=== PATIENT | female | born 1945 | race American Indian/Alaskan Native ===

== ENCOUNTER 2016-12-21 08:54 | Day surgery (SDC) | payer MEDICARE, MEDICAID ==
[2016-12-20 15:28] VITALS: BMI 29.8
[2016-12-21 10:02] VITALS: RESP 20; O2SAT 99
[2016-12-21] MEDS ORDERED: Lidocaine 4% (Laryng-O-Jet) Kit MM ONE (11:05)
[2016-12-21] MEDS ORDERED: Propofol 10 mg/ml Inj (20 ML) ONE ×2 (11:53→11:54)
[2016-12-21] MEDS ORDERED: Etomidate 20 mg/10ml Inj IV ONE (12:15)
[2016-12-21 16:44] VITALS: TEMP 97
[2016-12-21 16:45] VITALS: BP 148/87; PULSE 75
--- NOTE | 2016-12-29 22:10 | CARD ---
APPROVED REPORT EXAM: Two-dimensional and M-mode echocardiogram with Doppler and color Doppler. Other Information Quality : GoodRhythm : INDICATION Aortic Valve Disease Surgery/Intervention Status/Post Aortic Valve Replacement: Bioprosthetic Status/Post Mitral Valve Replacement: Bioprosthetic 2D DIMENSIONS LVOT Diameter1.8 (1.8-2.4cm) Aortic Valve AoV Peak Uphrprzf087.9cm/sAoV HQR003.5cmAO Peak GR.73mmHg LVOT Peak Ijtzeyjq872.8cm/sLVOT VTI30.24cmAO Mean GR.35mmHg AURA (VMAX)0.00mz2HLD (VTI)0.71cm2 Mitral Valve MV E Ogirknew211.3cm/sMV E Peak Gr.27mmHgMV E Mean Gr.9mmHg E/A ratio0.0 TDI E/Lateral E'0.0E/Medial E'0.0 Tricuspid Valve TR Peak Dlwhzhed817vr/sTR Peak Gr.90tiTeQBTI22kvCo LEFT VENTRICLE The left ventricle is normal size. There is mild to moderate concentric left ventricular hypertrophy. Left ventricle systolic function is The Ejection Fraction is 60-65%. There is normal LV segmental wall motion. No left ventricle thrombus noted on this study. There is no ventricular septal defect visualized. RIGHT VENTRICLE The right ventricle is normal size. The right ventricular systolic function is normal. Moderate Pulmonary HTN. PASP =50mmHg ATRIA The left atrium is moderately dilated. The right atrium is moderately dilated. The interatrial septum is intact with no evidence for an atrial septal defect. AORTIC VALVE Bioprosthatic No aortic regurgitation is present. There is severe valvular aortic stenosis. Peak gradient 80mmHg, Mean 35mmHg AURA by contninuity equation 0.8sqcm There is no aortic valvular vegetation. MITRAL VALVE Boprosthatic There is moderate mitral valve stenosis. There is no mitral valve regurgitation noted. TRICUSPID VALVE There is mild to moderate tricuspid regurgitation. There is no tricuspid valve stenosis. PULMONIC VALVE The pulmonary valve is normal in structure. GREAT VESSELS The aortic root is normal in size. <Conclusion> Left ventricle systolic function is The Ejection Fraction is 60-65%. The right ventricular systolic function is normal. Moderate Pulmonary HTN. PASP =50mmHg The left atrium is moderately dilated. The right atrium is moderately dilated. Aortic valve is Bioprosthatic There is severe valvular aortic stenosis. Peak gradient 80mmHg, Mean 35mmHg AURA by contninuity equation 0.8sqcm Mitral valve is Boprosthatic There is moderate mitral valve stenosis. The aortic root is normal in size.
--- NOTE | 2016-12-29 22:19 | CARD ---
APPROVED REPORT EXAM: Two-dimensional and M-mode echocardiogram with Doppler and color Doppler. INDICATION BIOPROSTHATIC AVR, MVR AND DYSPNEA Mitral Valve E/A ratio0.0 TDI E/Lateral E'0.0E/Medial E'0.0 Reason For Test : Evaluate Aortic valve disease PROCEDURE After obtaining informed consent, patient underwent transesophageal echo in the [facility] [employer] [facility]. Type of Sedation : Conscious Sedation Sedation was provided by anesthesiologist. Sedation was achieved with intravenously. The OMAIRA was performed complications. Throughout the procedure, the blood pressure, pulse oximetry, cardiac rhythm, and rate were monitored. The patient tolerated the procedure without adverse effects. Recovery from conscious sedation was uneventful and vital signs were stable. LEFT VENTRICLE The left ventricle is normal size. The left ventricular function is normal. The left ventricular ejection fraction is within the normal range. No left ventricle thrombus noted on this study. There is no ventricular septal defect visualized. RIGHT VENTRICLE The right ventricle is normal size. The right ventricular systolic function is normal. ATRIA The left atrium is mildly dilated. The right atrium size is normal. The interatrial septum is intact with no evidence for an atrial septal defect. AORTIC VALVE Aortic valve Bioprosthatic No aortic regurgitation is present. AURA by planmetry 0.7 sqcm There is no aortic valvular vegetation. MITRAL VALVE Mitral valve is Bioprosthatic There is mild mitral valve stenosis. There is mild mitral valve regurgitation noted. TRICUSPID VALVE The tricuspid valve is normal in structure. There is mild tricuspid regurgitation. PULMONIC VALVE The pulmonary valve is normal in structure. GREAT VESSELS The aortic root is normal in size. <Conclusion> The left ventricular function is normal. The left ventricular ejection fraction is within the normal range. Aortic valve Bioprosthatic AURA by planmetry 0.7 sqcm Mitral valve is Bioprosthatic There is mild mitral valve stenosis. There is mild mitral valve regurgitation noted. The aortic root is normal in size.
== END 2016-12-21 16:55 | disposition home or self-care (01) ==
LOC: C.CATHLAB 08:54
PROVIDERS: ATTEND Internal Medicine Cardiovascular Disease
DX: I35.9 Nonrheumatic aortic valve disorder, unspecified (principal)
CPT/HCPCS: 93306; 93312; J2704

== ENCOUNTER 2017-01-04 07:35 | Observation (INO) | payer MEDICARE, MEDICAID ==
[2017-01-03 11:40] VITALS: BMI 29.9
[2017-01-04 09:07] LABS: CALCIUM 9.2 mg/dl (8.6-10.4)
[2017-01-04 09:15] LABS: INR 1.8; PROTHROMBIN TIME 20.3 SECONDS (9.7-12.2)
[2017-01-04] MEDS ORDERED: Potassium Chloride 20 mEq ER Tab PO ONE (09:37)
[2017-01-04] MEDS ORDERED: Potassium Chloride 20 mEq ER Tab PO STA (09:40)
[2017-01-04] MEDS ORDERED: Midazolam 2 MG/2 ML VIAL ONE (11:40)
[2017-01-04] MEDS ORDERED: Iodixanol 320 MG/ML 100 ML BOTTLE IV ONE ×2 (11:41→12:07)
[2017-01-04] MEDS ORDERED: Lidocaine 2% Inj (20ml) ONE (11:51)
--- NOTE | 2017-01-04 12:45 | CP.PCM.CON ---
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 FamHx: Mom: 2 CVA and PA, PAD Sister: secondary to breast cancer at age 59 PMD: new one at [facility] Cardiology/previous PMD: Dr Man Review of Systems - Constitutional Constitutional: absent: Chills, Fever - EENT Eyes: absent: Change in Vision - Cardiovascular Cardiovascular: Dyspnea, Orthopnea, Pedal Edema. absent: Chest Pain, Diaphoresis, Palpitations - Respiratory Respiratory: Dyspnea, Dyspnea on Exertion. absent: Cough - Gastrointestinal Gastrointestinal: absent: Abdominal Pain, Constipation, Diarrhea, Nausea, Vomiting - Genitourinary Genitourinary: absent: Change in Urinary Stream, Difficulty Urinating, Pyuria - Musculoskeletal Musculoskeletal: Numbness. absent: Tingling Additional comments: left foot - Integumentary Integumentary: Swelling - Neurological Neurological: absent: Numbness, Syncope, Weakness - Psychiatric Psychiatric: absent: Change in Appetite - Endocrine Endocrine: Fatigue. absent: Palpitations - Hematologic/Lymphatic Hematologic: absent: Easy Bleeding, Easy Bruising Physical Exam - Constitutional Appears: Well, No Acute Distress - Head Exam Head Exam: ATRAUMATIC, NORMAL INSPECTION, NORMOCEPHALIC - Eye Exam Eye Exam: EOMI, Normal appearance - ENT Exam ENT Exam: Mucous Membranes Moist - Neck Exam Neck exam: Positive for: Normal Inspection - Respiratory Exam Respiratory Exam: NORMAL BREATHING PATTERN. absent: Chest Wall Tenderness, Rhonchi, Wheezes - Cardiovascular Exam Additional comments: systolic murmur 4/6 - GI/Abdominal Exam GI & Abdominal Exam: Normal Bowel Sounds, Soft. absent: Guarding, Rebound, Tenderness - Extremities Exam Extremities exam: Positive for: pedal edema Additional comments: +1 nonpitting edema. - Neurological Exam Neurological exam: Alert, Oriented x3 - Psychiatric Exam Psychiatric exam: Normal Affect, Normal Mood - Skin Skin Exam: Dry, Warm Past Patient History - Past Medical History & Family History Past Medical History?: Yes - Past Social History Smoking Status: Former Smoker - CARDIAC Hx Cardiac Disorders: Yes (A-fib) Hx Congestive Heart Failure: Yes Hx Hypertension: Yes Hx Mitral Valve Prolapse: (Mitral Valve Disorder?) Hx Pacemaker: Yes (Left Upper Anterior Chest) Other/Comment: valve replacement. PVD - PULMONARY Hx Respiratory Disorders: No - NEUROLOGICAL Hx Neurological Disorder: No - HEENT Hx HEENT Problems: No - RENAL Hx Chronic Kidney Disease: No - ENDOCRINE/METABOLIC Hx Endocrine Disorders: No - HEMATOLOGICAL/ONCOLOGICAL Hx Blood Disorders: Yes Hx Cancer: Yes (breast) - INTEGUMENTARY Hx Dermatological Problems: No - MUSCULOSKELETAL/RHEUMATOLOGICAL Hx Musculoskeletal Disorders: No Hx Falls: No Other/Comment: PVD - GASTROINTESTINAL Hx Gastrointestinal Disorders: No - GENITOURINARY/GYNECOLOGICAL Hx Genitourinary Disorders: No - PSYCHIATRIC Hx Psychophysiologic Disorder: No Hx Substance Use: No - SURGICAL HISTORY Hx Surgeries: Yes Hx Mastectomy: Yes (right) Other/Comment: 2 valve replacement. HX: OMAIRA(12/21/16) - ANESTHESIA Hx Anesthesia: Yes Hx Anesthesia Reactions: No Hx Malignant Hyperthermia: No Meds Allergies/Adverse Reactions: Allergies Allergy/AdvReac Type Severity Reaction Status Date / Time blood plasma Allergy URTICARIA Uncoded 12/20/16 15:29 - Medications Medications: Current Medications Sodium Chloride (Sodium Chloride 0.9%) 1,000 mls @ 70 mls/hr IV .[id number] FUAD Stop: 01/05/17 13:30 Results - Labs Result Diagrams: 01/04/17 08:47 Labs: Laboratory Results - last 24 hr 01/04/17 01/04/17 08:47 08:47 PT 20.3 H INR 1.8 APTT 38 H Sodium 141 Potassium 3.2 L Chloride 102 Carbon Dioxide 25 Anion Gap 18 BUN 28 H Creatinine 1.4 H Est GFR ( Amer) 45 Est GFR (Non-Af Amer) 37 Random Glucose 114 H Calcium 9.2 Assessment & Plan - Assessment and Plan (Free Text) Assessment: 1. Severe 2. A Fib 3. Pulmonary HTN 4. CKD 5. PAD Patient s/p cath Admit to Hospitalist service Cardiology Consult: Dr. man Renal consult: Dr. Javier Normal coronaries IV Hydration overnight and follow renal function Renal consult dr. Javier Re start Coumadin tonight TAVR evaluation by Dr. Palafox as out patient
[2017-01-04] MEDS ORDERED: Sodium Chloride 0.9% 1,000 ML IV SCH (13:30)
--- NOTE | 2017-01-04 14:19 | CP.PCM.HP ---
History of Present Illness - History of Present Illness History of Present Illness: CC: s/p cardic cath procedure HPI: Mrs Javier is a 71 yr old mosotho mosotho female status post cardiac cath procedure being admitted to our service for observation prior to her transcatheter aortic valve replacement (TAVR). Patient has a history of aortic and mitral valve replacement (porcine) in 2011 and will now need the aortic valve replaced again. TAVR will be performed at [facility] at a to be determined time. She was seen and examined in the labor relations consultant. She complained of mild pain and swelling at the catheter insertion site. She is otherwise asymptomatic. PMD: New PMD at [facility] Youth Leader: Dr Man PMHx: CHF Aortic Stenosis AFib Breast Cancer HTN HLD PVD PSHx: Pacemaker placement Aortic and mitral valve replacement (porcine valves, 2011) Right breast cancer s/p radical lumpectomy and radiation therapy (2010) Common femoral endarterectomy and stent placement on the right leg (2009) Medications: amlodopine 5mg po daily carvedilol 12.5 mg po bid captopril 25mg po daily famotidine 40mg po daily ferrous sulfate 325mg po daily folic acid 1mg po daily crestor 10mg po hs Allergies: transfusion reaction (itchiness) SocialHx: former smoker 1ppd for 20 years, 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 absent: Chest Pain - Respiratory Respiratory: Dyspnea on Exertion. absent: Wheezing - Genitourinary Genitourinary: absent: Dysuria - Musculoskeletal Musculoskeletal: absent: Back Pain - Neurological Neurological: absent: Behavioral Changes - Psychiatric Psychiatric: absent: Behavioral Changes Past Patient History - Past Medical History & Family History Past Medical History?: Yes - Past Social History Smoking Status: Former Smoker - CARDIAC Hx Cardiac Disorders: Yes (A-fib) Hx Congestive Heart Failure: Yes Hx Hypertension: Yes Hx Mitral Valve Prolapse: (Mitral Valve Disorder?) Hx Pacemaker: Yes (Left Upper Anterior Chest) Other/Comment: valve replacement. PVD - PULMONARY Hx Respiratory Disorders: No - NEUROLOGICAL Hx Neurological Disorder: No - HEENT Hx HEENT Problems: No - RENAL Hx Chronic Kidney Disease: No - ENDOCRINE/METABOLIC Hx Endocrine Disorders: No - HEMATOLOGICAL/ONCOLOGICAL Hx Blood Disorders: Yes Hx Cancer: Yes (breast) - INTEGUMENTARY Hx Dermatological Problems: No - MUSCULOSKELETAL/RHEUMATOLOGICAL Hx Musculoskeletal Disorders: No Hx Falls: No Other/Comment: PVD - GASTROINTESTINAL Hx Gastrointestinal Disorders: No - GENITOURINARY/GYNECOLOGICAL Hx Genitourinary Disorders: No - PSYCHIATRIC Hx Psychophysiologic Disorder: No Hx Substance Use: No - SURGICAL HISTORY Hx Surgeries: Yes Hx Mastectomy: Yes (right) Other/Comment: 2 valve replacement. HX: OMAIRA(12/21/16) - ANESTHESIA Hx Anesthesia: Yes Hx Anesthesia Reactions: No Hx Malignant Hyperthermia: No Meds Allergies/Adverse Reactions: Allergies Allergy/AdvReac Type Severity Reaction Status Date / Time blood plasma Allergy URTICARIA Uncoded 12/20/16 15:29 Physical Exam - Constitutional Appears: Well, No Acute Distress - Head Exam Head Exam: ATRAUMATIC, NORMAL INSPECTION, NORMOCEPHALIC - Eye Exam Eye Exam: EOMI, Normal appearance, PERRL - ENT Exam ENT Exam: Mucous Membranes Moist, Normal Exam Additional comments: dentures in superior oral cavity - Neck Exam Neck exam: Positive for: Normal Inspection - Respiratory Exam Respiratory Exam: Clear to Auscultation Bilateral, NORMAL BREATHING PATTERN - Cardiovascular Exam Cardiovascular Exam: REGULAR RHYTHM, Systolic Murmur Additional comments: systolic murmur heard best in aortic area - GI/Abdominal Exam GI & Abdominal Exam: Hypoactive Bowel Sounds, Soft. absent: Tenderness - Rectal Exam Rectal Exam: Deferred - Extremities Exam Extremities exam: Positive for: pedal edema - Neurological Exam Neurological exam: Alert, Oriented x3 - Psychiatric Exam Psychiatric exam: Normal Affect, Normal Mood - Skin Skin Exam: Dry, Intact, Normal Color, Warm Results - Labs Result Diagrams: 01/04/17 08:47 Labs: Laboratory Results - last 24 hr 01/04/17 01/04/17 08:47 08:47 PT 20.3 H INR 1.8 APTT 38 H Sodium 141 Potassium 3.2 L Chloride 102 Carbon Dioxide 25 Anion Gap 18 BUN 28 H Creatinine 1.4 H Est GFR ( Amer) 45 Est GFR (Non-Af Amer) 37 Random Glucose 114 H Calcium 9.2 Assessment & Plan (1) Status post cardiac catheterization Assessment and Plan: Cardiology consulted, Dr Man Nephrology consulted, Dr Javier Status: Acute (2) Hypertension Assessment and Plan: see CHF medications Status: Acute (3) S/P aortic valve and mitral valve replacement Status: Acute (4) PVD (peripheral vascular disease) Status: Acute (5) Atrial fibrillation Assessment and Plan: coumadin 2mg po daily, follow INR Status: Acute (6) HLD (hyperlipidemia) Assessment and Plan: crestor 10mg po daily Status: Acute (7) GERD (gastroesophageal reflux disease) Assessment and Plan: famotidine 40mg po daily Status: Acute (8) CHF (congestive heart failure) Assessment and Plan: carvedilol 12.5mg po bid amlodipine 5mg po daily vasotech 5mg po daily - patient's home medication captopril was not available per pharmacy, vasotech was recommended as substitute Status: Acute (9) Iron deficiency anemia Assessment and Plan: ferrous sulfate 325mg po daily solic acid 1mg po daily Status: Acute (10) Hypokalemia Assessment and Plan: K+ 3.2 -> kdur 40meq 1 dose Status: Acute (11) Prophylactic measure Assessment and Plan: scd's b/l heparin 5000u sc q8 vitals q4 heart healthy diet Status: Acute
--- NOTE | 2017-01-04 17:10 | CP.PCM.CON ---
<Leah Shah - Last Filed: 01/04/17 19:41> History of Present Illness - History of Present Illness History of Present Illness: Cardiology Consult note for Dr. Man Reason for consult: 71 AA female PMHx CHF, Aortic Stenosis, AFib, Breast Cancer, HTN, HLD, PVD admitted for observation s/p cardiac cath 01/[address] Pennington. Cardiac cath was done as patient is due for TAVR at [facility] in the near future with Dr. Pennington. Patient has a history of porcine aortic and mitral valve replacement in 2011, however patient needs aortic valve replaced. Patient was complaining of shortness of breath when she was lying flat and some mild pain and swelling at the catheter insertion site but was otherwise asymptomatic. 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 absent: Chills, Fever - EENT Eyes: As Per HPI. absent: Blurred Vision Ears: As Per HPI. absent: Dizziness - Cardiovascular Cardiovascular: As Per HPI, Dyspnea on Exertion. absent: Chest Pain - Respiratory Respiratory: As Per HPI, Dyspnea, Dyspnea on Exertion. absent: Cough - Gastrointestinal Gastrointestinal: As Per HPI. absent: Abdominal Pain, Constipation, Diarrhea, Nausea, Vomiting - Genitourinary Genitourinary: As Per HPI. absent: Dysuria - Musculoskeletal Musculoskeletal: As Per HPI. absent: Back Pain - Neurological Neurological: As Per HPI. absent: Dizziness, Headaches - Endocrine Endocrine: As Per HPI. absent: Polydipsia, Polyphagia Past Patient History - Past Medical History & Family History Past Medical History?: Yes - Past Social History Smoking Status: Former Smoker - CARDIAC Hx Cardiac Disorders: Yes (A-fib) Hx Congestive Heart Failure: Yes Hx Hypertension: Yes Hx Mitral Valve Prolapse: (Mitral Valve Disorder?) Hx Pacemaker: Yes (Left Upper Anterior Chest) Other/Comment: valve replacement. PVD - PULMONARY Hx Respiratory Disorders: No - NEUROLOGICAL Hx Neurological Disorder: No - HEENT Hx HEENT Problems: No - RENAL Hx Chronic Kidney Disease: No - ENDOCRINE/METABOLIC Hx Endocrine Disorders: No - HEMATOLOGICAL/ONCOLOGICAL Hx Blood Disorders: Yes Hx Cancer: Yes (breast) - INTEGUMENTARY Hx Dermatological Problems: No - MUSCULOSKELETAL/RHEUMATOLOGICAL Hx Musculoskeletal Disorders: No Hx Falls: No Other/Comment: PVD - GASTROINTESTINAL Hx Gastrointestinal Disorders: No - GENITOURINARY/GYNECOLOGICAL Hx Genitourinary Disorders: No - PSYCHIATRIC Hx Psychophysiologic Disorder: No Hx Substance Use: No - SURGICAL HISTORY Hx Surgeries: Yes Hx Mastectomy: Yes (right) Other/Comment: 2 valve replacement. HX: OMAIRA(12/21/16) - ANESTHESIA Hx Anesthesia: Yes Hx Anesthesia Reactions: No Hx Malignant Hyperthermia: No Meds Allergies/Adverse Reactions: Allergies Allergy/AdvReac Type Severity Reaction Status Date / Time blood plasma Allergy URTICARIA Uncoded 12/20/16 15:29 - Medications Medications: Current Medications Amlodipine Besylate (Norvasc) 5 mg PO DAILY [facility] Carvedilol (Coreg) 12.5 mg PO BID [facility] Enalapril Maleate (Vasotec) 5 mg PO DAILY [facility] Famotidine (Pepcid) 40 mg PO DAILY [facility] Ferrous Sulfate (Feosol) 325 mg PO DAILY [facility] Folic Acid (Folic Acid) 1 mg PO DAILY [facility] Heparin Sodium (Porcine) (Heparin) 5,000 units SC Q8 [facility] Sodium Chloride (Sodium Chloride 0.9%) 1,000 mls @ 70 mls/hr IV .[id number] [facility] Stop: 01/05/17 13:30 Rosuvastatin Calcium (Crestor) 10 mg PO HS [facility] Warfarin Sodium (Coumadin) 2 mg PO 1800 [facility] Stop: 01/04/17 18:01 Physical Exam - Constitutional Appears: Well, No Acute Distress - Head Exam Head Exam: NORMAL INSPECTION, NORMOCEPHALIC - Eye Exam Eye Exam: EOMI, Normal appearance. absent: Conjunctival injection, Scleral icterus Pupil Exam: PERRL - ENT Exam ENT Exam: Mucous Membranes Moist - Respiratory Exam Respiratory Exam: Clear to Auscultation Bilateral, NORMAL BREATHING PATTERN. absent: Accessory Muscle Use, Rales, Rhonchi, Wheezes, Respiratory Distress - Cardiovascular Exam Cardiovascular Exam: REGULAR RHYTHM, +S1, +S2, Systolic Murmur (4/6 radiating to carotids) - GI/Abdominal Exam GI & Abdominal Exam: Normal Bowel Sounds, Soft. absent: Tenderness - Extremities Exam Extremities exam: Positive for: pedal edema (+1 nonpitting). Negative for: tenderness - Neurological Exam Neurological exam: Alert, Oriented x3 - Psychiatric Exam Psychiatric exam: Normal Affect, Normal Mood - Skin Skin Exam: Dry, Intact, Normal Color, Warm Results - Vital Signs Recent Vital Signs: Last Vital Signs Temp 97.2 F L 01/04/17 15:55 Pulse 61 01/04/17 15:55 Resp 20 01/04/17 15:55 BP 145/81 01/04/17 15:55 Pulse Ox 96 01/04/17 15:55 - Labs Result Diagrams: 01/04/17 08:47 Labs: Laboratory Results - last 24 hr 01/04/17 01/04/17 08:47 08:47 PT 20.3 H INR 1.8 APTT 38 H Sodium 141 Potassium 3.2 L Chloride 102 Carbon Dioxide 25 Anion Gap 18 BUN 28 H Creatinine 1.4 H Est GFR ( Amer) 45 Est GFR (Non-Af Amer) 37 Random Glucose 114 H Calcium 9.2 Assessment & Plan - Assessment and Plan (Free Text) Assessment: 71 AA female PMHx CHF, Aortic Stenosis, AFib, Breast Cancer, HTN, HLD, PVD admitted for observation s/p cardiac cath 01/[address] Pennington Plan: -s/p cardiac cath that showed normal coronaries IV hydration at 70cc/hr s/p cath as patient has hx of renal disease -Continue current medical management Norvasc 5mg po daily Coreg 12.5mg po bid Enalapril 5mg po daily Crestor 10mg po hs Warfarin 2mg po daily -TAVR at [facility] in the near future with Dr. Pennington Cardiology will follow Case discussed with Dr. Donovan Shah PGY2 <Clare Man - Last Filed: 01/09/17 10:54> Results - Vital Signs Recent Vital Signs: Last Vital Signs Temp 98.9 F 01/05/17 15:00 Pulse 85 01/05/17 15:45 Resp 20 01/05/17 15:00 BP 150/73 01/05/17 17:27 Pulse Ox 94 L 01/05/17 15:00 - Labs Result Diagrams: 01/05/17 06:36 01/05/17 06:36 Attending/Attestation - Attestation I have personally seen and examined this patient.: Yes I have fully participated in the care of the patient.: Yes I have reviewed all pertinent clinical information: Yes Notes (Text): 01/09/17 10:54 Pt workup for TAVR severe pt stable
--- NOTE | 2017-01-05 06:31 | CP.PCM.PN ---
Subjective - Date & Time of Evaluation Date of Evaluation: 01/05/17 Time of Evaluation: 06:31 - Subjective Subjective: Tolerating PO no CP no sob Objective - Vital Signs/Intake and Output Vital Signs (last 24 hours): Temp Pulse Resp BP Pulse Ox 98.9 F 70 20 144/79 96 01/05/17 04:00 01/05/17 04:00 01/05/17 04:00 01/05/17 04:00 01/04/17 23:05 Intake and Output: 01/04/17 01/05/17 18:59 06:59 Intake Total 900 Balance 900 - Medications Medications: Current Medications Amlodipine Besylate (Norvasc) 5 mg PO DAILY [facility] Carvedilol (Coreg) 12.5 mg PO BID [facility] Last Admin: 01/04/17 17:49 Dose: 12.5 mg Enalapril Maleate (Vasotec) 5 mg PO DAILY [facility] Famotidine (Pepcid) 40 mg PO DAILY [facility] Ferrous Sulfate (Feosol) 325 mg PO DAILY [facility] Folic Acid (Folic Acid) 1 mg PO DAILY [facility] Heparin Sodium (Porcine) (Heparin) 5,000 units SC Q8 [facility] Last Admin: 01/05/17 05:59 Dose: 5,000 units Sodium Chloride (Sodium Chloride 0.9%) 1,000 mls @ 70 mls/hr IV .[id number] [facility] Stop: 01/05/17 13:30 Last Admin: 01/04/17 16:00 Dose: 70 mls/hr Rosuvastatin Calcium (Crestor) 10 mg PO HS [facility] Last Admin: 01/04/17 21:53 Dose: 10 mg - Labs Labs: 01/04/17 08:47 PT 20.3 SECONDS (9.7-12.2) H 01/04/17 08:47 INR 1.8 01/04/17 08:47 APTT 38 SECONDS (21-34) H 01/04/17 08:47 - Constitutional Appears: Well - Head Exam Head Exam: ATRAUMATIC, NORMOCEPHALIC - Eye Exam Eye Exam: Normal appearance - ENT Exam ENT Exam: Mucous Membranes Moist - Respiratory Exam Respiratory Exam: Clear to Ausculation Bilateral - Cardiovascular Exam Cardiovascular Exam: Irregular Rhythm, +S1, +S2, Murmur - GI/Abdominal Exam GI & Abdominal Exam: Normal Bowel Sounds - Extremities Exam Extremities Exam: Normal Inspection - Neurological Exam Neurological Exam: Alert, Awake - Psychiatric Exam Psychiatric exam: Normal Affect - Skin Skin Exam: Dry Assessment and Plan (1) Atrial fibrillation Assessment & Plan: s/p MVR s/p ppm appr function severe for TAVR f/u in office and NBI for TAVR Status: Acute (2) Status post cardiac catheterization Status: Acute
[2017-01-05 06:53] LABS: BASO % 0.6 % (0.0-2.0); EOS # 0.2 K/uL (0.0-0.7); EOS % 2.1 % (0.0-4.0); HEMOGLOBIN 9.5 g/dL (11.0-16.0); LYMPH # 1.1 K/uL (1.0-4.3); MEAN CELL VOLUME 74.2 fL (81.0-99.0); MEAN CORPUSCULAR HEMOGLOBIN 24.3 pg (27.0-31.0); MEAN CORPUSCULAR HGB CONC 32.7 g/dL (33.0-37.0); MEAN PLATELET VOLUME 8.7 fL (7.2-11.7); MONO # 0.4 K/uL (0.0-0.8); MONO % 4.7 % (0.0-10.0); NEUT # 6.5 K/uL (1.8-7.0); NEUT % 79.6 % (50.0-75.0); NRBC % 0.1 % (0.0-2.0); RBC 3.93 Mil/uL (3.80-5.20); RED CELL DISTRIBUTION WIDTH 18.9 % (11.5-14.5); WHITE BLOOD COUNT 8.2 K/uL (4.8-10.8)
[2017-01-05 07:10] LABS: ALBUMIN 3.1 g/dL (3.5-5.0)
[2017-01-05 07:11] LABS: INR 1.6; PROTHROMBIN TIME 18.7 SECONDS (9.7-12.2)
[2017-01-05 07:13] LABS: ALB/GLOB RATIO 0.9 (1.0-2.1)
[2017-01-05 07:14] LABS: MAGNESIUM 1.8 mg/dL (1.6-2.3)
[2017-01-05] MEDS ORDERED: Potassium Chloride 20 mEq ER Tab PO ONE ×2 (10:00→17:30)
[2017-01-05 11:51] VITALS: RESP 20
[2017-01-05 16:17] VITALS: PULSE 85
[2017-01-05 17:29] VITALS: BP 150/73
[2017-01-05 17:34] VITALS: TEMP 98.9; O2SAT 94
--- NOTE | 2017-01-05 17:55 | CP.PCM.PN ---
Subjective - Date & Time of Evaluation Date of Evaluation: 01/05/17 Time of Evaluation: 17:30 - Subjective Subjective: Hospitalist Progress Note (Patient was seen and examined at 5:30 PM 01/05/17) 71 year old female who was admitted for observation S/P Cardiac Catheterization on 01/04/17 for clearance for Trans Catheter Aortic Valve Replacement at [facility] (Former[facility]). She had Renal Insufficiency after the Cardiac Catheterization, she was gently hydrated, her diuretic was held, and her Renal Function improved. Currently upon FULL ROS there is NO chest pain, NO palpitations, NO SOB (bill will feel like she has to catch her breath more and more with less and less of activity), NO cough/wheezing, NO abdominal pain, NO n/v/d/c, NO dysphagia/ odynophagia, NO burning/pain with urination, NO lightheadedness/dizziness, NO paresthesias, NO headache, NO new changes in vision, NO new changes in hearing. Physical Exam - Constitutional Appears: Well, No Acute Distress - Head Exam Head Exam: ATRAUMATIC, NORMAL INSPECTION, NORMOCEPHALIC - Eye Exam Eye Exam: EOMI, Normal appearance, PERRL - ENT Exam ENT Exam: Mucous Membranes Moist, Normal Exam Additional comments: dentures in superior oral cavity - Neck Exam Neck exam: Positive for: Normal Inspection - Respiratory Exam Respiratory Exam: Clear to Auscultation Bilateral, NORMAL BREATHING PATTERN - Cardiovascular Exam Cardiovascular Exam: REGULAR RHYTHM, HOLOSYSTOLIC MURMUR IN ALL AUSCULTATORY RIVERA, S1 AND S2 ARE NOT DESCERNABLE. Additional comments: - GI/Abdominal Exam GI & Abdominal Exam: Hypoactive Bowel Sounds, Soft. absent: Tenderness - Rectal Exam Rectal Exam: Deferred - Extremities Exam Extremities exam: Positive for: pedal edema. NO bleeding from Right Groin Catheterization entry site - Neurological Exam Neurological exam: Alert, Oriented x3 - Psychiatric Exam Psychiatric exam: Normal Affect, Normal Mood - Skin Skin Exam: Dry, Intact, Normal Color, Warm The patient is stable for discharge from medical and cardiology (Dr. Man who recommended Clonidine 0.1 mg PO 2x/day for the elevated blood pressure) standpoint. The following instructions should be provided to patient upon discharge: 1). Schedule follow up with Dr. Man by calling his office on Saturday morning for an appointment to take place this coming week. 2). Schedule follow up with Dr. Pennington by calling his office on Saturday01/07/17 morning to see when he would like to see you and schedule you for your Aortic Valve Replacement. 3). Please continue the following home medications which I went over with your and saw that you had enough of: Warfarin 3 mg, 1 tablet by mouth at bedtime Pantoprazole 40 mg, 1 tablet by mouth 1x/day Ferrous Sulfate 324 mg 1 tablet by mouth 1x/day Amlodipine 5 mg, 1 tablet by mouth 1x/day Allopurinol 300 mg, 1 tablet by mouth 1x/day Crestor 10 mg, 1 tablet by mouth 1x/day Carvedilol 25 mg, 1 tablet by mouth 1x/day 4). Please do not take Lasix until further directed by Dr. Man. This medication was held during your hospital admission because of declining kidney function. 5). The following prescription was provided to you and is a new medication: Clonidine 0.1 mg, 1 tablet by mouth 2x/day (breakfast and dinner). 6). Please take care. Terrell Naranjo D.O. Objective - Vital Signs/Intake and Output Vital Signs (last 24 hours): Temp Pulse Resp BP Pulse Ox 98.9 F 85 20 150/73 94 L 01/05/17 15:00 01/05/17 15:45 01/05/17 15:00 01/05/17 17:27 01/05/17 15:00 Intake and Output: 01/05/17 01/05/17 06:59 18:59 Intake Total 900 Balance 900 - Medications Medications: Current Medications Amlodipine Besylate (Norvasc) 5 mg PO DAILY [facility] Last Admin: 01/05/17 09:39 Dose: 5 mg Carvedilol (Coreg) 12.5 mg PO BID [facility] Last Admin: 01/05/17 17:27 Dose: 12.5 mg Enalapril Maleate (Vasotec) 5 mg PO DAILY [facility] Last Admin: 01/05/17 09:39 Dose: 5 mg Famotidine (Pepcid) 40 mg PO DAILY [facility] Last Admin: 01/05/17 09:39 Dose: 40 mg Ferrous Sulfate (Feosol) 325 mg PO DAILY [facility] Last Admin: 01/05/17 09:39 Dose: 325 mg Folic Acid (Folic Acid) 1 mg PO DAILY [facility] Last Admin: 01/05/17 09:38 Dose: 1 mg Heparin Sodium (Porcine) (Heparin) 5,000 units SC Q8 [facility] Last Admin: 01/05/17 13:13 Dose: 5,000 units Rosuvastatin Calcium (Crestor) 10 mg PO HS [facility] Last Admin: 01/04/17 21:53 Dose: 10 mg - Labs Labs: 01/05/17 06:36 01/05/17 06:36 PT 18.7 SECONDS (9.7-12.2) H 01/05/17 06:36 INR 1.6 01/05/17 06:36 APTT 34 SECONDS (21-34) 01/05/17 06:36
--- NOTE | 2017-01-05 18:24 | CP.PCM.DIS ---
<Naveed Maria - Last Filed: 01/05/17 18:18> Provider - Provider Date of Admission: 01/04/17 13:50 Attending physician: Terrell Naranjo MD Primary care physician: PMD: new PMD at [facility] Consults: Cardiology - Dr Man Nephrology - Dr Javier Time Spent in preparation of Discharge (in minutes): 45 Diagnosis - Discharge Diagnosis (1) Status post cardiac catheterization Status: Acute (2) Hypertension Status: Acute (3) S/P aortic valve and mitral valve replacement Status: Acute (4) PVD (peripheral vascular disease) Status: Acute (5) Atrial fibrillation Status: Acute (6) HLD (hyperlipidemia) Status: Acute (7) GERD (gastroesophageal reflux disease) Status: Acute (8) CHF (congestive heart failure) Status: Acute (9) Iron deficiency anemia Status: Acute (10) Hypokalemia Status: Acute (11) Prophylactic measure Status: Acute Hospital Course - Lab Results Lab Results: Most Recent Lab Values WBC 8.2 K/uL (4.8-10.8) D 01/05/17 06:36 RBC 3.93 Mil/uL (3.80-5.20) 01/05/17 06:36 Hgb 9.5 g/dL (11.0-16.0) L 01/05/17 06:36 Hct 29.2 % (34.0-47.0) L 01/05/17 06:36 MCV 74.2 fL (81.0-99.0) L D 01/05/17 06:36 MCH 24.3 pg (27.0-31.0) L 01/05/17 06:36 MCHC 32.7 g/dL (33.0-37.0) L 01/05/17 06:36 RDW 18.9 % (11.5-14.5) H 01/05/17 06:36 Plt Count 160 K/uL (130-400) 01/05/17 06:36 MPV 8.7 fL (7.2-11.7) 01/05/17 06:36 Neut % (Auto) 79.6 % (50.0-75.0) H 01/05/17 06:36 Lymph % (Auto) 13.0 % (20.0-40.0) L 01/05/17 06:36 [place] % (Auto) 4.7 % (0.0-10.0) 01/05/17 06:36 Eos % (Auto) 2.1 % (0.0-4.0) 01/05/17 06:36 Baso % (Auto) 0.6 % (0.0-2.0) 01/05/17 06:36 Neut # 6.5 K/uL (1.8-7.0) 01/05/17 06:36 Lymph # 1.1 K/uL (1.0-4.3) 01/05/17 06:36 [place] # 0.4 K/uL (0.0-0.8) 01/05/17 06:36 Eos # 0.2 K/uL (0.0-0.7) 01/05/17 06:36 Baso # 0.0 K/uL (0.0-0.2) 01/05/17 06:36 PT 18.7 SECONDS (9.7-12.2) H 01/05/17 06:36 INR 1.6 01/05/17 06:36 APTT 34 SECONDS (21-34) 01/05/17 06:36 Sodium 141 mmol/L (132-148) 01/05/17 06:36 Potassium 3.4 mmol/L (3.6-5.2) L 01/05/17 06:36 Chloride 105 mmol/L (98-107) 01/05/17 06:36 Carbon Dioxide 22 mmol/L (22-30) 01/05/17 06:36 Anion Gap 17 (10-20) 01/05/17 06:36 BUN 23 mg/dL (7-17) H 01/05/17 06:36 Creatinine 1.3 MG/DL (0.7-1.2) H 01/05/17 06:36 Est GFR ( Amer) 49 01/05/17 06:36 Est GFR (Non-Af Amer) 41 01/05/17 06:36 Random Glucose 93 mg/dL (65-105) 01/05/17 06:36 Calcium 9.0 mg/dl (8.6-10.4) 01/05/17 06:36 Phosphorus 3.0 mg/dL (2.5-4.5) 01/05/17 06:36 Magnesium 1.8 mg/dL (1.6-2.3) 01/05/17 06:36 Total Bilirubin 1.1 mg/dL (0.2-1.3) 01/05/17 06:36 AST 16 U/L (14-36) 01/05/17 06:36 ALT 24 U/L (9-52) 01/05/17 06:36 Alkaline Phosphatase 88 U/L (38-126) 01/05/17 06:36 Total Protein 6.7 g/dL (6.3-8.3) 01/05/17 06:36 Albumin 3.1 g/dL (3.5-5.0) L 01/05/17 06:36 Globulin 3.6 gm/dL (2.2-3.9) 01/05/17 06:36 Albumin/Globulin Ratio 0.9 (1.0-2.1) L 01/05/17 06:36 - Hospital Course Hospital Course: CC: s/p [facility] cath procedure HPI: Mrs Javier is a 71 yr old ugandan ugandan female status post cardiac cath procedure being admitted to our service for observation prior to her transcatheter aortic valve replacement (TAVR). Patient has a history of aortic and mitral valve replacement (porcine) in 2011 and will now need the aortic valve replaced again. TAVR will be performed at [facility] at a to be determined time. She was seen and examined in the chemical laboratory technician. She complained of mild pain and swelling at the catheter insertion site. She is otherwise asymptomatic. PMD: New PMD at [facility] Supervisor [employer]: Dr Man PMHx: CHF Aortic Stenosis AFib Breast Cancer HTN HLD PVD PSHx: Pacemaker placement Aortic and mitral valve replacement (porcine valves, 2011) Right breast cancer s/p radical lumpectomy and radiation therapy (2010) Common femoral endarterectomy and stent placement on the right leg (2009) Medications: amlodopine 5mg po daily carvedilol 12.5 mg po bid captopril 25mg po daily famotidine 40mg po daily ferrous sulfate 325mg po daily folic acid 1mg po daily crestor 10mg po hs Allergies: transfusion reaction (itchiness) SocialHx: former smoker 1ppd for 20 years, 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 She had Renal Insufficiency after the Cardiac Catheterization, she was gently hydrated, her diuretic was held, and her Renal Function improved. Her potassium was low which was repleted with Kdur 40meq po. Cardiology and Nephrology were both consulted and both disciplines have cleared the patient per Dr Naranjo's conversation with the specialists. Discharge Exam - Head Exam Head Exam: ATRAUMATIC, NORMAL INSPECTION, NORMOCEPHALIC - Eye Exam Eye Exam: EOMI, Normal appearance, PERRL - ENT Exam ENT Exam: Mucous Membranes Moist - Neck Exam Neck exam: Normal Inspection - Respiratory Exam Respiratory Exam: NORMAL BREATHING PATTERN. absent: Rales, Rhonchi, Wheezes - Cardiovascular Exam Cardiovascular Exam: REGULAR RHYTHM, RRR, +S1, +S2 - GI/Abdominal Exam GI & Abdominal Exam: Normal Bowel Sounds, Soft. absent: Tenderness - Rectal Exam Rectal Exam: Deferred - Neurological Exam Neurological exam: Alert, Oriented x3 - Psychiatric Exam Psychiatric exam: Normal Affect, Normal Mood - Skin Skin Exam: Dry, Intact, Normal Color, Warm Discharge Plan - Discharge Medications Prescriptions: cloNIDine [Catapres] 0.1 mg PO BID #60 tab - Follow Up Plan Condition: GOOD Disposition: HOME/ ROUTINE Instructions: Heart Healthy Diet (DC), Hypokalemia (DC), Iron Deficiency Anemia (DC) Additional Instructions: The patient is stable for discharge from medical and cardiology (Dr. Man who recommended Clonidine 0.1 mg PO 2x/day for the elevated blood pressure) standpoint. The following instructions should be provided to patient upon discharge: 1). Schedule follow up with Dr. Man by calling his office on Saturday morning for an appointment to take place this coming week. 2). Schedule follow up with Dr. Pennington by calling his office on Saturday01/07/17 morning to see when he would like to see you and schedule you for your Aortic Valve Replacement. 3). Please continue the following home medications which I went over with your and saw that you had enough of: Warfarin 3 mg, 1 tablet by mouth at bedtime Pantoprazole 40 mg, 1 tablet by mouth 1x/day Ferrous Sulfate 324 mg 1 tablet by mouth 1x/day Amlodipine 5 mg, 1 tablet by mouth 1x/day Allopurinol 300 mg, 1 tablet by mouth 1x/day Crestor 10 mg, 1 tablet by mouth 1x/day Carvedilol 25 mg, 1 tablet by mouth 1x/day 4). Please do not take Lasix until further directed by Dr. Man. This medication was held during your hospital admission because of declining kidney function. 5). The following prescription was provided to you and is a new medication: Clonidine 0.1 mg, 1 tablet by mouth 2x/day (breakfast and dinner). 6). Please take care. Terrell Naranjo D.O. Referrals: Clare Man MD [Family Provider] - Mohan Pennington MD [Staff Provider] - Jose Enrique Javier MD [Staff Provider] - <Terrell Naranjo - Last Filed: 01/05/17 20:45> Provider - Provider Date of Admission: 01/04/17 13:50 Attending physician: Terrell Naranjo MD Hospital Course - Lab Results Lab Results: Most Recent Lab Values WBC 8.2 K/uL (4.8-10.8) D 01/05/17 06:36 RBC 3.93 Mil/uL (3.80-5.20) 01/05/17 06:36 Hgb 9.5 g/dL (11.0-16.0) L 01/05/17 06:36 Hct 29.2 % (34.0-47.0) L 01/05/17 06:36 MCV 74.2 fL (81.0-99.0) L D 01/05/17 06:36 MCH 24.3 pg (27.0-31.0) L 01/05/17 06:36 MCHC 32.7 g/dL (33.0-37.0) L 01/05/17 06:36 RDW 18.9 % (11.5-14.5) H 01/05/17 06:36 Plt Count 160 K/uL (130-400) 01/05/17 06:36 MPV 8.7 fL (7.2-11.7) 01/05/17 06:36 Neut % (Auto) 79.6 % (50.0-75.0) H 01/05/17 06:36 Lymph % (Auto) 13.0 % (20.0-40.0) L 01/05/17 06:36 [place] % (Auto) 4.7 % (0.0-10.0) 01/05/17 06:36 Eos % (Auto) 2.1 % (0.0-4.0) 01/05/17 06:36 Baso % (Auto) 0.6 % (0.0-2.0) 01/05/17 06:36 Neut # 6.5 K/uL (1.8-7.0) 01/05/17 06:36 Lymph # 1.1 K/uL (1.0-4.3) 01/05/17 06:36 [place] # 0.4 K/uL (0.0-0.8) 01/05/17 06:36 Eos # 0.2 K/uL (0.0-0.7) 01/05/17 06:36 Baso # 0.0 K/uL (0.0-0.2) 01/05/17 06:36 PT 18.7 SECONDS (9.7-12.2) H 01/05/17 06:36 INR 1.6 01/05/17 06:36 APTT 34 SECONDS (21-34) 01/05/17 06:36 Sodium 141 mmol/L (132-148) 01/05/17 06:36 Potassium 3.4 mmol/L (3.6-5.2) L 01/05/17 06:36 Chloride 105 mmol/L (98-107) 01/05/17 06:36 Carbon Dioxide 22 mmol/L (22-30) 01/05/17 06:36 Anion Gap 17 (10-20) 01/05/17 06:36 BUN 23 mg/dL (7-17) H 01/05/17 06:36 Creatinine 1.3 MG/DL (0.7-1.2) H 01/05/17 06:36 Est GFR ( Amer) 49 01/05/17 06:36 Est GFR (Non-Af Amer) 41 01/05/17 06:36 Random Glucose 93 mg/dL (65-105) 01/05/17 06:36 Calcium 9.0 mg/dl (8.6-10.4) 01/05/17 06:36 Phosphorus 3.0 mg/dL (2.5-4.5) 01/05/17 06:36 Magnesium 1.8 mg/dL (1.6-2.3) 01/05/17 06:36 Total Bilirubin 1.1 mg/dL (0.2-1.3) 01/05/17 06:36 AST 16 U/L (14-36) 01/05/17 06:36 ALT 24 U/L (9-52) 01/05/17 06:36 Alkaline Phosphatase 88 U/L (38-126) 01/05/17 06:36 Total Protein 6.7 g/dL (6.3-8.3) 01/05/17 06:36 Albumin 3.1 g/dL (3.5-5.0) L 01/05/17 06:36 Globulin 3.6 gm/dL (2.2-3.9) 01/05/17 06:36 Albumin/Globulin Ratio 0.9 (1.0-2.1) L 01/05/17 06:36 Attending/Attestation - Attestation I have personally seen and examined this patient.: Yes I have fully participated in the care of the patient.: Yes I have reviewed all pertinent clinical information, including history, physical exam and plan: Yes Notes (Text): 01/05/17 20:40 Please see my progress note as well. Terrell Naranjo D.O.
--- NOTE | 2017-01-05 23:01 | CP.PCM.PN ---
Subjective - Date & Time of Evaluation Date of Evaluation: 01/05/17 Time of Evaluation: 08:05 - Subjective Subjective: History of Present Illness - History of Present Illness History of Present Illness: cc: Exertional dyspnea 71F for TAVR evaluation for severe s/p cath PMH: Right breast cancer s/p radical lumpectomy and radiation therapy (2010) Atrial fibrillation on anticoagulation therapy (2006) Bilateral PAD with stent placement on the right leg (2009) h/o Aortic and mitral valve replacement (bovine valves, 2011) PSH: Pacemaker placement, valve replacement, angiogram and stent, radical lumpectomy SS: former smoker 1ppd for 20 years, 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 FamHx: Mom: 2 CVA and [place], PAD Sister: secondary to breast cancer at age 59 PMD: new one at [facility] Cardiology/previous PMD: Dr Man Review of Systems - Constitutional Constitutional: absent: Chills, Fever - EENT Eyes: absent: Change in Vision - Cardiovascular Cardiovascular: Dyspnea, Orthopnea, Pedal Edema. absent: Chest Pain, Diaphoresis, Palpitations - Respiratory Respiratory: Dyspnea, Dyspnea on Exertion. absent: Cough - Gastrointestinal Gastrointestinal: absent: Abdominal Pain, Constipation, Diarrhea, Nausea, Vomiting - Genitourinary Genitourinary: absent: Change in Urinary Stream, Difficulty Urinating, Pyuria - Musculoskeletal Musculoskeletal: Numbness. absent: Tingling Additional comments: left foot - Integumentary Integumentary: Swelling - Neurological Neurological: absent: Numbness, Syncope, Weakness - Psychiatric Psychiatric: absent: Change in Appetite - Endocrine Endocrine: Fatigue. absent: Palpitations - Hematologic/Lymphatic Hematologic: absent: Easy Bleeding, Easy Bruising Physical Exam - Constitutional Appears: Well, No Acute Distress - Head Exam Head Exam: ATRAUMATIC, NORMAL INSPECTION, NORMOCEPHALIC - Eye Exam Eye Exam: EOMI, Normal appearance - ENT Exam ENT Exam: Mucous Membranes Moist - Neck Exam Neck exam: Positive for: Normal Inspection - Respiratory Exam Respiratory Exam: NORMAL BREATHING PATTERN. absent: Chest Wall Tenderness, Rhonchi, Wheezes - Cardiovascular Exam Additional comments: systolic murmur 4/6 - GI/Abdominal Exam GI & Abdominal Exam: Normal Bowel Sounds, Soft. absent: Guarding, Rebound, Tenderness - Extremities Exam Extremities exam: Positive for: pedal edema Additional comments: +1 nonpitting edema. - Neurological Exam Neurological exam: Alert, Oriented x3 - Psychiatric Exam Psychiatric exam: Normal Affect, Normal Mood - Skin Skin Exam: Dry, Warm Objective - Vital Signs/Intake and Output Vital Signs (last 24 hours): Temp Pulse Resp BP Pulse Ox 98.9 F 85 20 150/73 94 L 01/05/17 15:00 01/05/17 15:45 01/05/17 15:00 01/05/17 17:27 01/05/17 15:00 - Labs Labs: 01/05/17 06:36 01/05/17 06:36 PT 18.7 SECONDS (9.7-12.2) H 01/05/17 06:36 INR 1.6 01/05/17 06:36 APTT 34 SECONDS (21-34) 01/05/17 06:36 Assessment and Plan - Assessment and Plan (Free Text) Assessment: Assessment & Plan - Assessment and Plan (Free Text) Assessment: 71 AA female PMHx CHF, Aortic Stenosis, AFib, Breast Cancer, HTN, HLD, PVD admitted for observation s/p cardiac cath 01/04 w Plan: -s/p cardiac cath that showed normal coronaries -Continue current medical management Norvasc 5mg po daily Coreg 12.5mg po bid Enalapril 5mg po daily Crestor 10mg po hs Warfarin 2mg po daily -TAVR at [facility] in the near future
--- NOTE | 2017-01-07 03:16 | CARDCATH ---
PROCEDURE DATE: 01/04/2017 PROCEDURES: 1. Coronary angiogram. 2. Abdominal aortogram and bilateral lower extremity arterial angiogram. REFERRING PHYSICIAN: . PERFORMING PHYSICIAN: Dr. Mohan Pennington. CLINICAL INDICATIONS: 1. Dyspnea. 2. Angina. 3. Hypertension. 4. Aortic stenosis. 5. History of mitral and aortic valve replacement with bioprosthetic valves. 6. History of bilateral common femoral artery endarterectomy. DESCRIPTION OF PROCEDURE: After informed consent, patient was prepped and draped in the usual sterile fashion. A 2% lidocaine was given in the right groin for local anesthesia. Using micropuncture technique, 6-Sinhala sheath was introduced into the right common femoral artery. Using the usual diagnostic catheters, coronary angiogram, abdominal aortogram and bilateral lower extremity angiogram was performed. The patient tolerated the procedure well. FINDINGS OF THE CORONARY ANGIOGRAM: 1. Left main coronary artery is patent. 2. LAD and diagonal branches are patent. 3. Left circumflex and obtuse marginal branches are patent. 4. Right coronary artery is dominant and patent. FINDINGS OF THE ABDOMINAL AORTOGRAM AND LOWER EXTREMITY ARTERIAL ANGIOGRAM: 1. Abdominal aortogram is free of disease. 2. Bilateral common iliac, external iliac arteries are patent. Bilateral common femoral artery has mild disease with history of common femoral artery endarterectomy. 3. Bilateral superficial femoral arteries, popliteal arteries are patent. IMPRESSION: 1. Normal coronaries. 2. History of bioprosthetic aortic, mitral valve replacement. 3. Severe aortic stenosis by echo. 4. History of bilateral common femoral artery endarterectomy. Mohan Pennington MD
== END 2017-01-05 18:50 | disposition home or self-care (01) ==
LOC: C.CATHLAB 07:35 → C.9S 13:50 → C.6T 16:05
PROVIDERS: ADMIT Family Medicine; ATTEND Family Medicine
DX: Z04.8 Encounter for examination and observation for other specified reasons (principal); Z98.890 Other specified postprocedural states; I35.0 Nonrheumatic aortic (valve) stenosis; I13.0 Hypertensive heart and chronic kidney disease with heart failure and stage 1 through stage 4 chronic kidney disease, or unspecified chronic kidney disease; I50.9 Heart failure, unspecified; N18.9 Chronic kidney disease, unspecified; I48.91 Unspecified atrial fibrillation; Z85.3 Personal history of malignant neoplasm of breast; Z95.3 Presence of xenogenic heart valve; Z92.3 Personal history of irradiation; Z87.891 Personal history of nicotine dependence; I73.9 Peripheral vascular disease, unspecified; E78.5 Hyperlipidemia, unspecified; K21.9 Gastro-esophageal reflux disease without esophagitis; D50.9 Iron deficiency anemia, unspecified; E87.6 Hypokalemia; Z95.0 Presence of cardiac pacemaker
CPT/HCPCS: 36200; 36415; 75625; 75716; 80048; 80053; 83735; 84100; 85025; 85610; 85730; 93458; 94770; 96372; C1769; C1887; G0378; J0360; J1644; J2250; J3010; J7040; Q9967

== ENCOUNTER 2018-02-04 16:08 | Inpatient (IN) | payer MEDICARE, MEDICAID ==
[2018-02-04 16:09] VITALS: BMI 29.9
--- NOTE | 2018-02-04 17:06 | C.PDOC ---
History Of Present Illness 72 year old female with PMHx of CHF, Aortic stenosis, Afib, Breast cancer, HTN, HLD, and PVD presents to the ED complaining of worsening B/L leg swelling for 2 weeks. Associated symptoms include worsening dyspnea on exertion. Denies chest pain. Patient is currently asymptomatic in the ED. Patient reports compliance with Diuretic medication. PSHx includes Pacemaker placement, Aortic and mitral valve replacement (porcine valves, 2011), TAVR 2017, Right breast cancer s/p radical lumpectomy and radiation therapy (2010), and Common femoral endarterectomy and stent placement on the right leg (2009). WORSENING B/L LEG SWELLING X 2 WEEKS. 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 CURRENTLY ASYMPT. 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 PMHx: CHF Aortic Stenosis AFib Breast Cancer HTN HLD PVD PSHx: Pacemaker placement Aortic and mitral valve replacement (porcine valves, 2011) TAVR 2017 Right breast cancer s/p radical lumpectomy and radiation therapy (2010) Common femoral endarterectomy and stent placement on the right leg (2009) Time Seen by Provider: 02/04/18 16:45 Chief Complaint (Nursing): Shortness Of Breath History Per: Patient History/Exam Limitations: no limitations Onset/Duration Of Symptoms: Days Current Symptoms Are (Timing): Gone Current Respiratory Medications: Diuretic Associated Symptoms: denies: Chest Pain Past Medical History Reviewed: Historical Data, Nursing Documentation, Vital Signs Vital Signs: Last Vital Signs Temp 97.7 F 02/04/18 16:12 Pulse 87 02/04/18 18:51 Resp 17 02/04/18 18:51 BP 97/42 L 02/04/18 18:51 Pulse Ox 100 02/04/18 18:51 - Medical History PMH: Atrial Fibrillation, CHF, HTN, Hyperlipidemia Denies: Chronic Kidney Disease Comment Only: Mitral Valve Prolapse (Mitral Valve Disorder?) Other PMH: Aortic Stenosis, Breast cancer, HLD, PVD, Afib Surgical History: Endoscopy, Pacemaker (Left Upper Anterior Chest) Other Surgeries: Aortic and mitral valve replacement (porcine valves, 2011). TAVR 2016. Right breast cancer s/p radical lumpectomy and radiation therapy ( 2011). Common femoral endarterectomy and stent placement on the right leg (2009 Family History: States: No Known Family Hx - Social History Hx Tobacco Use: Yes (former smoker) Hx Alcohol Use: No Hx Substance Use: No - Immunization History Hx Tetanus Toxoid Vaccination: No Hx Influenza Vaccination: No Hx Pneumococcal Vaccination: No Review Of Systems Except As Marked, All Systems Reviewed And Found Negative. Cardiovascular: Positive for: Edema (B/L leg swelling ). Negative for: Chest Pain Respiratory: Positive for: SOB with Excertion Physical Exam - Physical Exam Appears: Non-toxic, Other (NARD) Skin: Warm, Dry Head: Normacephalic Eye(s): bilateral: Normal Inspection Nose: Normal Oral Mucosa: Moist Neck: Supple Chest: Symmetrical Cardiovascular: Rhythm Regular Respiratory: No Rales, No Rhonchi, No Wheezing, Other (CTA B/L, Tachypnea ) Extremity: Pedal Edema (B/L 3+PITTING EDEMA) Neurological/Psych: Oriented x3, Normal Speech ED Course And Treatment - Laboratory Results Result Diagrams: 02/04/18 18:31 ECG: Interpreted By Nm ECG Rhythm: AV Paced Rate From EC O2 Sat by Pulse Oximetry: 100 (RA) Pulse Ox Interpretation: Normal - Radiology CXR: Interpreted by Nm CXR Interpretation: Yes: Other (CHF; R PLEURAL EFFUSION) Progress - Re-Evaluation Re-evaluation Note: 02/04/18 17:44 D/W DR SINGH WILL ADMIT 02/04/18 18:56 PS HO PRIOR BLOOD TRANSFUSION, REQUIRING BENADRYL - Data Reviewed Data Reviewed: Lab, Diagnostic imaging, EKG, Old records Disposition Counseled Patient/Family Regarding: Studies Performed, Diagnosis - Disposition Disposition: HOSPITALIZED Disposition Time: 18:50 Condition: STABLE Forms: [facility] (Greenlandic) - POA Present On Arrival: None - Clinical Impression Clinical Impression: CHF (congestive heart failure), Pleural effusion, Symptomatic anemia - Scribe Statement The provider has reviewed the documentation as recorded by the Scribami Baumann All medical record entries made by the Scribe were at my direction and personally dictated by me. I have reviewed the chart and agree that the record accurately reflects my personal performance of the history, physical exam, medical decision making, and the department course for this patient. I have also personally directed, reviewed, and agree with the discharge instructions and disposition. Decision To Admit - Pt Status Changed To: Hospital Disposition Of: Inpatient - Admit Certification Admit to Inpatient:: After my assessment, the patient will require hospitalization for at least two midnights. This is because of the severity of symptoms shown, intensity of services needed, and/or the medical risk in this patient being treated as an outpatient. - InPatient: Physician Admission Certification: I certify that this patient requires 2 or more midnights of care for the following reason:: SEE NOTE - . Bed Request Type: Telemetry Admitting Physician: Michelle Singh Patient Diagnosis: CHF (congestive heart failure), Pleural effusion
--- NOTE | 2018-02-04 17:36 | RAD ---
Date of service: 02/04/2018 PROCEDURE: CHEST RADIOGRAPH, 1 VIEW HISTORY: SOB COMPARISON: Comparison is made with 07/15/2016 FINDINGS: LUNGS: Right lower lung opacity may represent a pneumonia atelectasis or neoplasm. PLEURA: Right pleural effusion is noted. CARDIOVASCULAR: Left-sided pacemaker is again seen in place. Status post sternotomy. OSSEOUS STRUCTURES: No significant abnormalities. VISUALIZED UPPER ABDOMEN: Normal. OTHER FINDINGS: None. IMPRESSION: Right lower lung opacity associated with right pleural effusion. The differential consideration includes pneumonia or neoplasm.
[2018-02-04 18:42] LABS: BASO # 0.1 K/uL (0.0-0.2); BASO % 1.9 % (0.0-2.0); EOS # 0.1 K/uL (0.0-0.7); EOS % 1.4 % (0.0-4.0); LYMPH # 0.3 K/uL (1.0-4.3); LYMPH % 5.3 % (20.0-40.0); MEAN CELL VOLUME 76.7 fL (81.0-99.0); MEAN CORPUSCULAR HEMOGLOBIN 25.3 pg (27.0-31.0); MEAN PLATELET VOLUME 9.3 fL (7.2-11.7); MONO # 0.5 K/uL (0.0-0.8); MONO % 8.5 % (0.0-10.0); NEUT # 5.2 K/uL (1.8-7.0); NEUT % 82.9 % (50.0-75.0); NRBC % 0.7 % (0.0-2.0); PLATELET COUNT 161 K/uL (130-400); RBC 2.51 Mil/uL (3.80-5.20); RED CELL DISTRIBUTION WIDTH 21.3 % (11.5-14.5); WHITE BLOOD COUNT 6.3 K/uL (4.8-10.8)
[2018-02-04 18:50] LABS: HEMOGLOBIN 6.3 g/dL (11.0-16.0)
[2018-02-04] MEDS ORDERED: DiphenhydrAMINE 50 mg/ml Inj IVP STA (18:56)
[2018-02-04 19:01] LABS: TROPONIN I 0.068 ng/mL (0.00-0.120)
[2018-02-04 19:03] LABS: INR 7.6
[2018-02-04 19:18] LABS: PROTHROMBIN TIME 83.5 SECONDS (9.7-12.2)
[2018-02-04 19:25] LABS: ALBUMIN 3.5 g/dL (3.5-5.0); CALCIUM 9.3 mg/dl (8.6-10.4)
[2018-02-04] MEDS ORDERED: Phytonadione 10 mg/ml Inj (Adult) SC STA (19:33)
[2018-02-04] MEDS ORDERED: Phytonadione 2.5 MG/0.5 TAB TAB PO ONE (19:47)
[2018-02-04 19:48] LABS: ANISOCYTOSIS SLIGHT; HYPOCHROMIC SLIGHT; LYMPHOCYTE 6 % (20-40); MICROCYTOSIS SLIGHT; MONOCYTE 6 % (0-10); NEUTROPHIL 88 % (50-75); PLATELET ESTIMATE NORMAL (NORMAL); POIKILOCYTOSIS SLIGHT; SCHISTOCYTES SLIGHT; TARGET CELLS SLIGHT; TOTAL CELLS COUNTED 100
[2018-02-04 19:49] LABS: TEARDROP CELLS SLIGHT
[2018-02-04] MEDS ORDERED: DiphenhydrAMINE 50 mg/ml Inj ONE (19:53)
[2018-02-04] MEDS ORDERED: Phytonadione 10 mg/ml Inj (Adult) ONE (19:54)
[2018-02-04 21:29] LABS: IRON 39 ug/dL (37-170)
--- NOTE | 2018-02-04 21:30 | CP.PCM.HP ---
History of Present Illness - History of Present Illness History of Present Illness: Chief complaint: Increasing weakness, lethargic. HPI: 72-year-old female with a history of congestive heart failure, atrial fibrillation, hypertension, hyperlipidemia, peripheral vascular disease, history of breast cancer, status post a pacemaker, mitral, aortic valve replacement in 2011, status post a right radical lumpectomy, radiation treatment , carotid, femoral artery endarterectomy, stent placement. Patient had transaortic valve replacement 2 recently. Patient had a multiple hospitalization at the [facility] because of the worsening heart failure status. The patient is currently on anticoagulation Coumadin for atrial fibrillation with valve replacement. Patient came to the office today with increasing weakness, tiredness. She was sitting in the office with increasing week unable to stand up, feeling dizzy. Also tightness in the chest, shortness of breath, and worsening leg swelling. In spite of the Lasix, she is not feeling well. [facility], one week ago patient went to the emergency room but the patient was sent home. Past medical history: Breast cancer diagnosed in 2010, hypertension, hypercholesterolemia, congestive heart failure, atrial fibrillation, hyperlipidemia, PVD, status post a pacemaker , mitral and aortic valve replacement Surgical history: Pacemaker placement. I aortic, mitral valve replacement. Right breast cancer, status post radical lumpectomy, radiation treatment in 2010 Common femoral endarterectomy, stent placement on the right leg in 2009 Family history: Father history unknown. Mother had a history of CAD, CVA. One brother had a history of a kidney transplant. One sister had a history of breast cancer. Patient has 4 kids. She has 4 kids the 2 boys and 2 girls. Social history: Nonsmoker. Nonalcoholic now. Patient used to smoke in the past, quit in 2006, for almost one pack per day for 20 years. Denies any substance abuse. Currently living by herself. Home medications: Coumadin 3 mg daily Lasix 40 mg twice a day Coreg 25 mg twice daily Colchicine 0.6 mg daily Potassium 20 mg daily. Aspirin 81 daily. Hydralazine 100 mg 3 times daily Crestor 10 mg Iron supplementation. Review of system: Weakness noted. Patient is also complaining of episodic dark stools for a few days. Dizziness present. Bilateral leg swelling. Poor appetite, tiredness, fatigability easily present. On examination: Patient is somewhat weak. Fatigability present. Pale mucous membrane. Dryness noted Chest bilateral good air entry. Regular heart sound, systolic murmur noted Abdomen soft. Nontender. Bilateral pedal edema noted up to the mid thigh Patient's labs reviewed BUN 84, creatinine 3.2 AST 117, ALT 92, alkaline phosphatase 115 ProBNP 17,500 WBC 6.3 Hemoglobin 6.3 Platelet is 161 INR is 7.6 stool guaiac is positive Chest x-ray showing evidence of congestive heart failure, right pleural effusion. CAT scan of the chest abdomen and pelvis showing evidence of right pleural effusion. Fibrotic changes in the right lung, possibly secondary to radiation changes noted. CAT scan of the abdomen results pending. Assessment and recommendation: 72-year-old female with a history of atrial fibrillation, CAD, aortic, mitral valve disease, status post transaortic valve replacement 2, mitral valve replacement, permanent pacemaker, hypertension, pulmonary hypertension, hyperlipidemia, peripheral vascular disease, status post right common femoral endarterectomy, stent placement in 2009, chronic renal insufficiency, anemia, breast cancer, status post a right radical lumpectomy with radiation in 2010, pulmonary embolism in 2017. Now admitted to the hospital with the coagulopathy, Coumadin toxicity, acute anemia, likely secondary to GI loss. Patient also has a pleural effusion on the right side. Congestive heart failure. Will admit to ICU, transfusion slowly, vitamin K, coagulation monitoring. Renal evaluation Cardiology evaluation We will monitor the blood pressure. Will hold of the antihypertensives. Lasix as needed. We will follow the patient Present on Admission - Present on Admission Any Indicators Present on Admission: No History of DVT/PE: No History of Uncontrolled Diabetes: No Urinary Catheter: No Decubitus Ulcer Present: No Past Patient History - Past Medical History & Family History Past Medical History?: Yes - Past Social History Smoking Status: Former Smoker - CARDIAC Hx Atrial Fibrillation: Yes Hx Congestive Heart Failure: Yes Hx Hypertension: Yes Hx Mitral Valve Prolapse: (Mitral Valve Disorder?) Hx Pacemaker: Yes (Left Upper Anterior Chest) - PULMONARY Hx Respiratory Disorders: No - NEUROLOGICAL Hx Neurological Disorder: No - HEENT Hx HEENT Problems: No - RENAL Hx Chronic Kidney Disease: No - ENDOCRINE/METABOLIC Hx Endocrine Disorders: No - HEMATOLOGICAL/ONCOLOGICAL Hx Blood Disorders: Yes Hx Cancer: Yes (breast) - INTEGUMENTARY Hx Dermatological Problems: No - MUSCULOSKELETAL/RHEUMATOLOGICAL Hx Musculoskeletal Disorders: No Hx Falls: No Other/Comment: PVD - GASTROINTESTINAL Hx Gastrointestinal Disorders: No - GENITOURINARY/GYNECOLOGICAL Hx Genitourinary Disorders: No - PSYCHIATRIC Hx Substance Use: No - SURGICAL HISTORY Hx Surgeries: Yes Hx Mastectomy: Yes (right) Other/Comment: 2 valve replacement. HX: OMAIRA(12/21/16) - ANESTHESIA Hx Anesthesia: Yes Hx Anesthesia Reactions: No Hx Malignant Hyperthermia: No Meds Allergies/Adverse Reactions: Allergies Allergy/AdvReac Type Severity Reaction Status Date / Time blood plasma Allergy URTICARIA Uncoded 02/04/18 16:13 Results - Vital Signs Recent Vital Signs: Last Vital Signs Temp 98.0 F 02/04/18 21:15 Pulse 67 02/04/18 21:15 Resp 22 02/04/18 21:15 BP 110/50 L 02/04/18 21:15 Pulse Ox 100 02/04/18 21:15 - Labs Result Diagrams: 02/04/18 18:31 02/04/18 18:31 Labs: Laboratory Results - last 24 hr 02/04/18 02/04/18 02/04/18 18:31 18:31 18:31 WBC 6.3 RBC 2.51 L Hgb 6.3 L* D Hct 19.2 L MCV 76.7 L D MCH 25.3 L MCHC 33.0 RDW 21.3 H Plt Count 161 MPV 9.3 Neut % (Auto) 82.9 H Lymph % (Auto) 5.3 L Sumner % (Auto) 8.5 Eos % (Auto) 1.4 Baso % (Auto) 1.9 Neut # (Auto) 5.2 Lymph # (Auto) 0.3 L Sumner # (Auto) 0.5 Eos # (Auto) 0.1 Baso # (Auto) 0.1 Neutrophils % (Manual) 88 H Lymphocytes % (Manual) 6 L Monocytes % (Manual) 6 Platelet Estimate Normal Hypochromasia (manual) Slight Poikilocytosis (manual Slight Anisocytosis (manual) Slight Microcytosis (manual) Slight Macrocytosis (manual) Slight Target Cells Slight Tear Drop Cells Slight Schistocytes Slight PT 83.5 H* INR 7.6 APTT 57 H Sodium 141 Potassium 3.4 L Chloride 105 Carbon Dioxide 21 L Anion Gap 19 BUN 84 H Creatinine 3.2 H Est GFR ( Amer) 17 Est GFR (Non-Af Amer) 14 Random Glucose 93 Calcium 9.3 Total Bilirubin 1.0 AST 117 H ALT 92 H D Alkaline Phosphatase 185 H Troponin I 0.0680 NT-Pro-B Natriuret Pep 55759 H Total Protein 7.0 Albumin 3.5 Globulin 3.5 Albumin/Globulin Ratio 1.0 Stool Occult Blood Blood Type Antibody Screen 02/04/18 02/04/18 19:05 21:05 WBC RBC Hgb Hct MCV MCH MCHC RDW Plt Count MPV Neut % (Auto) Lymph % (Auto) Sumner % (Auto) Eos % (Auto) Baso % (Auto) Neut # (Auto) Lymph # (Auto) Sumner # (Auto) Eos # (Auto) Baso # (Auto) Neutrophils % (Manual) Lymphocytes % (Manual) Monocytes % (Manual) Platelet Estimate Hypochromasia (manual) Poikilocytosis (manual Anisocytosis (manual) Microcytosis (manual) Macrocytosis (manual) Target Cells Tear Drop Cells Schistocytes PT INR APTT Sodium Potassium Chloride Carbon Dioxide Anion Gap BUN Creatinine Est GFR ( Amer) Est GFR (Non-Af Amer) Random Glucose Calcium Total Bilirubin AST ALT Alkaline Phosphatase Troponin I NT-Pro-B Natriuret Pep Total Protein Albumin Globulin Albumin/Globulin Ratio Stool Occult Blood Positive H Blood Type O POSITIVE Antibody Screen Negative
--- NOTE | 2018-02-04 22:07 | CP.PCM.CON ---
History of Present Illness - History of Present Illness History of Present Illness: HPI: 72-year-old female with a history of congestive heart failure, atrial fibrillation, hypertension, hyperlipidemia, peripheral vascular disease, history of breast cancer(had right radical lumpectomy and RT), status post a pacemaker, mitral, aortic valve replacement in 2012, carotid, femoral artery endarterectomy, stent placement , transaortic valve replacement 2 recently presented to PMD office with c/o increasing weakness ,dizziness,fatigue, worsening leg edema,difficulty breathing and chest pain.patienty states that she not urinating much with lasix also c/o watery stools for thae past week which improved 2 days ago.Some days she noted black/dark stools Patient had a multiple hospitalization at the [facility] because of the worsening heart failure .The patient is currently on anticoagulation Coumadin for atrial fibrillation with valve replacement. Review of Systems - Constitutional Constitutional: Fatigue, Lethargy, Malaise, Weakness - EENT Eyes: absent: Blurred Vision, Pain Ears: Dizziness. absent: Ear Pain Nose/Mouth/Throat: absent: Nasal Congestion, Hoarsness - Breasts Breasts: absent: Skin Changes, Swelling - Cardiovascular Cardiovascular: Chest Pain with Activity, Dyspnea on Exertion, Leg Edema. absent: Rapid Heart Rate - Respiratory Respiratory: Dyspnea on Exertion. absent: Cough, Chest Congestion - Gastrointestinal Gastrointestinal: Diarrhea. absent: Abdominal Pain, Coffee Ground Emesis, Melena - Genitourinary Genitourinary: absent: Dysuria - Musculoskeletal Musculoskeletal: absent: Stiffness - Integumentary Integumentary: absent: Bleeding Lesions, Rash - Neurological Neurological: Dizziness - Endocrine Endocrine: absent: Polyuria - Hematologic/Lymphatic Hematologic: absent: Easy Bleeding Past Patient History - Past Medical History & Family History Past Medical History?: Yes - Past Social History Smoking Status: Former Smoker - CARDIAC Hx Atrial Fibrillation: Yes Hx Congestive Heart Failure: Yes Hx Hypertension: Yes Hx Mitral Valve Prolapse: (Mitral Valve Disorder?) Hx Pacemaker: Yes (Left Upper Anterior Chest) - PULMONARY Hx Respiratory Disorders: No - NEUROLOGICAL Hx Neurological Disorder: No - HEENT Hx HEENT Problems: No - RENAL Hx Chronic Kidney Disease: No - ENDOCRINE/METABOLIC Hx Endocrine Disorders: No - HEMATOLOGICAL/ONCOLOGICAL Hx Blood Disorders: Yes Hx Cancer: Yes (breast) - INTEGUMENTARY Hx Dermatological Problems: No - MUSCULOSKELETAL/RHEUMATOLOGICAL Hx Musculoskeletal Disorders: No Hx Falls: No Other/Comment: PVD - GASTROINTESTINAL Hx Gastrointestinal Disorders: No - GENITOURINARY/GYNECOLOGICAL Hx Genitourinary Disorders: No - PSYCHIATRIC Hx Substance Use: No - SURGICAL HISTORY Hx Surgeries: Yes Hx Mastectomy: Yes (right) Other/Comment: 2 valve replacement. HX: OMAIRA(12/21/16) - ANESTHESIA Hx Anesthesia: Yes Hx Anesthesia Reactions: No Hx Malignant Hyperthermia: No Meds Allergies/Adverse Reactions: Allergies Allergy/AdvReac Type Severity Reaction Status Date / Time blood plasma Allergy URTICARIA Uncoded 02/04/18 16:13 - Medications Medications: Current Medications Pantoprazole Sodium (Protonix Inj) 40 mg IVP Q12H FUAD Last Admin: 02/04/18 20:01 Dose: 40 mg Physical Exam - Constitutional Appears: No Acute Distress - Head Exam Head Exam: ATRAUMATIC, NORMAL INSPECTION, NORMOCEPHALIC - Eye Exam Eye Exam: EOMI, PERRL Pupil Exam: NORMAL ACCOMODATION Additional comments: conjunctival pallor + - ENT Exam ENT Exam: Mucous Membranes Moist - Neck Exam Neck exam: Positive for: Normal Inspection - Respiratory Exam Respiratory Exam: Decreased Breath Sounds, NORMAL BREATHING PATTERN - Cardiovascular Exam Cardiovascular Exam: Irregular Rhythm, Systolic Murmur. absent: JVD - GI/Abdominal Exam GI & Abdominal Exam: Normal Bowel Sounds, Soft. absent: Tenderness - Rectal Exam Rectal Exam: Black Stool - Extremities Exam Extremities exam: Positive for: pedal edema. Negative for: tenderness - Back Exam Back exam: NORMAL INSPECTION - Neurological Exam Neurological exam: Alert, Oriented x3 - Skin Skin Exam: Pallor Results - Vital Signs Recent Vital Signs: Last Vital Signs Temp 98.0 F 02/04/18 21:15 Pulse 67 02/04/18 21:15 Resp 22 02/04/18 21:15 BP 110/50 L 02/04/18 21:15 Pulse Ox 100 02/04/18 21:15 - Labs Result Diagrams: 02/04/18 18:31 02/04/18 18:31 Labs: Laboratory Results - last 24 hr 02/04/18 02/04/18 02/04/18 18:31 18:31 18:31 WBC 6.3 RBC 2.51 L Hgb 6.3 L* D Hct 19.2 L MCV 76.7 L D MCH 25.3 L MCHC 33.0 RDW 21.3 H Plt Count 161 MPV 9.3 Neut % (Auto) 82.9 H Lymph % (Auto) 5.3 L Hitchcock % (Auto) 8.5 Eos % (Auto) 1.4 Baso % (Auto) 1.9 Neut # (Auto) 5.2 Lymph # (Auto) 0.3 L Hitchcock # (Auto) 0.5 Eos # (Auto) 0.1 Baso # (Auto) 0.1 Neutrophils % (Manual) 88 H Lymphocytes % (Manual) 6 L Monocytes % (Manual) 6 Platelet Estimate Normal Hypochromasia (manual) Slight Poikilocytosis (manual Slight Anisocytosis (manual) Slight Microcytosis (manual) Slight Macrocytosis (manual) Slight Target Cells Slight Tear Drop Cells Slight Schistocytes Slight PT 83.5 H* INR 7.6 APTT 57 H Sodium 141 Potassium 3.4 L Chloride 105 Carbon Dioxide 21 L Anion Gap 19 BUN 84 H Creatinine 3.2 H Est GFR ( Amer) 17 Est GFR (Non-Af Amer) 14 Random Glucose 93 Calcium 9.3 Iron Ferritin Total Bilirubin 1.0 AST 117 H ALT 92 H D Alkaline Phosphatase 185 H Troponin I 0.0680 NT-Pro-B Natriuret Pep 12314 H Total Protein 7.0 Albumin 3.5 Globulin 3.5 Albumin/Globulin Ratio 1.0 Stool Occult Blood Blood Type Antibody Screen 02/04/18 02/04/18 02/04/18 19:05 21:05 21:05 WBC RBC Hgb Hct MCV MCH MCHC RDW Plt Count MPV Neut % (Auto) Lymph % (Auto) Hitchcock % (Auto) Eos % (Auto) Baso % (Auto) Neut # (Auto) Lymph # (Auto) Hitchcock # (Auto) Eos # (Auto) Baso # (Auto) Neutrophils % (Manual) Lymphocytes % (Manual) Monocytes % (Manual) Platelet Estimate Hypochromasia (manual) Poikilocytosis (manual Anisocytosis (manual) Microcytosis (manual) Macrocytosis (manual) Target Cells Tear Drop Cells Schistocytes PT INR APTT Sodium Potassium Chloride Carbon Dioxide Anion Gap BUN Creatinine Est GFR ( Amer) Est GFR (Non-Af Amer) Random Glucose Calcium Iron 39 Ferritin Total Bilirubin AST ALT Alkaline Phosphatase Troponin I NT-Pro-B Natriuret Pep Total Protein Albumin Globulin Albumin/Globulin Ratio Stool Occult Blood Positive H Blood Type O POSITIVE Antibody Screen Negative 02/04/18 21:08 WBC RBC Hgb Hct MCV MCH MCHC RDW Plt Count MPV Neut % (Auto) Lymph % (Auto) Hitchcock % (Auto) Eos % (Auto) Baso % (Auto) Neut # (Auto) Lymph # (Auto) Hitchcock # (Auto) Eos # (Auto) Baso # (Auto) Neutrophils % (Manual) Lymphocytes % (Manual) Monocytes % (Manual) Platelet Estimate Hypochromasia (manual) Poikilocytosis (manual Anisocytosis (manual) Microcytosis (manual) Macrocytosis (manual) Target Cells Tear Drop Cells Schistocytes PT INR APTT Sodium Potassium Chloride Carbon Dioxide Anion Gap BUN Creatinine Est GFR ( Amer) Est GFR (Non-Af Amer) Random Glucose Calcium Iron Ferritin 89.7 Total Bilirubin AST ALT Alkaline Phosphatase Troponin I NT-Pro-B Natriuret Pep Total Protein Albumin Globulin Albumin/Globulin Ratio Stool Occult Blood Blood Type Antibody Screen - Imaging and Cardiology CT scan - abdomen Status: Image reviewed by me Assessment & Plan - Assessment and Plan (Free Text) Assessment: 1.Anemia/GI Bleed/ coagulopathy transfuse and monitor H/H GI evaluation Hold coumadin 2. history of atrial fibrillation, CAD,CHF, aortic, mitral valve disease, status post transaortic valve replacement 2, mitral valve replacement, permanent pacemaker, hypertension, pulmonary hypertension, hyperlipidemia f/u BP and start meds in am 3.peripheral vascular disease, status post right common femoral endarterectomy, stent placement in 2009 4.chronic renal insufficiency 5.Breast cancer, status post a right radical lumpectomy with radiation in 2010, pulmonary embolism in 2017. 6.Right pleural effusion Congestive heart failure. 7.Hypokalemia monitor potassium
[2018-02-04 22:14] LABS: % IRON SATURATION 15 (20-55); TOTAL IRON BINDING CAPACITY 260 ug/dL (250-450)
[2018-02-05 06:28] LABS: BASO # 0.1 K/uL (0.0-0.2); BASO % 0.9 % (0.0-2.0); EOS % 0.6 % (0.0-4.0); HEMOGLOBIN 7.3 g/dL (11.0-16.0); LYMPH # 0.4 K/uL (1.0-4.3); LYMPH % 7.1 % (20.0-40.0); MEAN CELL VOLUME 78.1 fL (81.0-99.0); MEAN CORPUSCULAR HEMOGLOBIN 26.2 pg (27.0-31.0); MEAN CORPUSCULAR HGB CONC 33.6 g/dL (33.0-37.0); MEAN PLATELET VOLUME 10.4 fL (7.2-11.7); MONO # 0.6 K/uL (0.0-0.8); MONO % 9.7 % (0.0-10.0); NEUT # 5.2 K/uL (1.8-7.0); NEUT % 81.7 % (50.0-75.0); NRBC % 0.5 % (0.0-2.0); PLATELET COUNT 140 K/uL (130-400); RBC 2.77 Mil/uL (3.80-5.20); RED CELL DISTRIBUTION WIDTH 19.6 % (11.5-14.5); WHITE BLOOD COUNT 6.3 K/uL (4.8-10.8)
[2018-02-05 06:39] LABS: INR 5.6
[2018-02-05 06:51] LABS: ALB/GLOB RATIO 0.9 (1.0-2.1)
[2018-02-05 08:36] LABS: ANISOCYTOSIS SLIGHT; LYMPHOCYTE 6 % (20-40); MONOCYTE 8 % (0-10); NEUTROPHIL 86 % (50-75); NUCLEATED RED BLOOD CELL 2 % (0-0); PLATELET ESTIMATE NORMAL (NORMAL); POIKILOCYTOSIS SLIGHT; TOTAL CELLS COUNTED 100
[2018-02-05 08:37] LABS: BURR CELLS SLIGHT; GIANT PLATELETS PRESENT; HYPOCHROMIC MODERATE; LARGE PLATELETS PRESENT; MICROCYTOSIS SLIGHT; OVALOCYTES SLIGHT; TARGET CELLS SLIGHT; TEARDROP CELLS SLIGHT
[2018-02-05] MEDS: Magnesium Sulfate 1 gm in D5W 1 GM/100 ML BAG IVPB SCH ×2 (09:20→09:40)
--- NOTE | 2018-02-05 09:39 | CP.PCM.CON ---
<Ann Ching - Last Filed: 02/05/18 17:42> History of Present Illness - History of Present Illness History of Present Illness: Cardiology Consult Note - Dr Pennington Patient is a 72 year old female with past medical history of atrial fibrillation on coumadin, pacemaker, CHF, Right breast cancer, status post radical lumpectomy, radiation treatment in 2010, valvular disease s/p TAVR who was sent to the hospital by PMD for weakness and fatigue x 1 week. Patient states that she has been experiencing shortness of breath at rest and on exertion since TAVR surgery in September. She also noticed bilateral lower extremity swelling, worse on the right leg. She states that she normally takes Lasix PO twice a day however since was running out of medication, she has only been taking Lasix once a day. She denies any recent increase in water or salt intake. Patient reports having "a funny feeling" in her chest intermittently for the past two weeks. She also reports having liquid stools for the past 2-3 weeks that have been intermittently dark in color. Last colonoscopy was 5 years ago, which showed polyps that she believes were benign. Patient states that she had approximately lost 30lbs between September 2017 and now. She admits to decreased appetite. At this time she denies dizziness, headache, visual changes , chest pain, palpitations, sob, abdominal pain, urinary symptoms, vaginal bleeding. PMD: Dr Singh Allergies: NKDA Medical History: Atrial fibrillation, CHF, HTN, PVD, Breast cancer Surgical History: TAVR 09/2017, Pacemaker placement, aortic, mitral valve replacement, radical lumpectomy, Common femoral endarterectomy, stent placement on the right leg in 2009 Social History: Former smoker, quit in 2006, smoked 1ppd for 20 years, Denies alcohol, illicit drug use, lives alone Family History: Mother had a history of CAD, CVA, One brother had a history of a kidney transplant, One sister had a history of breast cancer. Patient has 4 kids. Past Patient History - Past Medical History & Family History Past Medical History?: Yes - Past Social History Smoking Status: Former Smoker - CARDIAC Hx Atrial Fibrillation: Yes Hx Congestive Heart Failure: Yes Hx Hypertension: Yes Hx Mitral Valve Prolapse: (Mitral Valve Disorder?) Hx Pacemaker: Yes (Left Upper Anterior Chest) - PULMONARY Hx Respiratory Disorders: No - NEUROLOGICAL Hx Neurological Disorder: No - HEENT Hx HEENT Problems: No - RENAL Hx Chronic Kidney Disease: No - ENDOCRINE/METABOLIC Hx Endocrine Disorders: No - HEMATOLOGICAL/ONCOLOGICAL Hx Blood Disorders: Yes Hx Cancer: Yes (breast) - INTEGUMENTARY Hx Dermatological Problems: No - MUSCULOSKELETAL/RHEUMATOLOGICAL Hx Musculoskeletal Disorders: No Hx Falls: No Other/Comment: PVD - GASTROINTESTINAL Hx Gastrointestinal Disorders: No - GENITOURINARY/GYNECOLOGICAL Hx Genitourinary Disorders: No - PSYCHIATRIC Hx Substance Use: No - SURGICAL HISTORY Hx Surgeries: Yes Hx Mastectomy: Yes (right) Other/Comment: 2 valve replacement. HX: OMAIRA(12/21/16) - ANESTHESIA Hx Anesthesia: Yes Hx Anesthesia Reactions: No Hx Malignant Hyperthermia: No Meds Allergies/Adverse Reactions: Allergies Allergy/AdvReac Type Severity Reaction Status Date / Time blood plasma Allergy URTICARIA Uncoded 02/04/18 16:13 - Medications Medications: Current Medications Magnesium Sulfate/Dextrose (Magnesium Sulfate 1 Gm/100 Ml D5w) 1 gm in 100 mls @ 300 mls/hr IVPB Q30M FUAD Stop: 02/05/18 10:19 Pantoprazole Sodium (Protonix Inj) 40 mg IVP Q12H FUAD Last Admin: 02/05/18 06:52 Dose: 40 mg Phytonadione (Vitamin K Tab) 10 mg PO DAILY FUAD Potassium Chloride (Potassium Chloride Oral Soln) 40 meq PO Q4 FUAD Stop: 02/05/18 16:01 Physical Exam - Constitutional Appears: Well, No Acute Distress, Chronically Ill - Head Exam Head Exam: ATRAUMATIC, NORMAL INSPECTION - Eye Exam Eye Exam: EOMI, Normal appearance - ENT Exam ENT Exam: Mucous Membranes Moist - Neck Exam Neck exam: Positive for: Full Rom - Respiratory Exam Respiratory Exam: Decreased Breath Sounds (Decreased breath sounds on the right lower lobe), NORMAL BREATHING PATTERN. absent: Rhonchi, Wheezes, Respiratory Distress - Cardiovascular Exam Cardiovascular Exam: Irregular Rhythm, JVD, Systolic Murmur - GI/Abdominal Exam GI & Abdominal Exam: Soft. absent: Rebound, Rigid, Tenderness - Rectal Exam Rectal Exam: Deferred - Extremities Exam Extremities exam: Positive for: normal capillary refill, pedal pulses present Additional comments: +1 pitting edema bilaterally - Neurological Exam Neurological exam: Alert, Oriented x3 - Psychiatric Exam Psychiatric exam: Normal Affect, Normal Mood - Skin Skin Exam: Dry, Normal Color, Warm Results - Vital Signs Recent Vital Signs: Last Vital Signs Temp 98 F 02/05/18 04:00 Pulse 81 02/05/18 07:00 Resp 21 02/05/18 07:00 BP 103/60 02/05/18 06:46 Pulse Ox 100 02/05/18 07:00 - Labs Result Diagrams: 02/05/18 06:16 02/05/18 06:16 Labs: Laboratory Results - last 24 hr 02/04/18 02/04/18 02/04/18 18:31 18:31 18:31 WBC 6.3 RBC 2.51 L Hgb 6.3 L* D Hct 19.2 L MCV 76.7 L D MCH 25.3 L MCHC 33.0 RDW 21.3 H Plt Count 161 MPV 9.3 Neut % (Auto) 82.9 H Lymph % (Auto) 5.3 L [place] % (Auto) 8.5 Eos % (Auto) 1.4 Baso % (Auto) 1.9 Neut # (Auto) 5.2 Lymph # (Auto) 0.3 L [place] # (Auto) 0.5 Eos # (Auto) 0.1 Baso # (Auto) 0.1 Neutrophils % (Manual) 88 H Lymphocytes % (Manual) 6 L Monocytes % (Manual) 6 Nucleated RBC % Platelet Estimate Normal Large Platelets Giant Platelets Hypochromasia (manual) Slight Poikilocytosis (manual Slight Anisocytosis (manual) Slight Microcytosis (manual) Slight Macrocytosis (manual) Slight Target Cells Slight Tear Drop Cells Slight Ovalocytes Alleene Cells Schistocytes Slight PT 83.5 H* INR 7.6 APTT 57 H Sodium 141 Potassium 3.4 L Chloride 105 Carbon Dioxide 21 L Anion Gap 19 BUN 84 H Creatinine 3.2 H Est GFR ( Amer) 17 Est GFR (Non-Af Amer) 14 Random Glucose 93 Calcium 9.3 Phosphorus Magnesium Iron TIBC % Saturation Ferritin Total Bilirubin 1.0 AST 117 H ALT 92 H D Alkaline Phosphatase 185 H Troponin I 0.0680 NT-Pro-B Natriuret Pep 49511 H Total Protein 7.0 Albumin 3.5 Globulin 3.5 Albumin/Globulin Ratio 1.0 Stool Occult Blood Blood Type Antibody Screen 02/04/18 02/04/18 02/04/18 19:05 21:05 21:05 WBC RBC Hgb Hct MCV MCH MCHC RDW Plt Count MPV Neut % (Auto) Lymph % (Auto) [place] % (Auto) Eos % (Auto) Baso % (Auto) Neut # (Auto) Lymph # (Auto) [place] # (Auto) Eos # (Auto) Baso # (Auto) Neutrophils % (Manual) Lymphocytes % (Manual) Monocytes % (Manual) Nucleated RBC % Platelet Estimate Large Platelets Giant Platelets Hypochromasia (manual) Poikilocytosis (manual Anisocytosis (manual) Microcytosis (manual) Macrocytosis (manual) Target Cells Tear Drop Cells Ovalocytes Alleene Cells Schistocytes PT INR APTT Sodium Potassium Chloride Carbon Dioxide Anion Gap BUN Creatinine Est GFR ( Amer) Est GFR (Non-Af Amer) Random Glucose Calcium Phosphorus Magnesium Iron 39 TIBC 260 % Saturation 15 L Ferritin Total Bilirubin AST ALT Alkaline Phosphatase Troponin I NT-Pro-B Natriuret Pep Total Protein Albumin Globulin Albumin/Globulin Ratio Stool Occult Blood Positive H Blood Type O POSITIVE Antibody Screen Negative 02/04/18 02/05/18 02/05/18 21:08 06:16 06:16 WBC 6.3 RBC 2.77 L Hgb 7.3 L Hct 21.7 L MCV 78.1 L MCH 26.2 L MCHC 33.6 RDW 19.6 H Plt Count 140 MPV 10.4 Neut % (Auto) 81.7 H Lymph % (Auto) 7.1 L [place] % (Auto) 9.7 Eos % (Auto) 0.6 Baso % (Auto) 0.9 Neut # (Auto) 5.2 Lymph # (Auto) 0.4 L [place] # (Auto) 0.6 Eos # (Auto) 0.0 Baso # (Auto) 0.1 Neutrophils % (Manual) 86 H Lymphocytes % (Manual) 6 L Monocytes % (Manual) 8 Nucleated RBC % 2 H Platelet Estimate Normal Large Platelets Present Giant Platelets Present Hypochromasia (manual) Moderate Poikilocytosis (manual Slight Anisocytosis (manual) Slight Microcytosis (manual) Slight Macrocytosis (manual) Slight Target Cells Slight Tear Drop Cells Slight Ovalocytes Slight Miguel Cells Slight Schistocytes PT 61.0 H* D INR 5.6 D APTT 49 H D Sodium Potassium Chloride Carbon Dioxide Anion Gap BUN Creatinine Est GFR ( Amer) Est GFR (Non-Af Amer) Random Glucose Calcium Phosphorus Magnesium Iron TIBC % Saturation Ferritin 89.7 Total Bilirubin AST ALT Alkaline Phosphatase Troponin I NT-Pro-B Natriuret Pep Total Protein Albumin Globulin Albumin/Globulin Ratio Stool Occult Blood Blood Type Antibody Screen 02/05/18 06:16 WBC RBC Hgb Hct MCV MCH MCHC RDW Plt Count MPV Neut % (Auto) Lymph % (Auto) [place] % (Auto) Eos % (Auto) Baso % (Auto) Neut # (Auto) Lymph # (Auto) [place] # (Auto) Eos # (Auto) Baso # (Auto) Neutrophils % (Manual) Lymphocytes % (Manual) Monocytes % (Manual) Nucleated RBC % Platelet Estimate Large Platelets Giant Platelets Hypochromasia (manual) Poikilocytosis (manual Anisocytosis (manual) Microcytosis (manual) Macrocytosis (manual) Target Cells Tear Drop Cells Ovalocytes Miguel Cells Schistocytes PT INR APTT Sodium 141 Potassium 3.2 L Chloride 108 H Carbon Dioxide 21 L Anion Gap 16 BUN 86 H Creatinine 2.9 H Est GFR ( Amer) 19 Est GFR (Non-Af Amer) 16 Random Glucose 84 Calcium 9.0 Phosphorus 4.0 Magnesium 1.4 L Iron TIBC % Saturation Ferritin Total Bilirubin 1.5 H AST 92 H D ALT 83 H Alkaline Phosphatase 164 H Troponin I NT-Pro-B Natriuret Pep Total Protein 6.1 L Albumin 3.0 L Globulin 3.1 Albumin/Globulin Ratio 0.9 L Stool Occult Blood Blood Type Antibody Screen Assessment & Plan - Assessment and Plan (Free Text) Assessment: A/P: Patient is a 72 year old female with past medical history of Valvular disease s/p TAVR 09/2017, atrial fibrillation, CHF, HTN, Breast cancer s/p lumpectomy and radiation therapy who presented with worsening bilateral lower extremity swelling, weakness and dyspnea on exertion. Acute Symptomatic Anemia -Hgb on admission 6.3, baseline hgb 10.0, Stool occult is positive -S/P 2 units PRBCs -Likely secondary to GI bleed -CT abd/pelvis showed cholelithiasis -Monitor serial H/H -Patient is moderate risk for cardiac events for EGD under conscious sedation -GI on consult, help appreciated Diastolic Congestive Heart Failure -BNP on admission [address], Troponin negative x 1 -Last echo 11/2016 showed EF 60-65%, mild to moderate concentric LVH, Moderate pulmonary HTN, Bioprostetic AV with severe valvular , Left atrium/Right atrium moderately dilated. Mitral valve bioprostetic, moderate Mitral valve stenosis -F/U repeat Echocardiogram -Last Cardiac Catheterization 12/2016 showed normal coronaries -CXR on admission showed right pleural effusion -CT chest showed moderate right pleural effusion with adjacent atelectasis, cardiomegaly -Continue cardiac medications -Daily weights, strict I/Os History of atrial fibrillation/Supratherapeutic INR -Hold Coumadin and ASA at this time -S/P Vitamin K -Monitor serial INR Acute on Chronic Kidney Disease -BUN/Cr 86/2.9, baseline Cr 1.5 -F/U renal US -Nephro on consult, help appreciated Plan to be discussed with Dr Gorge Ching DO PGY-2 <Mohan Pennington - Last Filed: 02/06/18 22:27> Meds - Medications Medications: Current Medications Furosemide (Lasix) 20 mg IVP Q12 FUAD Last Admin: 02/06/18 21:50 Dose: 20 mg Ferric Sodium Gluconate Complex 125 mg/ Sodium Chloride 110 mls @ 60 mls/hr IVPB DAILY FUAD Stop: 02/14/18 10:01 Last Admin: 02/06/18 10:22 Dose: 60 mls/hr Pantoprazole Sodium (Protonix Inj) 40 mg IVP Q12H FUAD Last Admin: 02/06/18 19:49 Dose: 40 mg Rosuvastatin Calcium (Crestor) 10 mg PO HS FUAD Last Admin: 02/06/18 21:50 Dose: 10 mg Results - Vital Signs Recent Vital Signs: Last Vital Signs Temp 97.3 F L 02/06/18 16:34 Pulse 76 02/06/18 21:54 Resp 18 02/06/18 16:34 BP 125/76 02/06/18 21:54 Pulse Ox 95 02/06/18 16:34 - Labs Result Diagrams: 02/06/18 07:38 02/06/18 07:38 Labs: Laboratory Results - last 24 hr 02/06/18 02/06/18 02/06/18 02:03 02:03 02:03 WBC 7.1 RBC 3.50 L Hgb 9.5 L D Hct 28.2 L MCV 80.8 L D MCH 27.3 MCHC 33.7 RDW 21.1 H Plt Count 167 MPV 9.9 Neut % (Auto) Lymph % (Auto) [place] % (Auto) Eos % (Auto) Baso % (Auto) Neut # (Auto) Lymph # (Auto) [place] # (Auto) Eos # (Auto) Baso # (Auto) Neutrophils % (Manual) Lymphocytes % (Manual) Monocytes % (Manual) Eosinophils % (Manual) Platelet Estimate Hypochromasia (manual) Poikilocytosis (manual Anisocytosis (manual) Microcytosis (manual) Macrocytosis (manual) Target Cells Alleene Cells PT 21.3 H D INR 1.9 D APTT Sodium 143 Potassium 4.7 Chloride 110 H Carbon Dioxide 18 L Anion Gap 21 H BUN 81 H Creatinine 2.4 H Est GFR ( Amer) 24 Est GFR (Non-Af Amer) 20 Random Glucose 119 H Calcium 9.6 Phosphorus Magnesium Total Bilirubin AST ALT Alkaline Phosphatase Total Protein Albumin Globulin Albumin/Globulin Ratio 02/06/18 02/06/18 02/06/18 07:38 07:38 07:38 WBC 6.4 RBC 3.31 L Hgb 9.1 L Hct 26.7 L MCV 80.5 L MCH 27.6 MCHC 34.3 RDW 21.2 H Plt Count 159 MPV 9.8 Neut % (Auto) 80.5 H Lymph % (Auto) 8.2 L [place] % (Auto) 9.9 Eos % (Auto) 0.8 Baso % (Auto) 0.6 Neut # (Auto) 5.1 Lymph # (Auto) 0.5 L [place] # (Auto) 0.6 Eos # (Auto) 0.1 Baso # (Auto) 0.0 Neutrophils % (Manual) 83 H Lymphocytes % (Manual) 5 L Monocytes % (Manual) 9 Eosinophils % (Manual) 3 Platelet Estimate Normal Hypochromasia (manual) Slight Poikilocytosis (manual Slight Anisocytosis (manual) Slight Microcytosis (manual) Slight Macrocytosis (manual) Slight Target Cells Slight Miguel Cells Slight PT INR APTT 37 H D Sodium 141 Potassium 4.3 Chloride 109 H Carbon Dioxide 21 L Anion Gap 15 BUN 77 H Creatinine 2.5 H Est GFR ( Amer) 23 Est GFR (Non-Af Amer) 19 Random Glucose 109 H Calcium 9.7 Phosphorus 3.6 Magnesium 1.8 Total Bilirubin 1.8 H AST 74 H ALT 75 H Alkaline Phosphatase 186 H Total Protein 6.7 Albumin 3.4 L Globulin 3.3 Albumin/Globulin Ratio 1.1 Assessment & Plan - Assessment and Plan (Free Text) Assessment: Patient seen and evaluated personally by me Plan of care d/w the resident and as documented
--- NOTE | 2018-02-05 11:32 | CT ---
Date of service: 02/04/2018 PROCEDURE: CT Chest, Abdomen and Pelvis without intravenous contrast HISTORY: Bleeding COMPARISON: Comparison made with CT scan chest dated 07/16/2016 TECHNIQUE: Contiguous helical/transaxial sections of the chest abdomen pelvis of performed without oral or intravenous contrast material. Additional 2D sagittal and coronal reformats generated. Radiation dose: Total exam DLP = 639.77 mGy-cm. This CT exam was performed using one or more of the following dose reduction techniques: Automated exposure control, adjustment of the mA and/or kV according to patient size, and/or use of iterative reconstruction technique. . FINDINGS: CT CHEST WITHOUT CONTRAST: LUNGS: There is a rounded area of consolidation right lung base; possibly representing round atelectasis or pneumonia. Clinical correlation recommended. . Followup the CT scan following treatment to assess resolution and exclude underlying mass. Lymph There is a moderate - large size right-sided effusion as well. . Small amount of fluid tracks along the minor fissure is well. There is small area of localized pleural thickening and adjacent scarring/fibrosis with the stellate appearance along its superior border. Right lung apex/anterior chest wall with adjacent stellate area of scarring infiltration.. Re- demonstrated is another wide-based area of pleural thickening and/or scarring seen in the right mid to lower lung zone extending along middle lobe region as well with a localized a more lobular component along its inferior border of the latter of which has increased in size from prior exam. No obvious cortical destructive changes along the adjacent ribs. Findings could be postinflammatory however the possibility of a pleural-based malignant lesion not excluded. Clinical correlation recommended. Trace left-sided effusion and minimal left basilar atelectasis MEDIASTINUM: Heart is enlarged. Apparent aortic valve with questionable endovascular stent graft coronary artery calcifications are present. No significant pericardial effusion. Central airways are midline and patent. No large central endoluminal lesions are identified. LYMPH NODES: Multiple small -medium-sized nonspecific mediastinal lymph nodes are present. Evaluation for hilar adenopathy is limited due to the lack of circulating intravenous contrast material. PLEURA: As above. No pneumothorax. BONES: Mild multilevel degenerative spondylosis of the thoracic spine. There are no acute compression fractures nor retropulsed fragments. Vertebral bodies exhibit relatively normal stature aside from minor multilevel fish-mouth endplate deformities. There is a tiny sclerotic density within the right-sided posterior inferior aspect of the T4 segment which could represent bone island or osteoma. Correlation with history recommended to exclude the possibility of a primary malignancy with sclerotic metastasis. Clinical correlation recommended. . Bone scan followup may be prudent if there is a history of primary malignancy OTHER FINDINGS: None. CT ABDOMEN AND PELVIS: LIVER: The unenhanced liver exhibits normal attenuation pattern without masses collections or calcifications so far as can be seen on this limited noncontrast study. . There is small amount of abdominal and pelvic ascites with abdominal ascites partially surrounding the liver. GALLBLADDER AND BILE DUCTS: Cholelithiasis PANCREAS: The pancreas is atrophic and fatty replaced. No obvious pancreatic masses or collections. SPLEEN: Spleen exhibits normal size and attenuation pattern. Small amount of ascites incompletely surrounds the spleen. ADRENALS: There are no adrenal lesions seen. KIDNEYS AND URETERS: Right kidney atrophic likely secondary to chronic renal artery stenosis with significant calcified atherosclerotic plaque at the origin of the right renal artery. Small amount of calcified plaque seen at the origin/ proximal left suspect right renal artery. Followup CTA of the abdomen may be prudent for further evaluation of the left renal artery. . The left kidney exhibits lobular contour. Few punctate nonobstructing calcifications seen upper pole left kidney. VASCULATURE: No evidence of abdominal aortic or iliac artery aneurysms. Calcified atherosclerotic plaque seen along the abdominal aorta and iliac arteries. BOWEL: Evaluation of the bowel is somewhat limited due to the lack of oral contrast material. Stomach is incompletely distended which accounts for thick-walled appearance. . Visualized loops of small bowel exhibit normal contour and caliber. No evidence of acute mechanical small bowel obstruction. Moderate amount of stool seen in the cecum and ascending colon. APPENDIX: Normal-appearing appendix of best seen on coronal sequence image number [id number] PERITONEUM: No free intraperitoneal air. LYMPH NODES: Unremarkable. No enlarged lymph nodes. BLADDER: The bladder is incompletely distended which presumably in part accounts for thick-walled appearance more of. Rule out cystitis with urinalysis. No evidence of intraluminal urinary bladder calculi. REPRODUCTIVE: Uterus is slightly lobulated with what could represent either an exophytic fibroid arising from the left frontal region versus left adnexa which are surrounded by pelvic ascites. BONES: No acute compression fractures no retropulsed fragments. . Minor multilevel fish-mouth endplate deformities Minor multilevel degenerative spondylosis of the thoracic spine OTHER FINDINGS: None. IMPRESSION: Rounded area of consolidation right lung base; possibly representing round atelectasis or pneumonia. Clinical correlation recommended. . Followup the CT scan following treatment to assess resolution and exclude underlying mass. Lymph There is a moderate - large size right-sided effusion as well. There is small area of localized pleural thickening and adjacent scarring/fibrosis with the stellate appearance along its superior border. Right lung apex/anterior chest wall with adjacent stellate area of scarring infiltration.. Re- demonstrated is another wide-based area of pleural thickening and/or scarring seen in the right mid to lower lung zone extending along middle lobe region as well with a localized a more lobular component along its inferior border of the latter of which has increased in size from prior exam. No obvious cortical destructive changes along the adjacent ribs. Findings could be postinflammatory however the possibility of a pleural-based malignant lesion not excluded. Clinical correlation recommended. Trace left-sided effusion and minimal left basilar atelectasis There is a small (approximately 13.6 x 7.1 mm) elliptical shaped nodule right breast which is located adjacent medial and just anterior to a apparent biopsy marker. Clinic correlation recommended. Consider followup mammography if not recently performed. Small amount of abdominal and pelvic ascites. Atrophic right kidney felt to be secondary to chronic longstanding renal artery stenosis. CTA of the abdomen may be prudent further evaluation of the left renal artery. Questionable exophytic uterine fibroid versus left adnexa. Nonemergent pelvic ultrasound could be performed for further evaluation and confirmation. . There is a tiny sclerotic density within the T4 segment likely representing small bone island or osteoma. If there is a history of primary malignancy, consider follow-up bone scan to assess for metastatic disease. Small (approximately 13.6 x 7.1 mm) elliptical shaped nodule right breast which is located adjacent medial and just anterior to a apparent biopsy marker. Clinic correlation recommended. Consider followup mammography if not recently performed. Small amount of abdominal and pelvic ascites. See above discussion for additional details and findings.
[2018-02-05] MEDS: Potassium Chloride 20 mEq/15 ml LIQ UD PO SCH ×2 (12:00→19:46)
--- NOTE | 2018-02-05 12:23 | RAD ---
Date of service: 02/05/2018 HISTORY: chf COMPARISON: 02/04/2018 FINDINGS: LUNGS: Persistent opacity at right base. Likely at least part due to atelectasis as well as possible pneumonia. No new opacity elsewhere. PLEURA: Small to moderate right pleural effusion remains unchanged. No evidence of left pleural effusion. No pneumothorax. CARDIOVASCULAR: Sternotomy wires. Ascending thoracic aortic stent. AICD. Normal heart size. There is congestive change noted, increased from prior chest radiograph of 02/04/2018. OSSEOUS STRUCTURES: No significant abnormalities. VISUALIZED UPPER ABDOMEN: Normal. OTHER FINDINGS: None. IMPRESSION: Persistent right pleural effusion and right basilar opacity. Increasing congestive change.
--- NOTE | 2018-02-05 12:33 | CP.PCM.CON ---
History of Present Illness - History of Present Illness History of Present Illness: CC: anemia HPI: 72 year old woman admitted with symptomatic CHF and severe anemia. Received PRBC transfusionlast night with rise in Hgb from 6 to 7, and currently receiving 1 unit PRBCs. INR was 7, on Counadin for AFib. Colonoscopy 5 years ago at [facility]. EGD in September at [facility] she had heart valve surgery. Sees melenic BMs periodically and frequent diarrhea. Review of Systems - Constitutional Constitutional: Fatigue, Malaise, Weight Loss, Weakness. absent: Fever - EENT Eyes: absent: Change in Vision Nose/Mouth/Throat: absent: Nasal Congestion - Cardiovascular Cardiovascular: Chest Pain, Dyspnea, Irregular Heart Rhythm, Leg Edema - Respiratory Respiratory: Dyspnea - Gastrointestinal Gastrointestinal: Change in Stool Character, Diarrhea, Loose Stools, Melena. absent: Abdominal Pain, Hematochezia - Genitourinary Genitourinary: absent: Difficulty Urinating - Musculoskeletal Musculoskeletal: absent: Back Pain - Integumentary Integumentary: absent: Jaundice - Neurological Neurological: absent: Abnormal Speech, Convulsions - Psychiatric Psychiatric: absent: Depression - Endocrine Endocrine: absent: Polydipsia - Hematologic/Lymphatic Hematologic: Easy Bleeding Past Patient History - Past Medical History & Family History Past Medical History?: Yes - Past Social History Smoking Status: Former Smoker - CARDIAC Hx Atrial Fibrillation: Yes Hx Congestive Heart Failure: Yes Hx Hypertension: Yes Hx Mitral Valve Prolapse: (Mitral Valve Disorder?) Hx Pacemaker: Yes (Left Upper Anterior Chest) - PULMONARY Hx Respiratory Disorders: No - NEUROLOGICAL Hx Neurological Disorder: No - HEENT Hx HEENT Problems: No - RENAL Hx Chronic Kidney Disease: No - ENDOCRINE/METABOLIC Hx Endocrine Disorders: No - HEMATOLOGICAL/ONCOLOGICAL Hx Blood Disorders: Yes Hx Cancer: Yes (breast) - INTEGUMENTARY Hx Dermatological Problems: No - MUSCULOSKELETAL/RHEUMATOLOGICAL Hx Musculoskeletal Disorders: No Hx Falls: No Other/Comment: PVD - GASTROINTESTINAL Hx Gastrointestinal Disorders: No - GENITOURINARY/GYNECOLOGICAL Hx Genitourinary Disorders: No - PSYCHIATRIC Hx Substance Use: No - SURGICAL HISTORY Hx Surgeries: Yes Hx Mastectomy: Yes (right) Other/Comment: 2 valve replacement. HX: OMAIRA(12/21/16) - ANESTHESIA Hx Anesthesia: Yes Hx Anesthesia Reactions: No Hx Malignant Hyperthermia: No Meds Allergies/Adverse Reactions: Allergies Allergy/AdvReac Type Severity Reaction Status Date / Time blood plasma Allergy URTICARIA Uncoded 02/04/18 16:13 - Medications Medications: Current Medications Pantoprazole Sodium (Protonix Inj) 40 mg IVP Q12H [facility] Last Admin: 02/05/18 06:52 Dose: 40 mg Phytonadione (Vitamin K Tab) 10 mg PO DAILY [facility] Last Admin: 02/05/18 09:58 Dose: 10 mg Potassium Chloride (Potassium Chloride Oral Soln) 40 meq PO Q4 FUAD Stop: 02/05/18 16:01 Last Admin: 02/05/18 12:00 Dose: 40 meq Physical Exam - Constitutional Appears: Well, No Acute Distress, Chronically Ill - Head Exam Head Exam: NORMOCEPHALIC - Eye Exam Eye Exam: absent: Scleral icterus - ENT Exam ENT Exam: Normal Exam - Neck Exam Neck exam: Positive for: Normal Inspection - Respiratory Exam Respiratory Exam: Decreased Breath Sounds - Cardiovascular Exam Cardiovascular Exam: Irregular Rhythm - GI/Abdominal Exam GI & Abdominal Exam: Soft. absent: Distended, Organomegaly, Tenderness - Rectal Exam Rectal Exam: Deferred - Extremities Exam Extremities exam: Positive for: normal inspection - Back Exam Back exam: NORMAL INSPECTION - Neurological Exam Neurological exam: Alert, Oriented x3 - Psychiatric Exam Psychiatric exam: Normal Affect, Normal Mood - Skin Skin Exam: Normal Color Results - Vital Signs Recent Vital Signs: Last Vital Signs Temp 97.7 F 02/05/18 12:20 Pulse 58 L 02/05/18 12:20 Resp 20 02/05/18 12:20 BP 116/67 02/05/18 12:20 Pulse Ox 97 02/05/18 12:12 - Labs Result Diagrams: 02/05/18 06:16 02/05/18 06:16 Labs: Laboratory Results - last 24 hr 02/04/18 02/04/18 02/04/18 18:31 18:31 18:31 WBC 6.3 RBC 2.51 L Hgb 6.3 L* D Hct 19.2 L MCV 76.7 L D MCH 25.3 L MCHC 33.0 RDW 21.3 H Plt Count 161 MPV 9.3 Neut % (Auto) 82.9 H Lymph % (Auto) 5.3 L Spencer % (Auto) 8.5 Eos % (Auto) 1.4 Baso % (Auto) 1.9 Neut # (Auto) 5.2 Lymph # (Auto) 0.3 L Spencer # (Auto) 0.5 Eos # (Auto) 0.1 Baso # (Auto) 0.1 Neutrophils % (Manual) 88 H Lymphocytes % (Manual) 6 L Monocytes % (Manual) 6 Nucleated RBC % Platelet Estimate Normal Large Platelets Giant Platelets Hypochromasia (manual) Slight Poikilocytosis (manual Slight Anisocytosis (manual) Slight Microcytosis (manual) Slight Macrocytosis (manual) Slight Target Cells Slight Tear Drop Cells Slight Ovalocytes Miguel Cells Schistocytes Slight PT 83.5 H* INR 7.6 APTT 57 H Sodium 141 Potassium 3.4 L Chloride 105 Carbon Dioxide 21 L Anion Gap 19 BUN 84 H Creatinine 3.2 H Est GFR ( Amer) 17 Est GFR (Non-Af Amer) 14 Random Glucose 93 Calcium 9.3 Phosphorus Magnesium Iron TIBC % Saturation Ferritin Total Bilirubin 1.0 AST 117 H ALT 92 H D Alkaline Phosphatase 185 H Troponin I 0.0680 NT-Pro-B Natriuret Pep 04358 H Total Protein 7.0 Albumin 3.5 Globulin 3.5 Albumin/Globulin Ratio 1.0 Stool Occult Blood Blood Type Antibody Screen 02/04/18 02/04/18 02/04/18 19:05 21:05 21:05 WBC RBC Hgb Hct MCV MCH MCHC RDW Plt Count MPV Neut % (Auto) Lymph % (Auto) Spencer % (Auto) Eos % (Auto) Baso % (Auto) Neut # (Auto) Lymph # (Auto) Spencer # (Auto) Eos # (Auto) Baso # (Auto) Neutrophils % (Manual) Lymphocytes % (Manual) Monocytes % (Manual) Nucleated RBC % Platelet Estimate Large Platelets Giant Platelets Hypochromasia (manual) Poikilocytosis (manual Anisocytosis (manual) Microcytosis (manual) Macrocytosis (manual) Target Cells Tear Drop Cells Ovalocytes Miguel Cells Schistocytes PT INR APTT Sodium Potassium Chloride Carbon Dioxide Anion Gap BUN Creatinine Est GFR ( Amer) Est GFR (Non-Af Amer) Random Glucose Calcium Phosphorus Magnesium Iron 39 TIBC 260 % Saturation 15 L Ferritin Total Bilirubin AST ALT Alkaline Phosphatase Troponin I NT-Pro-B Natriuret Pep Total Protein Albumin Globulin Albumin/Globulin Ratio Stool Occult Blood Positive H Blood Type O POSITIVE Antibody Screen Negative 02/04/18 02/05/18 02/05/18 21:08 06:16 06:16 WBC 6.3 RBC 2.77 L Hgb 7.3 L Hct 21.7 L MCV 78.1 L MCH 26.2 L MCHC 33.6 RDW 19.6 H Plt Count 140 MPV 10.4 Neut % (Auto) 81.7 H Lymph % (Auto) 7.1 L Spencer % (Auto) 9.7 Eos % (Auto) 0.6 Baso % (Auto) 0.9 Neut # (Auto) 5.2 Lymph # (Auto) 0.4 L Spencer # (Auto) 0.6 Eos # (Auto) 0.0 Baso # (Auto) 0.1 Neutrophils % (Manual) 86 H Lymphocytes % (Manual) 6 L Monocytes % (Manual) 8 Nucleated RBC % 2 H Platelet Estimate Normal Large Platelets Present Giant Platelets Present Hypochromasia (manual) Moderate Poikilocytosis (manual Slight Anisocytosis (manual) Slight Microcytosis (manual) Slight Macrocytosis (manual) Slight Target Cells Slight Tear Drop Cells Slight Ovalocytes Slight Morrison Cells Slight Schistocytes PT 61.0 H* D INR 5.6 D APTT 49 H D Sodium Potassium Chloride Carbon Dioxide Anion Gap BUN Creatinine Est GFR ( Amer) Est GFR (Non-Af Amer) Random Glucose Calcium Phosphorus Magnesium Iron TIBC % Saturation Ferritin 89.7 Total Bilirubin AST ALT Alkaline Phosphatase Troponin I NT-Pro-B Natriuret Pep Total Protein Albumin Globulin Albumin/Globulin Ratio Stool Occult Blood Blood Type Antibody Screen 02/05/18 06:16 WBC RBC Hgb Hct MCV MCH MCHC RDW Plt Count MPV Neut % (Auto) Lymph % (Auto) Spencer % (Auto) Eos % (Auto) Baso % (Auto) Neut # (Auto) Lymph # (Auto) Spencer # (Auto) Eos # (Auto) Baso # (Auto) Neutrophils % (Manual) Lymphocytes % (Manual) Monocytes % (Manual) Nucleated RBC % Platelet Estimate Large Platelets Giant Platelets Hypochromasia (manual) Poikilocytosis (manual Anisocytosis (manual) Microcytosis (manual) Macrocytosis (manual) Target Cells Tear Drop Cells Ovalocytes Morrison Cells Schistocytes PT INR APTT Sodium 141 Potassium 3.2 L Chloride 108 H Carbon Dioxide 21 L Anion Gap 16 BUN 86 H Creatinine 2.9 H Est GFR ( Amer) 19 Est GFR (Non-Af Amer) 16 Random Glucose 84 Calcium 9.0 Phosphorus 4.0 Magnesium 1.4 L Iron TIBC % Saturation Ferritin Total Bilirubin 1.5 H AST 92 H D ALT 83 H Alkaline Phosphatase 164 H Troponin I NT-Pro-B Natriuret Pep Total Protein 6.1 L Albumin 3.0 L Globulin 3.1 Albumin/Globulin Ratio 0.9 L Stool Occult Blood Blood Type Antibody Screen Assessment & Plan (1) CHF (congestive heart failure) Assessment and Plan: managed by Cardiology Status: Acute (2) Symptomatic anemia Assessment and Plan: Overanticoagulated. Melena intermittently. Transfuse PRBCs, monitor Hgb, Protonix. Will need EGD ? tomorrow- if stable cardiac-acosta Status: Acute (3) Atrial fibrillation Status: Acute (4) PVD (peripheral vascular disease) Status: Acute (5) S/P aortic valve and mitral valve replacement Status: Acute - Date & Time Date: 02/05/18 Time: 12:36
--- NOTE | 2018-02-05 12:36 | CARD ---
APPROVED REPORT Date of service: 02/04/2018 EKG Measurement Heart [id number] ME 230P [id number] <Conclusion> Atrial-paced rhythm with prolonged AV conduction Left axis deviation. Abnormal ECG
--- NOTE | 2018-02-05 13:15 | CP.PCM.CON ---
History of Present Illness - History of Present Illness History of Present Illness: Renal consult for azotemia 72 yo AA female with history of CHF, afib, TAVR, PPM, recurrent admits to other hospitals for CHF exacerbation over the last few months. Now presents with weakness and found to have elevated INR, low hemoglobin. Pt with elevated BUN/creatinine upon admit. Pt describes dark stools since last week. Also, has history of polyp No known history of renal disease. Denies change in urine output. No NSAIDS. S/ p 2 u PRBC since admit. CXRAY with right pleural effusion. Review of Systems - Constitutional Constitutional: Fatigue - EENT Eyes: absent: Blurred Vision - Cardiovascular Cardiovascular: Dyspnea, Palpitations. absent: Chest Pain, Pedal Edema - Respiratory Respiratory: absent: Cough, Hemoptysis - Gastrointestinal Gastrointestinal: Melena. absent: Abdominal Pain - Genitourinary Genitourinary: absent: Change in Urinary Stream, Difficulty Urinating Past Patient History - Past Medical History & Family History Past Medical History?: Yes - Past Social History Smoking Status: Former Smoker - CARDIAC Hx Atrial Fibrillation: Yes Hx Congestive Heart Failure: Yes Hx Hypertension: Yes Hx Mitral Valve Prolapse: (Mitral Valve Disorder?) Hx Pacemaker: Yes (Left Upper Anterior Chest) - PULMONARY Hx Respiratory Disorders: No - NEUROLOGICAL Hx Neurological Disorder: No - HEENT Hx HEENT Problems: No - RENAL Hx Chronic Kidney Disease: No - ENDOCRINE/METABOLIC Hx Endocrine Disorders: No - HEMATOLOGICAL/ONCOLOGICAL Hx Blood Disorders: Yes Hx Cancer: Yes (breast) - INTEGUMENTARY Hx Dermatological Problems: No - MUSCULOSKELETAL/RHEUMATOLOGICAL Hx Musculoskeletal Disorders: No Hx Falls: No Other/Comment: PVD - GASTROINTESTINAL Hx Gastrointestinal Disorders: No - GENITOURINARY/GYNECOLOGICAL Hx Genitourinary Disorders: No - PSYCHIATRIC Hx Substance Use: No - SURGICAL HISTORY Hx Surgeries: Yes Hx Mastectomy: Yes (right) Other/Comment: 2 valve replacement. HX: OMAIRA(12/21/16) - ANESTHESIA Hx Anesthesia: Yes Hx Anesthesia Reactions: No Hx Malignant Hyperthermia: No Meds Allergies/Adverse Reactions: Allergies Allergy/AdvReac Type Severity Reaction Status Date / Time blood plasma Allergy URTICARIA Uncoded 02/04/18 16:13 - Medications Medications: Current Medications Pantoprazole Sodium (Protonix Inj) 40 mg IVP Q12H [facility] Last Admin: 02/05/18 06:52 Dose: 40 mg Phytonadione (Vitamin K Tab) 10 mg PO DAILY [facility] Last Admin: 02/05/18 09:58 Dose: 10 mg Potassium Chloride (Potassium Chloride Oral Soln) 40 meq PO Q4 [facility] Stop: 02/05/18 16:01 Last Admin: 02/05/18 12:00 Dose: 40 meq Physical Exam - Constitutional Appears: No Acute Distress, Chronically Ill - Head Exam Head Exam: ATRAUMATIC, NORMAL INSPECTION - Eye Exam Eye Exam: EOMI, Normal appearance - ENT Exam ENT Exam: Mucous Membranes Moist - Neck Exam Neck exam: Positive for: Full Rom. Negative for: Lymphadenopathy - Respiratory Exam Respiratory Exam: Decreased Breath Sounds. absent: Accessory Muscle Use - Cardiovascular Exam Cardiovascular Exam: Irregular Rhythm. absent: +S4 - GI/Abdominal Exam GI & Abdominal Exam: Distended. absent: Guarding, Rebound - Extremities Exam Extremities exam: Negative for: pedal edema Results - Vital Signs Recent Vital Signs: Last Vital Signs Temp 98.6 F 02/05/18 12:50 Pulse 61 02/05/18 12:50 Resp 20 02/05/18 12:50 BP 105/62 02/05/18 12:50 Pulse Ox 97 02/05/18 12:12 - Labs Result Diagrams: 02/05/18 06:16 02/05/18 06:16 Labs: Laboratory Results - last 24 hr 02/04/18 02/04/18 02/04/18 18:31 18:31 18:31 WBC 6.3 RBC 2.51 L Hgb 6.3 L* D Hct 19.2 L MCV 76.7 L D MCH 25.3 L MCHC 33.0 RDW 21.3 H Plt Count 161 MPV 9.3 Neut % (Auto) 82.9 H Lymph % (Auto) 5.3 L [place] % (Auto) 8.5 Eos % (Auto) 1.4 Baso % (Auto) 1.9 Neut # (Auto) 5.2 Lymph # (Auto) 0.3 L [place] # (Auto) 0.5 Eos # (Auto) 0.1 Baso # (Auto) 0.1 Neutrophils % (Manual) 88 H Lymphocytes % (Manual) 6 L Monocytes % (Manual) 6 Nucleated RBC % Platelet Estimate Normal Large Platelets Giant Platelets Hypochromasia (manual) Slight Poikilocytosis (manual Slight Anisocytosis (manual) Slight Microcytosis (manual) Slight Macrocytosis (manual) Slight Target Cells Slight Tear Drop Cells Slight Ovalocytes [place] Cells Schistocytes Slight PT 83.5 H* INR 7.6 APTT 57 H Sodium 141 Potassium 3.4 L Chloride 105 Carbon Dioxide 21 L Anion Gap 19 BUN 84 H Creatinine 3.2 H Est GFR ( Amer) 17 Est GFR (Non-Af Amer) 14 Random Glucose 93 Calcium 9.3 Phosphorus Magnesium Iron TIBC % Saturation Ferritin Total Bilirubin 1.0 AST 117 H ALT 92 H D Alkaline Phosphatase 185 H Troponin I 0.0680 NT-Pro-B Natriuret Pep 16089 H Total Protein 7.0 Albumin 3.5 Globulin 3.5 Albumin/Globulin Ratio 1.0 Stool Occult Blood Blood Type Antibody Screen 02/04/18 02/04/18 02/04/18 19:05 21:05 21:05 WBC RBC Hgb Hct MCV MCH MCHC RDW Plt Count MPV Neut % (Auto) Lymph % (Auto) [place] % (Auto) Eos % (Auto) Baso % (Auto) Neut # (Auto) Lymph # (Auto) [place] # (Auto) Eos # (Auto) Baso # (Auto) Neutrophils % (Manual) Lymphocytes % (Manual) Monocytes % (Manual) Nucleated RBC % Platelet Estimate Large Platelets Giant Platelets Hypochromasia (manual) Poikilocytosis (manual Anisocytosis (manual) Microcytosis (manual) Macrocytosis (manual) Target Cells Tear Drop Cells Ovalocytes Miguel Cells Schistocytes PT INR APTT Sodium Potassium Chloride Carbon Dioxide Anion Gap BUN Creatinine Est GFR ( Amer) Est GFR (Non-Af Amer) Random Glucose Calcium Phosphorus Magnesium Iron 39 TIBC 260 % Saturation 15 L Ferritin Total Bilirubin AST ALT Alkaline Phosphatase Troponin I NT-Pro-B Natriuret Pep Total Protein Albumin Globulin Albumin/Globulin Ratio Stool Occult Blood Positive H Blood Type O POSITIVE Antibody Screen Negative 02/04/18 02/05/18 02/05/18 21:08 06:16 06:16 WBC 6.3 RBC 2.77 L Hgb 7.3 L Hct 21.7 L MCV 78.1 L MCH 26.2 L MCHC 33.6 RDW 19.6 H Plt Count 140 MPV 10.4 Neut % (Auto) 81.7 H Lymph % (Auto) 7.1 L [place] % (Auto) 9.7 Eos % (Auto) 0.6 Baso % (Auto) 0.9 Neut # (Auto) 5.2 Lymph # (Auto) 0.4 L [place] # (Auto) 0.6 Eos # (Auto) 0.0 Baso # (Auto) 0.1 Neutrophils % (Manual) 86 H Lymphocytes % (Manual) 6 L Monocytes % (Manual) 8 Nucleated RBC % 2 H Platelet Estimate Normal Large Platelets Present Giant Platelets Present Hypochromasia (manual) Moderate Poikilocytosis (manual Slight Anisocytosis (manual) Slight Microcytosis (manual) Slight Macrocytosis (manual) Slight Target Cells Slight Tear Drop Cells Slight Ovalocytes Slight Miguel Cells Slight Schistocytes PT 61.0 H* D INR 5.6 D APTT 49 H D Sodium Potassium Chloride Carbon Dioxide Anion Gap BUN Creatinine Est GFR ( Amer) Est GFR (Non-Af Amer) Random Glucose Calcium Phosphorus Magnesium Iron TIBC % Saturation Ferritin 89.7 Total Bilirubin AST ALT Alkaline Phosphatase Troponin I NT-Pro-B Natriuret Pep Total Protein Albumin Globulin Albumin/Globulin Ratio Stool Occult Blood Blood Type Antibody Screen 02/05/18 06:16 WBC RBC Hgb Hct MCV MCH MCHC RDW Plt Count MPV Neut % (Auto) Lymph % (Auto) [place] % (Auto) Eos % (Auto) Baso % (Auto) Neut # (Auto) Lymph # (Auto) [place] # (Auto) Eos # (Auto) Baso # (Auto) Neutrophils % (Manual) Lymphocytes % (Manual) Monocytes % (Manual) Nucleated RBC % Platelet Estimate Large Platelets Giant Platelets Hypochromasia (manual) Poikilocytosis (manual Anisocytosis (manual) Microcytosis (manual) Macrocytosis (manual) Target Cells Tear Drop Cells Ovalocytes Miguel Cells Schistocytes PT INR APTT Sodium 141 Potassium 3.2 L Chloride 108 H Carbon Dioxide 21 L Anion Gap 16 BUN 86 H Creatinine 2.9 H Est GFR ( Amer) 19 Est GFR (Non-Af Amer) 16 Random Glucose 84 Calcium 9.0 Phosphorus 4.0 Magnesium 1.4 L Iron TIBC % Saturation Ferritin Total Bilirubin 1.5 H AST 92 H D ALT 83 H Alkaline Phosphatase 164 H Troponin I NT-Pro-B Natriuret Pep Total Protein 6.1 L Albumin 3.0 L Globulin 3.1 Albumin/Globulin Ratio 0.9 L Stool Occult Blood Blood Type Antibody Screen Assessment & Plan - Assessment and Plan (Free Text) Plan: FELIPE likely related to severe anemia, may have cardiorenal exacerbation GI to see for GI bleed Cardiology f/u for chronic CHF avoid MASON/ARB at present check urine Na check urine analysis check renal sonogram trend labs support hemoglobin with PRBC
--- NOTE | 2018-02-05 17:38 | US ---
Date of service: 02/05/2018 PROCEDURE: Ultrasound of the Kidneys HISTORY: FELIPE COMPARISON: Comparison is made to the previous CT dated 02/04/2018 8. TECHNIQUE: Sonogram of the kidneys. FINDINGS: RIGHT KIDNEY: Measures: 5.3 x 1.5 x 2.5 cm. Normal in size, contour and echogenicity. No stone, solid mass lesion or hydronephrosis visualized. LEFT KIDNEY: Measures: 10.9 x 5.2 x 4.7 cm. Normal in size, contour and echogenicity. There is punctate 0.2 centimeter nonobstructing renal calculi at the mid to upper pole of the left kidney. There is echogenic focus in the cortex of the left kidney at the upper pole measures 0.5 x 0.4 x 0.5 centimeter may represent fat containing lesion such as angiomyolipoma. There is a cyst at the midpole measures 0.6 centimeter. Dense of left hydronephrosis. OTHER FINDINGS: None. IMPRESSION: No evidence of hydronephrosis. Small right kidney. Echogenic focus in the left kidney cortex at the upper pole may represent fat containing lesion such as angio Fabio lipoma. 2 millimeter nonobstructing calculus at the mid to upper pole of the left kidney.
[2018-02-05] MEDS ORDERED: Phytonadione 2.5 MG/0.5 TAB TAB PO ONE (19:47)
[2018-02-05] MEDS ORDERED: Potassium Chloride 20 mEq/15 ml LIQ UD PO SCH (20:00)
[2018-02-05 20:33] LABS: SQUAMOUS EPITHIAL 4 /hpf (0-5); URINE BACTERIA FEW (<OCC); URINE BILIRUBIN NEGATIVE (NEGATIVE); URINE BLOOD NEGATIVE (NEGATIVE); URINE CLARITY Hazy (Clear); URINE COLOR Yellow (YELLOW); URINE GLUCOSE (UA) NORMAL (Normal); URINE LEUKOCYTE ESTERASE 3+ Leu/uL (Negative); URINE PROTEIN NEGATIVE (NEGATIVE); URINE UROBILINOGEN NORMAL mg/dL (0.2-1.0)
[2018-02-06 02:07] LABS: HEMOGLOBIN 9.5 g/dL (11.0-16.0); MEAN CELL VOLUME 80.8 fL (81.0-99.0); MEAN CORPUSCULAR HEMOGLOBIN 27.3 pg (27.0-31.0); MEAN CORPUSCULAR HGB CONC 33.7 g/dL (33.0-37.0); MEAN PLATELET VOLUME 9.9 fL (7.2-11.7); RBC 3.5 Mil/uL (3.80-5.20); RED CELL DISTRIBUTION WIDTH 21.1 % (11.5-14.5); WHITE BLOOD COUNT 7.1 K/uL (4.8-10.8)
[2018-02-06 02:17] LABS: INR 1.9; PROTHROMBIN TIME 21.3 SECONDS (9.7-12.2)
[2018-02-06 02:24] LABS: CALCIUM 9.6 mg/dl (8.6-10.4)
[2018-02-06 07:57] LABS: BASO % 0.6 % (0.0-2.0); EOS # 0.1 K/uL (0.0-0.7); EOS % 0.8 % (0.0-4.0); HEMOGLOBIN 9.1 g/dL (11.0-16.0); LYMPH # 0.5 K/uL (1.0-4.3); LYMPH % 8.2 % (20.0-40.0); MEAN CELL VOLUME 80.5 fL (81.0-99.0); MEAN CORPUSCULAR HEMOGLOBIN 27.6 pg (27.0-31.0); MEAN CORPUSCULAR HGB CONC 34.3 g/dL (33.0-37.0); MEAN PLATELET VOLUME 9.8 fL (7.2-11.7); MONO # 0.6 K/uL (0.0-0.8); MONO % 9.9 % (0.0-10.0); NEUT # 5.1 K/uL (1.8-7.0); NEUT % 80.5 % (50.0-75.0); NRBC % 0.6 % (0.0-2.0); PLATELET COUNT 159 K/uL (130-400); RBC 3.31 Mil/uL (3.80-5.20); RED CELL DISTRIBUTION WIDTH 21.2 % (11.5-14.5); WHITE BLOOD COUNT 6.4 K/uL (4.8-10.8)
[2018-02-06 08:15] LABS: ALB/GLOB RATIO 1.1 (1.0-2.1); ALBUMIN 3.4 g/dL (3.5-5.0); CALCIUM 9.7 mg/dl (8.6-10.4)
--- NOTE | 2018-02-06 08:43 | CP.PCM.PN ---
Subjective - Date & Time of Evaluation Date of Evaluation: 02/06/18 Time of Evaluation: 08:40 - Subjective Subjective: events noted s/p GI bleed induced from anticoagulation, s/p blood transfusions 2 units Has h/o CHF, s/p MVR in remote past and recent TAVR Likely with CKD 4, atrophic right kidney from RAMONA Presents with FELIPE, then CHF from fluids for EGD now Feels weak, moderate CAMPBELL no dysuria Objective - Vital Signs/Intake and Output Vital Signs (last 24 hours): Temp Pulse Resp BP Pulse Ox 97.8 F 78 18 134/72 97 02/06/18 07:15 02/06/18 07:30 02/06/18 07:15 02/06/18 07:15 02/06/18 07:15 - Medications Medications: Current Medications Furosemide (Lasix) 20 mg IVP Q12 [facility] Last Admin: 02/05/18 21:53 Dose: 20 mg Pantoprazole Sodium (Protonix Inj) 40 mg IVP Q12H [facility] Last Admin: 02/05/18 19:45 Dose: 40 mg Rosuvastatin Calcium (Crestor) 10 mg PO HS [facility] - Labs Labs: 02/06/18 07:38 02/06/18 07:38 PT 21.3 SECONDS (9.7-12.2) H D 02/06/18 02:03 INR 1.9 D 02/06/18 02:03 APTT 37 SECONDS (21-34) H D 02/06/18 07:38 - Constitutional Appears: No Acute Distress, Chronically Ill - Head Exam Head Exam: ATRAUMATIC, NORMAL INSPECTION - Eye Exam Eye Exam: EOMI, Normal appearance - Neck Exam Neck Exam: Normal Inspection. absent: Tenderness - Respiratory Exam Respiratory Exam: Rhonchi, NORMAL BREATHING PATTERN - Cardiovascular Exam Cardiovascular Exam: REGULAR RHYTHM, +S1 - GI/Abdominal Exam GI & Abdominal Exam: Distended, Soft - Extremities Exam Extremities Exam: Pedal Edema. absent: Tenderness - Neurological Exam Neurological Exam: Awake, CN II-XII Intact - Skin Skin Exam: Dry, Warm Assessment and Plan (1) FELIPE (acute kidney injury) Status: Acute (2) CKD (chronic kidney disease) stage 4, GFR 15-29 ml/min Status: Acute (3) RAMONA (renal artery stenosis) Status: Acute (4) S/P TAVR (transcatheter aortic valve replacement) Status: Acute (5) CHF (congestive heart failure) Status: Acute (6) Atrial fibrillation Status: Acute - Assessment and Plan (Free Text) Plan: Avoid MASON I, ARBs, NSAIDs Serial chemistries IV Fe EGD now Hold IV fluids due to CHF
--- NOTE | 2018-02-06 09:13 | RAD ---
Date of service: 02/06/2018 HISTORY: chf COMPARISON: 02/05/2018 at 1207 hours FINDINGS: LUNGS: The right basal consolidation -similar. Compressive atelectasis of with an associated right pleural effusion is inferred. PLEURA: Right pleural effusion similar in appearance. There is a border seen along the lateral right jonathan thorax simulating a pleural reflection of the pneumothorax. At times skin falls can simulate this appearance -no history is available to me 2 assess why the patient may air may not have such a pneumothorax. A small left pleural effusion is present as before. CARDIOVASCULAR: Cardiomegaly-similar. Mild pulmonary venous congestion similar. A pacemaker device is in place. Midline sternotomy wires are noted. There is also apparent central vascular stenting material present as before. OSSEOUS STRUCTURES: No significant abnormalities. VISUALIZED UPPER ABDOMEN: Normal. OTHER FINDINGS: None. IMPRESSION: The possibility of a right pneumothorax is raised on this exam. Raymond prominent skin fold can sometimes simulate this appearance. This concern was called up to 5 sac and directly given to the nurse taking care the patient Ngozi at 9:04 a.m. prior to this dictation being completed. A PA upright view in expiration to clarify this consideration was recommended. Right basal opacity compatible with compressive atelectasis and right pleural effusion. Concomitant underlying infiltrate here also compatible with this. The prior patchy opacity infiltrate a in the mid right lung zone is also accentuated appearance
[2018-02-06 09:16] LABS: ANISOCYTOSIS SLIGHT; EOSINOPHIL 3 % (0-4); HYPOCHROMIC SLIGHT; LYMPHOCYTE 5 % (20-40); MONOCYTE 9 % (0-10); NEUTROPHIL 83 % (50-75); PLATELET ESTIMATE NORMAL (NORMAL); POIKILOCYTOSIS SLIGHT; TOTAL CELLS COUNTED 100
[2018-02-06 09:17] LABS: BURR CELLS SLIGHT; MICROCYTOSIS SLIGHT; TARGET CELLS SLIGHT
[2018-02-06] MEDS ORDERED: Ferric Sodium Gluconat Complex 62.5 mg/5 ml Vial IVPB SCH (10:00)
[2018-02-06] MEDS: Ferric Sodium Gluconat Complex 125 MG in Sodium Chloride 0.9% 100 ML IVPB SCH (10:22)
--- NOTE | 2018-02-06 10:23 | RAD ---
Date of service: 02/06/2018 PROCEDURE: CHEST RADIOGRAPH, 1 VIEW HISTORY: chronic pleural effusion COMPARISON: 02/06/2018 at 0730 hours FINDINGS: LUNGS: Right basal consolidations similar -compressive atelectasis with an associated right pleural effusion is inferred as before. PLEURA: There right inferolateral pleural base opacity pad oval with chronic pleural effusion with or without similar chronic loculation is renoted. The prior indeterminate appearance regarding a potential pleural surface of a equivocal pneumothorax produced on this exam. A skin fold is therefore inferred. Minimal left pleural effusion - under chronic pleural thickening blunting of costophrenic angle- similar CARDIOVASCULAR: Mild cardiomegaly midline sternotomy, vascular stenting midline thorax and duallead pacemaker appearance-all similar. OSSEOUS STRUCTURES: No significant abnormalities. VISUALIZED UPPER ABDOMEN: Normal. OTHER FINDINGS: None. IMPRESSION: Current images do not suggest the presence of the right pneumothorax. The prior appearance is inferred as a skin fold. Other chronic pleural parenchymal process ease right inferolateral hemithorax are otherwise similar detailed above. Chronic changes at the left lung base trace-also similar
[2018-02-06] MEDS ORDERED: Midazolam 2 MG/2 ML VIAL ONE (11:22)
--- NOTE | 2018-02-06 20:49 | CP.PCM.PN ---
Subjective - Date & Time of Evaluation Date of Evaluation: 02/06/18 Time of Evaluation: 11:50 - Subjective Subjective: Patient being transferred to regular medical floor. Patient is still feeling weakness, tiredness, fatigability. Hematocrit is improving. Patient is to do 2 units of blood Endoscopy done, showing evidence of nonbleeding gastric ulcers. Still having edema in the legs. Labs reviewed Spoke to the chair lift operator. Follow-up echocardiogram Cardiology follow-up. Echocardiogram pending Assessment and recommendation: 72-year-old female with multiple medical problems, congestive heart failure, pulmonary hypertension, atrial fibrillation, multiple valvular replacement. Generalized pedal edema Cardiology evaluation for possible inotropic. We will follow-up the patient Objective - Vital Signs/Intake and Output Vital Signs (last 24 hours): Temp Pulse Resp BP Pulse Ox 97.3 F L 71 18 120/74 95 02/06/18 16:34 02/06/18 20:27 02/06/18 16:34 02/06/18 20:27 02/06/18 16:34 Intake and Output: 02/06/18 02/07/18 18:59 06:59 Intake Total 150 400 Balance 150 400 - Medications Medications: Current Medications Furosemide (Lasix) 20 mg IVP Q12 FUAD Last Admin: 02/06/18 10:22 Dose: 20 mg Ferric Sodium Gluconate Complex 125 mg/ Sodium Chloride 110 mls @ 60 mls/hr IVPB DAILY [facility]UAD Stop: 02/14/18 10:01 Last Admin: 02/06/18 10:22 Dose: 60 mls/hr Pantoprazole Sodium (Protonix Inj) 40 mg IVP Q12H [facility]UAD Last Admin: 02/06/18 19:49 Dose: 40 mg Rosuvastatin Calcium (Crestor) 10 mg PO HS FUAD - Labs Labs: 02/06/18 07:38 02/06/18 07:38 PT 21.3 SECONDS (9.7-12.2) H D 02/06/18 02:03 INR 1.9 D 02/06/18 02:03 APTT 37 SECONDS (21-34) H D 02/06/18 07:38
--- NOTE | 2018-02-06 20:49 | CP.PCM.PN ---
Subjective - Date & Time of Evaluation Date of Evaluation: 02/05/18 Time of Evaluation: 20:49 - Subjective Subjective: Patient being transferred to regular medical floor. Patient is still feeling weakness, tiredness, fatigability. Hematocrit is improving. Patient is to do 2 units of blood Seen by mobile designer. Possible endoscopy tomorrow Still having edema in the legs. Labs reviewed INR elevated We will continue to hold Coumadin Cardiology follow-up. Echocardiogram pending Assessment and recommendation: 72-year-old female with multiple medical problems, congestive heart failure, pulmonary hypertension, atrial fibrillation, multiple valvular replacement. Generalized pedal edema Possible endoscopy tomorrow. Cardiology evaluation for possible inotropic. We will follow-up the patient Objective - Vital Signs/Intake and Output Vital Signs (last 24 hours): Temp Pulse Resp BP Pulse Ox 97.3 F L 71 18 120/74 95 02/06/18 16:34 02/06/18 20:27 02/06/18 16:34 02/06/18 20:27 02/06/18 16:34 Intake and Output: 02/06/18 02/07/18 18:59 06:59 Intake Total 150 400 Balance 150 400 - Medications Medications: Current Medications Furosemide (Lasix) 20 mg IVP Q12 FUAD Last Admin: 02/06/18 10:22 Dose: 20 mg Ferric Sodium Gluconate Complex 125 mg/ Sodium Chloride 110 mls @ 60 mls/hr IVPB DAILY [facility]UAD Stop: 02/14/18 10:01 Last Admin: 02/06/18 10:22 Dose: 60 mls/hr Pantoprazole Sodium (Protonix Inj) 40 mg IVP Q12H [facility] Last Admin: 02/06/18 19:49 Dose: 40 mg Rosuvastatin Calcium (Crestor) 10 mg PO HS FUAD - Labs Labs: 02/06/18 07:38 02/06/18 07:38 PT 21.3 SECONDS (9.7-12.2) H D 02/06/18 02:03 INR 1.9 D 02/06/18 02:03 APTT 37 SECONDS (21-34) H D 02/06/18 07:38
--- NOTE | 2018-02-06 22:31 | CP.PCM.PN ---
Subjective - Date & Time of Evaluation Date of Evaluation: 02/06/18 Time of Evaluation: 08:20 - Subjective Subjective: Patient seen and evaluated denies chest pain and dyspnea Objective - Vital Signs/Intake and Output Vital Signs (last 24 hours): Temp Pulse Resp BP Pulse Ox 97.3 F L 76 18 125/76 95 02/06/18 16:34 02/06/18 21:54 02/06/18 16:34 02/06/18 21:54 02/06/18 16:34 Intake and Output: 02/06/18 02/07/18 18:59 06:59 Intake Total 150 400 Balance 150 400 - Medications Medications: Current Medications Furosemide (Lasix) 20 mg IVP Q12 [facility]UAD Last Admin: 02/06/18 21:50 Dose: 20 mg Ferric Sodium Gluconate Complex 125 mg/ Sodium Chloride 110 mls @ 60 mls/hr IVPB DAILY FUAD Stop: 02/14/18 10:01 Last Admin: 02/06/18 10:22 Dose: 60 mls/hr Pantoprazole Sodium (Protonix Inj) 40 mg IVP Q12H [facility] Last Admin: 02/06/18 19:49 Dose: 40 mg Rosuvastatin Calcium (Crestor) 10 mg PO HS FUAD Last Admin: 02/06/18 21:50 Dose: 10 mg - Labs Labs: 02/06/18 07:38 02/06/18 07:38 PT 21.3 SECONDS (9.7-12.2) H D 02/06/18 02:03 INR 1.9 D 02/06/18 02:03 APTT 37 SECONDS (21-34) H D 02/06/18 07:38 Assessment and Plan - Assessment and Plan (Free Text) Assessment: A/P: Patient is a 72 year old female with past medical history of Valvular disease s/p TAVR 09/2017, atrial fibrillation, CHF, HTN, Breast cancer s/p lumpectomy and radiation therapy who presented with worsening bilateral lower extremity swelling, weakness and dyspnea on exertion. Acute Symptomatic Anemia -Hgb on admission 6.3, baseline hgb 10.0, Stool occult is positive -S/P 2 units PRBCs -Likely secondary to GI bleed -CT abd/pelvis showed cholelithiasis -Monitor serial H/H -Patient is moderate risk for cardiac events for EGD under conscious sedation -GI on consult, help appreciated Diastolic Congestive Heart Failure -BNP [place] admission 28158, Troponin negative x 1 -Last echo 11/2016 showed EF 60-65%, mild to moderate concentric LVH, Moderate pulmonary HTN, Bioprostetic AV with severe valvular , Left atrium/Right atrium moderately dilated. Mitral valve bioprostetic, moderate Mitral valve stenosis -F/U repeat Echocardiogram -Last Cardiac Catheterization 12/2016 showed normal coronaries -CXR on admission showed right pleural effusion -CT chest showed moderate right pleural effusion with adjacent atelectasis, cardiomegaly -Continue cardiac medications -Daily weights, strict I/Os History of atrial fibrillation/Supratherapeutic INR -Hold Coumadin and ASA at this time -S/P Vitamin K -Monitor serial INR Acute on Chronic Kidney Disease -BUN/Cr 86/2.9, baseline Cr 1.5 -F/U renal US -Nephro on consult, help appreciated
[2018-02-07 07:42] LABS: INR 1.5; PROTHROMBIN TIME 16.2 SECONDS (9.7-12.2)
[2018-02-07 07:43] LABS: BASO % 0.6 % (0.0-2.0); EOS # 0.1 K/uL (0.0-0.7); EOS % 1.2 % (0.0-4.0); HEMOGLOBIN 8.5 g/dL (11.0-16.0); LYMPH # 0.4 K/uL (1.0-4.3); LYMPH % 6.5 % (20.0-40.0); MEAN CELL VOLUME 81.2 fL (81.0-99.0); MEAN CORPUSCULAR HEMOGLOBIN 27.9 pg (27.0-31.0); MEAN CORPUSCULAR HGB CONC 34.3 g/dL (33.0-37.0); MEAN PLATELET VOLUME 9.6 fL (7.2-11.7); MONO # 0.6 K/uL (0.0-0.8); MONO % 9.7 % (0.0-10.0); NEUT # 4.8 K/uL (1.8-7.0); NRBC % 0.2 % (0.0-2.0); PLATELET COUNT 143 K/uL (130-400); RBC 3.07 Mil/uL (3.80-5.20); WHITE BLOOD COUNT 5.9 K/uL (4.8-10.8)
--- NOTE | 2018-02-07 08:05 | CP.PCM.PN ---
Subjective - Date & Time of Evaluation Date of Evaluation: 02/07/18 Time of Evaluation: 08:02 - Subjective Subjective: f/u GI bleed Feels weak Denies abdom pain, fever, chills, SZ, LOC, TIWARI, cough, hematuria, hemoptysis Objective - Vital Signs/Intake and Output Vital Signs (last 24 hours): Temp Pulse Resp BP Pulse Ox 97.9 F 68 20 116/65 96 02/07/18 00:00 02/07/18 00:00 02/07/18 00:00 02/07/18 00:00 02/07/18 00:00 Intake and Output: 02/07/18 02/07/18 06:59 18:59 Intake Total 400 Balance 400 - Medications Medications: Current Medications Furosemide (Lasix) 20 mg IVP Q12 [facility] Last Admin: 02/06/18 21:50 Dose: 20 mg Ferric Sodium Gluconate Complex 125 mg/ Sodium Chloride 110 mls @ 60 mls/hr IVPB DAILY FUAD Stop: 02/14/18 10:01 Last Admin: 02/06/18 10:22 Dose: 60 mls/hr Pantoprazole Sodium (Protonix Inj) 40 mg IVP Q12H [facility]UAD Last Admin: 02/06/18 19:49 Dose: 40 mg Rosuvastatin Calcium (Crestor) 10 mg PO HS FUAD Last Admin: 02/06/18 21:50 Dose: 10 mg - Labs Labs: 02/07/18 07:27 02/06/18 07:38 PT 16.2 SECONDS (9.7-12.2) H D 02/07/18 07:27 INR 1.5 02/07/18 07:27 APTT 33 SECONDS (21-34) 02/07/18 07:27 - Constitutional Appears: Chronically Ill - Respiratory Exam Respiratory Exam: Clear to Ausculation Bilateral - Cardiovascular Exam Cardiovascular Exam: Irregular Rhythm - GI/Abdominal Exam GI & Abdominal Exam: Soft, Normal Bowel Sounds. absent: Guarding, Tenderness, Mass, Rebound - Neurological Exam Neurological Exam: Alert, Awake, Oriented x3 Assessment and Plan (1) CHF (congestive heart failure) Status: Acute (2) CKD (chronic kidney disease) stage 4, GFR 15-29 ml/min Status: Acute (3) S/P TAVR (transcatheter aortic valve replacement) Status: Acute (4) Symptomatic anemia Assessment & Plan: Elev INR and ulcer. No active bleeding at EGD. REc- PPI, check Hb, anticoag is ok- but needs close monitoring to avoid too much anticoag. Status: Acute (5) Atrial fibrillation Status: Acute
[2018-02-07 08:06] LABS: ALB/GLOB RATIO 0.9 (1.0-2.1); ALBUMIN 3.1 g/dL (3.5-5.0); CALCIUM 9.5 mg/dl (8.6-10.4)
[2018-02-07 09:27] LABS: EOSINOPHIL 1 % (0-4); LYMPHOCYTE 6 % (20-40); NUCLEATED RED BLOOD CELL 1 % (0-0); TOTAL CELLS COUNTED 100
[2018-02-07 09:28] LABS: ANISOCYTOSIS SLIGHT; HYPOCHROMIC MODERATE; MICROCYTOSIS SLIGHT; MONOCYTE 11 % (0-10); NEUTROPHIL 82 % (50-75); PLATELET ESTIMATE NORMAL (NORMAL); POIKILOCYTOSIS SLIGHT; TARGET CELLS SLIGHT
[2018-02-07 09:29] LABS: OVALOCYTES SLIGHT; TEARDROP CELLS SLIGHT
[2018-02-07] MEDS: Ferric Sodium Gluconat Complex 125 MG in Sodium Chloride 0.9% 100 ML IVPB SCH (09:36)
--- NOTE | 2018-02-07 11:39 | CARD ---
APPROVED REPORT Date of service: 02/06/2018 EXAM: Two-dimensional and M-mode echocardiogram with Doppler and color Doppler. Other Information Quality : GoodRhythm : INDICATION Pleural Effusion Congestive Heart Failure Paradoxical Septal Motion Surgery/Intervention Status/Post Aortic Valve Replacement: Status/Post Mitral Valve Replacement: RISK FACTORS Hypertension Hyperlipidemia 2D DIMENSIONS IVSd1.0 (0.7-1.1cm)LVDd5.0 (3.9-5.9cm) LVOT Diameter1.8 (1.8-2.4cm)PWd1.0 (0.7-1.1cm) LVDs4.0 (2.5-4.0cm)FS (%) 20.1 % LVEF (%)35.0 (>50%) M-Mode DIMENSIONS RVDd2.05 (2.1-3.2cm)IVSd0.97 (0.7-1.1cm) LVDd5.38 (4.0-5.6cm)PWd0.87 (0.7-1.1cm) FS (%) 8 %LVDs4.93 (2.0-3.8cm) TAPSE1.6 cmLVEF (%)35 (>50%) Aortic Valve AoV Peak Mkfipeus489.0cm/sAoV VTI65.0cmAO Peak GR.35mmHg LVOT Peak Kraefvqk80.9cm/sLVOT VTI16.68cmAO Mean GR.17mmHg AURA (VMAX)0.34bq4RYI (VTI)0.65cm2 Mitral Valve MV E Bssnlogf071.3cm/sMV E Peak Gr.21mmHgMV E Mean Gr.7mmHg MV JJD242mnA/A ratio0.0MVA (PHT)1.82cm2 TDI E/Lateral E'0.0E/Medial E'0.0 Tricuspid Valve TR Peak Kbdswwrf366bh/sTR Peak Gr.04yxOsNGGD84wiYk LEFT VENTRICLE The left ventricle is normal size. There is normal left ventricular wall thickness. The Ejection Fraction is 30-35%. Apical motion consistent with pacemaker activation. moderately increased la stroke volume index of 56 mm/sqm. RIGHT VENTRICLE The right ventricle is mildly dilated. rv Systolic function is moderately reduced. ATRIA The left atrium is moderately dilated. The right atrium is mildly dilated. The interatrial septum is intact with no evidence for an atrial septal defect. AORTIC VALVE There is mild aortic regurgitation. There is a bioprosthetic aortic valve prosthesis.peak/mean avg of 37/18 mm of hg. MITRAL VALVE Mitral regurgitation is mild. There is a bioprosthetic mitral valve.peak/mean mvg of 20/7 mm of hg.mva of 2.0 cmsq. TRICUSPID VALVE The tricuspid valve is normal in structure. There is severe tricuspid regurgitation. Right ventricular systolic pressure is estimated at 60 mmHg. There is moderate-severe pulmonary hypertension. PULMONIC VALVE The pulmonary valve is normal in structure. There is mild pulmonic valvular regurgitation. GREAT VESSELS The aortic root is normal size. The aortic root displays moderate sclerocalcific changes of the aortic root. ivc is normal size & collapses less than 50% during inspirarion suggestive of high ra pressures. PERICARDIAL EFFUSION There is no pericardial effusion. <Conclusion> The right ventricle is mildly dilated. rv Systolic function is moderately reduced. The left atrium is moderately dilated. The right atrium is mildly dilated. pacemaker artifact seen in ra. There is mild aortic regurgitation. There is a bioprosthetic aortic valve prosthesis.peak/mean avg of 37/18 mm of hg. moderately increased la stroke volume index of 56 mm/sqm. There is a bioprosthetic mitral valve.peak/mean mvg of 20/7 mm of hg.mva of 2.0 cmsq. Mitral regurgitation is mild. There is severe tricuspid regurgitation. Right ventricular systolic pressure is estimated at 60 mmHg. There is moderate-severe pulmonary hypertension. ivc is normal size & collapses less than 50% during inspirarion suggestive of high ra pressures. The aortic root is normal size. The aortic root displays moderate sclerocalcific changes of the aortic root.
--- NOTE | 2018-02-07 11:53 | CP.PCM.PN ---
Subjective - Date & Time of Evaluation Date of Evaluation: 02/07/18 Time of Evaluation: 11:52 - Subjective Subjective: Patient is currently feeling well. Comfortable. She is feeling some exertional dyspnea. Currently receiving intravenous iron injection. Vital signs stable. Mildly low blood pressure noted. Chest bilateral good air entry. Chest x-ray showing right pleural effusion I spoke to the cyber systems operations specialist. After checking the echocardiogram we will decide about the intravenous inotropic 's to improve the cardiac function, and renal function. Will follow the patient Objective - Vital Signs/Intake and Output Vital Signs (last 24 hours): Temp Pulse Resp BP Pulse Ox 98.1 F 65 18 118/70 98 02/07/18 08:06 02/07/18 09:13 02/07/18 08:06 02/07/18 09:38 02/07/18 08:06 Intake and Output: 02/07/18 02/07/18 06:59 18:59 Intake Total 400 Balance 400 - Medications Medications: Current Medications Furosemide (Lasix) 20 mg IVP Q12 [facility] Last Admin: 02/07/18 09:38 Dose: 20 mg Ferric Sodium Gluconate Complex 125 mg/ Sodium Chloride 110 mls @ 60 mls/hr IVPB DAILY FUAD Stop: 02/14/18 10:01 Last Admin: 02/07/18 09:36 Dose: 60 mls/hr Pantoprazole Sodium (Protonix Inj) 40 mg IVP Q12H FUAD Last Admin: 02/07/18 08:45 Dose: 40 mg Rosuvastatin Calcium (Crestor) 10 mg PO HS [facility] Last Admin: 02/06/18 21:50 Dose: 10 mg - Labs Labs: 02/07/18 07:27 02/07/18 07:27 PT 16.2 SECONDS (9.7-12.2) H D 02/07/18 07:27 INR 1.5 02/07/18 07:27 APTT 33 SECONDS (21-34) 02/07/18 07:27
--- NOTE | 2018-02-07 12:52 | CP.PCM.PN ---
Subjective - Date & Time of Evaluation Date of Evaluation: 02/07/18 Time of Evaluation: 12:48 - Subjective Subjective: s/p EGD? creat improved to 2.3 still very weak, maybe better on IV Fe inotropes being considered Objective - Vital Signs/Intake and Output Vital Signs (last 24 hours): Temp Pulse Resp BP Pulse Ox 98.1 F 65 18 118/70 98 02/07/18 08:06 02/07/18 09:13 02/07/18 08:06 02/07/18 09:38 02/07/18 08:06 Intake and Output: 02/07/18 02/07/18 06:59 18:59 Intake Total 400 Balance 400 - Medications Medications: Current Medications Aspirin (Ecotrin) 81 mg PO DAILY [facility] Carvedilol (Coreg) 3.125 mg PO BID FUAD Furosemide (Lasix) 20 mg IVP DAILY [facility] Ferric Sodium Gluconate Complex 125 mg/ Sodium Chloride 110 mls @ 60 mls/hr IVPB DAILY FUAD Stop: 02/14/18 10:01 Last Admin: 02/07/18 09:36 Dose: 60 mls/hr Pantoprazole Sodium (Protonix Inj) 40 mg IVP Q12H [facility]UAD Last Admin: 02/07/18 08:45 Dose: 40 mg Rosuvastatin Calcium (Crestor) 10 mg PO HS FUAD Last Admin: 02/06/18 21:50 Dose: 10 mg - Labs Labs: 02/07/18 07:27 02/07/18 07:27 PT 16.2 SECONDS (9.7-12.2) H D 02/07/18 07:27 INR 1.5 02/07/18 07:27 APTT 33 SECONDS (21-34) 02/07/18 07:27 - Constitutional Appears: No Acute Distress, Chronically Ill - Head Exam Head Exam: ATRAUMATIC, NORMAL INSPECTION - Eye Exam Eye Exam: EOMI, Normal appearance - Neck Exam Neck Exam: Normal Inspection. absent: Tenderness - Respiratory Exam Respiratory Exam: Clear to Ausculation Bilateral, NORMAL BREATHING PATTERN - Cardiovascular Exam Cardiovascular Exam: Irregular Rhythm, +S1, Murmur - GI/Abdominal Exam GI & Abdominal Exam: Soft. absent: Tenderness - Extremities Exam Extremities Exam: Normal Inspection. absent: Tenderness - Neurological Exam Neurological Exam: Awake, CN II-XII Intact - Skin Skin Exam: Dry, Warm Assessment and Plan (1) FELIPE (acute kidney injury) Status: Acute (2) CKD (chronic kidney disease) stage 4, GFR 15-29 ml/min Status: Acute (3) RAMONA (renal artery stenosis) Status: Acute (4) S/P TAVR (transcatheter aortic valve replacement) Status: Acute (5) CHF (congestive heart failure) Status: Acute (6) Atrial fibrillation Status: Acute - Assessment and Plan (Free Text) Plan: Repeat chemistries- FELIPE might improve more off [place] I continue IV Fe Can add ESAs possible inotrope rx being considered
--- NOTE | 2018-02-07 12:58 | CP.PCM.PN ---
<Ann Ching - Last Filed: 02/07/18 17:03> Subjective - Date & Time of Evaluation Date of Evaluation: 02/07/18 Time of Evaluation: 12:57 - Subjective Subjective: Cardiology Progress Note - Dr Pennington Patient seen and examined at bedside. Per nursing no acute events overnight. Patient is out of bed to chair. States that she is having some back discomfort. Denies any chest pain or dyspnea. Not much of an appetite. Objective - Vital Signs/Intake and Output Vital Signs (last 24 hours): Temp Pulse Resp BP Pulse Ox 98.1 F 65 18 118/70 98 02/07/18 08:06 02/07/18 09:13 02/07/18 08:06 02/07/18 09:38 02/07/18 08:06 Intake and Output: 02/07/18 02/07/18 06:59 18:59 Intake Total 400 Balance 400 - Medications Medications: Current Medications Aspirin (Ecotrin) 81 mg PO DAILY [facility] Last Admin: 02/07/18 12:51 Dose: 81 mg Carvedilol (Coreg) 3.125 mg PO BID FUAD Epoetin Chacho (Procrit) 10,000 unit SC MWF [facility] Furosemide (Lasix) 20 mg IVP DAILY [facility] Ferric Sodium Gluconate Complex 125 mg/ Sodium Chloride 110 mls @ 60 mls/hr IVPB DAILY [facility] Stop: 02/14/18 10:01 Last Admin: 02/07/18 09:36 Dose: 60 mls/hr Pantoprazole Sodium (Protonix Inj) 40 mg IVP Q12H [facility] Last Admin: 02/07/18 08:45 Dose: 40 mg Rosuvastatin Calcium (Crestor) 10 mg PO HS [facility] Last Admin: 02/06/18 21:50 Dose: 10 mg - Labs Labs: 02/07/18 07:27 02/07/18 07:27 PT 16.2 SECONDS (9.7-12.2) H D 02/07/18 07:27 INR 1.5 02/07/18 07:27 APTT 33 SECONDS (21-34) 02/07/18 07:27 - Constitutional Appears: Well, No Acute Distress - Head Exam Head Exam: ATRAUMATIC, NORMAL INSPECTION - Eye Exam Eye Exam: EOMI, Normal appearance - ENT Exam ENT Exam: Mucous Membranes Moist - Neck Exam Neck Exam: Full ROM - Respiratory Exam Respiratory Exam: Decreased Breath Sounds, NORMAL BREATHING PATTERN - Cardiovascular Exam Cardiovascular Exam: Irregular Rhythm, +S1, +S2 - GI/Abdominal Exam GI & Abdominal Exam: Soft. absent: Tenderness - Extremities Exam Extremities Exam: absent: Calf Tenderness - Neurological Exam Neurological Exam: Alert, Awake, Oriented x3 - Psychiatric Exam Psychiatric exam: Normal Affect, Normal Mood - Skin Skin Exam: Normal Color, Warm Assessment and Plan - Assessment and Plan (Free Text) Assessment: A/P: Patient is a 72 year old female with past medical history of Valvular disease s/p TAVR 09/2017, atrial fibrillation, CHF, HTN, Breast cancer s/p lumpectomy and radiation therapy who presented with worsening bilateral lower extremity swelling, weakness and dyspnea on exertion. Acute Symptomatic Anemia -Hgb on admission 6.3, baseline hgb 10.0, Stool occult is positive -S/P PRBCs -Likely secondary to GI bleed -CT abd/pelvis showed cholelithiasis -EGD showed non-bleeding gastric ulcers -Monitor serial H/H -GI on consult, help appreciated Acute Systolic Congestive Heart Failure -[place] admission [address], Troponin negative x 1 -Last echo 11/2016 showed EF 60-65%, mild to moderate concentric LVH, Moderate pulmonary HTN, Bioprostetic AV with severe valvular , Left atrium/Right atrium moderately dilated. Mitral valve bioprostetic, moderate Mitral valve stenosis -Repeat Echocardiogram right ventricle mildly dilated, systolic function moderately reduced, left atrium mildly dilated, severe TR, moderate to sever pulm HTN -Last Cardiac Catheterization 12/2016 showed normal coronaries -CXR on admission showed right pleural effusion -CT chest showed moderate right pleural effusion with adjacent atelectasis, cardiomegaly -Continue aggressive medical management with diuretics, HR control -Daily weights, strict I/Os History of atrial fibrillation/Supratherapeutic INR -Hold Coumadin and ASA at this time -S/P Vitamin K -Monitor serial INR -Will need to f/u GI on when to restart anticoagulation Acute on Chronic Kidney Disease -Nephro on consult, help appreciated Plan to be discussed with Dr Gorge Ching DO PGY-2 <Mohan Pennington - Last Filed: 02/07/18 22:21> Objective - Vital Signs/Intake and Output Vital Signs (last 24 hours): Temp Pulse Resp BP Pulse Ox 98.5 F 80 20 99/62 L 97 02/07/18 19:28 02/07/18 20:05 02/07/18 15:15 02/07/18 19:28 02/07/18 15:15 Intake and Output: 02/07/18 02/08/18 18:59 06:59 Intake Total 400 Balance 400 - Medications Medications: Current Medications Aspirin (Ecotrin) 81 mg PO DAILY [facility] Last Admin: 02/07/18 12:51 Dose: 81 mg Carvedilol (Coreg) 3.125 mg PO BID [facility] Last Admin: 02/07/18 17:51 Dose: 3.125 mg Epoetin Chacho (Procrit) 10,000 unit SC MWF [facility] Furosemide (Lasix) 20 mg IVP DAILY [facility] Ferric Sodium Gluconate Complex 125 mg/ Sodium Chloride 110 mls @ 60 mls/hr IVPB DAILY [facility] Stop: 02/14/18 10:01 Last Admin: 02/07/18 09:36 Dose: 60 mls/hr Pantoprazole Sodium (Protonix Inj) 40 mg IVP Q12H [facility] Last Admin: 02/07/18 19:45 Dose: 40 mg Rosuvastatin Calcium (Crestor) 10 mg PO HS [facility] Last Admin: 02/07/18 21:55 Dose: 10 mg - Labs Labs: 02/07/18 07:27 02/07/18 07:27 PT 16.2 SECONDS (9.7-12.2) H D 02/07/18 07:27 INR 1.5 02/07/18 07:27 APTT 33 SECONDS (21-34) 02/07/18 07:27 Assessment and Plan - Assessment and Plan (Free Text) Assessment: Patient seen and evaluated personally by me Acute systolic CHF. Severe Pulmonary HTN Will consider Mirlinone therapy
[2018-02-08 07:11] LABS: BASO % 0.6 % (0.0-2.0); EOS # 0.1 K/uL (0.0-0.7); EOS % 1.3 % (0.0-4.0); HEMOGLOBIN 8.3 g/dL (11.0-16.0); LYMPH # 0.4 K/uL (1.0-4.3); LYMPH % 7.2 % (20.0-40.0); MEAN CELL VOLUME 81.1 fL (81.0-99.0); MEAN CORPUSCULAR HEMOGLOBIN 27.3 pg (27.0-31.0); MEAN CORPUSCULAR HGB CONC 33.6 g/dL (33.0-37.0); MEAN PLATELET VOLUME 9.6 fL (7.2-11.7); MONO # 0.6 K/uL (0.0-0.8); MONO % 10.1 % (0.0-10.0); NEUT # 4.8 K/uL (1.8-7.0); NEUT % 80.8 % (50.0-75.0); NRBC % 0.3 % (0.0-2.0); RBC 3.04 Mil/uL (3.80-5.20); RED CELL DISTRIBUTION WIDTH 22.8 % (11.5-14.5); WHITE BLOOD COUNT 5.9 K/uL (4.8-10.8)
[2018-02-08 07:22] LABS: PLATELET COUNT 131 K/uL (130-400)
[2018-02-08 07:43] LABS: CALCIUM 9.3 mg/dl (8.6-10.4)
--- NOTE | 2018-02-08 08:33 | CP.PCM.PN ---
Subjective - Date & Time of Evaluation Date of Evaluation: 02/08/18 Time of Evaluation: 08:31 - Subjective Subjective: no urinary complaints feels better no chest pain chronic sob no abdominal pain no nausea no rash no headache no fever Objective - Vital Signs/Intake and Output Vital Signs (last 24 hours): Temp Pulse Resp BP Pulse Ox 98.1 F 72 20 117/64 97 02/08/18 07:00 02/08/18 07:00 02/08/18 07:00 02/08/18 07:00 02/08/18 07:00 Intake and Output: 02/08/18 02/08/18 06:59 18:59 Intake Total 400 Balance 400 - Medications Medications: Current Medications Aspirin (Ecotrin) 81 mg PO DAILY [facility] Last Admin: 02/07/18 12:51 Dose: 81 mg Carvedilol (Coreg) 3.125 mg PO BID [facility] Last Admin: 02/07/18 17:51 Dose: 3.125 mg Epoetin Chacho (Procrit) 10,000 unit SC MWF [facility] Furosemide (Lasix) 20 mg IVP DAILY [facility] Ferric Sodium Gluconate Complex 125 mg/ Sodium Chloride 110 mls @ 60 mls/hr IVPB DAILY [facility] Stop: 02/14/18 10:01 Last Admin: 02/07/18 09:36 Dose: 60 mls/hr Pantoprazole Sodium (Protonix Inj) 40 mg IVP Q12H [facility] Last Admin: 02/08/18 07:48 Dose: 40 mg Rosuvastatin Calcium (Crestor) 10 mg PO HS [facility] Last Admin: 02/07/18 21:55 Dose: 10 mg - Labs Labs: 02/08/18 07:01 02/08/18 07:01 PT 16.2 SECONDS (9.7-12.2) H D 02/07/18 07:27 INR 1.5 02/07/18 07:27 APTT 34 SECONDS (21-34) 02/08/18 07:01 - Constitutional Appears: No Acute Distress, Chronically Ill - Head Exam Head Exam: ATRAUMATIC - Eye Exam Eye Exam: EOMI - ENT Exam ENT Exam: Mucous Membranes Moist - Neck Exam Neck Exam: Full ROM. absent: Lymphadenopathy - Respiratory Exam Respiratory Exam: Decreased Breath Sounds Additional comments: right lung with rub - Cardiovascular Exam Cardiovascular Exam: Murmur. absent: Rubs - GI/Abdominal Exam GI & Abdominal Exam: Soft. absent: Tenderness - Extremities Exam Extremities Exam: absent: Pedal Edema - Neurological Exam Neurological Exam: Alert, Awake Assessment and Plan - Assessment and Plan (Free Text) Assessment: rosa maria on ckd due to bleed and cardiorenal factors consider thoracentesis on right trial of primacor being discussed
--- NOTE | 2018-02-08 09:34 | CP.PCM.PN ---
Subjective - Date & Time of Evaluation Date of Evaluation: 02/08/18 Time of Evaluation: 09:20 - Subjective Subjective: F/u GI bleed, anemia Reports constipation. Feeling better. Denies RB, melena, Cp, SZ, LOC , TIWARI cough, hematuria, hemoptysis, TIWARI Objective - Vital Signs/Intake and Output Vital Signs (last 24 hours): Temp Pulse Resp BP Pulse Ox 98.1 F 72 20 117/64 97 02/08/18 07:00 02/08/18 07:00 02/08/18 07:00 02/08/18 07:00 02/08/18 07:00 Intake and Output: 02/08/18 02/08/18 06:59 18:59 Intake Total 400 Balance 400 - Medications Medications: Current Medications Aspirin (Ecotrin) 81 mg PO DAILY [facility] Last Admin: 02/07/18 12:51 Dose: 81 mg Carvedilol (Coreg) 3.125 mg PO BID [facility] Last Admin: 02/07/18 17:51 Dose: 3.125 mg Epoetin Chacho (Procrit) 10,000 unit SC MWF [facility] Furosemide (Lasix) 20 mg IVP DAILY [facility] Ferric Sodium Gluconate Complex 125 mg/ Sodium Chloride 110 mls @ 60 mls/hr IVPB DAILY [facility] Stop: 02/14/18 10:01 Last Admin: 02/07/18 09:36 Dose: 60 mls/hr Pantoprazole Sodium (Protonix Inj) 40 mg IVP Q12H [facility] Last Admin: 02/08/18 07:48 Dose: 40 mg Rosuvastatin Calcium (Crestor) 10 mg PO HS [facility] Last Admin: 02/07/18 21:55 Dose: 10 mg - Labs Labs: 02/08/18 07:01 02/08/18 07:01 PT 16.2 SECONDS (9.7-12.2) H D 02/07/18 07:27 INR 1.5 02/07/18 07:27 APTT 34 SECONDS (21-34) 02/08/18 07:01 - Constitutional Appears: Non-toxic - Respiratory Exam Respiratory Exam: Clear to Ausculation Bilateral - Cardiovascular Exam Cardiovascular Exam: Irregular Rhythm - GI/Abdominal Exam GI & Abdominal Exam: Soft, Normal Bowel Sounds. absent: Tenderness, Mass, Rebound - Extremities Exam Extremities Exam: absent: Calf Tenderness - Neurological Exam Neurological Exam: Alert, Oriented x3 Assessment and Plan (1) CHF (congestive heart failure) Status: Acute (2) CKD (chronic kidney disease) stage 4, GFR 15-29 ml/min Status: Acute (3) S/P TAVR (transcatheter aortic valve replacement) Status: Acute (4) Symptomatic anemia Assessment & Plan: gastric ulcer. Sl drop Hb. Rec- PPI, follow Hb Status: Acute (5) Atrial fibrillation Status: Acute
[2018-02-08] MEDS: Ferric Sodium Gluconat Complex 125 MG in Sodium Chloride 0.9% 100 ML IVPB SCH (10:43)
[2018-02-08 11:22] LABS: LYMPHOCYTE 5 % (20-40); MONOCYTE 9 % (0-10); NEUTROPHIL 86 % (50-75); NUCLEATED RED BLOOD CELL 1 % (0-0); PLATELET ESTIMATE NORMAL (NORMAL); TOTAL CELLS COUNTED 100
[2018-02-08 11:23] LABS: HYPOCHROMIC SLIGHT; POIKILOCYTOSIS SLIGHT; POLYCHROMIC SLIGHT
[2018-02-08 11:24] LABS: ANISOCYTOSIS MARKED; SCHISTOCYTES SLIGHT; TOXIC GRANULATION PRESENT
[2018-02-08 11:25] LABS: BURR CELLS SLIGHT; LARGE PLATELETS PRESENT
[2018-02-08 11:26] LABS: GIANT PLATELETS PRESENT
--- NOTE | 2018-02-08 14:16 | CP.PCM.PN ---
Subjective - Date & Time of Evaluation Date of Evaluation: 02/08/18 Time of Evaluation: 14:16 - Subjective Subjective: I spoke to the clother in yesterday. Patient had a midline done. She is clinically stable. Having minimal leg swelling. No chest pain or shortness of breath. Vital signs are stable otherwise. I spoke to the patient in detail about the treatment. We will start the patient had a milrinone trial. But hemoglobin is slightly on the low side, will monitor. Currently off anticoagulations, will hold off anticoagulation because of the low hemoglobin again. Will follow the patient Objective - Vital Signs/Intake and Output Vital Signs (last 24 hours): Temp Pulse Resp BP Pulse Ox 98.1 F 72 20 117/70 97 02/08/18 07:00 02/08/18 07:00 02/08/18 07:00 02/08/18 10:17 02/08/18 07:00 Intake and Output: 02/08/18 02/08/18 06:59 18:59 Intake Total 400 Balance 400 - Medications Medications: Current Medications Aspirin (Ecotrin) 81 mg PO DAILY [facility] Last Admin: 02/08/18 10:17 Dose: 81 mg Carvedilol (Coreg) 3.125 mg PO BID [facility] Last Admin: 02/08/18 10:17 Dose: 3.125 mg Epoetin Chacho (Procrit) 10,000 unit SC F [facility] Furosemide (Lasix) 20 mg IVP DAILY [facility] Last Admin: 02/08/18 10:17 Dose: 20 mg Ferric Sodium Gluconate Complex 125 mg/ Sodium Chloride 110 mls @ 60 mls/hr IVPB DAILY [facility] Stop: 02/14/18 10:01 Last Admin: 02/08/18 10:43 Dose: 60 mls/hr Milrinone Lactate/Dextrose 20 (mg/ Dextrose) 100 mls @ 4.28 mls/hr IV .[id number] [facility] PRN Reason: 0.2 MCG/KG/MIN Pantoprazole Sodium (Protonix Inj) 40 mg IVP Q12H [facility] Last Admin: 02/08/18 07:48 Dose: 40 mg Rosuvastatin Calcium (Crestor) 10 mg PO HS [facility] Last Admin: 02/07/18 21:55 Dose: 10 mg - Labs Labs: 02/08/18 07:01 02/08/18 07:01 PT 16.2 SECONDS (9.7-12.2) H D 02/07/18 07:27 INR 1.5 02/07/18 07:27 APTT 34 SECONDS (21-34) 02/08/18 07:01
[2018-02-08] MEDS: Milrinone 20 MG in Dextrose 5% In Water 80 ML IV SCH (15:14)
[2018-02-08] MEDS: Enoxaparin 30 mg Syringe SC SCH (15:15)
--- NOTE | 2018-02-08 17:50 | CP.CCUPN ---
CCU Subjective - Physician Review Events Since Last Encounter (Free Text): 02/08/18 17:49 72-year-old female with a history of congestive heart failure, atrial fibrillation, hypertension, hyperlipidemia, peripheral vascular disease, history of breast cancer, status post a pacemaker, mitral, aortic valve replacement in 2011, status post a right radical lumpectomy, radiation treatment , carotid, femoral artery endarterectomy, stent placement. Patient had transaortic valve replacement 2 recently. Patient had a multiple hospitalization at the [facility] because of the worsening heart failure status. The patient is currently on anticoagulation Coumadin for atrial fibrillation with valve replacement. Admitted to ICU for diuresis with milrinone drip. Clinically stable, with no complaints. CCU Objective - Vital Signs / Intake & Output Vital Signs (Last 4 hours): Vital Signs Temp Pulse Resp BP Pulse Ox 02/08/18 16:00 97.1 F L 85 23 97 02/08/18 15:47 71 25 H 140/69 98 02/08/18 15:14 81 22 107/48 L 99 02/08/18 15:00 76 22 98 02/08/18 14:49 81 20 107/48 L 98 02/08/18 14:26 75 16 Intake and Output (Last 8hrs): Intake & Output 02/08/18 02/08/18 02/08/18 06:59 14:59 22:59 Intake Total 4.3 Balance 4.3 Intake: Intake, IV Amount 4.3 Left Forearm 4.3 Oral 0 - Physical Exam Head: Positive for: Atraumatic, Normocephalic Pupils: Positive for: PERRL Extroacular Muscles: Positive for: EOMI Conjunctiva: Positive for: Normal Mouth: Positive for: Moist Mucous Membranes Respiratory/Chest: Positive for: Clear to Auscultation, Good Air Exchange, Decreased Breath Sounds (at bases) Cardiovascular: Positive for: Regular Rate and Rhythm, Normal S1, S2 Abdomen: Positive for: Normal Bowel Sounds. Negative for: Tenderness, Distention Upper Extremity: Positive for: Normal Inspection Lower Extremity: Positive for: Normal Inspection Neurological: Positive for: GCS=15 Skin: Positive for: Warm, Dry, Normal Color. Negative for: Rashes Psychiatric: Positive for: Alert, Oriented x 3 - Medications Active Medications: Active Medications Generic Name Dose Route Start Last Admin Trade Name Freq PRN Reason Stop Dose Admin Aspirin 81 mg 08/17/18 12:00 02/08/18 10:17 Ecotrin PO 81 mg DAILY [facility] Administration Carvedilol 3.125 mg 02/07/18 18:00 02/08/18 10:17 Coreg PO 3.125 mg BID [facility] Administration Enoxaparin Sodium 30 mg 02/08/18 14:30 02/08/18 15:15 Lovenox SC 30 mg DAILY [facility] Administration Epoetin Chacho 10,000 unit 02/10/18 09:00 Procrit SC MWF [facility] Furosemide 20 mg 02/08/18 10:00 02/08/18 10:17 Lasix IVP 20 mg DAILY [facility] Administration Ferric Sodium Gluconate 110 mls @ 60 mls/hr 02/06/18 10:00 02/08/18 10:43 Complex 125 mg/ Sodium IVPB 02/14/18 10:01 60 mls/hr Chloride DAILY [facility] Administration Milrinone Lactate/Dextrose 20 100 mls @ 4.28 mls/hr 02/08/18 10:45 02/08/18 15:14 mg/ Dextrose IV 4.28 mls/hr .[id number] [facility] Administration 0.2 MCG/KG/MIN Pantoprazole Sodium 40 mg 02/04/18 19:45 02/08/18 07:48 Protonix Inj IVP 40 mg Q12H [facility] Administration Rosuvastatin Calcium 10 mg 02/06/18 22:00 02/07/18 21:55 Crestor PO 10 mg HS [facility] Administration - Patient Studies Lab Studies: Lab Studies 02/08/18 02/08/18 02/08/18 Range/Units 07:01 07:01 07:01 WBC 5.9 (4.8-10.8) K/uL RBC 3.04 L (3.80-5.20) Mil/uL Hgb 8.3 L (11.0-16.0) g/dL Hct 24.6 L (34.0-47.0) % MCV 81.1 (81.0-99.0) fL MCH 27.3 (27.0-31.0) pg MCHC 33.6 (33.0-37.0) g/dL RDW 22.8 H (11.5-14.5) % Plt Count 131 (130-400) K/uL MPV 9.6 (7.2-11.7) fL Neut % (Auto) 80.8 H (50.0-75.0) % Lymph % (Auto) 7.2 L (20.0-40.0) % Moca % (Auto) 10.1 H (0.0-10.0) % Eos % (Auto) 1.3 (0.0-4.0) % Baso % (Auto) 0.6 (0.0-2.0) % Neut # (Auto) 4.8 (1.8-7.0) K/uL Lymph # (Auto) 0.4 L (1.0-4.3) K/uL Moca # (Auto) 0.6 (0.0-0.8) K/uL Eos # (Auto) 0.1 (0.0-0.7) K/uL Baso # (Auto) 0.0 (0.0-0.2) K/uL Neutrophils % (Manual) 86 H (50-75) % Lymphocytes % (Manual) 5 L (20-40) % Monocytes % (Manual) 9 (0-10) % Nucleated RBC % 1 H (0-0) % Toxic Granulation Present Platelet Estimate Normal (NORMAL) Large Platelets Present Giant Platelets Present Polychromasia Slight Hypochromasia (manual) Slight Poikilocytosis (manual Slight Anisocytosis (manual) Marked [place] Cells Slight Schistocytes Slight APTT 34 (21-34) SECONDS Sodium 143 (132-148) mmol/L Potassium 3.9 (3.6-5.2) mmol/L Chloride 107 (98-107) mmol/L Carbon Dioxide 22 (22-30) mmol/L Anion Gap 17 (10-20) BUN 67 H (7-17) mg/dL Creatinine 2.0 H (0.7-1.2) mg/dL Est GFR ( Amer) 30 Est GFR (Non-Af Amer) 25 Random Glucose 98 (65-105) mg/dL Calcium 9.3 (8.6-10.4) mg/dl Phosphorus 4.4 (2.5-4.5) mg/dL Magnesium 1.7 (1.6-2.3) mg/dL Total Bilirubin 1.5 H (0.2-1.3) mg/dL AST 40 H D (14-36) U/L ALT 61 H (9-52) U/L Alkaline Phosphatase 168 H (38-126) U/L Total Protein 6.2 L (6.3-8.3) g/dL Albumin 3.0 L (3.5-5.0) g/dL Globulin 3.2 (2.2-3.9) gm/dL Albumin/Globulin Ratio 1.0 (1.0-2.1) Laboratory Results - last 24 hr 02/08/18 02/08/18 02/08/18 07:01 07:01 07:01 WBC 5.9 RBC 3.04 L Hgb 8.3 L Hct 24.6 L MCV 81.1 MCH 27.3 MCHC 33.6 RDW 22.8 H Plt Count 131 MPV 9.6 Neut % (Auto) 80.8 H Lymph % (Auto) 7.2 L Moca % (Auto) 10.1 H Eos % (Auto) 1.3 Baso % (Auto) 0.6 Neut # (Auto) 4.8 Lymph # (Auto) 0.4 L Moca # (Auto) 0.6 Eos # (Auto) 0.1 Baso # (Auto) 0.0 Neutrophils % (Manual) 86 H Lymphocytes % (Manual) 5 L Monocytes % (Manual) 9 Nucleated RBC % 1 H Toxic Granulation Present Platelet Estimate Normal Large Platelets Present Giant Platelets Present Polychromasia Slight Hypochromasia (manual) Slight Poikilocytosis (manual Slight Anisocytosis (manual) Marked [place] Cells Slight Schistocytes Slight APTT 34 Sodium 143 Potassium 3.9 Chloride 107 Carbon Dioxide 22 Anion Gap 17 BUN 67 H Creatinine 2.0 H Est GFR ( Amer) 30 Est GFR (Non-Af Amer) 25 Random Glucose 98 Calcium 9.3 Phosphorus 4.4 Magnesium 1.7 Total Bilirubin 1.5 H AST 40 H D ALT 61 H Alkaline Phosphatase 168 H Total Protein 6.2 L Albumin 3.0 L Globulin 3.2 Albumin/Globulin Ratio 1.0 Review of Systems - Review of Systems All systems: reviewed and no additional remarkable complaints except (no complaints) Critical Care Progress Note - Nutrition Nutrition: Nutrition Category Date Time Status Heart Healthy Diet [DIET] Diets 02/07/18 Breakfast Active Assessment/Plan (1) CHF (congestive heart failure) Assessment and plan: 72-year-old female with a history of congestive heart failure, atrial fibrillation, hypertension, hyperlipidemia, peripheral vascular disease, history of breast cancer, status post a pacemaker, mitral, aortic valve replacement in 2012, status post a right radical lumpectomy, radiation treatment , carotid, femoral artery endarterectomy, stent placement. Patient had transaortic valve replacement 2 recently. Patient had a multiple hospitalization at the [facility] because of the worsening heart failure status. The patient is currently on anticoagulation Coumadin for atrial fibrillation with valve replacement. Admitted to ICU for diuresis with milrinone drip. Neuro: alert and oriented x 3 Pulm: pleural effusion from CHF. CV: on milrinone drip to improve cardiac output with hopeful secondary effect of diuresis. Hem: anemia of chronic disease, continue ASA Renal: will monitor urine output Endo: no acute issues GI: heart healthy diet, low sodium ID: no acute issues DVT proph - lovenox GI proph - protonix louis for strict I/O's during acute illness Code status - full code Critical Care Time spent 35 minutes Multi-disciplinary rounds were performed with house staff, nursing, speech therapy, respiratory therapy, pharmacy and nutrition with integrated input from the primary team/attending and other consulting services. The documented time is cumulative and includes review of patient data/exams/labs/chart review and examination of the patient on rounds and throughout the day; time is exclusive of any procedures or teaching time. Current Visit: Yes Status: Acute
--- NOTE | 2018-02-08 22:16 | CP.PCM.PN ---
Subjective - Date & Time of Evaluation Date of Evaluation: 02/08/18 Time of Evaluation: 14:40 Objective - Vital Signs/Intake and Output Vital Signs (last 24 hours): Temp Pulse Resp BP Pulse Ox 97.1 F L 70 21 123/57 L 100 02/08/18 16:00 02/08/18 18:00 02/08/18 18:00 02/08/18 17:47 02/08/18 18:00 Intake and Output: 02/08/18 02/09/18 18:59 06:59 Intake Total 252.9 Balance 252.9 - Medications Medications: Current Medications Aspirin (Ecotrin) 81 mg PO DAILY [facility] Last Admin: 02/08/18 10:17 Dose: 81 mg Carvedilol (Coreg) 3.125 mg PO BID [facility] Last Admin: 02/08/18 17:56 Dose: 3.125 mg Enoxaparin Sodium (Lovenox) 30 mg SC DAILY [facility] Last Admin: 02/08/18 15:15 Dose: 30 mg Epoetin Chacho (Procrit) 10,000 unit SC F [facility] Furosemide (Lasix) 20 mg IVP DAILY [facility] Last Admin: 02/08/18 10:17 Dose: 20 mg Ferric Sodium Gluconate Complex 125 mg/ Sodium Chloride 110 mls @ 60 mls/hr IVPB DAILY [facility] Stop: 02/14/18 10:01 Last Admin: 02/08/18 10:43 Dose: 60 mls/hr Milrinone Lactate/Dextrose 20 (mg/ Dextrose) 100 mls @ 4.28 mls/hr IV .[id number] [facility] PRN Reason: 0.2 MCG/KG/MIN Last Admin: 02/08/18 15:14 Dose: 4.28 mls/hr Pantoprazole Sodium (Protonix Inj) 40 mg IVP Q12H [facility] Last Admin: 02/08/18 18:54 Dose: 40 mg Rosuvastatin Calcium (Crestor) 10 mg PO HS [facility] Last Admin: 02/08/18 21:28 Dose: 10 mg - Labs Labs: 02/08/18 07:01 02/08/18 07:01 PT 16.2 SECONDS (9.7-12.2) H D 02/07/18 07:27 INR 1.5 02/07/18 07:27 APTT 34 SECONDS (21-34) 02/08/18 07:01
[2018-02-09 06:31] LABS: BASO % 0.7 % (0.0-2.0); EOS # 0.1 K/uL (0.0-0.7); EOS % 1.3 % (0.0-4.0); HEMOGLOBIN 7.8 g/dL (11.0-16.0); LYMPH # 0.4 K/uL (1.0-4.3); LYMPH % 7.3 % (20.0-40.0); MEAN CELL VOLUME 81.7 fL (81.0-99.0); MEAN CORPUSCULAR HEMOGLOBIN 27.6 pg (27.0-31.0); MEAN CORPUSCULAR HGB CONC 33.8 g/dL (33.0-37.0); MEAN PLATELET VOLUME 10.1 fL (7.2-11.7); MONO # 0.6 K/uL (0.0-0.8); MONO % 10.5 % (0.0-10.0); NEUT # 4.8 K/uL (1.8-7.0); NEUT % 80.2 % (50.0-75.0); NRBC % 0.2 % (0.0-2.0); PLATELET COUNT 109 K/uL (130-400); RBC 2.82 Mil/uL (3.80-5.20); RED CELL DISTRIBUTION WIDTH 22.6 % (11.5-14.5)
[2018-02-09 07:02] LABS: ALB/GLOB RATIO 0.9 (1.0-2.1); ALBUMIN 2.9 g/dL (3.5-5.0)
--- NOTE | 2018-02-09 08:50 | CP.PCM.PN ---
Subjective - Date & Time of Evaluation Date of Evaluation: 02/09/18 Time of Evaluation: 08:46 - Subjective Subjective: F/u anemia. Pt transferred to ICU- for arrythmia, PPm, and IV amiodorone. Reports CP. Denies SOB, TIWARI, abdom pain, melena, RB, fever, SZ, cough, hematuria, dysuria, myalgia, rash, dysphagia Objective - Vital Signs/Intake and Output Vital Signs (last 24 hours): Temp Pulse Resp BP Pulse Ox 98.3 F 75 19 103/47 L 95 02/09/18 08:00 02/09/18 08:00 02/09/18 08:00 02/09/18 07:47 02/09/18 08:00 Intake and Output: 02/09/18 02/09/18 06:59 18:59 Intake Total 150.4 8.4 Output Total 200 Balance -49.6 8.4 - Medications Medications: Current Medications Aspirin (Ecotrin) 81 mg PO DAILY [facility] Last Admin: 02/08/18 10:17 Dose: 81 mg Carvedilol (Coreg) 3.125 mg PO BID [facility] Last Admin: 02/08/18 17:56 Dose: 3.125 mg Enoxaparin Sodium (Lovenox) 30 mg SC DAILY [facility] Last Admin: 02/08/18 15:15 Dose: 30 mg Epoetin Chacho (Procrit) 10,000 unit SC [facility] Furosemide (Lasix) 20 mg IVP DAILY [facility] Last Admin: 02/08/18 10:17 Dose: 20 mg Ferric Sodium Gluconate Complex 125 mg/ Sodium Chloride 110 mls @ 60 mls/hr IVPB DAILY [facility] Stop: 02/14/18 10:01 Last Admin: 02/08/18 10:43 Dose: 60 mls/hr Milrinone Lactate/Dextrose 20 (mg/ Dextrose) 100 mls @ 4.28 mls/hr IV .[id number] [facility] PRN Reason: 0.2 MCG/KG/MIN Last Admin: 02/08/18 15:14 Dose: 4.28 mls/hr Pantoprazole Sodium (Protonix Inj) 40 mg IVP Q12H [facility] Last Admin: 02/08/18 18:54 Dose: 40 mg Rosuvastatin Calcium (Crestor) 10 mg PO HS [facility] Last Admin: 08/18/18 21:28 Dose: 10 mg - Labs Labs: 02/09/18 06:22 02/09/18 06:22 PT 16.2 SECONDS (9.7-12.2) H D 02/07/18 07:27 INR 1.5 02/07/18 07:27 APTT 34 SECONDS (21-34) 02/08/18 07:01 - Constitutional Appears: Non-toxic - Respiratory Exam Respiratory Exam: Clear to Ausculation Bilateral - Cardiovascular Exam Cardiovascular Exam: Irregular Rhythm - GI/Abdominal Exam GI & Abdominal Exam: Soft, Normal Bowel Sounds. absent: Guarding, Tenderness, Mass, Rebound - Extremities Exam Extremities Exam: absent: Calf Tenderness - Neurological Exam Neurological Exam: Alert, Awake, Oriented x3 - Psychiatric Exam Psychiatric exam: Normal Affect, Normal Mood - Skin Skin Exam: Intact Assessment and Plan (1) CHF (congestive heart failure) Status: Acute (2) CKD (chronic kidney disease) stage 4, GFR 15-29 ml/min Status: Acute (3) S/P TAVR (transcatheter aortic valve replacement) Status: Acute (4) Symptomatic anemia Assessment & Plan: Consider from carlos eduardo ulcr and high INR. Hb is dropping. PLTs are lower. Consider colonsocopy when stable. Transfuse. PPI,. Check Hb Status: Acute (5) Atrial fibrillation Status: Acute (6) Gastric ulcer Assessment & Plan: no visible vessel. No blood in stomach. Check Hb. Consider colonsoocpy if stable. Status: Acute
[2018-02-09 09:11] LABS: LYMPHOCYTE 12 % (20-40); MONOCYTE 11 % (0-10); NEUTROPHIL 77 % (50-75); PLATELET ESTIMATE SLIGHTLY DECREASED (NORMAL); TOTAL CELLS COUNTED 100
[2018-02-09 09:12] LABS: ANISOCYTOSIS MODERATE; HYPOCHROMIC SLIGHT; POIKILOCYTOSIS SLIGHT; POLYCHROMIC SLIGHT; SCHISTOCYTES SLIGHT; TARGET CELLS SLIGHT
[2018-02-09 09:13] LABS: BURR CELLS SLIGHT; OVALOCYTES SLIGHT; TOXIC GRANULATION PRESENT
[2018-02-09 09:14] LABS: LARGE PLATELETS PRESENT
[2018-02-09] MEDS: Milrinone 20 MG in Dextrose 5% In Water 80 ML IV SCH ×2 (10:43→11:41)
[2018-02-09] MEDS ORDERED: Ferric Sodium Gluconat Complex 62.5 mg/5 ml Vial ONE (10:46)
[2018-02-09] MEDS: Enoxaparin 30 mg Syringe SC SCH (11:06)
[2018-02-09] MEDS: Ferric Sodium Gluconat Complex 125 MG in Sodium Chloride 0.9% 100 ML IVPB SCH (11:07)
--- NOTE | 2018-02-09 15:29 | CP.CCUPN ---
CCU Subjective - Physician Review Events Since Last Encounter (Free Text): 02/09/18 15:27 no complaints. CCU Objective - Vital Signs / Intake & Output Vital Signs (Last 4 hours): Vital Signs Temp Pulse Resp BP Pulse Ox 02/09/18 14:00 71 21 100 02/09/18 13:47 72 14 98/40 L 100 02/09/18 13:00 79 14 100 02/09/18 12:47 74 22 110/46 L 100 02/09/18 12:00 98.1 F 79 13 98 02/09/18 11:47 75 22 110/42 L 97 02/09/18 11:41 84 23 103/39 L 100 Intake and Output (Last 8hrs): Intake & Output 02/09/18 02/09/18 02/09/18 06:59 14:59 22:59 Intake Total 33.6 273.6 Output Total 200 Balance 33.6 73.6 Weight 149 lb 7.574 oz Intake: Intake, IV Amount 33.6 33.6 Left Forearm 33.6 33.6 Oral 240 Output: Urine 200 Urine, Voided 200 - Physical Exam Head: Positive for: Atraumatic, Normocephalic Pupils: Positive for: PERRL Extroacular Muscles: Positive for: EOMI Conjunctiva: Positive for: Normal Mouth: Positive for: Moist Mucous Membranes Respiratory/Chest: Positive for: Clear to Auscultation, Good Air Exchange, Decreased Breath Sounds (at bases) Cardiovascular: Positive for: Regular Rate and Rhythm, Normal S1, S2 Abdomen: Positive for: Normal Bowel Sounds. Negative for: Tenderness, Distention Upper Extremity: Positive for: Normal Inspection Lower Extremity: Positive for: Normal Inspection Neurological: Positive for: GCS=15 Skin: Positive for: Warm, Dry, Normal Color. Negative for: Rashes Psychiatric: Positive for: Alert, Oriented x 3 - Medications Active Medications: Active Medications Generic Name Dose Route Start Last Admin Trade Name Freq PRN Reason Stop Dose Admin Acetaminophen 650 mg 02/09/18 13:51 02/09/18 14:02 Tylenol 325mg Tab PO 650 mg Q6 PRN Administration Headache Aspirin 81 mg 02/07/18 12:00 02/09/18 11:06 Ecotrin PO 81 mg DAILY [facility] Administration Carvedilol 3.125 mg 02/07/18 18:00 02/09/18 11:06 Coreg PO 3.125 mg BID [facility] Administration Enoxaparin Sodium 30 mg 02/08/18 14:30 02/09/18 11:06 Lovenox SC 30 mg DAILY [facility] Administration Epoetin Chacho 10,000 unit 02/10/18 09:00 Procrit SC MWF [facility] Furosemide 20 mg 02/08/18 10:00 02/09/18 11:07 Lasix IVP 20 mg DAILY [facility] Administration Ferric Sodium Gluconate 110 mls @ 60 mls/hr 02/06/18 10:00 02/09/18 11:07 Complex 125 mg/ Sodium IVPB 02/14/18 10:01 60 mls/hr Chloride DAILY [facility] Administration Milrinone Lactate/Dextrose 20 100 mls @ 4.28 mls/hr 02/08/18 10:45 02/09/18 11:41 mg/ Dextrose IV 4.28 mls/hr .[id number] [facility] Administration 0.2 MCG/KG/MIN Pantoprazole Sodium 40 mg 02/04/18 19:45 02/09/18 11:07 Protonix Inj IVP 40 mg Q12H [facility] Administration Rosuvastatin Calcium 10 mg 02/06/18 22:00 02/08/18 21:28 Crestor PO 10 mg HS [facility] Administration - Patient Studies Lab Studies: Lab Studies 02/09/18 02/09/18 02/09/18 Range/Units 06:22 06:22 06:22 WBC 6.0 (4.8-10.8) K/uL RBC 2.82 L (3.80-5.20) Mil/uL Hgb 7.8 L (11.0-16.0) g/dL Hct 23.1 L (34.0-47.0) % MCV 81.7 (81.0-99.0) fL MCH 27.6 (27.0-31.0) pg MCHC 33.8 (33.0-37.0) g/dL RDW 22.6 H (11.5-14.5) % Plt Count 109 L D (130-400) K/uL MPV 10.1 (7.2-11.7) fL Neut % (Auto) 80.2 H (50.0-75.0) % Lymph % (Auto) 7.3 L (20.0-40.0) % Gove % (Auto) 10.5 H (0.0-10.0) % Eos % (Auto) 1.3 (0.0-4.0) % Baso % (Auto) 0.7 (0.0-2.0) % Neut # (Auto) 4.8 (1.8-7.0) K/uL Lymph # (Auto) 0.4 L (1.0-4.3) K/uL Gove # (Auto) 0.6 (0.0-0.8) K/uL Eos # (Auto) 0.1 (0.0-0.7) K/uL Baso # (Auto) 0.0 (0.0-0.2) K/uL Neutrophils % (Manual) 77 H (50-75) % Lymphocytes % (Manual) 12 L (20-40) % Monocytes % (Manual) 11 H (0-10) % Toxic Granulation Present Platelet Estimate Slightly decreased L (NORMAL) Large Platelets Present Polychromasia Slight Hypochromasia (manual) Slight Poikilocytosis (manual Slight Anisocytosis (manual) Moderate Target Cells Slight Ovalocytes Slight Sunbright Cells Slight Schistocytes Slight Sodium 143 (132-148) mmol/L Potassium 4.0 (3.6-5.2) mmol/L Chloride 106 (98-107) mmol/L Carbon Dioxide 24 (22-30) mmol/L Anion Gap 16 (10-20) BUN 68 H (7-17) mg/dL Creatinine 2.2 H (0.7-1.2) mg/dL Est GFR ( Amer) 27 Est GFR (Non-Af Amer) 22 Random Glucose 99 (65-105) mg/dL Calcium 9.0 (8.6-10.4) mg/dl Phosphorus 4.2 (2.5-4.5) mg/dL Magnesium 1.6 (1.6-2.3) mg/dL Total Bilirubin 1.3 (0.2-1.3) mg/dL AST 31 (14-36) U/L ALT 56 H (9-52) U/L Alkaline Phosphatase 153 H (38-126) U/L Total Protein 6.0 L (6.3-8.3) g/dL Albumin 2.9 L (3.5-5.0) g/dL Globulin 3.1 (2.2-3.9) gm/dL Albumin/Globulin Ratio 0.9 L (1.0-2.1) Laboratory Results - last 24 hr 02/09/18 02/09/18 02/09/18 06:22 06:22 06:22 WBC 6.0 RBC 2.82 L Hgb 7.8 L Hct 23.1 L MCV 81.7 MCH 27.6 MCHC 33.8 RDW 22.6 H Plt Count 109 L D MPV 10.1 Neut % (Auto) 80.2 H Lymph % (Auto) 7.3 L Gove % (Auto) 10.5 H Eos % (Auto) 1.3 Baso % (Auto) 0.7 Neut # (Auto) 4.8 Lymph # (Auto) 0.4 L Gove # (Auto) 0.6 Eos # (Auto) 0.1 Baso # (Auto) 0.0 Neutrophils % (Manual) 77 H Lymphocytes % (Manual) 12 L Monocytes % (Manual) 11 H Toxic Granulation Present Platelet Estimate Slightly decreased L Large Platelets Present Polychromasia Slight Hypochromasia (manual) Slight Poikilocytosis (manual Slight Anisocytosis (manual) Moderate Target Cells Slight Ovalocytes Slight Sunbright Cells Slight Schistocytes Slight Sodium 143 Potassium 4.0 Chloride 106 Carbon Dioxide 24 Anion Gap 16 BUN 68 H Creatinine 2.2 H Est GFR ( Amer) 27 Est GFR (Non-Af Amer) 22 Random Glucose 99 Calcium 9.0 Phosphorus 4.2 Magnesium 1.6 Total Bilirubin 1.3 AST 31 ALT 56 H Alkaline Phosphatase 153 H Total Protein 6.0 L Albumin 2.9 L Globulin 3.1 Albumin/Globulin Ratio 0.9 L Review of Systems - Review of Systems All systems: reviewed and no additional remarkable complaints except (no complaints) Critical Care Progress Note - Nutrition Nutrition: Nutrition Category Date Time Status Heart Healthy Diet [DIET] Diets 02/07/18 Breakfast Active Assessment/Plan (1) CHF (congestive heart failure) Assessment and plan: 72-year-old female with a history of congestive heart failure, atrial fibrillation, hypertension, hyperlipidemia, peripheral vascular disease, history of breast cancer, status post a pacemaker, mitral, aortic valve replacement in 2011, status post a right radical lumpectomy, radiation treatment , carotid, femoral artery endarterectomy, stent placement. Patient had transaortic valve replacement 2 recently. Patient had a multiple hospitalization at the [facility] because of the worsening heart failure status. The patient is currently on anticoagulation Coumadin for atrial fibrillation with valve replacement. Admitted to ICU for diuresis with milrinone drip. Neuro: alert and oriented x 3 Pulm: pleural effusion from CHF. CV: on milrinone drip to improve cardiac output with hopeful secondary effect of diuresis and improved renal function, so far not effective, will continue for one more day. Hem: anemia of chronic disease, continue ASA Renal: will monitor urine output, no improvement in BUN/Cr. Endo: no acute issues GI: heart healthy diet, low sodium ID: no acute issues DVT proph - lovenox GI proph - protonix louis for strict I/O's during acute illness Code status - full code Critical Care Time spent 35 minutes Multi-disciplinary rounds were performed with house staff, nursing, speech therapy, respiratory therapy, pharmacy and nutrition with integrated input from the primary team/attending and other consulting services. The documented time is cumulative and includes review of patient data/exams/labs/chart review and examination of the patient on rounds and throughout the day; time is exclusive of any procedures or teaching time. Current Visit: Yes Status: Acute
--- NOTE | 2018-02-09 23:11 | CP.PCM.PN ---
Subjective - Date & Time of Evaluation Date of Evaluation: 02/09/18 Time of Evaluation: 18:20 - Subjective Subjective: Patient seen and examined at bedside. Denies chest pain and dyspnea Physical examination - Constitutional Appears: Well, No Acute Distress - Head Exam Head Exam: ATRAUMATIC, NORMAL INSPECTION - Eye Exam Eye Exam: EOMI, Normal appearance - ENT Exam ENT Exam: Mucous Membranes Moist - Neck Exam Neck Exam: Full ROM - Respiratory Exam Respiratory Exam: Decreased Breath Sounds, NORMAL BREATHING PATTERN - Cardiovascular Exam Cardiovascular Exam: Irregular Rhythm, +S1, +S2 - GI/Abdominal Exam GI & Abdominal Exam: Soft. absent: Tenderness - Extremities Exam Extremities Exam: absent: Calf Tenderness - Neurological Exam Neurological Exam: Alert, Awake, Oriented x3 - Psychiatric Exam Psychiatric exam: Normal Affect, Normal Mood - Skin Skin Exam: Normal Color, Warm Objective - Vital Signs/Intake and Output Vital Signs (last 24 hours): Temp Pulse Resp BP Pulse Ox 98.4 F 79 13 102/43 L 97 02/09/18 16:00 02/09/18 22:00 02/09/18 22:00 02/09/18 21:31 02/09/18 22:00 Intake and Output: 02/09/18 02/10/18 18:59 06:59 Intake Total 530.4 216.8 Output Total 200 Balance 330.4 216.8 - Medications Medications: Current Medications Acetaminophen (Tylenol 325mg Tab) 650 mg PO Q6 PRN PRN Reason: Headache Last Admin: 02/09/18 14:02 Dose: 650 mg Aspirin (Ecotrin) 81 mg PO DAILY [facility] Last Admin: 02/09/18 11:06 Dose: 81 mg Carvedilol (Coreg) 3.125 mg PO BID [facility] Last Admin: 02/09/18 17:29 Dose: Not Given Enoxaparin Sodium (Lovenox) 30 mg SC DAILY [facility] Last Admin: 02/09/18 11:06 Dose: 30 mg Epoetin Chacho (Procrit) 10,000 unit SC [facility] Furosemide (Lasix) 20 mg IVP DAILY [facility] Last Admin: 02/09/18 11:07 Dose: 20 mg Ferric Sodium Gluconate Complex 125 mg/ Sodium Chloride 110 mls @ 60 mls/hr IVPB DAILY [facility] Stop: 02/14/18 10:01 Last Admin: 02/09/18 11:07 Dose: 60 mls/hr Milrinone Lactate/Dextrose 20 (mg/ Dextrose) 100 mls @ 4.28 mls/hr IV .[id number] [facility] PRN Reason: 0.2 MCG/KG/MIN Last Admin: 02/09/18 11:41 Dose: 4.28 mls/hr Pantoprazole Sodium (Protonix Inj) 40 mg IVP Q12H [facility] Last Admin: 02/09/18 21:12 Dose: 40 mg Rosuvastatin Calcium (Crestor) 10 mg PO HS [facility] Last Admin: 02/09/18 21:12 Dose: 10 mg Sennosides (Senokot Tab) 8.6 mg PO TID [facility] Last Admin: 02/09/18 17:27 Dose: 8.6 mg - Labs Labs: 02/09/18 06:22 02/09/18 06:22 PT 16.2 SECONDS (9.7-12.2) H D 02/07/18 07:27 INR 1.5 02/07/18 07:27 APTT 34 SECONDS (21-34) 02/08/18 07:01 Assessment and Plan - Assessment and Plan (Free Text) Assessment: A/P: Patient is a 72 year old female with past medical history of Valvular disease s/p TAVR 09/2017, atrial fibrillation, CHF, HTN, Breast cancer s/p lumpectomy and radiation therapy who presented with worsening bilateral lower extremity swelling, weakness and dyspnea on exertion. Acute Symptomatic Anemia -Hgb on admission 6.3, baseline hgb 10.0, Stool occult is positive -S/P PRBCs -Likely secondary to GI bleed -CT abd/pelvis showed cholelithiasis -EGD showed non-bleeding gastric ulcers -Monitor serial H/H -GI on consult, help appreciated Acute Systolic Congestive Heart Failure -BNP on admission 16[address], Troponin negative x 1 -Last echo 11/2016 showed EF 60-65%, mild to moderate concentric LVH, Moderate pulmonary HTN, Bioprostetic AV with severe valvular , Left atrium/Right atrium moderately dilated. Mitral valve bioprostetic, moderate Mitral valve stenosis -Repeat Echocardiogram right ventricle mildly dilated, systolic function moderately reduced, left atrium mildly dilated, severe TR, moderate to sever pulm HTN -Last Cardiac Catheterization 12/2016 showed normal coronaries -CXR on admission showed right pleural effusion -CT chest showed moderate right pleural effusion with adjacent atelectasis, cardiomegaly -Continue aggressive medical management with diuretics, HR control -Daily weights, strict I/Os History of atrial fibrillation/Supratherapeutic INR -Hold Coumadin and ASA at this time -S/P Vitamin K -Monitor serial INR -Will need to f/u GI on when to restart anticoagulation Acute on Chronic Kidney Disease -Nephro on consult, help appreciated
[2018-02-10 06:36] LABS: INR 1.5; PROTHROMBIN TIME 16.8 SECONDS (9.7-12.2)
[2018-02-10 06:37] LABS: BASO % 0.5 % (0.0-2.0); EOS # 0.1 K/uL (0.0-0.7); EOS % 1.3 % (0.0-4.0); HEMOGLOBIN 7.5 g/dL (11.0-16.0); LYMPH # 0.4 K/uL (1.0-4.3); LYMPH % 5.9 % (20.0-40.0); MEAN CELL VOLUME 81.4 fL (81.0-99.0); MEAN CORPUSCULAR HGB CONC 33.1 g/dL (33.0-37.0); MEAN PLATELET VOLUME 9.9 fL (7.2-11.7); MONO # 0.6 K/uL (0.0-0.8); MONO % 9.1 % (0.0-10.0); NEUT # 5.8 K/uL (1.8-7.0); NEUT % 83.2 % (50.0-75.0); NRBC % 0.1 % (0.0-2.0); PLATELET COUNT 121 K/uL (130-400)
[2018-02-10 06:39] LABS: ALB/GLOB RATIO 0.9 (1.0-2.1); ALBUMIN 2.8 g/dL (3.5-5.0); CALCIUM 8.9 mg/dl (8.6-10.4)
[2018-02-10 08:17] LABS: ANISOCYTOSIS SLIGHT; BANDS 1 % (0-2); EOSINOPHIL 2 % (0-4); HYPOCHROMIC SLIGHT; LYMPHOCYTE 5 % (20-40); MONOCYTE 7 % (0-10); NEUTROPHIL 85 % (50-75); NUCLEATED RED BLOOD CELL 1 % (0-0); PLATELET ESTIMATE SLIGHTLY DECREASED (NORMAL); POIKILOCYTOSIS SLIGHT; TARGET CELLS SLIGHT; TOTAL CELLS COUNTED 100
[2018-02-10 08:18] LABS: BURR CELLS SLIGHT; MICROCYTOSIS SLIGHT
[2018-02-10] MEDS ORDERED: Ferric Sodium Gluconat Complex 62.5 mg/5 ml Vial ONE (09:10)
--- NOTE | 2018-02-10 09:21 | CP.PCM.PN ---
<Ann Ching - Last Filed: 02/10/18 18:11> Subjective - Date & Time of Evaluation Date of Evaluation: 02/10/18 Time of Evaluation: 09:20 - Subjective Subjective: Cardiology Progress Note - Dr Pennington Patient seen and examined at bedside. Per nursing no acute events overnight. Patient was transferred to ICU over the weekend. Now on dobutamine drip. She denies any chest pain or dyspnea. States that she had one small bowel movement yesterday that was dark in color. Offers no other complaints at this time. Objective - Vital Signs/Intake and Output Vital Signs (last 24 hours): Temp Pulse Resp BP Pulse Ox 98.4 F 76 19 124/49 L 95 02/10/18 08:00 02/10/18 09:00 02/10/18 09:00 02/10/18 07:39 02/10/18 09:00 Intake and Output: 02/10/18 02/10/18 06:59 18:59 Intake Total 250.4 128.8 Output Total 200 Balance 50.4 128.8 - Medications Medications: Current Medications Acetaminophen (Tylenol 325mg Tab) 650 mg PO Q6 PRN PRN Reason: Headache Last Admin: 02/09/18 14:02 Dose: 650 mg Aspirin (Ecotrin) 81 mg PO DAILY [facility] Last Admin: 02/09/18 11:06 Dose: 81 mg Carvedilol (Coreg) 3.125 mg PO BID [facility] Last Admin: 02/09/18 17:29 Dose: Not Given Enoxaparin Sodium (Lovenox) 30 mg SC DAILY [facility] Last Admin: 02/09/18 11:06 Dose: 30 mg Epoetin Chacho (Procrit) 10,000 unit SC [facility] Furosemide (Lasix) 20 mg IVP DAILY [facility] Last Admin: 02/09/18 11:07 Dose: 20 mg Ferric Sodium Gluconate Complex 125 mg/ Sodium Chloride 110 mls @ 60 mls/hr IVPB DAILY [facility] Stop: 02/14/18 10:01 Last Admin: 02/09/18 11:07 Dose: 60 mls/hr Dobutamine HCl/Dextrose (Dobutamine/Dextrose 5% 500mg/250ml) 500 mg in 250 mls @ 5.108 mls/hr IV .Q24H [facility] PRN Reason: 2.5 MCG/KG/MIN Pantoprazole Sodium (Protonix Inj) 40 mg IVP Q12H [facility] Last Admin: 02/09/18 21:12 Dose: 40 mg Rosuvastatin Calcium (Crestor) 10 mg PO HS [facility] Last Admin: 02/09/18 21:12 Dose: 10 mg Sennosides (Senokot Tab) 8.6 mg PO TID [facility] Last Admin: 02/09/18 17:27 Dose: 8.6 mg - Labs Labs: 02/10/18 06:20 02/10/18 06:20 PT 16.8 SECONDS (9.7-12.2) H 02/10/18 06:20 INR 1.5 02/10/18 06:20 APTT 35 SECONDS (21-34) H 02/10/18 06:20 - Additional Findings Additional findings: - Constitutional Appears: Well, No Acute Distress - Head Exam Head Exam: ATRAUMATIC, NORMAL INSPECTION - Eye Exam Eye Exam: EOMI, Normal appearance - ENT Exam ENT Exam: Mucous Membranes Moist - Neck Exam Neck Exam: Full ROM - Respiratory Exam Respiratory Exam: Decreased Breath Sounds, NORMAL BREATHING PATTERN - Cardiovascular Exam Cardiovascular Exam: Irregular Rhythm, +S1, +S2 - GI/Abdominal Exam GI & Abdominal Exam: Soft. absent: Tenderness - Extremities Exam Extremities Exam: absent: Calf Tenderness - Neurological Exam Neurological Exam: Alert, Awake, Oriented x3 - Psychiatric Exam Psychiatric exam: Normal Affect, Normal Mood - Skin Skin Exam: Normal Color, Warm Assessment and Plan - Assessment and Plan (Free Text) Assessment: A/P: Patient is a 72 year old female with past medical history of Valvular disease s/p TAVR 09/2017, atrial fibrillation, CHF, HTN, Breast cancer s/p lumpectomy and radiation therapy who presented with worsening bilateral lower extremity swelling, weakness and dyspnea on exertion. Acute Symptomatic Anemia -Hgb on admission 6.3, baseline hgb 10.0, Stool occult is positive -Post transfusion CBC was 9.5, Hgb today 7.5, patient to be transfused 1 unit PRBCs today -CT abd/pelvis showed cholelithiasis -EGD showed non-bleeding gastric ulcers -Monitor serial H/H -GI on consult, help appreciated Acute Systolic Congestive Heart Failure -BNP on admission 92423, Troponin negative x 1 -Last echo 11/2016 showed EF 60-65%, mild to moderate concentric LVH, Moderate pulmonary HTN, Bioprostetic AV with severe valvular , Left atrium/Right atrium moderately dilated. Mitral valve bioprostetic, moderate Mitral valve stenosis -Repeat Echocardiogram EF 35% right ventricle mildly dilated, systolic function moderately reduced, left atrium mildly dilated, severe TR, mod to sever pulm HTN -Last Cardiac Catheterization 12/2016 showed normal coronaries -Patient is currently on dobutamine drip -CXR on admission showed right pleural effusion -CT chest showed moderate right pleural effusion with adjacent atelectasis, cardiomegaly -Continue aggressive medical management with diuretics, HR control -Daily weights, strict I/Os History of atrial fibrillation/Supratherapeutic INR -Hold Coumadin and ASA at this time -S/P Vitamin K -Monitor serial INR -Will need to f/u GI on when to restart anticoagulation Acute on Chronic Kidney Disease -Nephro on consult, help appreciated Plan to be discussed with Dr Gorge Ching DO PGY-2 <Mohan Pennington - Last Filed: 02/10/18 20:26> Objective - Vital Signs/Intake and Output Vital Signs (last 24 hours): Temp Pulse Resp BP Pulse Ox 98.0 F 72 17 81/51 L 100 02/10/18 16:00 02/10/18 19:00 02/10/18 19:00 02/10/18 18:04 02/10/18 19:00 Intake and Output: 02/10/18 02/11/18 18:59 06:59 Intake Total 1451.6 65 Output Total 300 Balance 1151.6 65 - Medications Medications: Current Medications Acetaminophen (Tylenol 325mg Tab) 650 mg PO Q6 PRN PRN Reason: Headache Last Admin: 02/10/18 13:20 Dose: 650 mg Aspirin (Ecotrin) 81 mg PO DAILY [facility] Last Admin: 02/10/18 09:47 Dose: 81 mg Carvedilol (Coreg) 3.125 mg PO BID [facility] Last Admin: 02/10/18 17:21 Dose: Not Given Epoetin Chacho (Procrit) 10,000 unit SC MWF [facility] Last Admin: 02/10/18 09:48 Dose: 10,000 unit Ferric Sodium Gluconate Complex 125 mg/ Sodium Chloride 110 mls @ 60 mls/hr IVPB DAILY [facility] Stop: 02/14/18 10:01 Last Admin: 02/10/18 10:16 Dose: 60 mls/hr Dobutamine HCl/Dextrose (Dobutamine/Dextrose 5% 500mg/250ml) 500 mg in 250 mls @ 5.108 mls/hr IV .Q24H [facility] PRN Reason: 2.5 MCG/KG/MIN Last Admin: 02/10/18 10:17 Dose: 5.108 mls/hr Pantoprazole Sodium (Protonix Inj) 40 mg IVP Q12H [facility] Last Admin: 02/10/18 09:48 Dose: 40 mg Rosuvastatin Calcium (Crestor) 10 mg PO HS [facility] Last Admin: 02/09/18 21:12 Dose: 10 mg Sennosides (Senokot Tab) 8.6 mg PO TID [facility] Last Admin: 02/10/18 17:21 Dose: 8.6 mg - Labs Labs: 02/10/18 06:20 02/10/18 06:20 PT 16.8 SECONDS (9.7-12.2) H 02/10/18 06:20 INR 1.5 02/10/18 06:20 APTT 35 SECONDS (21-34) H 02/10/18 06:20 Assessment and Plan - Assessment and Plan (Free Text) Assessment: Patient seen and evaluated oersonally by al Plan of care d/w the medical case manager and as documented
[2018-02-10] MEDS: Epoetin Alfa 10,000 unit/ml Dialysis SC SCH (09:48)
[2018-02-10] MEDS: Enoxaparin 30 mg Syringe SC SCH (09:48)
[2018-02-10] MEDS: Ferric Sodium Gluconat Complex 125 MG in Sodium Chloride 0.9% 100 ML IVPB SCH (10:16)
[2018-02-10] MEDS: DOBUTamine 500mg/250ml D5W 500 MG/250 ML BAG IV SCH (10:17)
--- NOTE | 2018-02-10 11:08 | CP.PCM.PN ---
Subjective - Date & Time of Evaluation Date of Evaluation: 02/10/18 Time of Evaluation: 11:05 - Subjective Subjective: transferred to ICU with low Hg To receive 1 unit prbcs Creat increased to 2.8 has been on lovenox no pains or dyspnea Objective - Vital Signs/Intake and Output Vital Signs (last 24 hours): Temp Pulse Resp BP Pulse Ox 98.4 F 76 24 101/43 L 96 02/10/18 08:00 02/10/18 10:00 02/10/18 10:00 02/10/18 10:17 02/10/18 09:18 Intake and Output: 02/10/18 02/10/18 06:59 18:59 Intake Total 250.4 304.6 Output Total 200 Balance 50.4 304.6 - Medications Medications: Current Medications Acetaminophen (Tylenol 325mg Tab) 650 mg PO Q6 PRN PRN Reason: Headache Last Admin: 02/09/18 14:02 Dose: 650 mg Aspirin (Ecotrin) 81 mg PO DAILY [facility] Last Admin: 02/10/18 09:47 Dose: 81 mg Carvedilol (Coreg) 3.125 mg PO BID [facility] Last Admin: 02/10/18 09:47 Dose: 3.125 mg Enoxaparin Sodium (Lovenox) 30 mg SC DAILY [facility] Last Admin: 02/10/18 09:48 Dose: 30 mg Epoetin Chacho (Procrit) 10,000 unit SC MWF [facility] Last Admin: 02/10/18 09:48 Dose: 10,000 unit Furosemide (Lasix) 20 mg IVP DAILY [facility] Last Admin: 02/10/18 09:47 Dose: 20 mg Ferric Sodium Gluconate Complex 125 mg/ Sodium Chloride 110 mls @ 60 mls/hr IVPB DAILY [facility] Stop: 02/14/18 10:01 Last Admin: 02/10/18 10:16 Dose: 60 mls/hr Dobutamine HCl/Dextrose (Dobutamine/Dextrose 5% 500mg/250ml) 500 mg in 250 mls @ 5.108 mls/hr IV .Q24H [facility] PRN Reason: 2.5 MCG/KG/MIN Last Admin: 02/10/18 10:17 Dose: 5.108 mls/hr Pantoprazole Sodium (Protonix Inj) 40 mg IVP Q12H [facility] Last Admin: 02/10/18 09:48 Dose: 40 mg Rosuvastatin Calcium (Crestor) 10 mg PO HS [facility] Last Admin: 02/09/18 21:12 Dose: 10 mg Sennosides (Senokot Tab) 8.6 mg PO TID [facility] Last Admin: 02/10/18 09:47 Dose: 8.6 mg - Labs Labs: 02/10/18 06:20 02/10/18 06:20 PT 16.8 SECONDS (9.7-12.2) H 02/10/18 06:20 INR 1.5 02/10/18 06:20 APTT 35 SECONDS (21-34) H 02/10/18 06:20 - Constitutional Appears: No Acute Distress, Chronically Ill - Head Exam Head Exam: ATRAUMATIC, NORMAL INSPECTION - Eye Exam Eye Exam: EOMI, Normal appearance - Neck Exam Neck Exam: Normal Inspection. absent: Tenderness - Respiratory Exam Respiratory Exam: Clear to Ausculation Bilateral, NORMAL BREATHING PATTERN - Cardiovascular Exam Cardiovascular Exam: Irregular Rhythm, +S1 - GI/Abdominal Exam GI & Abdominal Exam: Soft. absent: Tenderness - Extremities Exam Extremities Exam: Pedal Edema. absent: Tenderness - Neurological Exam Neurological Exam: Awake, CN II-XII Intact - Skin Skin Exam: Dry, Warm Assessment and Plan (1) FELIPE (acute kidney injury) Status: Acute (2) CKD (chronic kidney disease) stage 4, GFR 15-29 ml/min Status: Acute (3) RAMONA (renal artery stenosis) Status: Acute (4) S/P TAVR (transcatheter aortic valve replacement) Status: Acute (5) CHF (congestive heart failure) Status: Acute (6) Atrial fibrillation Status: Acute - Assessment and Plan (Free Text) Plan: stop lovenox blood transfusion if creatinine does not decrease can add IV fluids- will hold for now as pt to get blood transfusion
--- NOTE | 2018-02-10 14:39 | CP.PCM.PN ---
Subjective - Date & Time of Evaluation Date of Evaluation: 02/10/18 Time of Evaluation: 14:37 - Subjective Subjective: F/U GI bleed In ICU- Hgb gradually dwindling down, now receiving transfusion Pt notes small black BM this AM On Dobutamine drip Objective - Vital Signs/Intake and Output Vital Signs (last 24 hours): Temp Pulse Resp BP Pulse Ox 98.3 F 81 11 L 75/50 L 98 02/10/18 12:44 02/10/18 14:01 02/10/18 14:01 02/10/18 14:01 02/10/18 14:01 Intake and Output: 02/10/18 02/10/18 06:59 18:59 Intake Total 250.4 436.6 Output Total 200 Balance 50.4 436.6 - Medications Medications: Current Medications Acetaminophen (Tylenol 325mg Tab) 650 mg PO Q6 PRN PRN Reason: Headache Last Admin: 02/10/18 13:20 Dose: 650 mg Aspirin (Ecotrin) 81 mg PO DAILY [facility] Last Admin: 02/10/18 09:47 Dose: 81 mg Carvedilol (Coreg) 3.125 mg PO BID [facility] Last Admin: 02/10/18 09:47 Dose: 3.125 mg Epoetin Chacho (Procrit) 10,000 unit SC MWF [facility] Last Admin: 02/10/18 09:48 Dose: 10,000 unit Ferric Sodium Gluconate Complex 125 mg/ Sodium Chloride 110 mls @ 60 mls/hr IVPB DAILY [facility] Stop: 02/14/18 10:01 Last Admin: 02/10/18 10:16 Dose: 60 mls/hr Dobutamine HCl/Dextrose (Dobutamine/Dextrose 5% 500mg/250ml) 500 mg in 250 mls @ 5.108 mls/hr IV .Q24H [facility] PRN Reason: 2.5 MCG/KG/MIN Last Admin: 02/10/18 10:17 Dose: 5.108 mls/hr Pantoprazole Sodium (Protonix Inj) 40 mg IVP Q12H [facility] Last Admin: 02/10/18 09:48 Dose: 40 mg Rosuvastatin Calcium (Crestor) 10 mg PO HS [facility] Last Admin: 02/09/18 21:12 Dose: 10 mg Sennosides (Senokot Tab) 8.6 mg PO TID [facility] Last Admin: 02/10/18 13:30 Dose: 8.6 mg - Labs Labs: 02/10/18 06:20 02/10/18 06:20 PT 16.8 SECONDS (9.7-12.2) H 02/10/18 06:20 INR 1.5 02/10/18 06:20 APTT 35 SECONDS (21-34) H 02/10/18 06:20 - Constitutional Appears: No Acute Distress, Chronically Ill - Head Exam Head Exam: NORMOCEPHALIC - Respiratory Exam Respiratory Exam: NORMAL BREATHING PATTERN - Cardiovascular Exam Cardiovascular Exam: REGULAR RHYTHM - GI/Abdominal Exam GI & Abdominal Exam: Soft. absent: Tenderness Assessment and Plan (1) CHF (congestive heart failure) Status: Acute (2) Symptomatic anemia Assessment & Plan: Recent EGD-gastric ulcers Continue PPI Monitor Too ill for colonoscopy Status: Acute (3) Atrial fibrillation Status: Acute (4) PVD (peripheral vascular disease) Status: Acute (5) S/P aortic valve and mitral valve replacement Status: Acute
--- NOTE | 2018-02-10 17:11 | CP.CCUPN ---
CCU Subjective - Physician Review Events Since Last Encounter (Free Text): 02/10/18 17:11 The patient today feeling better. But weakness noted. Patient today the blood hemoglobin level is on the low side. Decided to give 1 unit of transfusion today. She underwent upper endoscopy. Gastritis noted. Unable to start the anticoagulation because of the bleeding and hemoglobin low Will discontinue milrinone drip. We'll start the patient on Dobutrex. We'll monitor the renal function. Continue to monitor. Patient can be transferred to telemetry with the nontypeable Dobutrex. We will monitor H&H. CCU Objective - Vital Signs / Intake & Output Vital Signs (Last 4 hours): Vital Signs Temp Pulse Resp BP Pulse Ox 02/10/18 17:00 82 17 100 02/10/18 16:03 76 22 102/44 L 96 02/10/18 16:00 98.0 F 72 22 102/44 L 97 02/10/18 15:31 73 21 126/55 L 98 02/10/18 15:16 80 22 112/57 L 97 02/10/18 15:00 81 22 114/57 L 99 02/10/18 14:46 80 17 108/49 L 99 02/10/18 14:34 76 21 102/60 02/10/18 14:17 81 20 112/49 L 99 02/10/18 14:07 83 25 H 99/56 L 98 02/10/18 14:01 81 11 L 75/50 L 98 02/10/18 14:00 70 15 99 02/10/18 13:45 76 18 80/44 L 98 02/10/18 13:44 80 19 80/44 L 02/10/18 13:30 81 20 87/46 L 99 02/10/18 13:15 83 16 92/50 L 99 02/10/18 13:14 84 18 92/50 L Intake and Output (Last 8hrs): Intake & Output 02/10/18 02/10/18 02/10/18 06:59 14:59 22:59 Intake Total 33.6 436.6 1010 Output Total 200 Balance -166.4 436.6 1010 Weight 150 lb 2.157 oz Intake: Intake, IV Amount 33.6 137.6 20 Left Forearm 33.6 133.4 15 Left Upper arm 4.2 5 Oral 299 290 Blood Product 0 650 Red Blood Cells Cpd As1 0 325 Lr Unit [id number] Other 50 Red Blood Cells Cpd As1 50 Lr Unit [id number] Output: Urine 200 Urine, Voided 200 Other: # Bowel Movements 1 - Physical Exam Head: Positive for: Atraumatic, Normocephalic Pupils: Positive for: PERRL Extroacular Muscles: Positive for: EOMI Conjunctiva: Positive for: Normal Mouth: Positive for: Moist Mucous Membranes Respiratory/Chest: Positive for: Clear to Auscultation, Good Air Exchange, Decreased Breath Sounds (at bases) Cardiovascular: Positive for: Regular Rate and Rhythm, Normal S1, S2 Abdomen: Positive for: Normal Bowel Sounds. Negative for: Tenderness, Distention Upper Extremity: Positive for: Normal Inspection Lower Extremity: Positive for: Normal Inspection Neurological: Positive for: GCS=15 Skin: Positive for: Warm, Dry, Normal Color. Negative for: Rashes Psychiatric: Positive for: Alert, Oriented x 3 - Medications Active Medications: Active Medications Generic Name Dose Route Start Last Admin Trade Name Freq PRN Reason Stop Dose Admin Acetaminophen 650 mg 02/09/18 13:51 02/10/18 13:20 Tylenol 325mg Tab PO 650 mg Q6 PRN Administration Headache Aspirin 81 mg 02/07/18 12:00 02/10/18 09:47 Ecotrin PO 81 mg DAILY [facility] Administration Carvedilol 3.125 mg 02/07/18 18:00 02/10/18 09:47 Coreg PO 3.125 mg BID [facility] Administration Epoetin Chacho 10,000 unit 02/10/18 09:00 02/10/18 09:48 Procrit SC 10,000 unit [facility] Administration Ferric Sodium Gluconate 110 mls @ 60 mls/hr 02/06/18 10:00 02/10/18 10:16 Complex 125 mg/ Sodium IVPB 02/14/18 10:01 60 mls/hr Chloride DAILY [facility] Administration Dobutamine HCl/Dextrose 500 mg in 250 mls @ 5.108 mls/hr 02/10/18 09:30 02/10 10:17 Dobutamine/Dextrose 5% 500mg/250ml IV 5.108 mls/hr .Q24H [facility] Administration 2.5 MCG/KG/MIN Pantoprazole Sodium 40 mg 02/09/18 22:00 02/10/18 09:48 Protonix Inj IVP 40 mg Q12H [facility] Administration Rosuvastatin Calcium 10 mg 02/06/18 22:00 02/09/18 21:12 Crestor PO 10 mg HS [facility] Administration Sennosides 8.6 mg 02/09/18 18:00 02/10/18 13:30 Senokot Tab PO 8.6 mg TID [facility] Administration - Patient Studies Lab Studies: Lab Studies 02/10/18 02/10/18 02/10/18 Range/Units 10:52 06:20 06:20 WBC 7.0 (4.8-10.8) K/uL RBC 2.80 L (3.80-5.20) Mil/uL Hgb 7.5 L (11.0-16.0) g/dL Hct 22.8 L (34.0-47.0) % MCV 81.4 (81.0-99.0) fL MCH 27.0 (27.0-31.0) pg MCHC 33.1 (33.0-37.0) g/dL RDW 22.0 H (11.5-14.5) % Plt Count 121 L (130-400) K/uL MPV 9.9 (7.2-11.7) fL Neut % (Auto) 83.2 H (50.0-75.0) % Lymph % (Auto) 5.9 L (20.0-40.0) % Wolfe % (Auto) 9.1 (0.0-10.0) % Eos % (Auto) 1.3 (0.0-4.0) % Baso % (Auto) 0.5 (0.0-2.0) % Neut # (Auto) 5.8 (1.8-7.0) K/uL Lymph # (Auto) 0.4 L (1.0-4.3) K/uL Wolfe # (Auto) 0.6 (0.0-0.8) K/uL Eos # (Auto) 0.1 (0.0-0.7) K/uL Baso # (Auto) 0.0 (0.0-0.2) K/uL Neutrophils % (Manual) 85 H (50-75) % Band Neutrophils % 1 (0-2) % Lymphocytes % (Manual) 5 L (20-40) % Monocytes % (Manual) 7 (0-10) % Eosinophils % (Manual) 2 (0-4) % Nucleated RBC % 1 H (0-0) % Platelet Estimate Slightly decreased L (NORMAL) Hypochromasia (manual) Slight Poikilocytosis (manual Slight Anisocytosis (manual) Slight Microcytosis (manual) Slight Target Cells Slight [place] Cells Slight PT 16.8 H (9.7-12.2) SECONDS INR 1.5 APTT 35 H (21-34) SECONDS Sodium (132-148) mmol/L Potassium (3.6-5.2) mmol/L Chloride (98-107) mmol/L Carbon Dioxide (22-30) mmol/L Anion Gap (10-20) BUN (7-17) mg/dL Creatinine (0.7-1.2) mg/dL Est GFR ( Amer) Est GFR (Non-Af Amer) Random Glucose (65-105) mg/dL Calcium (8.6-10.4) mg/dl Phosphorus (2.5-4.5) mg/dL Magnesium (1.6-2.3) mg/dL Total Bilirubin (0.2-1.3) mg/dL AST (14-36) U/L ALT (9-52) U/L Alkaline Phosphatase (38-126) U/L Total Protein (6.3-8.3) g/dL Albumin (3.5-5.0) g/dL Globulin (2.2-3.9) gm/dL Albumin/Globulin Ratio (1.0-2.1) Blood Type O POSITIVE Antibody Screen Negative 02/10/18 Range/Units 06:20 WBC (4.8-10.8) K/uL RBC (3.80-5.20) Mil/uL Hgb (11.0-16.0) g/dL Hct (34.0-47.0) % MCV (81.0-99.0) fL MCH (27.0-31.0) pg MCHC (33.0-37.0) g/dL RDW (11.5-14.5) % Plt Count (130-400) K/uL MPV (7.2-11.7) fL Neut % (Auto) (50.0-75.0) % Lymph % (Auto) (20.0-40.0) % Wolfe % (Auto) (0.0-10.0) % Eos % (Auto) (0.0-4.0) % Baso % (Auto) (0.0-2.0) % Neut # (Auto) (1.8-7.0) K/uL Lymph # (Auto) (1.0-4.3) K/uL Wolfe # (Auto) (0.0-0.8) K/uL Eos # (Auto) (0.0-0.7) K/uL Baso # (Auto) (0.0-0.2) K/uL Neutrophils % (Manual) (50-75) % Band Neutrophils % (0-2) % Lymphocytes % (Manual) (20-40) % Monocytes % (Manual) (0-10) % Eosinophils % (Manual) (0-4) % Nucleated RBC % (0-0) % Platelet Estimate (NORMAL) Hypochromasia (manual) Poikilocytosis (manual Anisocytosis (manual) Microcytosis (manual) Target Cells [place] Cells PT (9.7-12.2) SECONDS INR APTT (21-34) SECONDS Sodium 139 (132-148) mmol/L Potassium 4.4 (3.6-5.2) mmol/L Chloride 105 (98-107) mmol/L Carbon Dioxide 21 L (22-30) mmol/L Anion Gap 18 (10-20) BUN 72 H (7-17) mg/dL Creatinine 2.8 H (0.7-1.2) mg/dL Est GFR ( Amer) 20 Est GFR (Non-Af Amer) 17 Random Glucose 93 (65-105) mg/dL Calcium 8.9 (8.6-10.4) mg/dl Phosphorus 4.1 (2.5-4.5) mg/dL Magnesium 1.6 (1.6-2.3) mg/dL Total Bilirubin 1.2 (0.2-1.3) mg/dL AST 27 (14-36) U/L ALT 49 (9-52) U/L Alkaline Phosphatase 157 H (38-126) U/L Total Protein 6.0 L (6.3-8.3) g/dL Albumin 2.8 L (3.5-5.0) g/dL Globulin 3.2 (2.2-3.9) gm/dL Albumin/Globulin Ratio 0.9 L (1.0-2.1) Blood Type Antibody Screen Laboratory Results - last 24 hr 02/10/18 02/10/18 02/10/18 06:20 06:20 06:20 WBC 7.0 RBC 2.80 L Hgb 7.5 L Hct 22.8 L MCV 81.4 MCH 27.0 MCHC 33.1 RDW 22.0 H Plt Count 121 L MPV 9.9 Neut % (Auto) 83.2 H Lymph % (Auto) 5.9 L Wolfe % (Auto) 9.1 Eos % (Auto) 1.3 Baso % (Auto) 0.5 Neut # (Auto) 5.8 Lymph # (Auto) 0.4 L Wolfe # (Auto) 0.6 Eos # (Auto) 0.1 Baso # (Auto) 0.0 Neutrophils % (Manual) 85 H Band Neutrophils % 1 Lymphocytes % (Manual) 5 L Monocytes % (Manual) 7 Eosinophils % (Manual) 2 Nucleated RBC % 1 H Platelet Estimate Slightly decreased L Hypochromasia (manual) Slight Poikilocytosis (manual Slight Anisocytosis (manual) Slight Microcytosis (manual) Slight Target Cells Slight [place] Cells Slight PT 16.8 H INR 1.5 APTT 35 H Sodium 139 Potassium 4.4 Chloride 105 Carbon Dioxide 21 L Anion Gap 18 BUN 72 H Creatinine 2.8 H Est GFR ( Amer) 20 Est GFR (Non-Af Amer) 17 Random Glucose 93 Calcium 8.9 Phosphorus 4.1 Magnesium 1.6 Total Bilirubin 1.2 AST 27 ALT 49 Alkaline Phosphatase 157 H Total Protein 6.0 L Albumin 2.8 L Globulin 3.2 Albumin/Globulin Ratio 0.9 L Blood Type Antibody Screen 02/10/18 10:52 WBC RBC Hgb Hct MCV MCH MCHC RDW Plt Count MPV Neut % (Auto) Lymph % (Auto) Wol[place] % (Auto) Eos % (Auto) Baso % (Auto) Neut # (Auto) Lymph # (Auto) Wolfe # (Auto) Eos # (Auto) Baso # (Auto) Neutrophils % (Manual) Band Neutrophils % Lymphocytes % (Manual) Monocytes % (Manual) Eosinophils % (Manual) Nucleated RBC % Platelet Estimate Hypochromasia (manual) Poikilocytosis (manual Anisocytosis (manual) Microcytosis (manual) Target Cells [place] Cells PT INR APTT Sodium Potassium Chloride Carbon Dioxide Anion Gap BUN Creatinine Est GFR ( Amer) Est GFR (Non-Af Amer) Random Glucose Calcium Phosphorus Magnesium Total Bilirubin AST ALT Alkaline Phosphatase Total Protein Albumin Globulin Albumin/Globulin Ratio Blood Type O POSITIVE Antibody Screen Negative Critical Care Progress Note - Nutrition Nutrition: Nutrition Category Date Time Status Heart Healthy Diet [DIET] Diets 02/07/18 Breakfast Active
--- NOTE | 2018-02-10 21:16 | CP.PCM.CON ---
History of Present Illness - History of Present Illness History of Present Illness: 72 year old female with a hx of CHF s/p pacemaker, afib on coumadin, right breast cancer dx 2011 s/p lumpectomy and adjuvant chemotherapy at [facility], valvular heart disease s/p TAVR, presenting for fatigue and weakness, found to be anemic and cougulopathic. She reports to progressive diarrhea for about 2 weeks time which became more dark colored. Since then she has had progressive fatigue and palpitations. She also notes to dyspnea of exertion. She was seen by her PMD who advised her to come to the hospital. In the ER she was found to have a hgb of 6.3 and INR of 7.6. She is s/p PRBC transfusion and coumadin reversal. EGD revealed gastritis, non bleeding gastric ulcer and duodenitis. Past medical history: CHF s/p pacemaker, afib on coumadin, right breast cancer dx 2011 s/p lumpectomy and adjuvant chemotherapy at [facility], valvular heart disease s/p TAVR Past surgical history: TAVR, lumpectomy, aortic/mitral valve replacement Family history: Sister had breast cancer Social history: Former tobacco abuse, denies alcohol, and illicit drug use Allergies: Blood plasma Review of systems: All remaining review of systems including HEENT, cardiovascular, respiratory, gastrointestinal, genitourinary, musculoskeletal, dermatologic, neurologic, and psychiatric are negative unless mentioned in the HPI. Past Patient History - Past Medical History & Family History Past Medical History?: Yes - Past Social History Smoking Status: Former Smoker - CARDIAC Hx Congestive Heart Failure: Yes Hx Hypertension: Yes - PULMONARY Hx Respiratory Disorders: No - NEUROLOGICAL Hx Neurological Disorder: No - HEENT Hx HEENT Problems: No - RENAL Hx Chronic Kidney Disease: No - ENDOCRINE/METABOLIC Hx Endocrine Disorders: No - HEMATOLOGICAL/ONCOLOGICAL Hx Blood Disorders: Yes Hx Cancer: Yes (breast) - INTEGUMENTARY Hx Dermatological Problems: No - MUSCULOSKELETAL/RHEUMATOLOGICAL Hx Musculoskeletal Disorders: No Hx Falls: No Other/Comment: PVD - GASTROINTESTINAL Hx Gastrointestinal Disorders: No - GENITOURINARY/GYNECOLOGICAL Hx Genitourinary Disorders: No - PSYCHIATRIC Hx Substance Use: No - SURGICAL HISTORY Hx Surgeries: Yes Hx Mastectomy: Yes (right) Other/Comment: 2 valve replacement. HX: OMAIRA(12/21/16) - ANESTHESIA Hx Anesthesia: Yes Hx Anesthesia Reactions: No Hx Malignant Hyperthermia: No Meds Allergies/Adverse Reactions: Allergies Allergy/AdvReac Type Severity Reaction Status Date / Time blood plasma Allergy URTICARIA Uncoded 02/04/18 16:13 - Medications Medications: Current Medications Acetaminophen (Tylenol 325mg Tab) 650 mg PO Q6 PRN PRN Reason: Headache Last Admin: 02/10/18 21:01 Dose: 650 mg Aspirin (Ecotrin) 81 mg PO DAILY [facility] Last Admin: 02/10/18 09:47 Dose: 81 mg Carvedilol (Coreg) 3.125 mg PO BID [facility] Last Admin: 02/10/18 17:21 Dose: Not Given Epoetin Chacho (Procrit) 10,000 unit SC MWF [facility] Last Admin: 02/10/18 09:48 Dose: 10,000 unit Ferric Sodium Gluconate Complex 125 mg/ Sodium Chloride 110 mls @ 60 mls/hr IVPB DAILY [facility] Stop: 02/14/18 10:01 Last Admin: 02/10/18 10:16 Dose: 60 mls/hr Dobutamine HCl/Dextrose (Dobutamine/Dextrose 5% 500mg/250ml) 500 mg in 250 mls @ 5.108 mls/hr IV .Q24H [facility] PRN Reason: 2.5 MCG/KG/MIN Last Admin: 02/10/18 10:17 Dose: 5.108 mls/hr Pantoprazole Sodium (Protonix Inj) 40 mg IVP Q12H [facility] Last Admin: 02/10/18 21:01 Dose: 40 mg Rosuvastatin Calcium (Crestor) 10 mg PO HS [facility] Last Admin: 02/10/18 21:01 Dose: 10 mg Sennosides (Senokot Tab) 8.6 mg PO TID [facility] Last Admin: 02/10/18 17:21 Dose: 8.6 mg Physical Exam - Head Exam Head Exam: ATRAUMATIC - Eye Exam Eye Exam: Normal appearance - ENT Exam ENT Exam: Mucous Membranes Dry - Respiratory Exam Respiratory Exam: NORMAL BREATHING PATTERN - Cardiovascular Exam Cardiovascular Exam: +S1, +S2 - GI/Abdominal Exam GI & Abdominal Exam: Normal Bowel Sounds - Extremities Exam Extremities exam: Positive for: pedal edema - Neurological Exam Neurological exam: Oriented x3 - Psychiatric Exam Psychiatric exam: Normal Affect, Normal Mood - Skin Skin Exam: Warm Results - Vital Signs Recent Vital Signs: Last Vital Signs Temp 98.0 F 02/10/18 16:00 Pulse 71 02/10/18 21:04 Resp 22 02/10/18 21:04 BP 103/48 L 02/10/18 21:04 Pulse Ox 100 02/10/18 21:04 - Labs Result Diagrams: 02/10/18 06:20 02/10/18 06:20 Labs: Laboratory Results - last 24 hr 02/10/18 02/10/18 02/10/18 06:20 06:20 06:20 WBC 7.0 RBC 2.80 L Hgb 7.5 L Hct 22.8 L MCV 81.4 MCH 27.0 MCHC 33.1 RDW 22.0 H Plt Count 121 L MPV 9.9 Neut % (Auto) 83.2 H Lymph % (Auto) 5.9 L [place] % (Auto) 9.1 Eos % (Auto) 1.3 Baso % (Auto) 0.5 Neut # (Auto) 5.8 Lymph # (Auto) 0.4 L [place] # (Auto) 0.6 Eos # (Auto) 0.1 Baso # (Auto) 0.0 Neutrophils % (Manual) 85 H Band Neutrophils % 1 Lymphocytes % (Manual) 5 L Monocytes % (Manual) 7 Eosinophils % (Manual) 2 Nucleated RBC % 1 H Platelet Estimate Slightly decreased L Hypochromasia (manual) Slight Poikilocytosis (manual Slight Anisocytosis (manual) Slight Microcytosis (manual) Slight Target Cells Slight [place] Cells Slight PT 16.8 H INR 1.5 APTT 35 H Sodium 139 Potassium 4.4 Chloride 105 Carbon Dioxide 21 L Anion Gap 18 BUN 72 H Creatinine 2.8 H Est GFR ( Amer) 20 Est GFR (Non-Af Amer) 17 Random Glucose 93 Calcium 8.9 Phosphorus 4.1 Magnesium 1.6 Total Bilirubin 1.2 AST 27 ALT 49 Alkaline Phosphatase 157 H Total Protein 6.0 L Albumin 2.8 L Globulin 3.2 Albumin/Globulin Ratio 0.9 L Blood Type Antibody Screen 02/10/18 10:52 WBC RBC Hgb Hct MCV MCH MCHC RDW Plt Count MPV Neut % (Auto) Lymph % (Auto) [place] % (Auto) Eos % (Auto) Baso % (Auto) Neut # (Auto) Lymph # (Auto) [place] # (Auto) Eos # (Auto) Baso # (Auto) Neutrophils % (Manual) Band Neutrophils % Lymphocytes % (Manual) Monocytes % (Manual) Eosinophils % (Manual) Nucleated RBC % Platelet Estimate Hypochromasia (manual) Poikilocytosis (manual Anisocytosis (manual) Microcytosis (manual) Target Cells [place] Cells PT INR APTT Sodium Potassium Chloride Carbon Dioxide Anion Gap BUN Creatinine Est GFR ( Amer) Est GFR (Non-Af Amer) Random Glucose Calcium Phosphorus Magnesium Total Bilirubin AST ALT Alkaline Phosphatase Total Protein Albumin Globulin Albumin/Globulin Ratio Blood Type O POSITIVE Antibody Screen Negative Assessment & Plan (1) Anemia Assessment and Plan: likely acute GI blood loss; anticoagulation on hold will check retic count, b12, folate, ferritin to further characterize transfusion support PRN antico Status: Acute (2) Thrombocytopenia Assessment and Plan: mild likely consumptive from bleeding Status: Acute (3) Coagulopathy Assessment and Plan: secondary to anticoagulation; coumadin on hold s/p reversal Thank you for this interesting consult. Status: Acute
[2018-02-11 06:29] LABS: BASO % 0.4 % (0.0-2.0); EOS # 0.1 K/uL (0.0-0.7); EOS % 1.3 % (0.0-4.0); HEMOGLOBIN 9.6 g/dL (11.0-16.0); LYMPH # 0.5 K/uL (1.0-4.3); MEAN CELL VOLUME 81.3 fL (81.0-99.0); MEAN CORPUSCULAR HGB CONC 34.5 g/dL (33.0-37.0); MONO # 0.7 K/uL (0.0-0.8); MONO % 9.3 % (0.0-10.0); NEUT # 6.5 K/uL (1.8-7.0); PLATELET COUNT 117 K/uL (130-400); RBC 3.41 Mil/uL (3.80-5.20); WHITE BLOOD COUNT 7.8 K/uL (4.8-10.8)
[2018-02-11 06:38] LABS: ALBUMIN 3.4 g/dL (3.5-5.0); CALCIUM 9.4 mg/dl (8.6-10.4)
--- NOTE | 2018-02-11 07:28 | CP.PCM.PN ---
Subjective - Date & Time of Evaluation Date of Evaluation: 02/11/18 Time of Evaluation: 07:26 - Subjective Subjective: s/p blood transfusion bp improved on dobutrex gtt EGD - gastritis. anticoagulation on hold pt up in chair. good uop. swelling improved. denies any nausea vomiting diarrhea dizziness chest pain Objective - Vital Signs/Intake and Output Vital Signs (last 24 hours): Temp Pulse Resp BP Pulse Ox 98.1 F 71 23 134/70 94 L 02/11/18 04:00 02/11/18 07:00 02/11/18 07:00 02/11/18 04:05 02/11/18 04:05 Intake and Output: 02/11/18 02/11/18 06:59 18:59 Intake Total 120 5 Output Total 500 Balance -380 5 - Medications Medications: Current Medications Acetaminophen (Tylenol 325mg Tab) 650 mg PO Q6 PRN PRN Reason: Headache Last Admin: 02/11/18 05:50 Dose: 650 mg Aspirin (Ecotrin) 81 mg PO DAILY [facility] Last Admin: 02/10/18 09:47 Dose: 81 mg Carvedilol (Coreg) 3.125 mg PO BID [facility] Last Admin: 02/10/18 17:21 Dose: Not Given Epoetin Chacho (Procrit) 10,000 unit SC MWF [facility] Last Admin: 02/10/18 09:48 Dose: 10,000 unit Ferric Sodium Gluconate Complex 125 mg/ Sodium Chloride 110 mls @ 60 mls/hr IVPB DAILY [facility] Stop: 02/14/18 10:01 Last Admin: 02/10/18 10:16 Dose: 60 mls/hr Dobutamine HCl/Dextrose (Dobutamine/Dextrose 5% 500mg/250ml) 500 mg in 250 mls @ 5.108 mls/hr IV .Q24H [facility] PRN Reason: 2.5 MCG/KG/MIN Last Admin: 02/10/18 10:17 Dose: 5.108 mls/hr Pantoprazole Sodium (Protonix Inj) 40 mg IVP Q12H [facility] Last Admin: 02/10/18 21:01 Dose: 40 mg Rosuvastatin Calcium (Crestor) 10 mg PO HS [facility] Last Admin: 02/10/18 21:01 Dose: 10 mg Sennosides (Senokot Tab) 8.6 mg PO TID [facility] Last Admin: 02/10/18 17:21 Dose: 8.6 mg - Labs Labs: 02/11/18 06:16 02/11/18 06:15 PT 16.8 SECONDS (9.7-12.2) H 02/10/18 06:20 INR 1.5 02/10/18 06:20 APTT 35 SECONDS (21-34) H 02/10/18 06:20 - Constitutional Appears: No Acute Distress, Chronically Ill - Head Exam Head Exam: NORMAL INSPECTION, NORMOCEPHALIC - Eye Exam Eye Exam: Normal appearance Pupil Exam: PERRL - ENT Exam ENT Exam: Mucous Membranes Moist, Normal Exam - Neck Exam Neck Exam: Normal Inspection - Respiratory Exam Respiratory Exam: Decreased Breath Sounds, NORMAL BREATHING PATTERN - Cardiovascular Exam Cardiovascular Exam: REGULAR RHYTHM, Murmur (systolic) - GI/Abdominal Exam GI & Abdominal Exam: Distended, Soft - Extremities Exam Extremities Exam: Normal Inspection, Pedal Edema - Neurological Exam Neurological Exam: Alert, Awake, Oriented x3 - Psychiatric Exam Psychiatric exam: Normal Affect, Normal Mood - Skin Skin Exam: Dry, Intact Assessment and Plan (1) FELIPE (acute kidney injury) Status: Acute (2) Anemia Status: Acute (3) CHF (congestive heart failure) Status: Acute (4) CKD (chronic kidney disease) stage 4, GFR 15-29 ml/min Status: Acute (5) Coagulopathy Status: Acute (6) Gastric ulcer Status: Acute - Assessment and Plan (Free Text) Assessment: renal function stabilized post transfusion maintain maps > 65 meds reviewed on itzel. monitor hgb
[2018-02-11 07:39] LABS: FOLATE 7.2 ng/mL
[2018-02-11 08:18] LABS: LYMPHOCYTE 6 % (20-40); MONOCYTE 13 % (0-10); NEUTROPHIL 81 % (50-75); NUCLEATED RED BLOOD CELL 1 % (0-0); PLATELET ESTIMATE SLIGHTLY DECREASED (NORMAL); TOTAL CELLS COUNTED 100
[2018-02-11 08:19] LABS: ANISOCYTOSIS SLIGHT; BURR CELLS SLIGHT; HYPOCHROMIC SLIGHT; MICROCYTOSIS SLIGHT; POIKILOCYTOSIS SLIGHT; TARGET CELLS SLIGHT; TEARDROP CELLS SLIGHT
[2018-02-11 08:20] LABS: LARGE PLATELETS PRESENT
--- NOTE | 2018-02-11 09:35 | RAD ---
Date of service: 02/11/2018 HISTORY: f/u COMPARISON: 02/06/2018 FINDINGS: LUNGS: The right inferolateral pleural parenchymal blending airspace opacity shows some areas of minimal increased aeration yet persistent areas of moderate dense parenchymal opacification. As before the right inferolateral pleural effusion with possible loculation and probable mild right basilar inferred compressive atelectasis (with or without infiltrate) is compatible with the current appearance as well No interval left lung pathology noted. The prior left lung base li near minimal opacity has cleared. PLEURA: The right inferolateral pleural based pathology effusion status is as above,. No interval pneumothorax apparent. CARDIOVASCULAR: Mild cardiomegaly, midline sternotomy, midline vascular stenting -thoracic level in duallead pacemaker appearance positioning similar. OSSEOUS STRUCTURES: No significant abnormalities. VISUALIZED UPPER ABDOMEN: Normal. OTHER FINDINGS: None. IMPRESSION: Minimal areas of improved aeration -right lateral mid lung zone (combined right pleural parenchymal pathology -as referenced above) and left costophrenic angle. Other findings as above.
--- NOTE | 2018-02-11 10:39 | CP.PCM.PN ---
<Desi Cornelius - Last Filed: 02/11/18 16:32> Subjective - Date & Time of Evaluation Date of Evaluation: 02/11/18 Time of Evaluation: 08:00 - Subjective Subjective: Hem/Onc Consult Note: Dr. Rocha's Service Patient was seen and examined at bedside in the AM. Patient states she is feeling much better compared to when she was first admitted to the hospital. Patient states she has been eating well. She states she had 2 bowel movements today and they were brown in color. She denies chest pain, shortness of breath , nausea, vomiting, light headedness, dizziness, blood in her stool or blood in her urine. Objective - Vital Signs/Intake and Output Vital Signs (last 24 hours): Temp Pulse Resp BP Pulse Ox 98.6 F 77 15 136/53 L 92 L 02/11/18 08:00 02/11/18 09:00 02/11/18 09:00 02/11/18 08:18 02/11/18 08:18 Intake and Output: 02/11/18 02/11/18 06:59 18:59 Intake Total 120 10 Output Total 500 Balance -380 10 - Medications Medications: Current Medications Acetaminophen (Tylenol 325mg Tab) 650 mg PO Q6 PRN PRN Reason: Headache Last Admin: 02/11/18 05:50 Dose: 650 mg Aspirin (Ecotrin) 81 mg PO DAILY [facility] Last Admin: 02/11/18 09:53 Dose: 81 mg Carvedilol (Coreg) 3.125 mg PO BID [facility] Last Admin: 02/11/18 09:53 Dose: 3.125 mg Epoetin Chacho (Procrit) 10,000 unit SC MWF [facility] Last Admin: 02/10/18 09:48 Dose: 10,000 unit Ferric Sodium Gluconate Complex 125 mg/ Sodium Chloride 110 mls @ 60 mls/hr IVPB DAILY [facility] Stop: 02/14/18 10:01 Last Admin: 02/10/18 10:16 Dose: 60 mls/hr Dobutamine HCl/Dextrose (Dobutamine/Dextrose 5% 500mg/250ml) 500 mg in 250 mls @ 5.108 mls/hr IV .Q24H [facility] PRN Reason: 2.5 MCG/KG/MIN Last Admin: 02/10/18 10:17 Dose: 5.108 mls/hr Pantoprazole Sodium (Protonix Inj) 40 mg IVP Q12H [facility] Last Admin: 02/11/18 09:53 Dose: 40 mg Rosuvastatin Calcium (Crestor) 10 mg PO HS [facility] Last Admin: 02/10/18 21:01 Dose: 10 mg Sennosides (Senokot Tab) 8.6 mg PO TID [facility] Last Admin: 02/11/18 09:54 Dose: Not Given - Labs Labs: 02/11/18 06:16 02/11/18 06:15 PT 16.8 SECONDS (9.7-12.2) H 02/10/18 06:20 INR 1.5 02/10/18 06:20 APTT 35 SECONDS (21-34) H 02/10/18 06:20 - Constitutional Appears: No Acute Distress - Head Exam Head Exam: ATRAUMATIC, NORMAL INSPECTION - Eye Exam Eye Exam: EOMI, Normal appearance, PERRL Pupil Exam: NORMAL ACCOMODATION - ENT Exam ENT Exam: Mucous Membranes Moist - Respiratory Exam Respiratory Exam: Clear to Ausculation Bilateral, NORMAL BREATHING PATTERN - Cardiovascular Exam Cardiovascular Exam: REGULAR RHYTHM, +S1, +S2 - GI/Abdominal Exam GI & Abdominal Exam: Soft, Normal Bowel Sounds. absent: Tenderness - Extremities Exam Extremities Exam: Normal Inspection - Neurological Exam Neurological Exam: Alert, Awake, Oriented x3 - Psychiatric Exam Psychiatric exam: Normal Affect, Normal Mood - Skin Skin Exam: Normal Color Assessment and Plan - Assessment and Plan (Free Text) Assessment: Anemia - possibly secondary to acute GI bleed - Anticoagulation on hold - Retic Count 2.2 - Reticulocyte Index: 1.5 - f/u b12, folate and ferritin Thrombocytopenia - Platelets: 117 - continue to monitor Coagulopathy - Patient was previously on Coumadin - Patient was administered Vitamin K - Coumadin was placed on hold - PT/INR: 16.8/1.[address] Josefina Cornelius PGY-2 <Chepe Rocha - Last Filed: 02/11/18 17:53> Objective - Vital Signs/Intake and Output Vital Signs (last 24 hours): Temp Pulse Resp BP Pulse Ox 98.1 F 78 20 127/83 98 02/11/18 17:10 02/11/18 17:10 02/11/18 17:10 02/11/18 17:10 02/11/18 17:10 Intake and Output: 02/11/18 02/11/18 06:59 18:59 Intake Total 120 750 Output Total 500 275 Balance -380 475 - Medications Medications: Current Medications Acetaminophen (Tylenol 325mg Tab) 650 mg PO Q6 PRN PRN Reason: Headache Last Admin: 02/11/18 05:50 Dose: 650 mg Aspirin (Ecotrin) 81 mg PO DAILY [facility] Last Admin: 02/11/18 09:53 Dose: 81 mg Carvedilol (Coreg) 3.125 mg PO BID [facility] Last Admin: 02/11/18 09:53 Dose: 3.125 mg Epoetin Chacho (Procrit) 10,000 unit SC MWF [facility] Last Admin: 02/10/18 09:48 Dose: 10,000 unit Ferric Sodium Gluconate Complex 125 mg/ Sodium Chloride 110 mls @ 60 mls/hr IVPB DAILY [facility] Stop: 02/14/18 10:01 Last Admin: 02/11/18 11:05 Dose: 60 mls/hr Dobutamine HCl/Dextrose (Dobutamine/Dextrose 5% 500mg/250ml) 500 mg in 250 mls @ 5.108 mls/hr IV .Q24H [facility] PRN Reason: 2.5 MCG/KG/MIN Last Admin: 02/11/18 11:06 Dose: 5.108 mls/hr Pantoprazole Sodium (Protonix Inj) 40 mg IVP Q12H [facility] Last Admin: 02/11/18 09:53 Dose: 40 mg Rosuvastatin Calcium (Crestor) 10 mg PO HS [facility] Last Admin: 02/10/18 21:01 Dose: 10 mg Sennosides (Senokot Tab) 8.6 mg PO TID [facility] Last Admin: 02/11/18 17:49 Dose: Not Given - Labs Labs: 02/11/18 06:16 02/11/18 06:15 PT 16.8 SECONDS (9.7-12.2) H 02/10/18 06:20 INR 1.5 02/10/18 06:20 APTT 35 SECONDS (21-34) H 02/10/18 06:20 Assessment and Plan (1) Anemia Status: Acute (2) Thrombocytopenia Status: Acute (3) Coagulopathy Status: Acute - Assessment and Plan (Free Text) Assessment: Pt seen and examined, agree with residents note. No evidence of iron/b12/ folate deficiency. Anemia of GI blood loss. Anticoagulation on hold.
[2018-02-11] MEDS: Ferric Sodium Gluconat Complex 125 MG in Sodium Chloride 0.9% 100 ML IVPB SCH (11:05)
[2018-02-11] MEDS: DOBUTamine 500mg/250ml D5W 500 MG/250 ML BAG IV SCH (11:06)
--- NOTE | 2018-02-11 14:08 | CP.PCM.PN ---
Subjective - Date & Time of Evaluation Date of Evaluation: 02/11/18 Time of Evaluation: 14:00 - Subjective Subjective: f/u anemia, GI bleed/ No melena, RB, SZ, fever, hematuria, hemoptysis Objective - Vital Signs/Intake and Output Vital Signs (last 24 hours): Temp Pulse Resp BP Pulse Ox 97.4 F L 65 20 102/45 L 95 02/11/18 12:00 02/11/18 13:06 02/11/18 13:06 02/11/18 13:06 02/11/18 13:06 Intake and Output: 02/11/18 02/11/18 06:59 18:59 Intake Total 120 610 Output Total 500 Balance -380 610 - Medications Medications: Current Medications Acetaminophen (Tylenol 325mg Tab) 650 mg PO Q6 PRN PRN Reason: Headache Last Admin: 02/11/18 05:50 Dose: 650 mg Aspirin (Ecotrin) 81 mg PO DAILY [facility] Last Admin: 02/11/18 09:53 Dose: 81 mg Carvedilol (Coreg) 3.125 mg PO BID [facility] Last Admin: 02/11/18 09:53 Dose: 3.125 mg Epoetin Chacho (Procrit) 10,000 unit SC MWF [facility] Last Admin: 02/10/18 09:48 Dose: 10,000 unit Ferric Sodium Gluconate Complex 125 mg/ Sodium Chloride 110 mls @ 60 mls/hr IVPB DAILY [facility] Stop: 02/14/18 10:01 Last Admin: 02/11/18 11:05 Dose: 60 mls/hr Dobutamine HCl/Dextrose (Dobutamine/Dextrose 5% 500mg/250ml) 500 mg in 250 mls @ 5.108 mls/hr IV .Q24H [facility] PRN Reason: 2.5 MCG/KG/MIN Last Admin: 02/11/18 11:06 Dose: 5.108 mls/hr Pantoprazole Sodium (Protonix Inj) 40 mg IVP Q12H [facility] Last Admin: 02/11/18 09:53 Dose: 40 mg Rosuvastatin Calcium (Crestor) 10 mg PO HS [facility] Last Admin: 02/10/18 21:01 Dose: 10 mg Sennosides (Senokot Tab) 8.6 mg PO TID [facility] Last Admin: 02/11/18 09:54 Dose: Not Given - Labs Labs: 02/11/18 06:16 02/11/18 06:15 PT 16.8 SECONDS (9.7-12.2) H 02/10/18 06:20 INR 1.5 02/10/18 06:20 APTT 35 SECONDS (21-34) H 02/10/18 06:20 - Constitutional Appears: Non-toxic - Respiratory Exam Respiratory Exam: Rhonchi - Cardiovascular Exam Cardiovascular Exam: Irregular Rhythm - GI/Abdominal Exam GI & Abdominal Exam: Soft, Normal Bowel Sounds. absent: Tenderness - Neurological Exam Neurological Exam: Oriented x3 Assessment and Plan (1) CHF (congestive heart failure) Status: Acute (2) CKD (chronic kidney disease) stage 4, GFR 15-29 ml/min Status: Acute (3) S/P TAVR (transcatheter aortic valve replacement) Status: Acute (4) Symptomatic anemia Assessment & Plan: Hb better after traansfusion. P- PPI, check Hb. Consider colonsocopy when medically better. Status: Acute (5) Atrial fibrillation Status: Acute (6) Gastric ulcer Status: Acute
--- NOTE | 2018-02-11 20:41 | CP.PCM.PN ---
Subjective - Date & Time of Evaluation Date of Evaluation: 02/09/18 Time of Evaluation: 20:40 - Subjective Subjective: Patient is still receiving the intravenous milrinone drip. Slight improvement noted. Leg swelling is better. Sitting up in the chair Vital signs stable. Mild hypotension present Pedal edema also noted. In my opinion patient is showing no improvement in spite of the inotropic's. Will continue the current treatment. Will discuss with the patient regarding the plan for discharge tomorrow Objective - Vital Signs/Intake and Output Vital Signs (last 24 hours): Temp Pulse Resp BP Pulse Ox 98.1 F 78 20 127/83 98 02/11/18 17:10 02/11/18 17:10 02/11/18 17:10 02/11/18 17:10 02/11/18 17:10 Intake and Output: 02/11/18 02/12/18 18:59 06:59 Intake Total 750 Output Total 275 Balance 475 - Medications Medications: Current Medications Acetaminophen (Tylenol 325mg Tab) 650 mg PO Q6 PRN PRN Reason: Headache Last Admin: 02/11/18 19:28 Dose: 650 mg Aspirin (Ecotrin) 81 mg PO DAILY [facility] Last Admin: 02/11/18 09:53 Dose: 81 mg Carvedilol (Coreg) 3.125 mg PO BID [facility] Last Admin: 02/11/18 19:28 Dose: 3.125 mg Epoetin Chacho (Procrit) 10,000 unit SC MWF [facility] Last Admin: 02/10/18 09:48 Dose: 10,000 unit Ferric Sodium Gluconate Complex 125 mg/ Sodium Chloride 110 mls @ 60 mls/hr IVPB DAILY [facility] Stop: 02/14/18 10:01 Last Admin: 02/11/18 11:05 Dose: 60 mls/hr Dobutamine HCl/Dextrose (Dobutamine/Dextrose 5% 500mg/250ml) 500 mg in 250 mls @ 5.108 mls/hr IV .Q24H [facility] PRN Reason: 2.5 MCG/KG/MIN Last Admin: 02/11/18 11:06 Dose: 5.108 mls/hr Pantoprazole Sodium (Protonix Inj) 40 mg IVP Q12H [facility] Last Admin: 02/11/18 09:53 Dose: 40 mg Rosuvastatin Calcium (Crestor) 10 mg PO HS [facility] Last Admin: 02/10/18 21:01 Dose: 10 mg Sennosides (Senokot Tab) 8.6 mg PO TID [facility] Last Admin: 02/11/18 17:49 Dose: Not Given - Labs Labs: 02/11/18 06:16 02/11/18 06:15 PT 16.8 SECONDS (9.7-12.2) H 02/10/18 06:20 INR 1.5 02/10/18 06:20 APTT 35 SECONDS (21-34) H 02/10/18 06:20
--- NOTE | 2018-02-11 20:42 | CP.PCM.PN ---
Subjective - Date & Time of Evaluation Date of Evaluation: 02/11/18 Time of Evaluation: 20:41 - Subjective Subjective: Discussion is currently in the floor. Patient is receiving Dobutrex. Still patient is feeling increasingly cold feeling. No chest pain noted. Shortness of breath less than before. Under today's chest x-ray showing right lower lung infiltrative changes and possible effusion. Unchanged to prior x-ray Physical therapy to be continued. We'll repeat the blood test tomorrow. Discharge plan tomorrow depending upon the labs. He may need to resume the Coumadin after checking the INR tomorrow. But the patient received a blood transfusion yesterday. Objective - Vital Signs/Intake and Output Vital Signs (last 24 hours): Temp Pulse Resp BP Pulse Ox 98.1 F 78 20 127/83 98 02/11/18 17:10 02/11/18 17:10 02/11/18 17:10 02/11/18 17:10 02/11/18 17:10 Intake and Output: 02/11/18 02/12/18 18:59 06:59 Intake Total 750 Output Total 275 Balance 475 - Medications Medications: Current Medications Acetaminophen (Tylenol 325mg Tab) 650 mg PO Q6 PRN PRN Reason: Headache Last Admin: 02/11/18 19:28 Dose: 650 mg Aspirin (Ecotrin) 81 mg PO DAILY [facility] Last Admin: 02/11/18 09:53 Dose: 81 mg Carvedilol (Coreg) 3.125 mg PO BID [facility] Last Admin: 02/11/18 19:28 Dose: 3.125 mg Epoetin Chacho (Procrit) 10,000 unit SC MWF [facility] Last Admin: 02/10/18 09:48 Dose: 10,000 unit Ferric Sodium Gluconate Complex 125 mg/ Sodium Chloride 110 mls @ 60 mls/hr IVPB DAILY [facility] Stop: 02/14/18 10:01 Last Admin: 02/11/18 11:05 Dose: 60 mls/hr Dobutamine HCl/Dextrose (Dobutamine/Dextrose 5% 500mg/250ml) 500 mg in 250 mls @ 5.108 mls/hr IV .Q24H [facility] PRN Reason: 2.5 MCG/KG/MIN Last Admin: 02/11/18 11:06 Dose: 5.108 mls/hr Pantoprazole Sodium (Protonix Inj) 40 mg IVP Q12H [facility] Last Admin: 02/11/18 09:53 Dose: 40 mg Rosuvastatin Calcium (Crestor) 10 mg PO HS [facility] Last Admin: 02/10/18 21:01 Dose: 10 mg Sennosides (Senokot Tab) 8.6 mg PO TID [facility] Last Admin: 02/11/18 17:49 Dose: Not Given - Labs Labs: 02/11/18 06:16 02/11/18 06:15 PT 16.8 SECONDS (9.7-12.2) H 02/10/18 06:20 INR 1.5 02/10/18 06:20 APTT 35 SECONDS (21-34) H 02/10/18 06:20
[2018-02-12] MEDS: Epoetin Alfa 10,000 unit/ml Dialysis SC SCH
--- NOTE | 2018-02-12 06:43 | CP.PCM.PN ---
Subjective - Date & Time of Evaluation Date of Evaluation: 02/11/18 Time of Evaluation: 09:50 - Subjective Subjective: Patient seen and evaluated S/P Milrinone therapy Breathing better No chest pain Objective - Vital Signs/Intake and Output Vital Signs (last 24 hours): Temp Pulse Resp BP Pulse Ox 98.1 F 72 20 138/77 97 02/12/18 00:00 02/12/18 01:00 02/12/18 00:00 02/12/18 00:00 02/12/18 00:00 Intake and Output: 02/11/18 02/12/18 18:59 06:59 Intake Total 750 Output Total 275 Balance 475 - Medications Medications: Current Medications Acetaminophen (Tylenol 325mg Tab) 650 mg PO Q6 PRN PRN Reason: Headache Last Admin: 02/12/18 06:03 Dose: 650 mg Aspirin (Ecotrin) 81 mg PO DAILY [facility] Last Admin: 02/11/18 09:53 Dose: 81 mg Carvedilol (Coreg) 3.125 mg PO BID [facility] Last Admin: 02/11/18 19:28 Dose: 3.125 mg Epoetin Chacho (Procrit) 10,000 unit SC MWF [facility] Last Admin: 02/10/18 09:48 Dose: 10,000 unit Ferric Sodium Gluconate Complex 125 mg/ Sodium Chloride 110 mls @ 60 mls/hr IVPB DAILY [facility] Stop: 02/14/18 10:01 Last Admin: 02/11/18 11:05 Dose: 60 mls/hr Dobutamine HCl/Dextrose (Dobutamine/Dextrose 5% 500mg/250ml) 500 mg in 250 mls @ 5.108 mls/hr IV .Q24H [facility] PRN Reason: 2.5 MCG/KG/MIN Last Admin: 02/11/18 11:06 Dose: 5.108 mls/hr Pantoprazole Sodium (Protonix Inj) 40 mg IVP Q12H [facility] Last Admin: 02/11/18 09:53 Dose: 40 mg Rosuvastatin Calcium (Crestor) 10 mg PO HS [facility] Last Admin: 02/11/18 21:26 Dose: 10 mg Sennosides (Senokot Tab) 8.6 mg PO TID [facility] Last Admin: 02/11/18 17:49 Dose: Not Given - Labs Labs: 02/11/18 06:16 02/11/18 06:15 PT 16.8 SECONDS (9.7-12.2) H 02/10/18 06:20 INR 1.5 02/10/18 06:20 APTT 35 SECONDS (21-34) H 02/10/18 06:20 Assessment and Plan - Assessment and Plan (Free Text) Assessment: Systolic CHF s/p TAVR x 2 A Fib Anemia Anticoagulation? Rehab placement
[2018-02-12 08:42] LABS: INR 1.5; PROTHROMBIN TIME 16.2 SECONDS (9.7-12.2)
[2018-02-12 08:44] LABS: BASO % 0.4 % (0.0-2.0); EOS # 0.1 K/uL (0.0-0.7); EOS % 1.3 % (0.0-4.0); HEMOGLOBIN 9.5 g/dL (11.0-16.0); LYMPH # 0.4 K/uL (1.0-4.3); LYMPH % 5.2 % (20.0-40.0); MEAN CELL VOLUME 82.6 fL (81.0-99.0); MEAN CORPUSCULAR HEMOGLOBIN 27.6 pg (27.0-31.0); MEAN CORPUSCULAR HGB CONC 33.4 g/dL (33.0-37.0); MEAN PLATELET VOLUME 10.7 fL (7.2-11.7); MONO # 0.5 K/uL (0.0-0.8); MONO % 6.6 % (0.0-10.0); NEUT # 6.8 K/uL (1.8-7.0); NEUT % 86.5 % (50.0-75.0); NRBC % 0.1 % (0.0-2.0); PLATELET COUNT 101 K/uL (130-400); RBC 3.45 Mil/uL (3.80-5.20); RED CELL DISTRIBUTION WIDTH 20.3 % (11.5-14.5); WHITE BLOOD COUNT 7.8 K/uL (4.8-10.8)
[2018-02-12 08:54] LABS: ALB/GLOB RATIO 0.9 (1.0-2.1); ALBUMIN 3.1 g/dL (3.5-5.0); CALCIUM 9.4 mg/dl (8.6-10.4)
[2018-02-12 09:14] LABS: LYMPHOCYTE 4 % (20-40); MONOCYTE 8 % (0-10); NEUTROPHIL 88 % (50-75); TOTAL CELLS COUNTED 100
[2018-02-12 09:15] LABS: ANISOCYTOSIS SLIGHT; BURR CELLS SLIGHT; HYPOCHROMIC SLIGHT; PLATELET ESTIMATE SLIGHTLY DECREASED (NORMAL); POIKILOCYTOSIS SLIGHT; TARGET CELLS SLIGHT
[2018-02-12 09:16] LABS: MICROCYTOSIS SLIGHT
[2018-02-12] MEDS: Ferric Sodium Gluconat Complex 125 MG in Sodium Chloride 0.9% 100 ML IVPB SCH ×2 (10:11→11:07)
--- NOTE | 2018-02-12 11:10 | CP.PCM.PN ---
<Ann Ching - Last Filed: 02/12/18 12:55> Subjective - Date & Time of Evaluation Date of Evaluation: 02/12/18 Time of Evaluation: 11:09 - Subjective Subjective: Cardiology Progress Note - Dr Pennington Patient seen and examined at bedside. Per nursing no acute events overnight. Patient complaining of left leg pain. She is requesting a cream. Denies any chest pain or shortness of breath. Dobutamine drip infusing. Objective - Vital Signs/Intake and Output Vital Signs (last 24 hours): Temp Pulse Resp BP Pulse Ox 98.5 F 78 20 134/61 97 02/12/18 08:00 02/12/18 09:34 02/12/18 08:00 02/12/18 09:34 02/12/18 08:00 - Medications Medications: Current Medications Acetaminophen (Tylenol 325mg Tab) 650 mg PO Q6 PRN PRN Reason: Headache Last Admin: 02/12/18 06:03 Dose: 650 mg Aspirin (Ecotrin) 81 mg PO DAILY [facility] Last Admin: 02/12/18 10:03 Dose: 81 mg Carvedilol (Coreg) 3.125 mg PO BID [facility] Last Admin: 02/12/18 10:03 Dose: 3.125 mg Epoetin Chacho (Procrit) 10,000 unit SC MWF [facility] Last Admin: 02/12/18 00:00 Dose: 10,000 unit Ferric Sodium Gluconate Complex 125 mg/ Sodium Chloride 110 mls @ 60 mls/hr IVPB DAILY [facility] Stop: 02/14/18 10:01 Last Admin: 02/12/18 11:07 Dose: 60 mls/hr Dobutamine HCl/Dextrose (Dobutamine/Dextrose 5% 500mg/250ml) 500 mg in 250 mls @ 5.108 mls/hr IV .Q24H [facility] PRN Reason: 2.5 MCG/KG/MIN Last Admin: 02/11/18 11:06 Dose: 5.108 mls/hr Pantoprazole Sodium (Protonix Inj) 40 mg IVP Q12H [facility] Last Admin: 02/12/18 10:04 Dose: Not Given Rosuvastatin Calcium (Crestor) 10 mg PO HS [facility] Last Admin: 02/11/18 21:26 Dose: 10 mg Sennosides (Senokot Tab) 8.6 mg PO TID [facility] Last Admin: 02/12/18 10:08 Dose: 8.6 mg - Labs Labs: 02/12/18 08:22 18 08:22 PT 16.2 SECONDS (9.7-12.2) H 02/12/18 08:22 INR 1.5 02/12/18 08:22 APTT 37 SECONDS (21-34) H 02/12/18 08:22 - Additional Findings Additional findings: - Constitutional Appears: Well, No Acute Distress - Head Exam Head Exam: ATRAUMATIC, NORMAL INSPECTION - Eye Exam Eye Exam: EOMI, Normal appearance - ENT Exam ENT Exam: Mucous Membranes Moist - Neck Exam Neck Exam: Full ROM - Respiratory Exam Respiratory Exam: Decreased Breath Sounds, NORMAL BREATHING PATTERN - Cardiovascular Exam Cardiovascular Exam: Irregular Rhythm, +S1, +S2 - GI/Abdominal Exam GI & Abdominal Exam: Soft. absent: Tenderness - Extremities Exam Extremities Exam: absent: Calf Tenderness - Neurological Exam Neurological Exam: Alert, Awake, Oriented x3 - Psychiatric Exam Psychiatric exam: Normal Affect, Normal Mood - Skin Skin Exam: Normal Color, Warm Assessment and Plan - Assessment and Plan (Free Text) Assessment: A/P: Patient is a 72 year old female with past medical history of Valvular disease s/p TAVR 09/2017, atrial fibrillation, CHF, HTN, Breast cancer s/p lumpectomy and radiation therapy who presented with worsening bilateral lower extremity swelling, weakness and dyspnea on exertion. Acute Symptomatic Anemia -Hgb on admission 6.3, baseline hgb 10.0, Stool occult is positive -S/P PRBCs, hgb 9.5 today -CT abd/pelvis showed cholelithiasis -EGD showed non-bleeding gastric ulcers, gastritis -Monitor serial H/H -Continue Protonix 40mg Q12H -For colonscopy on Saturday: patient is low risk for cardiac events for colonoscopy -GI on consult, help appreciated Acute Systolic Congestive Heart Failure/Non-ischemic cardiomyopathy -BNP on admission 27621, Troponin negative x 1 -Last echo 11/2016 showed EF 60-65%, mild to moderate concentric LVH, Moderate pulmonary HTN, Bioprostetic AV with severe valvular , Left atrium/Right atrium moderately dilated. Mitral valve bioprostetic, moderate Mitral valve stenosis -Repeat Echocardiogram EF 35% right ventricle mildly dilated, systolic function moderately reduced, left atrium mildly dilated, severe TR, mod to sever pulm HTN -Last Cardiac Catheterization 12/2016 showed normal coronaries -Patient is on dobutamine drip -CXR on admission showed right pleural effusion -CT chest showed moderate right pleural effusion with adjacent atelectasis, cardiomegaly -Continue aggressive medical management with diuretics, HR control -Daily weights, strict I/Os History of atrial fibrillation/Supratherapeutic INR -Hold Coumadin at this time -S/P Vitamin K -Monitor serial INR -Patient will need to be on anticoagulation, for colonoscopy on Saturday Acute on Chronic Kidney Disease -Renal function improving -Nephro on consult, help appreciated Left leg pain -Aspercreme as needed Plan to be discussed with Dr Gorge Ching DO PGY-2 <Mohan Pennington - Last Filed: 02/12/18 23:17> Objective - Vital Signs/Intake and Output Vital Signs (last 24 hours): Temp Pulse Resp BP Pulse Ox 98.7 F 76 20 120/58 L 97 02/12/18 15:00 02/12/18 16:16 02/12/18 15:00 02/12/18 15:00 02/12/18 15:00 - Medications Medications: Current Medications Acetaminophen (Tylenol 325mg Tab) 650 mg PO Q6 PRN PRN Reason: Headache Last Admin: 02/12/18 19:35 Dose: 650 mg Aspirin (Ecotrin) 81 mg PO DAILY [facility] Last Admin: 02/12/18 10:03 Dose: 81 mg Carvedilol (Coreg) 3.125 mg PO BID [facility] Last Admin: 02/12/18 17:07 Dose: 3.125 mg Epoetin Chacho (Procrit) 10,000 unit SC MWF [facility] Last Admin: 02/12/18 00:00 Dose: 10,000 unit Ferric Sodium Gluconate Complex 125 mg/ Sodium Chloride 110 mls @ 60 mls/hr IVPB DAILY [facility] Stop: 02/14/18 10:01 Last Admin: 02/12/18 11:07 Dose: 60 mls/hr Dobutamine HCl/Dextrose (Dobutamine/Dextrose 5% 500mg/250ml) 500 mg in 250 mls @ 5.108 mls/hr IV .Q24H [facility] PRN Reason: 2.5 MCG/KG/MIN Last Admin: 02/12/18 12:00 Dose: 5.108 mls/hr Pantoprazole Sodium (Protonix Ec Tab) 40 mg PO Q12H [facility] Last Admin: 02/12/18 21:54 Dose: 40 mg Rosuvastatin Calcium (Crestor) 10 mg PO HS [facility] Last Admin: 02/12/18 21:54 Dose: 10 mg Sennosides (Senokot Tab) 8.6 mg PO TID [facility] Last Admin: 02/12/18 17:09 Dose: Not Given Trolamine Salicylate (Aspercreme) 1 gm TOP Q6H PRN PRN Reason: Pain, Mild (1-3) - Labs Labs: 02/12/18 08:22 02/12/18 08:22 PT 16.2 SECONDS (9.7-12.2) H 02/12/18 08:22 INR 1.5 02/12/18 08:22 APTT 37 SECONDS (21-34) H 02/12/18 08:22 Assessment and Plan - Assessment and Plan (Free Text) Assessment: Patient seen and evaluated personally by me Plan of care d/w the resident and as documented
--- NOTE | 2018-02-12 11:59 | CP.PCM.PN ---
Subjective - Date & Time of Evaluation Date of Evaluation: 02/12/18 Time of Evaluation: 11:56 - Subjective Subjective: F/U GI bleed Hgb stable No reported GI bleeding Objective - Vital Signs/Intake and Output Vital Signs (last 24 hours): Temp Pulse Resp BP Pulse Ox 98.5 F 78 20 134/61 97 02/12/18 08:00 02/12/18 09:34 02/12/18 08:00 02/12/18 09:34 02/12/18 08:00 - Medications Medications: Current Medications Acetaminophen (Tylenol 325mg Tab) 650 mg PO Q6 PRN PRN Reason: Headache Last Admin: 02/12/18 06:03 Dose: 650 mg Aspirin (Ecotrin) 81 mg PO DAILY [facility]S [facility] 234 BEDS AT [facility] Last Admin: 02/12/18 10:03 Dose: 81 mg Carvedilol (Coreg) 3.125 mg PO BID [facility]S [facility]CLUDE 234 BEDS AT THE [facility] Last Admin: 02/12/18 10:03 Dose: 3.125 mg Epoetin Chacho (Procrit) 10,000 unit SC MWF [facility]S [facility]CLUDE 234 BEDS AT THE [facility] Last Admin: 02/12/18 00:00 Dose: 10,000 unit Ferric Sodium Gluconate Complex 125 mg/ Sodium Chloride 110 mls @ 60 mls/hr IVPB DAILY COUNTS INCLUDE 234 BEDS AT THE [facility] Stop: 02/14/18 10:01 Last Admin: 02/12/18 11:07 Dose: 60 mls/hr Dobutamine HCl/Dextrose (Dobutamine/Dextrose 5% 500mg/250ml) 500 mg in 250 mls @ 5.108 mls/hr IV .Q24H [facility]S [facility]CLUDE 234 BEDS AT THE [facility] PRN Reason: 2.5 MCG/KG/MIN Last Admin: 02/11/18 11:06 Dose: 5.108 mls/hr Pantoprazole Sodium (Protonix Inj) 40 mg IVP Q12H [facility]S [facility]CLUDE 234 BEDS AT THE [facility] Last Admin: 02/12/18 10:04 Dose: Not Given Rosuvastatin Calcium (Crestor) 10 mg PO HS COUNTS INCLUDE 234 BEDS AT [facility] Last Admin: 02/11/18 21:26 Dose: 10 mg Sennosides (Senokot Tab) 8.6 mg PO TID [facility]S [facility]CLUDE 234 BEDS AT THE [facility] Last Admin: 02/12/18 10:08 Dose: 8.6 mg Trolamine Salicylate (Aspercreme) 1 gm TOP Q6H PRN PRN Reason: Pain, Mild (1-3) - Labs Labs: 02/12/18 08:22 02/12/18 08:22 PT 16.2 SECONDS (9.7-12.2) H 02/12/18 08:22 INR 1.5 02/12/18 08:22 APTT 37 SECONDS (21-34) H 02/12/18 08:22 - Constitutional Appears: Chronically Ill - Head Exam Head Exam: NORMOCEPHALIC - Cardiovascular Exam Cardiovascular Exam: Irregular Rhythm, Murmur - GI/Abdominal Exam GI & Abdominal Exam: Soft. absent: Tenderness Assessment and Plan (1) CHF (congestive heart failure) Assessment & Plan: Managed by Cardiology On Dobutamine Status: Acute (2) Symptomatic anemia Assessment & Plan: D/W Dr Pennington- carito for colonoscopy, will stop Dobutamine. Necessary to do colonoscopy prior to restarting anticoagulation Plan: colonoscopy Saturday. Status: Acute (3) Atrial fibrillation Status: Acute (4) PVD (peripheral vascular disease) Status: Acute (5) S/P aortic valve and mitral valve replacement Status: Acute
[2018-02-12] MEDS: DOBUTamine 500mg/250ml D5W 500 MG/250 ML BAG IV SCH (12:00)
[2018-02-12] MEDS ORDERED: Trolamine Salicylate 10% Cream (85 gm) TOP PRN (12:00)
--- NOTE | 2018-02-12 12:46 | CP.PCM.PN ---
Subjective - Date & Time of Evaluation Date of Evaluation: 02/12/18 Time of Evaluation: 12:44 - Subjective Subjective: alert, feels weak but no new complaint s/p blood transfusion creat decreased to 1.8 - FELIPE improved, possibly due to improved cardiorenal syndrome await colonoscopy Objective - Vital Signs/Intake and Output Vital Signs (last 24 hours): Temp Pulse Resp BP Pulse Ox 98.5 F 78 20 134/61 97 02/12/18 08:00 02/12/18 09:34 02/12/18 08:00 02/12/18 09:34 02/12/18 08:00 - Medications Medications: Current Medications Acetaminophen (Tylenol 325mg Tab) 650 mg PO Q6 PRN PRN Reason: Headache Last Admin: 02/12/18 06:03 Dose: 650 mg Aspirin (Ecotrin) 81 mg PO DAILY [facility] Last Admin: 02/12/18 10:03 Dose: 81 mg Carvedilol (Coreg) 3.125 mg PO BID [facility] Last Admin: 02/12/18 10:03 Dose: 3.125 mg Epoetin Chacho (Procrit) 10,000 unit SC MWF [facility] Last Admin: 02/12/18 00:00 Dose: 10,000 unit Ferric Sodium Gluconate Complex 125 mg/ Sodium Chloride 110 mls @ 60 mls/hr IVPB DAILY [facility] Stop: 02/14/18 10:01 Last Admin: 02/12/18 11:07 Dose: 60 mls/hr Dobutamine HCl/Dextrose (Dobutamine/Dextrose 5% 500mg/250ml) 500 mg in 250 mls @ 5.108 mls/hr IV .Q24H [facility] PRN Reason: 2.5 MCG/KG/MIN Last Admin: 02/11/18 11:06 Dose: 5.108 mls/hr Pantoprazole Sodium (Protonix Inj) 40 mg IVP Q12H [facility] Last Admin: 02/12/18 10:04 Dose: Not Given Rosuvastatin Calcium (Crestor) 10 mg PO HS [facility] Last Admin: 02/11/18 21:26 Dose: 10 mg Sennosides (Senokot Tab) 8.6 mg PO TID [facility] Last Admin: 02/12/18 10:08 Dose: 8.6 mg Trolamine Salicylate (Aspercreme) 1 gm TOP Q6H PRN PRN Reason: Pain, Mild (1-3) - Labs Labs: 02/12/18 08:22 18 08:22 PT 16.2 SECONDS (9.7-12.2) H 02/12/18 08:22 INR 1.5 02/12/18 08:22 APTT 37 SECONDS (21-34) H 02/12/18 08:22 - Constitutional Appears: No Acute Distress, Chronically Ill - Head Exam Head Exam: ATRAUMATIC, NORMAL INSPECTION - Eye Exam Eye Exam: EOMI, Normal appearance - Neck Exam Neck Exam: Normal Inspection. absent: Tenderness - Respiratory Exam Respiratory Exam: Clear to Ausculation Bilateral, NORMAL BREATHING PATTERN - Cardiovascular Exam Cardiovascular Exam: REGULAR RHYTHM, +S1 - GI/Abdominal Exam GI & Abdominal Exam: Soft. absent: Tenderness - Extremities Exam Extremities Exam: Normal Inspection. absent: Tenderness - Neurological Exam Neurological Exam: Alert, CN II-XII Intact - Skin Skin Exam: Dry, Warm Assessment and Plan (1) FELIPE (acute kidney injury) Status: Acute (2) CKD (chronic kidney disease) stage 4, GFR 15-29 ml/min Status: Acute (3) RAMONA (renal artery stenosis) Status: Acute (4) S/P TAVR (transcatheter aortic valve replacement) Status: Acute (5) CHF (congestive heart failure) Status: Acute (6) Atrial fibrillation Status: Acute - Assessment and Plan (Free Text) Plan: Monitor lytes, renal function Await colonoscopy
[2018-02-12] MEDS: Pantoprazole 40 mg EC Tab PO SCH (21:54)
[2018-02-13 07:17] LABS: BASO # 0.1 K/uL (0.0-0.2); BASO % 0.7 % (0.0-2.0); EOS # 0.1 K/uL (0.0-0.7); EOS % 1.1 % (0.0-4.0); HEMOGLOBIN 9.8 g/dL (11.0-16.0); LYMPH # 0.4 K/uL (1.0-4.3); LYMPH % 4.4 % (20.0-40.0); MEAN CELL VOLUME 82.1 fL (81.0-99.0); MEAN CORPUSCULAR HEMOGLOBIN 27.2 pg (27.0-31.0); MEAN CORPUSCULAR HGB CONC 33.2 g/dL (33.0-37.0); MEAN PLATELET VOLUME 9.4 fL (7.2-11.7); MONO # 0.6 K/uL (0.0-0.8); MONO % 7.2 % (0.0-10.0); NEUT # 7.5 K/uL (1.8-7.0); NEUT % 86.6 % (50.0-75.0); RBC 3.59 Mil/uL (3.80-5.20); RED CELL DISTRIBUTION WIDTH 20.6 % (11.5-14.5); WHITE BLOOD COUNT 8.6 K/uL (4.8-10.8)
[2018-02-13 07:22] LABS: PLATELET COUNT 125 K/uL (130-400)
[2018-02-13 07:32] LABS: ALBUMIN 3.2 g/dL (3.5-5.0); CALCIUM 9.7 mg/dl (8.6-10.4)
[2018-02-13] MEDS: Pantoprazole 40 mg EC Tab PO SCH ×2 (08:12→21:17)
--- NOTE | 2018-02-13 08:22 | CP.PCM.PN ---
Subjective - Date & Time of Evaluation Date of Evaluation: 02/13/18 Time of Evaluation: 08:00 - Subjective Subjective: f/u anemia, GI bleed. Feeling better. Denies abdom pain, constip, RB, melena, hematemesis, fever, chills, SZ, LOC, TIWARI Objective - Vital Signs/Intake and Output Vital Signs (last 24 hours): Temp Pulse Resp BP Pulse Ox 98.5 F 78 18 134/73 100 02/13/18 07:00 02/13/18 07:00 02/13/18 07:00 02/13/18 07:00 02/13/18 07:00 - Medications Medications: Current Medications Acetaminophen (Tylenol 325mg Tab) 650 mg PO Q6 PRN PRN Reason: Headache Last Admin: 02/13/18 04:56 Dose: 650 mg Aspirin (Ecotrin) 81 mg PO DAILY [facility] Last Admin: 02/12/18 10:03 Dose: 81 mg Carvedilol (Coreg) 3.125 mg PO BID [facility] Last Admin: 02/12/18 17:07 Dose: 3.125 mg Epoetin Chacho (Procrit) 10,000 unit SC MWF [facility] Last Admin: 02/12/18 00:00 Dose: 10,000 unit Ferric Sodium Gluconate Complex 125 mg/ Sodium Chloride 110 mls @ 60 mls/hr IVPB DAILY [facility] Stop: 02/14/18 10:01 Last Admin: 02/12/18 11:07 Dose: 60 mls/hr Dobutamine HCl/Dextrose (Dobutamine/Dextrose 5% 500mg/250ml) 500 mg in 250 mls @ 5.108 mls/hr IV .Q24H [facility] PRN Reason: 2.5 MCG/KG/MIN Last Admin: 02/12/18 12:00 Dose: 5.108 mls/hr Pantoprazole Sodium (Protonix Ec Tab) 40 mg PO Q12H [facility] Last Admin: 02/13/18 08:12 Dose: 40 mg Rosuvastatin Calcium (Crestor) 10 mg PO HS [facility] Last Admin: 02/12/18 21:54 Dose: 10 mg Sennosides (Senokot Tab) 8.6 mg PO TID [facility] Last Admin: 02/12/18 17:09 Dose: Not Given Trolamine Salicylate (Aspercreme) 1 gm TOP Q6H PRN PRN Reason: Pain, Mild (1-3) Last Admin: 02/13/18 05:01 Dose: 1 gm - Labs Labs: 02/13/18 07:01 02/13/18 07:01 PT 16.2 SECONDS (9.7-12.2) H 02/12/18 08:22 INR 1.5 02/12/18 08:22 APTT 37 SECONDS (21-34) H 02/12/18 08:22 - Constitutional Appears: Non-toxic - Respiratory Exam Respiratory Exam: Clear to Ausculation Bilateral - Cardiovascular Exam Cardiovascular Exam: Irregular Rhythm - GI/Abdominal Exam GI & Abdominal Exam: Soft, Normal Bowel Sounds. absent: Tenderness - Neurological Exam Neurological Exam: Alert, Awake, Oriented x3 Assessment and Plan (1) CHF (congestive heart failure) Assessment & Plan: stable Status: Acute (2) CKD (chronic kidney disease) stage 4, GFR 15-29 ml/min Assessment & Plan: Followed by nephrol Status: Acute (3) S/P TAVR (transcatheter aortic valve replacement) Status: Acute (4) Symptomatic anemia Assessment & Plan: COnsider GI bleed. Hb had dropped-. Stable today. Check colon for bleed source. Colonsocopy saturday Status: Acute (5) Atrial fibrillation Status: Acute (6) Gastric ulcer Status: Acute
--- NOTE | 2018-02-13 08:54 | CP.PCM.PN ---
Subjective - Date & Time of Evaluation Date of Evaluation: 02/13/18 Time of Evaluation: 08:52 - Subjective Subjective: alert, feels better Hg slowly improviung Renal function stable now- does have CKD though HTN controlled Objective - Vital Signs/Intake and Output Vital Signs (last 24 hours): Temp Pulse Resp BP Pulse Ox 98.5 F 78 18 134/73 100 02/13/18 07:00 02/13/18 07:00 02/13/18 07:00 02/13/18 07:00 02/13/18 07:00 - Medications Medications: Current Medications Acetaminophen (Tylenol 325mg Tab) 650 mg PO Q6 PRN PRN Reason: Headache Last Admin: 02/13/18 04:56 Dose: 650 mg Aspirin (Ecotrin) 81 mg PO DAILY [facility] Last Admin: 02/12/18 10:03 Dose: 81 mg Carvedilol (Coreg) 3.125 mg PO BID [facility] Last Admin: 02/12/18 17:07 Dose: 3.125 mg Epoetin Chacho (Procrit) 10,000 unit SC MWF [facility] Last Admin: 02/12/18 00:00 Dose: 10,000 unit Ferric Sodium Gluconate Complex 125 mg/ Sodium Chloride 110 mls @ 60 mls/hr IVPB DAILY [facility] Stop: 02/14/18 10:01 Last Admin: 02/12/18 11:07 Dose: 60 mls/hr Dobutamine HCl/Dextrose (Dobutamine/Dextrose 5% 500mg/250ml) 500 mg in 250 mls @ 5.108 mls/hr IV .Q24H [facility] PRN Reason: 2.5 MCG/KG/MIN Last Admin: 02/12/18 12:00 Dose: 5.108 mls/hr Pantoprazole Sodium (Protonix Ec Tab) 40 mg PO Q12H [facility] Last Admin: 02/13/18 08:12 Dose: 40 mg Polyethylene Glycol/Electrolytes (Golytely) 4,000 ml PO ONCE ONE Stop: 02/13/18 17:01 Rosuvastatin Calcium (Crestor) 10 mg PO HS [facility] Last Admin: 02/12/18 21:54 Dose: 10 mg Sennosides (Senokot Tab) 8.6 mg PO TID [facility] Last Admin: 02/12/18 17:09 Dose: Not Given Trolamine Salicylate (Aspercreme) 1 gm TOP Q6H PRN PRN Reason: Pain, Mild (1-3) Last Admin: 02/13/18 05:01 Dose: 1 gm - Labs Labs: 02/13/18 07:01 02/13/18 07:01 PT 16.2 SECONDS (9.7-12.2) H 02/12/18 08:22 INR 1.5 02/12/18 08:22 APTT 37 SECONDS (21-34) H 02/12/18 08:22 - Constitutional Appears: No Acute Distress, Chronically Ill - Head Exam Head Exam: ATRAUMATIC, NORMAL INSPECTION - Eye Exam Eye Exam: EOMI, Normal appearance - Neck Exam Neck Exam: Normal Inspection. absent: Tenderness - Respiratory Exam Respiratory Exam: Clear to Ausculation Bilateral, NORMAL BREATHING PATTERN - Cardiovascular Exam Cardiovascular Exam: REGULAR RHYTHM, +S1 - GI/Abdominal Exam GI & Abdominal Exam: Soft. absent: Tenderness - Extremities Exam Extremities Exam: Normal Inspection. absent: Tenderness - Neurological Exam Neurological Exam: Alert, CN II-XII Intact - Skin Skin Exam: Dry, Warm Assessment and Plan (1) FELIPE (acute kidney injury) Status: Resolved (2) CKD (chronic kidney disease) stage 4, GFR 15-29 ml/min Status: Acute (3) RAMONA (renal artery stenosis) Status: Acute (4) S/P TAVR (transcatheter aortic valve replacement) Status: Acute (5) CHF (congestive heart failure) Status: Acute (6) Atrial fibrillation Status: Acute - Assessment and Plan (Free Text) Plan: doing better; continue present regimen monitor for further bleeding
[2018-02-13 09:09] LABS: ANISOCYTOSIS SLIGHT; EOSINOPHIL 1 % (0-4); LYMPHOCYTE 4 % (20-40); MONOCYTE 7 % (0-10); NEUTROPHIL 88 % (50-75); PLATELET ESTIMATE SLIGHTLY DECREASED (NORMAL); POIKILOCYTOSIS SLIGHT; TOTAL CELLS COUNTED 100
[2018-02-13 09:10] LABS: HYPOCHROMIC SLIGHT; TARGET CELLS SLIGHT
[2018-02-13 09:11] LABS: BURR CELLS SLIGHT; MICROCYTOSIS SLIGHT
[2018-02-13] MEDS: DOBUTamine 500mg/250ml D5W 500 MG/250 ML BAG IV SCH (10:27)
[2018-02-13] MEDS: Ferric Sodium Gluconat Complex 125 MG in Sodium Chloride 0.9% 100 ML IVPB SCH (10:28)
--- NOTE | 2018-02-13 10:43 | CP.PCM.PN ---
<Desi Cornelius - Last Filed: 02/13/18 15:58> Subjective - Date & Time of Evaluation Date of Evaluation: 02/13/18 Time of Evaluation: 08:00 - Subjective Subjective: Hem/Onc Consult Note: Dr. Rocha's Service Patient was seen and examined at bedside in the AM. Patient states she is feeling well. She states her appetite is okay today but she does not like the liquid diet she is on today. She states her bowel movements continue to be brown in color. She denies chest pain, shortness of breath, nausea, vomiting, light headedness, dizziness, blood in her stool or blood in her urine. Objective - Vital Signs/Intake and Output Vital Signs (last 24 hours): Temp Pulse Resp BP Pulse Ox 98.5 F 74 20 147/72 99 02/13/18 07:00 02/13/18 10:27 02/13/18 10:27 02/13/18 10:27 02/13/18 10:27 - Medications Medications: Current Medications Acetaminophen (Tylenol 325mg Tab) 650 mg PO Q6 PRN PRN Reason: Headache Last Admin: 02/13/18 04:56 Dose: 650 mg Aspirin (Ecotrin) 81 mg PO DAILY [facility] Last Admin: 02/13/18 09:34 Dose: 81 mg Carvedilol (Coreg) 3.125 mg PO BID [facility] Last Admin: 02/13/18 09:34 Dose: 3.125 mg Epoetin Chacho (Procrit) 10,000 unit SC MWF [facility] Last Admin: 02/12/18 00:00 Dose: 10,000 unit Ferric Sodium Gluconate Complex 125 mg/ Sodium Chloride 110 mls @ 60 mls/hr IVPB DAILY [facility] Stop: 02/14/18 10:01 Last Admin: 02/13/18 10:28 Dose: 60 mls/hr Dobutamine HCl/Dextrose (Dobutamine/Dextrose 5% 500mg/250ml) 500 mg in 250 mls @ 5.108 mls/hr IV .Q24H [facility] PRN Reason: 2.5 MCG/KG/MIN Last Admin: 02/13/18 10:27 Dose: 5.108 mls/hr Pantoprazole Sodium (Protonix Ec Tab) 40 mg PO Q12H [facility] Last Admin: 02/13/18 08:12 Dose: 40 mg Polyethylene Glycol/Electrolytes (Golytely) 4,000 ml PO ONCE ONE Stop: 02/13/18 17:01 Rosuvastatin Calcium (Crestor) 10 mg PO HS [facility] Last Admin: 02/12/18 21:54 Dose: 10 mg Sennosides (Senokot Tab) 8.6 mg PO TID [facility] Last Admin: 02/13/18 09:36 Dose: Not Given Trolamine Salicylate (Aspercreme) 1 gm TOP Q6H PRN PRN Reason: Pain, Mild (1-3) Last Admin: 02/13/18 05:01 Dose: 1 gm - Labs Labs: 02/13/18 07:01 02/13/18 07:01 PT 16.2 SECONDS (9.7-12.2) H 02/12/18 08:22 INR 1.5 02/12/18 08:22 APTT 37 SECONDS (21-34) H 02/12/18 08:22 - Constitutional Appears: No Acute Distress - Head Exam Head Exam: ATRAUMATIC, NORMAL INSPECTION - Eye Exam Eye Exam: EOMI, Normal appearance, PERRL Pupil Exam: NORMAL ACCOMODATION - ENT Exam ENT Exam: Mucous Membranes Moist - Respiratory Exam Respiratory Exam: Clear to Ausculation Bilateral, NORMAL BREATHING PATTERN - Cardiovascular Exam Cardiovascular Exam: REGULAR RHYTHM, +S1, +S2, Murmur - GI/Abdominal Exam GI & Abdominal Exam: Soft, Normal Bowel Sounds. absent: Tenderness - Extremities Exam Extremities Exam: Normal Inspection - Neurological Exam Neurological Exam: Alert, Awake, Oriented x3 - Psychiatric Exam Psychiatric exam: Normal Affect Assessment and Plan - Assessment and Plan (Free Text) Assessment: Anemia - possibly secondary to acute GI bleed - Anticoagulation on hold - Retic Count 2.2 - Reticulocyte Index: 1.5 - b12 511; folate 7.2; ferritin 353 - Patient is scheduled for a colonoscopy Saturday02/14/18 Thrombocytopenia - Platelets: 125 - continue to monitor Coagulopathy - Patient was previously on Coumadin - Patient was administered Vitamin K - Coumadin was placed on hold - PT/INR: 16.2/1.[address] Josefina Cornelius PGY-2 <Chepe Rocha - Last Filed: 02/14/18 12:41> Objective - Vital Signs/Intake and Output Vital Signs (last 24 hours): Temp Pulse Resp BP Pulse Ox 98.2 F 88 19 156/72 H 100 02/14/18 12:05 02/14/18 12:05 02/14/18 12:05 02/14/18 12:05 02/14/18 12:05 Intake and Output: 02/14/18 02/14/18 06:59 18:59 Intake Total 0 Balance 0 - Medications Medications: Current Medications Acetaminophen (Tylenol 325mg Tab) 650 mg PO Q6 PRN PRN Reason: Headache Last Admin: 02/14/18 09:47 Dose: 650 mg Aspirin (Ecotrin) 81 mg PO DAILY [facility] Last Admin: 02/14/18 09:05 Dose: Not Given Carvedilol (Coreg) 3.125 mg PO BID [facility] Last Admin: 02/14/18 09:47 Dose: 3.125 mg Epoetin Chacho (Procrit) 10,000 unit SC MWF [facility] Last Admin: 02/14/18 09:45 Dose: 10,000 unit Dobutamine HCl/Dextrose (Dobutamine/Dextrose 5% 500mg/250ml) 500 mg in 250 mls @ 5.108 mls/hr IV .Q24H [facility] PRN Reason: 2.5 MCG/KG/MIN Last Admin: 02/14/18 09:46 Dose: 5.108 mls/hr Pantoprazole Sodium (Protonix Ec Tab) 40 mg PO Q12H [facility] Last Admin: 02/14/18 09:45 Dose: 40 mg Rosuvastatin Calcium (Crestor) 10 mg PO HS [facility] Last Admin: 02/13/18 21:19 Dose: 10 mg Sennosides (Senokot Tab) 8.6 mg PO TID [facility] Last Admin: 02/14/18 09:47 Dose: 8.6 mg Trolamine Salicylate (Aspercreme) 1 gm TOP Q6H PRN PRN Reason: Pain, Mild (1-3) Last Admin: 02/13/18 05:01 Dose: 1 gm - Labs Labs: 02/14/18 08:14 02/14/18 08:14 PT 16.2 SECONDS (9.7-12.2) H 02/12/18 08:22 INR 1.5 02/12/18 08:22 APTT 37 SECONDS (21-34) H 02/12/18 08:22 Assessment and Plan (1) Anemia Status: Acute (2) Thrombocytopenia Status: Acute (3) Coagulopathy Status: Acute - Assessment and Plan (Free Text) Assessment: Pt seen and examined, agree with residents note. Anemia of acute blood loss, bleeding appears resolved. No iron/b12/folate deficiency. GI w/u in progress.
[2018-02-13] MEDS ORDERED: Peg-Electrolyte Oral Soln 4L (Golytely) PO ONE (17:00)
--- NOTE | 2018-02-13 22:42 | CP.PCM.PN ---
Subjective - Date & Time of Evaluation Date of Evaluation: 02/13/18 Time of Evaluation: 11:05 - Subjective Subjective: Patient seen and evaluated Feels better Improved breathing Objective - Vital Signs/Intake and Output Vital Signs (last 24 hours): Temp Pulse Resp BP Pulse Ox 98.0 F 78 18 155/65 H 97 02/13/18 15:00 02/13/18 15:00 02/13/18 15:00 02/13/18 15:00 02/13/18 15:00 Intake and Output: 02/13/18 02/14/18 18:59 06:59 Intake Total 710 Balance 710 - Medications Medications: Current Medications Acetaminophen (Tylenol 325mg Tab) 650 mg PO Q6 PRN PRN Reason: Headache Last Admin: 02/13/18 21:17 Dose: 650 mg Aspirin (Ecotrin) 81 mg PO DAILY [facility] Last Admin: 02/13/18 09:34 Dose: 81 mg Carvedilol (Coreg) 3.125 mg PO BID [facility] Last Admin: 02/13/18 17:31 Dose: 3.125 mg Epoetin Chacho (Procrit) 10,000 unit SC MWF [facility] Last Admin: 02/12/18 00:00 Dose: 10,000 unit Ferric Sodium Gluconate Complex 125 mg/ Sodium Chloride 110 mls @ 60 mls/hr IVPB DAILY [facility] Stop: 02/14/18 10:01 Last Admin: 02/13/18 10:28 Dose: 60 mls/hr Dobutamine HCl/Dextrose (Dobutamine/Dextrose 5% 500mg/250ml) 500 mg in 250 mls @ 5.108 mls/hr IV .Q24H [facility] PRN Reason: 2.5 MCG/KG/MIN Last Admin: 02/13/18 10:27 Dose: 5.108 mls/hr Pantoprazole Sodium (Protonix Ec Tab) 40 mg PO Q12H [facility] Last Admin: 02/13/18 21:17 Dose: 40 mg Rosuvastatin Calcium (Crestor) 10 mg PO HS [facility] Last Admin: 02/13/18 21:19 Dose: 10 mg Sennosides (Senokot Tab) 8.6 mg PO TID [facility] Last Admin: 02/13/18 19:41 Dose: Not Given Trolamine Salicylate (Aspercreme) 1 gm TOP Q6H PRN PRN Reason: Pain, Mild (1-3) Last Admin: 02/13/18 05:01 Dose: 1 gm - Labs Labs: 02/13/18 07:01 02/13/18 07:01 PT 16.2 SECONDS (9.7-12.2) H 02/12/18 08:22 INR 1.5 02/12/18 08:22 APTT 37 SECONDS (21-34) H 02/12/18 08:22
[2018-02-14 08:25] LABS: BASO # 0.1 K/uL (0.0-0.2); BASO % 0.9 % (0.0-2.0); EOS # 0.1 K/uL (0.0-0.7); EOS % 0.9 % (0.0-4.0); HEMOGLOBIN 10.4 g/dL (11.0-16.0); LYMPH # 0.4 K/uL (1.0-4.3); LYMPH % 5.1 % (20.0-40.0); MEAN CELL VOLUME 82.2 fL (81.0-99.0); MONO # 0.4 K/uL (0.0-0.8); MONO % 5.5 % (0.0-10.0); NEUT # 6.8 K/uL (1.8-7.0); NEUT % 87.6 % (50.0-75.0); PLATELET COUNT 141 K/uL (130-400); RBC 3.71 Mil/uL (3.80-5.20); RED CELL DISTRIBUTION WIDTH 20.6 % (11.5-14.5); WHITE BLOOD COUNT 7.8 K/uL (4.8-10.8)
[2018-02-14 09:20] LABS: ALB/GLOB RATIO 0.8 (1.0-2.1); ALBUMIN 3.2 g/dL (3.5-5.0); CALCIUM 9.8 mg/dl (8.6-10.4)
[2018-02-14] MEDS: Epoetin Alfa 10,000 unit/ml Dialysis SC SCH (09:45)
[2018-02-14] MEDS: Pantoprazole 40 mg EC Tab PO SCH (09:45)
[2018-02-14] MEDS: DOBUTamine 500mg/250ml D5W 500 MG/250 ML BAG IV SCH (09:46)
[2018-02-14] MEDS: Ferric Sodium Gluconat Complex 125 MG in Sodium Chloride 0.9% 100 ML IVPB SCH (09:48)
[2018-02-14] MEDS ORDERED: Lactated Ringer's 500 ML IV ONE (10:48)
[2018-02-14] MEDS ORDERED: Sodium Chloride 0.9% 500 ML IV ONE (10:48)
[2018-02-14 11:06] LABS: ANISOCYTOSIS SLIGHT; LYMPHOCYTE 2 % (20-40); MONOCYTE 2 % (0-10); NEUTROPHIL 96 % (50-75); PLATELET ESTIMATE NORMAL (NORMAL); TOTAL CELLS COUNTED 100
[2018-02-14] MEDS ORDERED: Etomidate 20 mg/10ml Inj IV ONE (11:06)
[2018-02-14] MEDS ORDERED: Propofol 10 mg/ml Inj (20 ML) ONE (11:06)
[2018-02-14 11:07] LABS: HYPOCHROMIC SLIGHT; POLYCHROMIC SLIGHT
--- NOTE | 2018-02-14 11:40 | CP.PCM.PN ---
Subjective - Date & Time of Evaluation Date of Evaluation: 02/14/18 Time of Evaluation: 11:38 - Subjective Subjective: Colonoscopy- small polyp removed, otherwise normal. No source of bleeding in colon. may restart Coumadin, advance diet. GI stable for discharge. Will f/u pathology of polyp as outpatient Objective - Vital Signs/Intake and Output Vital Signs (last 24 hours): Temp Pulse Resp BP Pulse Ox 98.0 F 82 20 162/85 H 99 02/14/18 11:09 02/14/18 11:09 02/14/18 11:09 02/14/18 11:09 02/14/18 11:09 - Medications Medications: Current Medications Acetaminophen (Tylenol 325mg Tab) 650 mg PO Q6 PRN PRN Reason: Headache Last Admin: 02/14/18 09:47 Dose: 650 mg Aspirin (Ecotrin) 81 mg PO DAILY [facility] Last Admin: 02/14/18 09:05 Dose: Not Given Carvedilol (Coreg) 3.125 mg PO BID [facility] Last Admin: 02/14/18 09:47 Dose: 3.125 mg Epoetin Chacho (Procrit) 10,000 unit SC MWF [facility] Last Admin: 02/14/18 09:45 Dose: 10,000 unit Dobutamine HCl/Dextrose (Dobutamine/Dextrose 5% 500mg/250ml) 500 mg in 250 mls @ 5.108 mls/hr IV .Q24H [facility] PRN Reason: 2.5 MCG/KG/MIN Last Admin: 02/14/18 09:46 Dose: 5.108 mls/hr Pantoprazole Sodium (Protonix Ec Tab) 40 mg PO Q12H [facility] Last Admin: 02/14/18 09:45 Dose: 40 mg Rosuvastatin Calcium (Crestor) 10 mg PO HS [facility] Last Admin: 02/13/18 21:19 Dose: 10 mg Sennosides (Senokot Tab) 8.6 mg PO TID [facility] Last Admin: 02/14/18 09:47 Dose: 8.6 mg Trolamine Salicylate (Aspercreme) 1 gm TOP Q6H PRN PRN Reason: Pain, Mild (1-3) Last Admin: 02/13/18 05:01 Dose: 1 gm - Labs Labs: 02/14/18 08:14 02/14/18 08:14 PT 16.2 SECONDS (9.7-12.2) H 02/12/18 08:22 INR 1.5 02/12/18 08:22 APTT 37 SECONDS (21-34) H 02/12/18 08:22 Assessment and Plan (1) CHF (congestive heart failure) Status: Acute (2) Symptomatic anemia Status: Acute (3) Atrial fibrillation Status: Acute (4) PVD (peripheral vascular disease) Status: Acute (5) S/P aortic valve and mitral valve replacement Status: Acute
--- NOTE | 2018-02-14 12:40 | CP.PCM.PN ---
Subjective - Date & Time of Evaluation Date of Evaluation: 02/12/18 Time of Evaluation: 18:00 - Subjective Subjective: Feeling better Objective - Vital Signs/Intake and Output Vital Signs (last 24 hours): Temp Pulse Resp BP Pulse Ox 98.2 F 88 19 156/72 H 100 02/14/18 12:05 02/14/18 12:05 02/14/18 12:05 02/14/18 12:05 02/14/18 12:05 Intake and Output: 02/14/18 02/14/18 06:59 18:59 Intake Total 0 Balance 0 - Medications Medications: Current Medications Acetaminophen (Tylenol 325mg Tab) 650 mg PO Q6 PRN PRN Reason: Headache Last Admin: 02/14/18 09:47 Dose: 650 mg Aspirin (Ecotrin) 81 mg PO DAILY [facility] Last Admin: 02/14/18 09:05 Dose: Not Given Carvedilol (Coreg) 3.125 mg PO BID [facility] Last Admin: 02/14/18 09:47 Dose: 3.125 mg Epoetin Chacho (Procrit) 10,000 unit SC MWF [facility] Last Admin: 02/14/18 09:45 Dose: 10,000 unit Dobutamine HCl/Dextrose (Dobutamine/Dextrose 5% 500mg/250ml) 500 mg in 250 mls @ 5.108 mls/hr IV .Q24H [facility] PRN Reason: 2.5 MCG/KG/MIN Last Admin: 02/14/18 09:46 Dose: 5.108 mls/hr Pantoprazole Sodium (Protonix Ec Tab) 40 mg PO Q12H [facility] Last Admin: 02/14/18 09:45 Dose: 40 mg Rosuvastatin Calcium (Crestor) 10 mg PO HS [facility] Last Admin: 02/13/18 21:19 Dose: 10 mg Sennosides (Senokot Tab) 8.6 mg PO TID [facility] Last Admin: 02/14/18 09:47 Dose: 8.6 mg Trolamine Salicylate (Aspercreme) 1 gm TOP Q6H PRN PRN Reason: Pain, Mild (1-3) Last Admin: 02/13/18 05:01 Dose: 1 gm - Labs Labs: 02/14/18 08:14 02/14/18 08:14 PT 16.2 SECONDS (9.7-12.2) H 02/12/18 08:22 INR 1.5 02/12/18 08:22 APTT 37 SECONDS (21-34) H 02/12/18 08:22 - Head Exam Head Exam: ATRAUMATIC - Eye Exam Eye Exam: Normal appearance - ENT Exam ENT Exam: Mucous Membranes Dry - Respiratory Exam Respiratory Exam: NORMAL BREATHING PATTERN - Cardiovascular Exam Cardiovascular Exam: +S1, +S2 - GI/Abdominal Exam GI & Abdominal Exam: Normal Bowel Sounds Assessment and Plan (1) Anemia Assessment & Plan: anemia of GI blood loss; appears resolved anticoagulation on hold no iron/b12/folate deficiency GI w/u Status: Acute (2) Thrombocytopenia Assessment & Plan: mild, likely consumptive Status: Acute (3) Coagulopathy Assessment & Plan: anticoagulation on hold Status: Acute
--- NOTE | 2018-02-14 12:42 | CP.PCM.PN ---
Subjective - Date & Time of Evaluation Date of Evaluation: 02/14/18 Time of Evaluation: 10:00 - Subjective Subjective: For colonoscopy Objective - Vital Signs/Intake and Output Vital Signs (last 24 hours): Temp Pulse Resp BP Pulse Ox 98.2 F 88 19 156/72 H 100 02/14/18 12:05 02/14/18 12:05 02/14/18 12:05 02/14/18 12:05 02/14/18 12:05 Intake and Output: 02/14/18 02/14/18 06:59 18:59 Intake Total 0 Balance 0 - Medications Medications: Current Medications Acetaminophen (Tylenol 325mg Tab) 650 mg PO Q6 PRN PRN Reason: Headache Last Admin: 02/14/18 09:47 Dose: 650 mg Aspirin (Ecotrin) 81 mg PO DAILY [facility] Last Admin: 02/14/18 09:05 Dose: Not Given Carvedilol (Coreg) 3.125 mg PO BID [facility] Last Admin: 02/14/18 09:47 Dose: 3.125 mg Epoetin Chacho (Procrit) 10,000 unit SC MWF [facility] Last Admin: 02/14/18 09:45 Dose: 10,000 unit Dobutamine HCl/Dextrose (Dobutamine/Dextrose 5% 500mg/250ml) 500 mg in 250 mls @ 5.108 mls/hr IV .Q24H [facility] PRN Reason: 2.5 MCG/KG/MIN Last Admin: 02/14/18 09:46 Dose: 5.108 mls/hr Pantoprazole Sodium (Protonix Ec Tab) 40 mg PO Q12H [facility] Last Admin: 02/14/18 09:45 Dose: 40 mg Rosuvastatin Calcium (Crestor) 10 mg PO HS [facility] Last Admin: 02/13/18 21:19 Dose: 10 mg Sennosides (Senokot Tab) 8.6 mg PO TID [facility] Last Admin: 02/14/18 09:47 Dose: 8.6 mg Trolamine Salicylate (Aspercreme) 1 gm TOP Q6H PRN PRN Reason: Pain, Mild (1-3) Last Admin: 02/13/18 05:01 Dose: 1 gm - Labs Labs: 02/14/18 08:14 02/14/18 08:14 PT 16.2 SECONDS (9.7-12.2) H 02/12/18 08:22 INR 1.5 02/12/18 08:22 APTT 37 SECONDS (21-34) H 02/12/18 08:22 - Head Exam Head Exam: ATRAUMATIC - Eye Exam Eye Exam: Normal appearance - ENT Exam ENT Exam: Mucous Membranes Dry - Respiratory Exam Respiratory Exam: NORMAL BREATHING PATTERN - Cardiovascular Exam Cardiovascular Exam: +S1, +S2 - GI/Abdominal Exam GI & Abdominal Exam: Normal Bowel Sounds Assessment and Plan (1) Anemia Assessment & Plan: anemia of GI blood loss; appears resolved anticoagulation on hold no iron/b12/folate deficiency GI w/u Status: Acute (2) Thrombocytopenia Assessment & Plan: improving mild, consumptive Status: Acute (3) Coagulopathy Status: Acute
--- NOTE | 2018-02-14 13:34 | CP.PCM.PN ---
Subjective - Date & Time of Evaluation Date of Evaluation: 02/14/18 Time of Evaluation: 13:31 - Subjective Subjective: s/p colonoscopy- no source bleeding noted no overt bleeding noted HTN controlled Renal function has improved- stable lytes acceptable Objective - Vital Signs/Intake and Output Vital Signs (last 24 hours): Temp Pulse Resp BP Pulse Ox 98.2 F 88 19 156/72 H 100 02/14/18 12:05 02/14/18 12:05 02/14/18 12:05 02/14/18 12:05 02/14/18 12:05 Intake and Output: 02/14/18 02/14/18 06:59 18:59 Intake Total 0 Balance 0 - Medications Medications: Current Medications Acetaminophen (Tylenol 325mg Tab) 650 mg PO Q6 PRN PRN Reason: Headache Last Admin: 02/14/18 09:47 Dose: 650 mg Aspirin (Ecotrin) 81 mg PO DAILY [facility] Last Admin: 02/14/18 09:05 Dose: Not Given Carvedilol (Coreg) 3.125 mg PO BID [facility] Last Admin: 02/14/18 09:47 Dose: 3.125 mg Epoetin Chacho (Procrit) 10,000 unit SC MWF [facility] Last Admin: 02/14/18 09:45 Dose: 10,000 unit Dobutamine HCl/Dextrose (Dobutamine/Dextrose 5% 500mg/250ml) 500 mg in 250 mls @ 5.108 mls/hr IV .Q24H [facility] PRN Reason: 2.5 MCG/KG/MIN Last Admin: 02/14/18 09:46 Dose: 5.108 mls/hr Pantoprazole Sodium (Protonix Ec Tab) 40 mg PO Q12H [facility] Last Admin: 02/14/18 09:45 Dose: 40 mg Rosuvastatin Calcium (Crestor) 10 mg PO HS [facility] Last Admin: 02/13/18 21:19 Dose: 10 mg Sennosides (Senokot Tab) 8.6 mg PO TID [facility] Last Admin: 02/14/18 09:47 Dose: 8.6 mg Trolamine Salicylate (Aspercreme) 1 gm TOP Q6H PRN PRN Reason: Pain, Mild (1-3) Last Admin: 02/13/18 05:01 Dose: 1 gm - Labs Labs: 02/14/18 08:14 02/14/18 08:14 PT 16.2 SECONDS (9.7-12.2) H 02/12/18 08:22 INR 1.5 02/12/18 08:22 APTT 37 SECONDS (21-34) H 02/12/18 08:22 - Constitutional Appears: No Acute Distress, Chronically Ill - Head Exam Head Exam: ATRAUMATIC, NORMAL INSPECTION - Eye Exam Eye Exam: EOMI, Normal appearance - Neck Exam Neck Exam: Normal Inspection. absent: Tenderness - Respiratory Exam Respiratory Exam: Clear to Ausculation Bilateral, NORMAL BREATHING PATTERN - Cardiovascular Exam Cardiovascular Exam: Irregular Rhythm, +S1 - GI/Abdominal Exam GI & Abdominal Exam: Soft. absent: Tenderness - Extremities Exam Extremities Exam: Normal Inspection. absent: Tenderness - Neurological Exam Neurological Exam: Alert, CN II-XII Intact - Skin Skin Exam: Dry, Warm Assessment and Plan (1) FELIPE (acute kidney injury) Status: Resolved (2) CKD (chronic kidney disease) stage 4, GFR 15-29 ml/min Status: Acute (3) RAMONA (renal artery stenosis) Status: Acute (4) S/P TAVR (transcatheter aortic valve replacement) Status: Acute (5) CHF (congestive heart failure) Status: Acute (6) Atrial fibrillation Status: Acute - Assessment and Plan (Free Text) Plan: for wearable defibrillator monitor renal function, lytes
--- NOTE | 2018-02-14 14:44 | CP.PCM.PN ---
Subjective - Date & Time of Evaluation Date of Evaluation: 02/14/18 Time of Evaluation: 14:44 - Subjective Subjective: CRESCENCIO WAS ADMITTED FOR CHF AND PLEURAL EFFUSION DENIES CHEST PAIN OR SOB NO SIGN OF DISTRESS NOTED Objective - Vital Signs/Intake and Output Vital Signs (last 24 hours): Temp Pulse Resp BP Pulse Ox 98.2 F 88 19 156/72 H 100 02/14/18 12:05 02/14/18 12:05 02/14/18 12:05 02/14/18 12:05 02/14/18 12:05 Intake and Output: 02/14/18 02/14/18 06:59 18:59 Intake Total 0 Balance 0 - Medications Medications: Current Medications Acetaminophen (Tylenol 325mg Tab) 650 mg PO Q6 PRN PRN Reason: Headache Last Admin: 02/14/18 09:47 Dose: 650 mg Aspirin (Ecotrin) 81 mg PO DAILY [facility] Last Admin: 02/14/18 09:05 Dose: Not Given Carvedilol (Coreg) 3.125 mg PO BID [facility] Last Admin: 02/14/18 09:47 Dose: 3.125 mg Epoetin Chacho (Procrit) 10,000 unit SC MWF [facility] Last Admin: 02/14/18 09:45 Dose: 10,000 unit Dobutamine HCl/Dextrose (Dobutamine/Dextrose 5% 500mg/250ml) 500 mg in 250 mls @ 5.108 mls/hr IV .Q24H [facility] PRN Reason: 2.5 MCG/KG/MIN Last Admin: 02/14/18 09:46 Dose: 5.108 mls/hr Pantoprazole Sodium (Protonix Ec Tab) 40 mg PO Q12H [facility] Last Admin: 02/14/18 09:45 Dose: 40 mg Rosuvastatin Calcium (Crestor) 10 mg PO HS [facility] Last Admin: 02/13/18 21:19 Dose: 10 mg Sennosides (Senokot Tab) 8.6 mg PO TID [facility] Last Admin: 02/14/18 13:36 Dose: Not Given Trolamine Salicylate (Aspercreme) 1 gm TOP Q6H PRN PRN Reason: Pain, Mild (1-3) Last Admin: 02/13/18 05:01 Dose: 1 gm - Labs Labs: 02/14/18 08:14 02/14/18 08:14 PT 16.2 SECONDS (9.7-12.2) H 02/12/18 08:22 INR 1.5 02/12/18 08:22 APTT 37 SECONDS (21-34) H 02/12/18 08:22 Assessment and Plan - Assessment and Plan (Free Text) Assessment: PATIENT SEEN AND EXAMINED AT THE BEDSIDE POST COLONOSCOPY SHOW POLYPS WHICH WAS REMOVED / NO SOURCE OF BLEEDING NOTED DISCUSS WITH DR PASTRANA / PATIENT COUMADIN WAS RESUME PATIENT ALSO HAS A LIFEVEST PER DR RASHID PLACE UNDER THE SERVICE OF DR PASTRANA AT [facility] ---CALL FOR ADMITTING ORDER CONTINUE MED PER MED REC DOBUTAMINE DRIP 5MCG/KG/MIN IIV CONTINOUS PER DR PASTRANA LIFEVEST PER DR RASHID ACTIVITY PER FACILITY PROTOCOL CALL DR PASTRANA FOR FURTHER ORDER
[2018-02-14 15:47] VITALS: BP 147/83; RESP 20; TEMP 97.5; O2SAT 95
--- NOTE | 2018-02-14 17:31 | IP.NPCORE ---
Heart Failure Core Measure - Heart Failure Ejection Fraction: Less Than 40 % MASON Inhibitor Prescribed: No Contraindication/Reason for not providing: ON DOBUTAMINE Beta-Marin Prescribed: Carvedilol Angiotensin II Receptor Marin Prescribed: No Contraindication/Reason for not providing: ON DOBUTAMINE AnticoagulationTherapy for Atrial Fibrillation/Atrialflutter: Yes Aldosterone Antagonist Prescribed: No Contraindication/Reason for not providing: NOT INDICATED BY THE ORACLE CONSULTANT Hydralazine Nitrate Prescribed: No Contraindication/Reason for not providing: NOT INDICATED BY THE [facility]ACLE CONSULTANT Implantable Cardioverter Defibrillator Therapy: No Contraindication/Reason for not providing: LIFEVEST Cardiac Resynchronization Therapy Prescribed: No Contraindication/Reason for not providing: LIFEVEST - Follow up Will be discharged to: Intermediate Facility ([facility])
[2018-02-14 18:50] VITALS: PULSE 73
--- NOTE | 2018-02-24 21:15 | CP.PCM.DIS ---
Provider - Provider Date of Admission: 02/04/18 18:51 Attending physician: Michelle Pastrana MD Hospital Course - Lab Results Lab Results: Micro Results 02/11/18 17:20 Nose MRSA Culture - Final MRSA NOT DETECTED 02/08/18 21:41 Nose MRSA Culture (Admit) - Final MRSA NOT DETECTED 02/05/18 11:58 Naris MRSA Culture - Final MRSA NOT DETECTED 02/04/18 Unknown Nose MRSA Culture (Admit) - Final MRSA NOT DETECTED Most Recent Lab Values WBC 7.8 K/uL (4.8-10.8) 02/14/18 08:14 RBC 3.71 Mil/uL (3.80-5.20) L 02/14/18 08:14 Hgb 10.4 g/dL (11.0-16.0) L 02/14/18 08:14 Hct 30.5 % (34.0-47.0) L 02/14/18 08:14 MCV 82.2 fL (81.0-99.0) 02/14/18 08:14 MCH 28.0 pg (27.0-31.0) 02/14/18 08:14 MCHC 34.0 g/dL (33.0-37.0) 02/14/18 08:14 RDW 20.6 % (11.5-14.5) H 02/14/18 08:14 Plt Count 141 K/uL (130-400) 02/14/18 08:14 MPV 10.0 fL (7.2-11.7) 02/14/18 08:14 Neut % (Auto) 87.6 % (50.0-75.0) H 02/14/18 08:14 Lymph % (Auto) 5.1 % (20.0-40.0) L 02/14/18 08:14 [place] % (Auto) 5.5 % (0.0-10.0) 02/14/18 08:14 Eos % (Auto) 0.9 % (0.0-4.0) 02/14/18 08:14 Baso % (Auto) 0.9 % (0.0-2.0) 02/14/18 08:14 Neut # (Auto) 6.8 K/uL (1.8-7.0) 02/14/18 08:14 Lymph # (Auto) 0.4 K/uL (1.0-4.3) L 02/14/18 08:14 [place] # (Auto) 0.4 K/uL (0.0-0.8) 02/14/18 08:14 Eos # (Auto) 0.1 K/uL (0.0-0.7) 02/14/18 08:14 Baso # (Auto) 0.1 K/uL (0.0-0.2) 02/14/18 08:14 Neutrophils % (Manual) 96 % (50-75) H 02/14/18 08:14 Band Neutrophils % 1 % (0-2) 02/10/18 06:20 Lymphocytes % (Manual) 2 % (20-40) L 02/14/18 08:14 Monocytes % (Manual) 2 % (0-10) 02/14/18 08:14 Eosinophils % (Manual) 1 % (0-4) 02/13/18 07:01 Nucleated RBC % 1 % (0-0) H 02/11/18 06:16 Toxic Granulation Present 02/09/18 06:22 Platelet Estimate Normal (NORMAL) 02/14/18 08:14 Large Platelets Present 02/11/18 06:16 Giant Platelets Present 02/08/18 07:01 Polychromasia Slight 02/14/18 08:14 Hypochromasia (manual) Slight 02/14/18 08:14 Poikilocytosis (manual Slight 02/13/18 07:01 Anisocytosis (manual) Slight 02/14/18 08:14 Microcytosis (manual) Slight 02/13/18 07:01 Macrocytosis (manual) Slight 02/12/18 08:22 Target Cells Slight 02/13/18 07:01 Tear Drop Cells Slight 02/11/18 06:16 Ovalocytes Slight 02/09/18 06:22 Miguel Cells Slight 02/13/18 07:01 Schistocytes Slight 02/09/18 06:22 Retic Count 2.2 % (0.5-1.5) H 02/11/18 06:16 PT 16.2 SECONDS (9.7-12.2) H 02/12/18 08:22 INR 1.5 02/12/18 08:22 APTT 37 SECONDS (21-34) H 02/12/18 08:22 Sodium 143 mmol/L (132-148) 02/14/18 08:14 Potassium 4.2 mmol/L (3.6-5.2) 02/14/18 08:14 Chloride 107 mmol/L (98-107) 02/14/18 08:14 Carbon Dioxide 24 mmol/L (22-30) 02/14/18 08:14 Anion Gap 15 (10-20) 02/14/18 08:14 BUN 32 mg/dL (7-17) H 02/14/18 08:14 Creatinine 1.2 mg/dL (0.7-1.2) 02/14/18 08:14 Est GFR ( Amer) 54 02/14/18 08:14 Est GFR (Non-Af Amer) 44 02/14/18 08:14 Random Glucose 83 mg/dL (65-105) 02/14/18 08:14 Calcium 9.8 mg/dl (8.6-10.4) 02/14/18 08:14 Phosphorus 3.2 mg/dL (2.5-4.5) 02/14/18 08:14 Magnesium 1.7 mg/dL (1.6-2.3) 02/14/18 08:14 Iron 39 ug/dL (37-170) 02/04/18 21:05 TIBC 260 ug/dL (250-450) 02/04/18 21:05 % Saturation 15 (20-55) L 02/04/18 21:05 Ferritin 353.0 ng/mL 02/11/18 06:15 Total Bilirubin 1.5 mg/dL (0.2-1.3) H 02/14/18 08:14 AST 32 U/L (14-36) 02/14/18 08:14 ALT 41 U/L (9-52) 02/14/18 08:14 Alkaline Phosphatase 278 U/L (38-126) H 02/14/18 08:14 Troponin I 0.0680 ng/mL (0.00-0.120) 02/04/18 18:31 NT-Pro-B Natriuret Pep 16609 pg/mL (0-900) H 02/04/18 18:31 Total Protein 7.0 g/dL (6.3-8.3) 02/14/18 08:14 Albumin 3.2 g/dL (3.5-5.0) L 02/14/18 08:14 Globulin 3.8 gm/dL (2.2-3.9) 02/14/18 08:14 Albumin/Globulin Ratio 0.8 (1.0-2.1) L 02/14/18 08:14 Vitamin B12 511 pg/mL (239-931) 02/11/18 06:15 Folate 7.2 ng/mL 02/11/18 06:15 Urine Color Yellow (YELLOW) 02/05/18 20:13 Urine Clarity Hazy (Clear) 02/05/18 20:13 Urine pH 5.0 (5.0-8.0) 02/05/18 20:13 Ur Specific [place] 1.011 (1.003-1.030) 02/05/18 20:13 Urine Protein Negative mg/dL (NEGATIVE) 02/05/18 20:13 Urine Glucose (UA) Normal mg/dL (Normal) 02/05/18 20:13 Urine Ketones Negative mg/dL (NEGATIVE) 02/05/18 20:13 Urine Blood Negative (NEGATIVE) 02/05/18 20:13 Urine Nitrate Negative (NEGATIVE) 02/05/18 20:13 Urine Bilirubin Negative (NEGATIVE) 02/05/18 20:13 Urine Urobilinogen Normal mg/dL (0.2-1.0) 02/05/18 20:13 Ur Leukocyte Esterase 3+ [place]/uL (Negative) H 02/05/18 20:13 Urine WBC (Auto) 21 /hpf (0-5) H 02/05/18 20:13 Urine RBC (Auto) 2 /hpf (0-3) 02/05/18 20:13 Ur Squamous Epith Cells 4 /hpf (0-5) 02/05/18 20:13 Ur Transition Epith Cell < 1 /hpf (0-3) 02/05/18 20:13 Urine Bacteria Few (<OCC) H 02/05/18 20:13 Ur Random Sodium 42 mmol/L 02/05/18 20:13 Stool Occult Blood Positive (NEGATIVE) H 02/04/18 21:05 Blood Type O POSITIVE 02/10/18 10:52 Antibody Screen Negative 02/10/18 10:52 - Hospital Course Hospital Course: Chief complaint: Increasing weakness, lethargic. HPI: 72-year-old female with a history of congestive heart failure, atrial fibrillation, hypertension, hyperlipidemia, peripheral vascular disease, history of breast cancer, status post a pacemaker, mitral, aortic valve replacement in 2011, status post a right radical lumpectomy, radiation treatment , carotid, femoral artery endarterectomy, stent placement. Patient had transaortic valve replacement 2 recently. Patient had a multiple hospitalization at the [facility] because of the worsening heart failure status. The patient is currently on anticoagulation Coumadin for atrial fibrillation with valve replacement. Patient came to the office today with increasing weakness, tiredness. She was sitting in the office with increasing week unable to stand up, feeling dizzy. Also tightness in the chest, shortness of breath, and worsening leg swelling. In spite of the Lasix, she is not feeling well. [facility], one week ago patient went to the emergency room but the patient was sent home. Past medical history: Breast cancer diagnosed in 2010, hypertension, hypercholesterolemia, congestive heart failure, atrial fibrillation, hyperlipidemia, PVD, status post a pacemaker , mitral and aortic valve replacement Surgical history: Pacemaker placement. I aortic, mitral valve replacement. Right breast cancer, status post radical lumpectomy, radiation treatment in 2010 Common femoral endarterectomy, stent placement on the right leg in 2009 Family history: Father history unknown. Mother had a history of CAD, CVA. One brother had a history of a kidney transplant. One sister had a history of breast cancer. Patient has 4 kids. She has 4 kids the 2 boys and 2 girls. Social history: Nonsmoker. Nonalcoholic now. Patient used to smoke in the past, quit in 2006, for almost one pack per day for 20 years. Denies any substance abuse. Currently living by herself. Home medications: Coumadin 3 mg daily Lasix 40 mg twice a day Coreg 25 mg twice daily Colchicine 0.6 mg daily Potassium 20 mg daily. Aspirin 81 daily. Hydralazine 100 mg 3 times daily Crestor 10 mg Iron supplementation. Review of system: Weakness noted. Patient is also complaining of episodic dark stools for a few days. Dizziness present. Bilateral leg swelling. Poor appetite, tiredness, fatigability easily present. On examination: Patient is somewhat weak. Fatigability present. Pale mucous membrane. Dryness noted Chest bilateral good air entry. Regular heart sound, systolic murmur noted Abdomen soft. Nontender. Bilateral pedal edema noted up to the mid thigh Patient's labs reviewed BUN 84, creatinine 3.2 AST 117, ALT 92, alkaline phosphatase 115 ProBNP 17,500 WBC 6.3 Hemoglobin 6.3 Platelet is 161 INR is 7.6 stool guaiac is positive Chest x-ray showing evidence of congestive heart failure, right pleural effusion. CAT scan of the chest abdomen and pelvis showing evidence of right pleural effusion. Fibrotic changes in the right lung, possibly secondary to radiation changes noted. CAT scan of the abdomen results pending. Assessment and recommendation: 72-year-old female with a history of atrial fibrillation, CAD, aortic, mitral valve disease, status post transaortic valve replacement 2, mitral valve replacement, permanent pacemaker, hypertension, pulmonary hypertension, hyperlipidemia, peripheral vascular disease, status post right common femoral endarterectomy, stent placement in 2009, chronic renal insufficiency, anemia, breast cancer, status post a right radical lumpectomy with radiation in 2010, pulmonary embolism in 2016. Now admitted to the hospital with the coagulopathy, Coumadin toxicity, acute anemia, likely secondary to GI loss. Patient also has a pleural effusion on the right side. Congestive heart failure. Will admit to ICU, transfusion slowly, vitamin K, coagulation monitoring. Renal evaluation Cardiology evaluation We will monitor the blood pressure. Will hold of the antihypertensives. Lasix as needed. We will follow the patient Discharge Exam - Head Exam Head Exam: ATRAUMATIC, NORMAL INSPECTION Discharge Plan - Discharge Medications Prescriptions: DOBUTamine 500mg/250ml D5W [DOBUTamine/Dextrose 5% 500mg/250ml] 500 mg IV DAILY #7 bag - Follow Up Plan Condition: STABLE Disposition[facility] Instructions: Heart Healthy Diet, Heart Failure, Adult (DC), Gastric Ulcer (DC) , Vitamin K Diet, Dobutamine, Warfarin, Chronic Kidney Disease (DC) Additional Instructions: PLACE UNDER THE SERVICE OF DR PASTRANA AT [facility] ---CALL FOR ADMITTING ORDER CONTINUE MED PER MED REC DOBUTAMINE DRIP 5MCG/KG/MIN IIV CONTINOUS PER DR PASTRANA LIFEVEST PER DR P[place] ACTIVITY PER FACILITY PROTOCOL CALL DR PASTRANA FOR FURTHER ORDER Referrals: Chepe Rocha MD [Staff Provider] - Mohan Pennington MD [Staff Provider] - Jose Enrique Javier MD [Staff Provider] - Michelle Pastrana MD [Staff Provider] - Adis Griggs MD [Staff Provider] -
== END 2018-02-14 17:48 | DRG 377 ==
LOC: C.ER 16:08 → C.9E 18:51 → C.9I 20:29 → C.3T 02-05 11:39 → C.5S 02-05 22:12 → C.9I 02-08 14:51 → C.5S 02-11 17:07
PROVIDERS: ADMIT Internal Medicine; ATTEND Internal Medicine
PROC: 30233N1 Transfusion of Nonautologous Red Blood Cells into Peripheral Vein, Percutaneous Approach (ICD-10-PCS; 2018-02-04)
PROC: 0DJ08ZZ Inspection of Upper Intestinal Tract, Via Natural or Artificial Opening Endoscopic (ICD-10-PCS; 2018-02-04)
PROC: 02HV33Z Insertion of Infusion Device into Superior Vena Cava, Percutaneous Approach (ICD-10-PCS; principal; 2018-02-07)
PROC: 0DBL8ZX Excision of Transverse Colon, Via Natural or Artificial Opening Endoscopic, Diagnostic (ICD-10-PCS; 2018-02-14)
DX: K92.2 Gastrointestinal hemorrhage, unspecified (principal); I50.43 Acute on chronic combined systolic (congestive) and diastolic (congestive) heart failure; I13.0 Hypertensive heart and chronic kidney disease with heart failure and stage 1 through stage 4 chronic kidney disease, or unspecified chronic kidney disease; D62 Acute posthemorrhagic anemia; N18.4 Chronic kidney disease, stage 4 (severe); N17.9 Acute kidney failure, unspecified; I42.9 Cardiomyopathy, unspecified; Z85.3 Personal history of malignant neoplasm of breast; T45.515A Adverse effect of anticoagulants, initial encounter; D63.8 Anemia in other chronic diseases classified elsewhere; D69.6 Thrombocytopenia, unspecified; E78.00 Pure hypercholesterolemia, unspecified; E87.6 Hypokalemia; I73.9 Peripheral vascular disease, unspecified; N26.1 Atrophy of kidney (terminal); I25.10 Atherosclerotic heart disease of native coronary artery without angina pectoris; I27.20 Pulmonary hypertension, unspecified; I48.91 Unspecified atrial fibrillation; I70.1 Atherosclerosis of renal artery; Z87.891 Personal history of nicotine dependence; Z95.0 Presence of cardiac pacemaker; Z95.2 Presence of prosthetic heart valve; D12.3 Benign neoplasm of transverse colon

== ENCOUNTER 2018-06-01 15:05 | Inpatient (IN) | payer MEDICARE, MEDICAID ==
[2018-06-01 15:05] VITALS: BMI 29.9
--- NOTE | 2018-06-01 15:57 | C.PDOC ---
History Of Present Illness 73 years old Female is sent to ED by Dr. Pennington M. s/p TAVR for admission for sudden decrease in out put of ejection fraction and pacemaker battery change. Spoke with Dr. Pennington which states patient is a pacemaker dependent and needs im mediate battery placement. Patient denies chest pain, diaphoresis , shortness of breath, fever, chills, nausea, vomiting, or any other complaints. Patient's vital signs are normal upon arrival. Patient currently has a life vest on that she states she had for 3 months. Time Seen by Provider: 06/01/18 15:35 Chief Complaint (Nursing): Medical Clearance History Per: Patient History/Exam Limitations: no limitations Onset/Duration Of Symptoms: Hrs Current Symptoms Are (Timing): Still Present Recent travel outside of the [place]: No Past Medical History Reviewed: Historical Data, Nursing Documentation, Vital Signs Vital Signs: Last Vital Signs Temp 97.8 F 06/01/18 15:21 Pulse 62 06/01/18 15:21 Resp 20 06/01/18 15:21 BP 193/70 H 06/01/18 15:21 Pulse Ox 98 06/01/18 15:21 - Medical History PMH: Anemia, Atrial Fibrillation, CHF, HTN, Hyperlipidemia Comment Only: Mitral Valve Prolapse (Mitral Valve Disorder?) Surgical History: Endoscopy, Pacemaker (Left Upper Anterior Chest) - [facility] Procedures EXCISION OF TRANSVERSE COLON, ENDO, DIAGN (02/04/18) INSERTION OF INFUSION DEV INTO SUP VENA CAVA, PERC APPROACH (02/04/18) INSPECTION OF UPPER INTESTINAL TRACT, ENDO (02/04/18) TRANSFUSE NONAUT RED BLOOD CELLS IN PERIPH VEIN, PERC (02/04/18) Family History: States: Unknown Family Hx - Social History Hx Tobacco Use: Yes (former smoker) Hx Alcohol Use: No Hx Substance Use: No - Immunization History Hx Tetanus Toxoid Vaccination: No Hx Influenza Vaccination: No Hx Pneumococcal Vaccination: No Review Of Systems Constitutional: Negative for: Fever, Chills Cardiovascular: Negative for: Chest Pain Respiratory: Negative for: Shortness of Breath Gastrointestinal: Negative for: Nausea, Vomiting, Abdominal Pain, Diarrhea Skin: Negative for: Rash Neurological: Negative for: Weakness, Numbness Physical Exam - Physical Exam Appears: Non-toxic Skin: Warm, Dry, No Rash Head: Atraumatic, Normacephalic Eye(s): bilateral: Normal Inspection, PERRL, EOMI Oral Mucosa: Moist Neck: Normal ROM, Supple Chest: Symmetrical, No Tenderness Cardiovascular: Rhythm Regular, No Murmur Respiratory: Normal Breath Sounds, No Accessory Muscle Use, No Rales, No Rhonchi, No Wheezing Gastrointestinal/Abdominal: Bowel Sounds (Active ), Soft, No Tenderness Extremity: Normal ROM Extremity: Bilateral: Atraumatic, Normal Color And Temperature, Normal ROM Pulses: Left Radial: Normal, Right Radial: Normal Neurological/Psych: Oriented x3, Normal Speech Gait: Steady ED Course And Treatment - Laboratory Results Result Diagrams: 06/01/18 16:47 06/01/18 16:47 O2 Sat by Pulse Oximetry: 98 (RA) Pulse Ox Interpretation: Normal - Other Rad CXR X-Ray: Viewed By Me, Read By Radiologist Interpretation: Date of service: 06/01/2018. PROCEDURE: CHEST RADIOGRAPH, 1 VIEW. HISTORY: chest pain. COMPARISON: 02/11/2018. FINDINGS: LUNGS: The lungs are well inflated and clear. There is linear scarring in the right mid lung. PLEURA: No pneumothorax or pleural effusion. Little interval change in small right pleural effusion. CARDIOVASCULAR: The heart is normal in size. Status post CABG. There is an ascending aortic endovascular stent graft. There is stable position of left-sided dual lead transvenous permanent pacing device. No aortic atherosclerotic calcifications present. OSSEOUS STRUCTURES: Within normal limits for the patient's age. VISUALIZED UPPER ABDOMEN: Normal. OTHER FINDINGS: None. IMPRESSION: No active pulmonary disease. No change in small right pleural effusion. Medical Decision Making Medical Decision Making: Plan: * Blood bank * EKG * Blood work * CXR * O2 via nasal cannula EKG: * Ventricular paced at 66 bpm * No ST depressions or elevations Progress: Discussed case with Dr. Pennington. Spoke with yolanda Hobson for consult. Dr. Pennington will admit patient under Dr. Tomlinson's service. 6:00PM: Paged medical imaging technologist. Spoke with Dr. Chow, requesting ICU. Will call band sewer. Disposition Discussed With : Mohan Pennington Doctor Will See Patient In The: Hospital Counseled Patient/Family Regarding: Studies Performed, Diagnosis - Disposition Disposition: HOSPITALIZED Disposition Time: 17:56 Condition: GUARDED Forms: evOLED ([facility]) - Clinical Impression Clinical Impression: CHF (congestive heart failure), Pacemaker at end of battery life - Scribe Statement The provider has reviewed the documentation as recorded by the Sarahibe Vanita Mejia All medical record entries made by the Sarahibe were at my direction and personally dictated by me. I have reviewed the chart and agree that the record accurately reflects my personal performance of the history, physical exam, medical decision making, and the department course for this patient. I have also personally directed, reviewed, and agree with the discharge instructions and disposition.[email or web address] Decision To Admit - Pt Status Changed To: Hospital Disposition Of: Inpatient - Admit Certification Admit to Inpatient:: After my assessment, the patient will require hospitalization for at least two midnights. This is because of the severity of symptoms shown, intensity of services needed, and/or the medical risk in this patient being treated as an outpatient. - InPatient: Physician Admission Certification: I certify that this patient requires 2 or more midnights of care for the following reason:: CHF, pacemeker dependant, battery end of life, - . Bed Request Type: Telemetry Patient Diagnosis: CHF (congestive heart failure), Pacemaker at end of battery life
--- NOTE | 2018-06-01 16:32 | RAD ---
Date of service: 06/01/2018 PROCEDURE: CHEST RADIOGRAPH, 1 VIEW HISTORY: chest pain COMPARISON: 02/11/2018 FINDINGS: LUNGS: The lungs are well inflated and clear. There is linear scarring in the right mid lung. PLEURA: No pneumothorax or pleural effusion. Little interval change in small right pleural effusion. CARDIOVASCULAR: The heart is normal in size. Status post CABG. There is an ascending aortic endovascular stent graft. There is stable position of left-sided dual lead transvenous permanent pacing device. No aortic atherosclerotic calcifications present. OSSEOUS STRUCTURES: Within normal limits for the patient's age. VISUALIZED UPPER ABDOMEN: Normal. OTHER FINDINGS: None. IMPRESSION: No active pulmonary disease. No change in small right pleural effusion.
[2018-06-01 16:54] LABS: BASO % 0.9 % (0.0-2.0); EOS # 0.2 K/uL (0.0-0.7); EOS % 3.5 % (0.0-4.0); HEMOGLOBIN 10.7 g/dL (11.0-16.0); LYMPH # 1.1 K/uL (1.0-4.3); MEAN CORPUSCULAR HEMOGLOBIN 26.9 pg (27.0-31.0); MEAN CORPUSCULAR HGB CONC 32.4 g/dL (33.0-37.0); MEAN PLATELET VOLUME 9.4 fL (7.2-11.7); MONO # 0.6 K/uL (0.0-0.8); MONO % 11.3 % (0.0-10.0); NEUT # 3.2 K/uL (1.8-7.0); NEUT % 62.3 % (50.0-75.0); NRBC % 0.1 % (0.0-2.0); RBC 3.98 Mil/uL (3.80-5.20); RED CELL DISTRIBUTION WIDTH 17.4 % (11.5-14.5); WHITE BLOOD COUNT 5.2 K/uL (4.8-10.8)
[2018-06-01 16:59] LABS: INR 1.5; PROTHROMBIN TIME 16.3 SECONDS (9.7-12.2)
[2018-06-01 17:18] LABS: TROPONIN I 0.024 ng/mL (0.00-0.120)
[2018-06-01 17:26] LABS: ALB/GLOB RATIO 1.1 (1.0-2.1); ALBUMIN 4.3 g/dL (3.5-5.0); CALCIUM 9.8 mg/dl (8.6-10.4)
[2018-06-01] MEDS ORDERED: Enoxaparin 40 mg Syringe SC STA (17:56)
[2018-06-01] MEDS ORDERED: Enoxaparin 60 mg Syringe SC ONE (18:30)
--- NOTE | 2018-06-01 20:27 | CP.PCM.CON ---
History of Present Illness - History of Present Illness History of Present Illness: HPI: 72-year-old female with a history of congestive heart failure, TAVR, bioprothetic mitral valve,atrial fibrillation, CRI, hypertension, hyperlipidemia, peripheral vascular disease, history of breast cancer, status post a pacemaker, mitral, aortic valve replacement in 2011, status post a right radical lumpectomy, radiation treatment, carotid, femoral artery endarterectomy, stent placement, was sent in for elective pacemaker battery change which may end in a day, from recent interrogation. Base line h/o SOB, no new complains today. Patient is completely pacemaker dependent and currently has life west. Past medical history: Breast cancer diagnosed in 2010, hypertension, hypercholesterolemia, congestive heart failure, atrial fibrillation, hyperlipidemia, PVD, status post a pacemaker, mitral and aortic valve replacement, CRI Surgical history: Pacemaker placement. I aortic, mitral valve replacement. Right breast cancer, status post radical lumpectomy, radiation treatment in 2010 Common femoral endarterectomy, stent placement on the right leg in 2009 Family history: Father history unknown. Mother had a history of CAD, CVA. One brother had a history of a kidney transplant. One sister had a history of breast cancer. Patient has 4 kids. She has 4 kids the 2 boys and 2 girls. Social history: Nonsmoker. Nonalcoholic now. Patient used to smoke in the past, quit in 2006, for almost one pack per day for 20 years. Denies any substance abuse. Currently living by herself. Meds reviewed, coumedin held, given single dose of lovenox Review of Systems - Review of Systems All systems: reviewed and no additional remarkable complaints except (HPI) Past Patient History - Past Medical History & Family History Past Medical History?: Yes - Past Social History Smoking Status: Former Smoker Alcohol: None Drugs: Denies Home Situation {Lives}: Alone - CARDIAC Hx Atrial Fibrillation: Yes Hx Congestive Heart Failure: Yes Hx Hypertension: Yes Hx Mitral Valve Prolapse: (Mitral Valve Disorder?) Hx Pacemaker: Yes (Left Upper Anterior Chest) - PULMONARY Hx Respiratory Disorders: No - NEUROLOGICAL Hx Neurological Disorder: No - HEENT Hx HEENT Problems: No - RENAL Hx Chronic Kidney Disease: No - ENDOCRINE/METABOLIC Hx Endocrine Disorders: No - HEMATOLOGICAL/ONCOLOGICAL Hx Anemia: Yes - INTEGUMENTARY Hx Dermatological Problems: No - MUSCULOSKELETAL/RHEUMATOLOGICAL Hx Musculoskeletal Disorders: No Hx Falls: No Other/Comment: PVD - GASTROINTESTINAL Hx Gastrointestinal Disorders: No - GENITOURINARY/GYNECOLOGICAL Hx Genitourinary Disorders: No - PSYCHIATRIC Hx Substance Use: No - SURGICAL HISTORY Hx Surgeries: Yes Hx Mastectomy: Yes (right) Other/Comment: 2 valve replacement. HX: OMAIRA(12/21/16) - ANESTHESIA Hx Anesthesia: Yes Hx Anesthesia Reactions: No Hx Malignant Hyperthermia: No Meds Allergies/Adverse Reactions: Allergies Allergy/AdvReac Type Severity Reaction Status Date / Time blood plasma Allergy URTICARIA Uncoded 02/04/18 16:13 - Medications Medications: Current Medications Colchicine (Colocrys) 1 mg PO DAILY FUAD Home Med (Aspirin Ec) 81 mg PO DAILY FUAD Montelukast Sodium (Singulair) 1 mg PO HS FUAD Pantoprazole Sodium (Protonix Ec Tab) 40 mg PO Q12H FUAD Rosuvastatin Calcium (Crestor) 10 mg PO DAILY FUAD Physical Exam - Additional Findings Additional findings: * HEENT MAC * Neck Supple * Chest midline scar, life west, pacemaker on left side * CVS irregular, paced, systolic murmur * PA soft * Ext no edema * 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 Results - Vital Signs Recent Vital Signs: Last Vital Signs Temp 97.8 F 06/01/18 15:21 Pulse 64 06/01/18 18:24 Resp 20 06/01/18 15:21 BP 180/67 H 06/01/18 18:24 Pulse Ox 98 06/01/18 18:24 - Labs Result Diagrams: 06/01/18 16:47 06/01/18 16:47 Labs: Laboratory Results - last 24 hr 06/01/18 06/01/18 06/01/18 16:47 16:47 16:47 WBC 5.2 RBC 3.98 Hgb 10.7 L Hct 33.1 L MCV 83.0 MCH 26.9 L MCHC 32.4 L RDW 17.4 H Plt Count 143 MPV 9.4 Neut % (Auto) 62.3 Lymph % (Auto) 22.0 [place] % (Auto) 11.3 H Eos % (Auto) 3.5 Baso % (Auto) 0.9 Neut # (Auto) 3.2 Lymph # (Auto) 1.1 [place] # (Auto) 0.6 Eos # (Auto) 0.2 Baso # (Auto) 0.0 PT 16.3 H INR 1.5 APTT 37 H Sodium 138 Potassium 5.1 Chloride 102 Carbon Dioxide 25 Anion Gap 16 BUN 52 H Creatinine 2.3 H Est GFR ( Amer) 25 Est GFR (Non-Af Amer) 21 Random Glucose 85 Calcium 9.8 Total Bilirubin 1.0 AST 33 ALT 23 Alkaline Phosphatase 150 H D Troponin I NT-Pro-B Natriuret Pep Total Protein 8.1 Albumin 4.3 Globulin 3.8 Albumin/Globulin Ratio 1.1 06/01/18 16:53 WBC RBC Hgb Hct MCV MCH MCHC RDW Plt Count MPV Neut % (Auto) Lymph % (Auto) [place] % (Auto) Eos % (Auto) Baso % (Auto) Neut # (Auto) Lymph # (Auto) [place] # (Auto) Eos # (Auto) Baso # (Auto) PT INR APTT Sodium Potassium Chloride Carbon Dioxide Anion Gap BUN Creatinine Est GFR ( Amer) Est GFR (Non-Af Amer) Random Glucose Calcium Total Bilirubin AST ALT Alkaline Phosphatase Troponin I 0.0240 NT-Pro-B Natriuret Pep 4980 H Total Protein Albumin Globulin Albumin/Globulin Ratio Assessment & Plan - Assessment and Plan (Free Text) Assessment: * Need pacemaker battery change * Complete pacemaker dependent * CHF * CRI * s/p TAVR, bioprosthetic mitral valve * Afib on anticoagulation * HTN * CEA, PVD with stents * COPD, ex smoking * h/o breast cancer s/p chemo, radiation, right lumpectomy * chronic anemia Plan: * Admit to ICU * hold coumedin, single dose lovenox * NPO past midnight of pacemaker battery change * home meds * bedside ext pacemaker * See orders for detail.
--- NOTE | 2018-06-01 20:29 | CP.PCM.CON ---
History of Present Illness - History of Present Illness History of Present Illness: CARDIAC Electrophysiology consult Re: Pacemaker approaching end of life Pacemaker dependance Cardiomyopathy Seen and examined at bedside in the ER Chart imaging and prior records reviewed Admitted with a history of dyspnea and pacemaker generator approaching end of life Past medical history significant for systemic hypertension hyperlipidemia, congestive heart failure mitral valve and aortic valve disease Underwent surgical replacement of mitral and aortic valve replacement in 2010 at the [facility]; post operative developed complete heart block and a pacemaker was implanted (dual chamber [employer]); she followed u p with Dr. Azevedo and Dr. Pennington In September 2017 she underwent trans catheter replacement of the aortic valve at [facility] by Dr. Pennington/Thomas; she was noted to have LV dysfunction and a life vest placed; a subsequent echocardiogram reportedly showed normal LV systolic function She has history of peripheral vascular disease with a stent in the right leg She also reports some "kidney problems" Past surgery: as above and breast cancer 2010 Allergies: denied Medications: reviewed Social: lives in [place] with her Smoked for 20 years and discontinued in 2006 Denied alcohol and substance abuse Worked in a [employer] since retired Mom and sister ; two siblings and four children alive and healthy Exam No distress mild elevated venous pressures mid line scar Left pectoral pacemaker Life vest in situ PMI undisplaced Normal heart sounds intensity 3/6 basal ejection murmur in the base indeterminate response to valsalva Lungs: clear Abdomen: soft Legs no edema; DP? Tele: paced rhythm EK; paced rhythm with artifacts; ?atrial rhythm CXR: dual chamber pacemaker with leads in situ; sternotomy wiring Labs: reviewed; elevated BNP Ms. Javier has effort intolerance multiple vascular risk factors established vascular disease, mitral and aortic valvular disease, a cardiomyopathy since recovered complete heart block pacemaker dependance and a device now approaching end of life Given potential risk of asystole would monitor in the ICU with pacing pads and obtain a central venous access for emergent transvenous pacing support contingent on LV function would plan to replace the device or upgrade to an ICD; in the interim would avoid any AV marie stressors including medications and electrolyte abnormalities DW patient prognosis procedures options and risks including but not limited to bleeding infection pneumothorax tamponade; she verbalized understanding and assents Plan As above EKG NPO post breakfast D5/half normal saline 75cc/hour x 1 liter starting 8 am Possible generator change in PM tomorrow Past Patient History - Past Medical History & Family History Past Medical History?: Yes - Past Social History Smoking Status: Former Smoker - CARDIAC Hx Atrial Fibrillation: Yes Hx Congestive Heart Failure: Yes Hx Hypertension: Yes Hx Mitral Valve Prolapse: (Mitral Valve Disorder?) Hx Pacemaker: Yes (Left Upper Anterior Chest) - PULMONARY Hx Respiratory Disorders: No - NEUROLOGICAL Hx Neurological Disorder: No - HEENT Hx HEENT Problems: No - RENAL Hx Chronic Kidney Disease: No - ENDOCRINE/METABOLIC Hx Endocrine Disorders: No - HEMATOLOGICAL/ONCOLOGICAL Hx Anemia: Yes - INTEGUMENTARY Hx Dermatological Problems: No - MUSCULOSKELETAL/RHEUMATOLOGICAL Hx Musculoskeletal Disorders: No Hx Falls: No Other/Comment: PVD - GASTROINTESTINAL Hx Gastrointestinal Disorders: No - GENITOURINARY/GYNECOLOGICAL Hx Genitourinary Disorders: No - PSYCHIATRIC Hx Substance Use: No - SURGICAL HISTORY Hx Surgeries: Yes Hx Mastectomy: Yes (right) Other/Comment: 2 valve replacement. HX: OMAIRA(12/21/16) - ANESTHESIA Hx Anesthesia: Yes Hx Anesthesia Reactions: No Hx Malignant Hyperthermia: No Meds Allergies/Adverse Reactions: Allergies Allergy/AdvReac Type Severity Reaction Status Date / Time blood plasma Allergy URTICARIA Uncoded 02/04/18 16:13 - Medications Medications: Current Medications Colchicine (Colocrys) 1 mg PO DAILY [facility] Home Med (Aspirin Ec) 81 mg PO DAILY FUAD Montelukast Sodium (Singulair) 1 mg PO HS FUAD Pantoprazole Sodium (Protonix Ec Tab) 40 mg PO Q12H FUAD Rosuvastatin Calcium (Crestor) 10 mg PO DAILY [facility] Results - Vital Signs Recent Vital Signs: Last Vital Signs Temp 98.2 F 06/01/18 20:12 Pulse 72 06/01/18 20:12 Resp 15 06/01/18 20:12 BP 119/66 06/01/18 20:12 Pulse Ox 99 06/01/18 20:12 - Labs Result Diagrams: 06/01/18 16:47 06/01/18 16:47 Labs: Laboratory Results - last 24 hr 06/01/18 06/01/18 06/01/18 16:47 16:47 16:47 WBC 5.2 RBC 3.98 Hgb 10.7 L Hct 33.1 L MCV 83.0 MCH 26.9 L MCHC 32.4 L RDW 17.4 H Plt Count 143 MPV 9.4 Neut % (Auto) 62.3 Lymph % (Auto) 22.0 [place] % (Auto) 11.3 H Eos % (Auto) 3.5 Baso % (Auto) 0.9 Neut # (Auto) 3.2 Lymph # (Auto) 1.1 [place] # (Auto) 0.6 Eos # (Auto) 0.2 Baso # (Auto) 0.0 PT 16.3 H INR 1.5 APTT 37 H Sodium 138 Potassium 5.1 Chloride 102 Carbon Dioxide 25 Anion Gap 16 BUN 52 H Creatinine 2.3 H Est GFR ( Amer) 25 Est GFR (Non-Af Amer) 21 Random Glucose 85 Calcium 9.8 Total Bilirubin 1.0 AST 33 ALT 23 Alkaline Phosphatase 150 H D Troponin I NT-Pro-B Natriuret Pep Total Protein 8.1 Albumin 4.3 Globulin 3.8 Albumin/Globulin Ratio 1.1 06/01/18 16:53 WBC RBC Hgb Hct MCV MCH MCHC RDW Plt Count MPV Neut % (Auto) Lymph % (Auto) [place] % (Auto) Eos % (Auto) Baso % (Auto) Neut # (Auto) Lymph # (Auto) [place] # (Auto) Eos # (Auto) Baso # (Auto) PT INR APTT Sodium Potassium Chloride Carbon Dioxide Anion Gap BUN Creatinine Est GFR ( Amer) Est GFR (Non-Af Amer) Random Glucose Calcium Total Bilirubin AST ALT Alkaline Phosphatase Troponin I 0.0240 NT-Pro-B Natriuret Pep 4980 H Total Protein Albumin Globulin Albumin/Globulin Ratio
[2018-06-01] MEDS: Pantoprazole 40 mg EC Tab PO SCH (20:38)
[2018-06-02 04:52] LABS: BASO # 0.1 K/uL (0.0-0.2); BASO % 1.2 % (0.0-2.0); EOS # 0.2 K/uL (0.0-0.7); EOS % 4.4 % (0.0-4.0); HEMOGLOBIN 9.8 g/dL (11.0-16.0); LYMPH # 1.1 K/uL (1.0-4.3); LYMPH % 23.6 % (20.0-40.0); MEAN CELL VOLUME 81.5 fL (81.0-99.0); MEAN CORPUSCULAR HEMOGLOBIN 26.6 pg (27.0-31.0); MEAN CORPUSCULAR HGB CONC 32.6 g/dL (33.0-37.0); MEAN PLATELET VOLUME 9.1 fL (7.2-11.7); MONO # 0.6 K/uL (0.0-0.8); MONO % 13.3 % (0.0-10.0); NEUT # 2.7 K/uL (1.8-7.0); NEUT % 57.5 % (50.0-75.0); NRBC % 0.1 % (0.0-2.0); RBC 3.7 Mil/uL (3.80-5.20); WHITE BLOOD COUNT 4.8 K/uL (4.8-10.8)
[2018-06-02 05:10] LABS: ALB/GLOB RATIO 1.1 (1.0-2.1); ALBUMIN 3.7 g/dL (3.5-5.0); CALCIUM 9.6 mg/dl (8.6-10.4)
[2018-06-02] MEDS: Pantoprazole 40 mg EC Tab PO SCH ×2 (07:33→19:30)
[2018-06-02] MEDS: Dextrose 5%/0.45% NS 1,000 ML IV SCH ×2 (09:12→22:38)
--- NOTE | 2018-06-02 09:58 | CP.CCUPN ---
CCU Subjective - Physician Review Subjective (Free Text): 06/02/18 10:32 Patient seen and examined at bedside. No acute events overnight. Patient denies chest pain, palpitations, shortness of breath, or any other complaints at this time. Critical Care Time Spent (in minutes): 35 CCU Objective - Vital Signs / Intake & Output Vital Signs (Last 4 hours): Vital Signs Temp 06/02/18 07:58 98.5 F Intake and Output (Last 8hrs): Intake & Output 06/01/18 06/02/18 06/02/18 22:59 06:59 14:59 Intake Total 200 0 240 Balance 200 0 240 Weight 61.961 kg Intake: Oral 200 0 240 - Physical Exam Head: Positive for: Atraumatic, Normocephalic Pupils: Positive for: PERRL Extroacular Muscles: Positive for: EOMI Conjunctiva: Positive for: Normal Mouth: Positive for: Moist Mucous Membranes Respiratory/Chest: Positive for: Clear to Auscultation, Good Air Exchange. Negative for: Respiratory Distress, Accessory Muscle Use, Wheezes, Rales, Rhonchi Cardiovascular: Positive for: Regular Rate and Rhythm, Normal S1, S2. Negative for: Murmurs, Rub, Gallop Abdomen: Positive for: Normal Bowel Sounds. Negative for: Tenderness, Distention Upper Extremity: Positive for: Normal Inspection. Negative for: Edema Lower Extremity: Positive for: Normal Inspection. Negative for: Edema Neurological: Positive for: GCS=15, CN II-XII Intact, Speech Normal Skin: Positive for: Warm, Dry, Normal Color. Negative for: Rashes Psychiatric: Positive for: Alert, Oriented x 3, Normal Insight, Normal Concentration - Medications Active Medications: Active Medications Generic Name Dose Route Start Last Admin Trade Name Freq PRN Reason Stop Dose Admin Amlodipine Besylate 10 mg 06/02/18 10:00 06/02/18 09:48 Norvasc PO 10 mg DAILY FUAD Administration Aspirin 81 mg 06/02/18 10:00 06/02/18 09:12 Ecotrin PO 81 mg DAILY FUAD Administration Colchicine 0.6 mg 06/02/18 10:00 06/02/18 09:12 Colocrys PO 0.6 mg DAILY FUAD Administration Hydralazine HCl 50 mg 06/02/18 10:00 06/02/18 09:48 Apresoline PO 50 mg TID FUAD Administration Dextrose/Sodium Chloride 1,000 mls @ 75 mls/hr 06/02/18 09:00 06/02/18 09:12 Dextrose 5%/0.45% Ns 1000 Ml IV 75 mls/hr .[id number] FUAD Administration Lisinopril 20 mg 06/02/18 10:00 06/02/18 09:48 Zestril PO 20 mg DAILY FUAD Administration Montelukast Sodium 10 mg 06/01/18 22:00 06/01/18 21:37 Singulair PO 10 mg HS FUAD Administration Pantoprazole Sodium 40 mg 06/01/18 20:00 06/02/18 07:33 Protonix Ec Tab PO 40 mg Q12H FUAD Administration Rosuvastatin Calcium 10 mg 06/02/18 22:00 Crestor PO HS FUAD - Patient Studies Lab Studies: Lab Studies 06/02/18 06/02/18 06/02/18 Range/Units 04:49 04:49 04:49 WBC 4.8 (4.8-10.8) K/uL RBC 3.70 L (3.80-5.20) Mil/uL Hgb 9.8 L (11.0-16.0) g/dL Hct 30.2 L (34.0-47.0) % MCV 81.5 (81.0-99.0) fL MCH 26.6 L (27.0-31.0) pg MCHC 32.6 L (33.0-37.0) g/dL RDW 17.0 H (11.5-14.5) % Plt Count 127 L (130-400) K/uL MPV 9.1 (7.2-11.7) fL Neut % (Auto) 57.5 (50.0-75.0) % Lymph % (Auto) 23.6 (20.0-40.0) % Bleck[place] % (Auto) 13.3 H (0.0-10.0) % Eos % (Auto) 4.4 H (0.0-4.0) % Baso % (Auto) 1.2 (0.0-2.0) % Neut # (Auto) 2.7 (1.8-7.0) K/uL Lymph # (Auto) 1.1 (1.0-4.3) K/uL Bleck[place] # (Auto) 0.6 (0.0-0.8) K/uL Eos # (Auto) 0.2 (0.0-0.7) K/uL Baso # (Auto) 0.1 (0.0-0.2) K/uL PT (9.7-12.2) SECONDS INR APTT (21-34) SECONDS Sodium 136 (132-148) mmol/L Potassium 4.3 (3.6-5.2) mmol/L Chloride 103 (98-107) mmol/L Carbon Dioxide 22 (22-30) mmol/L Anion Gap 15 (10-20) BUN 49 H (7-17) mg/dL Creatinine 2.1 H (0.7-1.2) mg/dL Est GFR ( Amer) 28 Est GFR (Non-Af Amer) 23 Random Glucose 81 (65-105) mg/dL Calcium 9.6 (8.6-10.4) mg/dl Phosphorus 3.6 (2.5-4.5) mg/dL Magnesium 1.7 (1.6-2.3) mg/dL Total Bilirubin 1.0 (0.2-1.3) mg/dL AST 25 (14-36) U/L ALT 21 (9-52) U/L Alkaline Phosphatase 144 H (38-126) U/L Troponin I (0.00-0.120) ng/mL NT-Pro-B Natriuret Pep (0-900) pg/mL Total Protein 7.2 (6.3-8.3) g/dL Albumin 3.7 (3.5-5.0) g/dL Globulin 3.5 (2.2-3.9) gm/dL Albumin/Globulin Ratio 1.1 (1.0-2.1) Blood Type O POSITIVE Antibody Screen Negative 06/01/18 06/01/18 06/01/18 Range/Units 16:53 16:47 16:47 WBC (4.8-10.8) K/uL RBC (3.80-5.20) Mil/uL Hgb (11.0-16.0) g/dL Hct (34.0-47.0) % MCV (81.0-99.0) fL MCH (27.0-31.0) pg MCHC (33.0-37.0) g/dL RDW (11.5-14.5) % Plt Count (130-400) K/uL MPV (7.2-11.7) fL Neut % (Auto) (50.0-75.0) % Lymph % (Auto) (20.0-40.0) % Bleckley % (Auto) (0.0-10.0) % Eos % (Auto) (0.0-4.0) % Baso % (Auto) (0.0-2.0) % Neut # (Auto) (1.8-7.0) K/uL Lymph # (Auto) (1.0-4.3) K/uL Bleckley # (Auto) (0.0-0.8) K/uL Eos # (Auto) (0.0-0.7) K/uL Baso # (Auto) (0.0-0.2) K/uL PT 16.3 H (9.7-12.2) SECONDS INR 1.5 APTT 37 H (21-34) SECONDS Sodium 138 (132-148) mmol/L Potassium 5.1 (3.6-5.2) mmol/L Chloride 102 (98-107) mmol/L Carbon Dioxide 25 (22-30) mmol/L Anion Gap 16 (10-20) BUN 52 H (7-17) mg/dL Creatinine 2.3 H (0.7-1.2) mg/dL Est GFR ( Amer) 25 Est GFR (Non-Af Amer) 21 Random Glucose 85 (65-105) mg/dL Calcium 9.8 (8.6-10.4) mg/dl Phosphorus (2.5-4.5) mg/dL Magnesium (1.6-2.3) mg/dL Total Bilirubin 1.0 (0.2-1.3) mg/dL AST 33 (14-36) U/L ALT 23 (9-52) U/L Alkaline Phosphatase 150 H D (38-126) U/L Troponin I 0.0240 (0.00-0.120) ng/mL NT-Pro-B Natriuret Pep 4980 H (0-900) pg/mL Total Protein 8.1 (6.3-8.3) g/dL Albumin 4.3 (3.5-5.0) g/dL Globulin 3.8 (2.2-3.9) gm/dL Albumin/Globulin Ratio 1.1 (1.0-2.1) Blood Type Antibody Screen 06/01/18 Range/Units 16:47 WBC 5.2 (4.8-10.8) K/uL RBC 3.98 (3.80-5.20) Mil/uL Hgb 10.7 L (11.0-16.0) g/dL Hct 33.1 L (34.0-47.0) % MCV 83.0 (81.0-99.0) fL MCH 26.9 L (27.0-31.0) pg MCHC 32.4 L (33.0-37.0) g/dL RDW 17.4 H (11.5-14.5) % Plt Count 143 (130-400) K/uL MPV 9.4 (7.2-11.7) fL Neut % (Auto) 62.3 (50.0-75.0) % Lymph % (Auto) 22.0 (20.0-40.0) % Bleck[place] % (Auto) 11.3 H (0.0-10.0) % Eos % (Auto) 3.5 (0.0-4.0) % Baso % (Auto) 0.9 (0.0-2.0) % Neut # (Auto) 3.2 (1.8-7.0) K/uL Lymph # (Auto) 1.1 (1.0-4.3) K/uL Bleckley # (Auto) 0.6 (0.0-0.8) K/uL Eos # (Auto) 0.2 (0.0-0.7) K/uL Baso # (Auto) 0.0 (0.0-0.2) K/uL PT (9.7-12.2) SECONDS INR APTT (21-34) SECONDS Sodium (132-148) mmol/L Potassium (3.6-5.2) mmol/L Chloride (98-107) mmol/L Carbon Dioxide (22-30) mmol/L Anion Gap (10-20) BUN (7-17) mg/dL Creatinine (0.7-1.2) mg/dL Est GFR ( Amer) Est GFR (Non-Af Amer) Random Glucose (65-105) mg/dL Calcium (8.6-10.4) mg/dl Phosphorus (2.5-4.5) mg/dL Magnesium (1.6-2.3) mg/dL Total Bilirubin (0.2-1.3) mg/dL AST (14-36) U/L ALT (9-52) U/L Alkaline Phosphatase (38-126) U/L Troponin I (0.00-0.120) ng/mL NT-Pro-B Natriuret Pep (0-900) pg/mL Total Protein (6.3-8.3) g/dL Albumin (3.5-5.0) g/dL Globulin (2.2-3.9) gm/dL Albumin/Globulin Ratio (1.0-2.1) Blood Type Antibody Screen Laboratory Results - last 24 hr 06/01/18 06/01/18 06/01/18 16:47 16:47 16:47 WBC 5.2 RBC 3.98 Hgb 10.7 L Hct 33.1 L MCV 83.0 MCH 26.9 L MCHC 32.4 L RDW 17.4 H Plt Count 143 MPV 9.4 Neut % (Auto) 62.3 Lymph % (Auto) 22.0 Bleck[place] % (Auto) 11.3 H Eos % (Auto) 3.5 Baso % (Auto) 0.9 Neut # (Auto) 3.2 Lymph # (Auto) 1.1 Bleck[place] # (Auto) 0.6 Eos # (Auto) 0.2 Baso # (Auto) 0.0 PT 16.3 H INR 1.5 APTT 37 H Sodium 138 Potassium 5.1 Chloride 102 Carbon Dioxide 25 Anion Gap 16 BUN 52 H Creatinine 2.3 H Est GFR ( Amer) 25 Est GFR (Non-Af Amer) 21 Random Glucose 85 Calcium 9.8 Phosphorus Magnesium Total Bilirubin 1.0 AST 33 ALT 23 Alkaline Phosphatase 150 H D Troponin I NT-Pro-B Natriuret Pep Total Protein 8.1 Albumin 4.3 Globulin 3.8 Albumin/Globulin Ratio 1.1 Blood Type Antibody Screen 06/01/18 06/02/18 06/02/18 16:53 04:49 04:49 WBC 4.8 RBC 3.70 L Hgb 9.8 L Hct 30.2 L MCV 81.5 MCH 26.6 L MCHC 32.6 L RDW 17.0 H Plt Count 127 L MPV 9.1 Neut % (Auto) 57.5 Lymph % (Auto) 23.6 Bleck[place] % (Auto) 13.3 H Eos % (Auto) 4.4 H Baso % (Auto) 1.2 Neut # (Auto) 2.7 Lymph # (Auto) 1.1 [place]ck[place] # (Auto) 0.6 Eos # (Auto) 0.2 Baso # (Auto) 0.1 PT INR APTT Sodium 136 Potassium 4.3 Chloride 103 Carbon Dioxide 22 Anion Gap 15 BUN 49 H Creatinine 2.1 H Est GFR ( Amer) 28 Est GFR (Non-Af Amer) 23 Random Glucose 81 Calcium 9.6 Phosphorus 3.6 Magnesium 1.7 Total Bilirubin 1.0 AST 25 ALT 21 Alkaline Phosphatase 144 H Troponin I 0.0240 NT-Pro-B Natriuret Pep 4980 H Total Protein 7.2 Albumin 3.7 Globulin 3.5 Albumin/Globulin Ratio 1.1 Blood Type Antibody Screen 06/02/18 04:49 WBC RBC Hgb Hct MCV MCH MCHC RDW Plt Count MPV Neut % (Auto) Lymph % (Auto) Bleck[place] % (Auto) Eos % (Auto) Baso % (Auto) Neut # (Auto) Lymph # (Auto) Bleck[place] # (Auto) Eos # (Auto) Baso # (Auto) PT INR APTT Sodium Potassium Chloride Carbon Dioxide Anion Gap BUN Creatinine Est GFR ( Amer) Est GFR (Non-Af Amer) Random Glucose Calcium Phosphorus Magnesium Total Bilirubin AST ALT Alkaline Phosphatase Troponin I NT-Pro-B Natriuret Pep Total Protein Albumin Globulin Albumin/Globulin Ratio Blood Type O POSITIVE Antibody Screen Negative EKG/Cardiology Studies: Cardiology / EKG Studies 06/01/18 15:43 ELECTROCARDIOGRAM Stat Comment: Mode Of Transportation: BED Reason For Exam: chest pain Critical Care Progress Note - Nutrition Nutrition: Nutrition Category Date Time Status NPO Diet [DIET] Diets 06/02/18 Lunch Active Assessment/Plan - Assessment and Plan (Free Text) Assessment: Patient is a 73 year old female admitted to the ICU for monitoring. Patient's pacemaker generator is approaching end of life and is going to [facility] on 06/02 for battery replacement or possible ICD placement. Plan: Neuro: - Patient is AAO X 3 Cardiovascular: CHF - Cardiology/Electrophysiology consulted, Dr. Chow - Going to [place] on 06/02 for battery replacement for pacemaker and possible ICD placement - NPO after breakfast - ASA 81mg PO QD - Crestor 10mg PO HS - Hold beta zoila medications - CXR: no acute disease Atrial fibrillation - Hold beta zoila medications - Hold anticoagulation for procedure HTN - Hydralazine 50mg PO TID - Amlodipine 10mg PO QD - Lisinopril 20mg PO QD - Hold beta zoila medications Pulmonary: COPD - Montelukast 10mg PO HS - CXR: no acute disease GI - No acute issues Heme: Normocytic anemia - Hb/Hct: 9.8/30.2 - Type and screen - Continue to monitor Renal: CKD - BUN/Cr: 49/2.2- at baseline - Avoid nephrotoxic agents - Continue to monitor ID: - No acute issues Prophylaxis: - SCD's - Protonix 40mg PO Q12 - Hold VTE prophylaxis for procedure Case discussed with Dr. Francisco Figueredo, PGY-1
--- NOTE | 2018-06-02 12:21 | HP ---
CHIEF COMPLAINT: The patient's pacemaker battery extremely weak, interrogated, sent to the emergency room. HISTORY OF PRESENT ILLNESS: This is a 73-year-old female with history of congestive heart failure, transaortic valve replacement, history of bioprosthetic mitral valve, atrial fibrillation, chronic renal insufficiency, hypertension, hyperlipidemia, peripheral vascular disease, history of breast cancer status post pacemaker AICD and also had a history of radical lumpectomy, radiation, endarterectomy, stent placement, has been admitted now through the emergency room because of elective pacemaker battery change, which was recently interrogated. The patient has shortness of breath, otherwise feeling well. She has also had a history of anemia. PAST MEDICAL HISTORY: As noted above. Breast cancer diagnosed in 2010, hypertension, hyperlipidemia, congestive heart failure, atrial fibrillation, peripheral vascular disease, mitral and aortic valve replacement, renal insufficiency. PAST SURGICAL HISTORY: Include aortic and mitral valve replacement, pacemaker placement, breast cancer status post lumpectomy, femoral endarterectomy and stent placement. FAMILY HISTORY: Significant for hypertension and diabetes. Brother had a history of kidney transplant. Also had a family history of blood cancer noted. SOCIAL HISTORY: The patient is a nonsmoker, non alcoholic, but the patient claims that she used to smoke and she quit in 2006. Denies any substance abuse. MEDICATIONS: The patient is on multiple medications. REVIEW OF SYSTEMS: Noted from the chart. PHYSICAL EXAMINATION VITAL SIGNS: Temperature 97.8, pulse 64, respirations 20, blood pressure 180/67, pulse ox is 98%. GENERAL: The patient is currently comfortable otherwise, not in any distress. NECK: Supple. CHEST: Good air entry. Bilateral clear lungs note. Basal minimal expiratory wheezing noted. HEART: Regular heart sound. ABDOMEN: Soft. Nontender. EXTREMITIES: 1+ pedal edema. MACHINE HOSE CUTTER: Alert, awake, oriented x3. LABORATORY DATA: Labs reviewed. Creatinine is 2.3, which was her baseline. ASSESSMENT AND RECOMMENDATION: This is a 73-year-old female with history of multiple medical problems including congestive heart failure, automatic implantable cardioverter-defibrillator, pacemaker. The patient has a LifeVest, because of the congestive heart failure, chronic renal insufficiency, multiple surgical interventions, history of breast cancer, anemia, admitted now because of the pacemaker failure and also pacemaker dependency because of the bradycardia and associated with hemodynamic instability, the patient needed hospitalization. She will be admitted to the intensive care unit, closely monitored, possible pacemaker battery changes tomorrow. We will continue to monitor and we will follow up the patient. Michelle Singh MD
[2018-06-02] MEDS ORDERED: ceFAZolin 1 gm FROZEN Premix 1 GM/50 ML ML IVPB ONE (17:30)
[2018-06-02] MEDS ORDERED: Lidocaine 2% MPF (5 ml) Inj ONE (17:36)
--- NOTE | 2018-06-02 17:37 | PCM.OP ---
Operative Report - Operative Report Date of Surgery/Procedure: 06/02/18 Time of Surgery/Procedure: 18:34 Surgeon: sabas Nanotechnician: none Anesthesia/Sedation: mac Pre-Operative Diagnosis: complete heart block Post-Operative Diagnosis: complete heart block Indication for Surgery: Pacemaker battery at [facility] Operative Findings: Complete heart block Procedure/Operation Description: The left pectoral region was cleansed and prepped in the usual fashion. The axillary vein was accessed twice after local anesthesia; two guide wires were placed A 3 cm incision was made over the left pectoral pocket; the old pacemaker generaot was removed and the leads were checked; the sense and pace parameters were acceptable Next the pocket was cleansed with antibiotics; hemostases was ensured and thrombin was sprayed; next a new st bre[facility] generator was attached to the leads and the pocket was closed The pocket was closed in layers with vicryl and skin mateo; telfa and tegaderm dressing was placed and the patient was sent to the floors in a stable condition with orders for stat CXray and antibiotics and hold anticoagulation x 3 days Estimated Blood Loss: 2 cc Complications: None Discharge & Condition: Stable Plan Pressure dressing Antibiotics CXR
[2018-06-02] MEDS ORDERED: Gentamicin 80 mg/2mL Inj. IP ONE (17:45)
[2018-06-02] MEDS ORDERED: Midazolam 2 MG/2 ML VIAL ONE (17:52)
--- NOTE | 2018-06-02 19:32 | CP.PCM.PN ---
Subjective - Date & Time of Evaluation Date of Evaluation: 06/02/18 Time of Evaluation: 18:29 - Subjective Subjective: See assessment Post Op note Objective - Vital Signs/Intake and Output Vital Signs (last 24 hours): Temp Pulse Resp BP Pulse Ox 98.3 F 61 22 128/72 96 06/02/18 16:00 06/02/18 18:52 06/02/18 18:52 06/02/18 18:52 06/02/18 18:52 Intake and Output: 06/02/18 06/03/18 18:59 06:59 Intake Total 485 Balance 485 - Medications Medications: Current Medications Amlodipine Besylate (Norvasc) 10 mg PO DAILY [facility] Last Admin: 06/02/18 09:48 Dose: 10 mg Aspirin (Ecotrin) 81 mg PO DAILY [facility] Last Admin: 06/02/18 09:12 Dose: 81 mg Colchicine (Colocrys) 0.6 mg PO DAILY [facility] Last Admin: 06/02/18 09:12 Dose: 0.6 mg Hydralazine HCl (Apresoline) 50 mg PO TID [facility] Last Admin: 06/02/18 18:55 Dose: 50 mg Dextrose/Sodium Chloride (Dextrose 5%/0.45% Ns 1000 Ml) 1,000 mls @ 75 mls/hr IV .[id number] [facility] Last Admin: 06/02/18 09:12 Dose: 75 mls/hr Lisinopril (Zestril) 20 mg PO DAILY [facility] Last Admin: 06/02/18 09:48 Dose: 20 mg Montelukast Sodium (Singulair) 10 mg PO HS [facility] Last Admin: 06/01/18 21:37 Dose: 10 mg Pantoprazole Sodium (Protonix Ec Tab) 40 mg PO Q12H [facility] Last Admin: 06/02/18 07:33 Dose: 40 mg Rosuvastatin Calcium (Crestor) 10 mg PO HS [facility] - Labs Labs: 06/02/18 04:49 06/02/18 04:49 PT 16.3 SECONDS (9.7-12.2) H 06/01/18 16:47 INR 1.5 06/01/18 16:47 APTT 37 SECONDS (21-34) H 06/01/18 16:47 Assessment and Plan - Assessment and Plan (Free Text) Assessment: Ms. Javier underwent successful removal of the old pacemaker generator and i mplantation of a new pacemaker generator There were no complications Plan Pressure dressing x 24 hours Ancef 1 gm 8 hourly x 3 doses DC home in Am if stable Wound care follow up on 06.05.18, 11 am @ [address] [place] [address], [address]; Tel: [phone]
[2018-06-03 06:09] LABS: BASO # 0.1 K/uL (0.0-0.2); BASO % 1.3 % (0.0-2.0); EOS # 0.3 K/uL (0.0-0.7); EOS % 4.8 % (0.0-4.0); HEMOGLOBIN 11.1 g/dL (11.0-16.0); LYMPH # 1.2 K/uL (1.0-4.3); LYMPH % 23.5 % (20.0-40.0); MEAN CELL VOLUME 83.8 fL (81.0-99.0); MEAN CORPUSCULAR HEMOGLOBIN 27.5 pg (27.0-31.0); MEAN CORPUSCULAR HGB CONC 32.8 g/dL (33.0-37.0); MONO # 0.6 K/uL (0.0-0.8); MONO % 11.7 % (0.0-10.0); NEUT # 3.1 K/uL (1.8-7.0); NEUT % 58.7 % (50.0-75.0); NRBC % 0.2 % (0.0-2.0); RBC 4.05 Mil/uL (3.80-5.20); RED CELL DISTRIBUTION WIDTH 17.6 % (11.5-14.5); WHITE BLOOD COUNT 5.2 K/uL (4.8-10.8)
[2018-06-03 06:30] LABS: ALB/GLOB RATIO 1.1 (1.0-2.1); CALCIUM 9.7 mg/dl (8.6-10.4)
[2018-06-03] MEDS: Pantoprazole 40 mg EC Tab PO SCH (08:08)
--- NOTE | 2018-06-03 08:18 | CP.CCUPN ---
CCU Subjective - Physician Review Subjective (Free Text): 06/03/18 08:32 Patient seen and examined at bedside. No acute events overnight. Patient denies chest pain, palpitations, shortness of breath, or any other complaints at this time. Patient is stable for discharge. Critical Care Time Spent (in minutes): 35 CCU Objective - Vital Signs / Intake & Output Vital Signs (Last 4 hours): Vital Signs Pulse Resp BP Pulse Ox 06/03/18 08:12 60 14 97 06/03/18 08:10 156/79 H 06/03/18 08:00 66 13 98 06/03/18 07:12 67 24 189/81 H 95 06/03/18 07:00 71 22 97 06/03/18 06:12 65 28 H 168/82 H 06/03/18 06:00 73 18 98 06/03/18 05:12 65 26 H 175/91 H 95 06/03/18 05:00 66 29 H 98 Intake and Output (Last 8hrs): Intake & Output 06/02/18 06/03/18 06/03/18 22:59 06:59 14:59 Intake Total 785 240 Output Total 300 300 Balance 485 -60 Weight 62.369 kg Intake: Intake, IV Amount 395 Left Upper arm 395 Oral 390 240 Output: Urine 300 300 Urine, Voided 300 300 Other: # Voids Urine, Voided 1 # Bowel Movements 0 0 - Physical Exam Head: Positive for: Atraumatic, Normocephalic Pupils: Positive for: PERRL Extroacular Muscles: Positive for: EOMI Conjunctiva: Positive for: Normal Mouth: Positive for: Moist Mucous Membranes Respiratory/Chest: Positive for: Clear to Auscultation, Good Air Exchange. Negative for: Respiratory Distress, Accessory Muscle Use, Wheezes, Rales, Rhonchi Cardiovascular: Positive for: Regular Rate and Rhythm, Normal S1, S2. Negative for: Murmurs, Rub, Gallop Abdomen: Positive for: Normal Bowel Sounds. Negative for: Tenderness, Distention Upper Extremity: Positive for: Normal Inspection. Negative for: Edema Lower Extremity: Positive for: Normal Inspection. Negative for: Edema Neurological: Positive for: GCS=15, CN II-XII Intact, Speech Normal Skin: Positive for: Warm, Dry, Normal Color. Negative for: Rashes Psychiatric: Positive for: Alert, Oriented x 3, Normal Insight, Normal Conc entration - Medications Active Medications: Active Medications Generic Name Dose Route Start Last Admin Trade Name Percy PRN Reason Stop Dose Admin Amlodipine Besylate 10 mg 06/02/18 10:00 06/02/18 09:48 Norvasc PO 10 mg DAILY FUAD Administration Aspirin 81 mg 06/02/18 10:00 06/02/18 09:12 Ecotrin PO 81 mg DAILY FUAD Administration Colchicine 0.6 mg 06/02/18 10:00 06/02/18 09:12 Colocrys PO 0.6 mg DAILY FUAD Administration Hydralazine HCl 50 mg 06/02/18 10:00 06/03/18 05:31 Apresoline PO 50 mg TID FUAD Administration Lisinopril 20 mg 06/02/18 10:00 06/02/18 09:48 Zestril PO 20 mg DAILY FUAD Administration Montelukast Sodium 10 mg 06/01/18 22:00 06/02/18 22:40 Singulair PO 10 mg HS FUAD Administration Pantoprazole Sodium 40 mg 06/01/18 20:00 06/03/18 08:08 Protonix Ec Tab PO 40 mg Q12H FUAD Administration Rosuvastatin Calcium 10 mg 06/02/18 22:00 06/02/18 22:40 Crestor PO 10 mg HS FUAD Administration - Patient Studies Lab Studies: Lab Studies 06/03/18 06/03/18 Range/Units 06:03 06:03 WBC 5.2 (4.8-10.8) K/uL RBC 4.05 (3.80-5.20) Mil/uL Hgb 11.1 (11.0-16.0) g/dL Hct 33.9 L (34.0-47.0) % MCV 83.8 D (81.0-99.0) fL MCH 27.5 (27.0-31.0) pg MCHC 32.8 L (33.0-37.0) g/dL RDW 17.6 H (11.5-14.5) % Plt Count 157 (130-400) K/uL MPV 10.0 (7.2-11.7) fL Neut % (Auto) 58.7 (50.0-75.0) % Lymph % (Auto) 23.5 (20.0-40.0) % [facility] % (Auto) 11.7 H (0.0-10.0) % Eos % (Auto) 4.8 H (0.0-4.0) % Baso % (Auto) 1.3 (0.0-2.0) % Neut # (Auto) 3.1 (1.8-7.0) K/uL Lymph # (Auto) 1.2 (1.0-4.3) K/uL [facility] # (Auto) 0.6 (0.0-0.8) K/uL Eos # (Auto) 0.3 (0.0-0.7) K/uL Baso # (Auto) 0.1 (0.0-0.2) K/uL Sodium 138 (132-148) mmol/L Potassium 4.2 (3.6-5.2) mmol/L Chloride 103 (98-107) mmol/L Carbon Dioxide 24 (22-30) mmol/L Anion Gap 15 (10-20) BUN 43 H (7-17) mg/dL Creatinine 1.9 H (0.7-1.2) mg/dL Est GFR ( Amer) 32 Est GFR (Non-Af Amer) 26 Random Glucose 92 (65-105) mg/dL Calcium 9.7 (8.6-10.4) mg/dl Phosphorus 3.7 (2.5-4.5) mg/dL Magnesium 1.7 (1.6-2.3) mg/dL Total Bilirubin 0.9 (0.2-1.3) mg/dL AST 28 (14-36) U/L ALT 21 (9-52) U/L Alkaline Phosphatase 165 H (38-126) U/L Total Protein 7.8 (6.3-8.3) g/dL Albumin 4.0 (3.5-5.0) g/dL Globulin 3.7 (2.2-3.9) gm/dL Albumin/Globulin Ratio 1.1 (1.0-2.1) Laboratory Results - last 24 hr 06/03/18 06/03/18 06:03 06:03 WBC 5.2 RBC 4.05 Hgb 11.1 Hct 33.9 L MCV 83.8 D MCH 27.5 MCHC 32.8 L RDW 17.6 H Plt Count 157 MPV 10.0 Neut % (Auto) 58.7 Lymph % (Auto) 23.5 [facility] % (Auto) 11.7 H Eos % (Auto) 4.8 H Baso % (Auto) 1.3 Neut # (Auto) 3.1 Lymph # (Auto) 1.2 [facility] # (Auto) 0.6 Eos # (Auto) 0.3 Baso # (Auto) 0.1 Sodium 138 Potassium 4.2 Chloride 103 Carbon Dioxide 24 Anion Gap 15 BUN 43 H Creatinine 1.9 H Est GFR ( Amer) 32 Est GFR (Non-Af Amer) 26 Random Glucose 92 Calcium 9.7 Phosphorus 3.7 Magnesium 1.7 Total Bilirubin 0.9 AST 28 ALT 21 Alkaline Phosphatase 165 H Total Protein 7.8 Albumin 4.0 Globulin 3.7 Albumin/Globulin Ratio 1.1 Critical Care Progress Note - Nutrition Nutrition: Nutrition Category Date Time Status Heart Healthy Diet [DIET] Diets 06/02/18 Dinner Active Assessment/Plan - Assessment and Plan (Free Text) Assessment: Patient is a 73 year old female admitted to the ICU for monitoring. Patient's pacemaker generator is approaching end of life and is going to cardiac labels molder on 06/02 for battery replacement. Plan: Neuro: - Patient is AAO X 3 Cardiovascular: CHF - Cardiology/Electrophysiology consulted, Dr. Chow - Battery replacement for pacemaker on 06/02 - ASA 81mg PO QD - Crestor 10mg PO HS - Hold beta zoila medications - CXR: no acute disease Atrial fibrillation - Hold beta zoila medications - Hold anticoagulation for procedure HTN - Hydralazine 50mg PO TID - Amlodipine 10mg PO QD - Lisinopril 20mg PO QD - Hold beta zoila medications Pulmonary: COPD - Montelukast 10mg PO HS - CXR: no acute disease GI - No acute issues Heme: Normocytic anemia - Hb/Hct: 11.1/33.9 - Type and screen - Continue to monitor Renal: CKD - BUN/Cr: 43/1.9- at baseline - Avoid nephrotoxic agents - Continue to monitor ID: - No acute issues Prophylaxis: - SCD's - Protonix 40mg PO Q12 - Hold VTE prophylaxis for procedure Case discussed with Dr. Umer Figueredo, PGY-1
--- NOTE | 2018-06-03 10:31 | PN ---
DATE: 06/02/2018 SUBJECTIVE: The patient is comfortably lying down. She is awaiting for the change of the battery at this time because of the end of life of the battery at this time. Not in any distress. No chest pain. No shortness of breath noted. Leg swelling present. Clinically stable, otherwise. Once the battery is changed, the patient can be discharged to go home after that. Michelle Singh MD
--- NOTE | 2018-06-03 11:34 | CP.PCM.DIS ---
Provider - Provider Date of Admission: 06/01/18 17:59 Attending physician: Michelle Singh MD Consults: 06/01/18 18:02 Cardiology Consult Stat Comment: pacemaker, end of life Consulting Provider: Marizol Chow Consulting Physician: Marizol Chow Reason for Consult: pacemaker, end of life Time Spent in preparation of Discharge (in minutes): 45 Diagnosis - Discharge Diagnosis (1) CHF (congestive heart failure) Status: Chronic (2) CKD (chronic kidney disease) stage 4, GFR 15-29 ml/min Status: Chronic (3) HLD (hyperlipidemia) Status: Chronic (4) Hypertension Status: Chronic Hospital Course - Lab Results Lab Results: Most Recent Lab Values WBC 5.2 K/uL (4.8-10.8) 06/03/18 06:03 RBC 4.05 Mil/uL (3.80-5.20) 06/03/18 06:03 Hgb 11.1 g/dL (11.0-16.0) 06/03/18 06:03 Hct 33.9 % (34.0-47.0) L 06/03/18 06:03 MCV 83.8 fL (81.0-99.0) D 06/03/18 06:03 MCH 27.5 pg (27.0-31.0) 06/03/18 06:03 MCHC 32.8 g/dL (33.0-37.0) L 06/03/18 06:03 RDW 17.6 % (11.5-14.5) H 06/03/18 06:03 Plt Count 157 K/uL (130-400) 06/03/18 06:03 MPV 10.0 fL (7.2-11.7) 06/03/18 06:03 Neut % (Auto) 58.7 % (50.0-75.0) 06/03/18 06:03 Lymph % (Auto) 23.5 % (20.0-40.0) 06/03/18 06:03 [place] % (Auto) 11.7 % (0.0-10.0) H 06/03/18 06:03 Eos % (Auto) 4.8 % (0.0-4.0) H 06/03/18 06:03 Baso % (Auto) 1.3 % (0.0-2.0) 06/03/18 06:03 Neut # (Auto) 3.1 K/uL (1.8-7.0) 06/03/18 06:03 Lymph # (Auto) 1.2 K/uL (1.0-4.3) 06/03/18 06:03 [place] # (Auto) 0.6 K/uL (0.0-0.8) 06/03/18 06:03 Eos # (Auto) 0.3 K/uL (0.0-0.7) 06/03/18 06:03 Baso # (Auto) 0.1 K/uL (0.0-0.2) 06/03/18 06:03 PT 16.3 SECONDS (9.7-12.2) H 06/01/18 16:47 INR 1.5 06/01/18 16:47 APTT 37 SECONDS (21-34) H 06/01/18 16:47 Sodium 138 mmol/L (132-148) 06/03/18 06:03 Potassium 4.2 mmol/L (3.6-5.2) 06/03/18 06:03 Chloride 103 mmol/L (98-107) 06/03/18 06:03 Carbon Dioxide 24 mmol/L (22-30) 06/03/18 06:03 Anion Gap 15 (10-20) 06/03/18 06:03 BUN 43 mg/dL (7-17) H 06/03/18 06:03 Creatinine 1.9 mg/dL (0.7-1.2) H 06/03/18 06:03 Est GFR ( Amer) 32 06/03/18 06:03 Est GFR (Non-Af Amer) 26 06/03/18 06:03 Random Glucose 92 mg/dL (65-105) 06/03/18 06:03 Calcium 9.7 mg/dl (8.6-10.4) 06/03/18 06:03 Phosphorus 3.7 mg/dL (2.5-4.5) 06/03/18 06:03 Magnesium 1.7 mg/dL (1.6-2.3) 06/03/18 06:03 Total Bilirubin 0.9 mg/dL (0.2-1.3) 12/11/18 06:03 AST 28 U/L (14-36) 06/03/18 06:03 ALT 21 U/L (9-52) 06/03/18 06:03 Alkaline Phosphatase 165 U/L (38-126) H 06/03/18 06:03 Troponin I 0.0240 ng/mL (0.00-0.120) 06/01/18 16:53 NT-Pro-B Natriuret Pep 4980 pg/mL (0-900) H 06/01/18 16:53 Total Protein 7.8 g/dL (6.3-8.3) 06/03/18 06:03 Albumin 4.0 g/dL (3.5-5.0) 06/03/18 06:03 Globulin 3.7 gm/dL (2.2-3.9) 06/03/18 06:03 Albumin/Globulin Ratio 1.1 (1.0-2.1) 06/03/18 06:03 Blood Type O POSITIVE 06/02/18 04:49 Antibody Screen Negative 06/02/18 04:49 - Hospital Course Hospital Course: 72-year-old female with a history of congestive heart failure, TAVR, bioprothetic mitral valve,atrial fibrillation, CRI, hypertension, hyperlipidemia, peripheral vascular disease, history of breast cancer, status post a pacemaker, mitral, aortic valve replacement in 2011, status post a right radical lumpectomy, radiation treatment, carotid, femoral artery endarterectomy, stent placement, was sent in for elective pacemaker battery change from recent interrogation. Patient denies chest pain, palpitations, or any other complaints. Electrophysiology (Dr. Chow) consulted for pacemaker battery replacement on 06/02/2018. Procedure was done by Dr. Chow with no complications. Patient stayed overnight in the ICU for observation and was discharged on 06/03/2018. Patient denies chest pain, palpitations, fevers, or chills upon discharge. Dressing on the upper left chest is clean, dry, and intact. Upon discharge, patient was instructed to take 1 day course of antibiotics, follow up with wound care clinic, and to follow up with her PMD Dr. Singh. She was instructed to resume activities as tolerated and return to the emergency room for worsening or newly concerning symptoms. Patient is medically optimized for discharge. Discharge instructions: 1. Please take Keflex 500mg twice daily for one day 2. Please go for Wound care follow up on 18, 11 am @ [address] [place] [address] [address] [facility]; Tel: [phone] 3. Follow up with your primary care doctor, Dr. Singh within 1 week of discharge 4. Return to the emergency room for worsening or newly concerning symptoms Discharge Exam - Head Exam Head Exam: ATRAUMATIC, NORMAL INSPECTION - Eye Exam Eye Exam: EOMI, Normal appearance Pupil Exam: PERRL - ENT Exam ENT Exam: Mucous Membranes Moist - Respiratory Exam Respiratory Exam: Clear to PA & Lateral. absent: Rales, Rhonchi, Wheezes, Respiratory Distress - Cardiovascular Exam Cardiovascular Exam: REGULAR RHYTHM, +S1, +S2. absent: Gallop, Rubs, Systolic Murmur - GI/Abdominal Exam GI & Abdominal Exam: Normal Bowel Sounds, Soft. absent: Tenderness - Extremities Exam Extremities exam: normal inspection - Neurological Exam Neurological exam: Alert, CN II-XII Intact, Oriented x3 - Psychiatric Exam Psychiatric exam: Normal Affect, Normal Mood - Skin Skin Exam: Dry, Intact, Normal Color, Warm Additional comments: Dressing on upper left chest C/D/I Discharge Plan - Discharge Medications Prescriptions: Cephalexin [Keflex] 500 mg PO BID #2 capsule - Follow Up Plan Condition: GOOD Disposition: HOME/ ROUTINE Instructions: Pacemaker Generator Change (DC), Heart Failure (DC), Heart Failure (GEN), Pacemaker (DC), Pacemaker (GEN), Pulmonary Edema (DC), Pulmonary Edema (GEN), Ascites (DC), Ascites (GEN), Renal Failure Diet (DC), Hypertension (DC), Hypertension (GEN) Additional Instructions: 1. Please take Keflex 500mg twice daily for one day 2. Please go for Wound care follow up on 06.05.18, 11 am @ [address] [place] [address] [address] [facility]; Tel: [phone] 3. Follow up with your primary care doctor, Dr. Singh within 1 week of discharge 4. Return to the emergency room for worsening or newly concerning symptoms Referrals: Michelle Singh MD [Staff Provider] -
[2018-06-03] MEDS ORDERED: Influenza Vaccine 60 MCG/0.5 ML SYR (3 yr & up) IM ONE (12:01)
[2018-06-03] MEDS ORDERED: Influenza Vaccine 60 mcg/0.5 mL SYR (4YR UP) IM ONE (12:45)
[2018-06-03 12:53] VITALS: TEMP 98.2
[2018-06-03 13:24] VITALS: BP 147/72
[2018-06-03 14:07] VITALS: PULSE 70
--- NOTE | 2018-06-03 14:52 | CARD ---
APPROVED REPORT Date of service: 06/01/2018 EKG Measurement Heart [id number] <Conclusion> Normal sinus, ventricular demand pacing, atrial premature beats. Abnormal ECG
[2018-06-04 12:31] VITALS: RESP 16; O2SAT 100
--- NOTE | 2018-06-04 13:25 | PQF ---
PROVIDER RESPONSE TEXT: Patient mainly admitted because of problem in the pacemaker. It is a mechanical failure of the pacema ker, needed battery change. Otherwise patient has a chronic heart systolic stable. Patient did not get admitted for heart failure changes REVIEWER QUERY TEXT: CHF Acuity and Type Congestive Heart Failure is documented in the Medical Record. Please document the type and acuity (in cludes probable or suspected) Such as: Type: -- Systolic -- Diastolic -- Combined -- Other, please specify Acuity: -- Acute -- Chronic -- Acute on chronic -- Other, please specify Also please document the underlying cause of the CHF (includes probable or suspected) The patient's Clinical Indicators include: 73 year old female is sent to ED by Dr. Pennington , Status post TAVR, for admission for sudden decrease in output of ejection fraction and pacemaker battery change. Diagnosis of Hypertensive/CHF/CKD. ProBnp on admission was 4980H. Please specify the type of CHF. Query created by: Mariia Bauer on 06/04/2018 11:12 AM Electronically signed by: Michelle Singh MD 06/04/2018 1:22 PM
== END 2018-06-03 13:35 | disposition home or self-care (01) | DRG 259 ==
LOC: C.ER 15:05 → C.9E 17:59 → C.9I 19:43
PROVIDERS: ADMIT Internal Medicine; ATTEND Internal Medicine
PROC: 0JPT0PZ Removal of Cardiac Rhythm Related Device from Trunk Subcutaneous Tissue and Fascia, Open Approach (ICD-10-PCS; principal; 2018-06-01)
PROC: 0JH606Z Insertion of Pacemaker, Dual Chamber into Chest Subcutaneous Tissue and Fascia, Open Approach (ICD-10-PCS; 2018-06-01)
DX: I44.2 Atrioventricular block, complete (principal); I13.0 Hypertensive heart and chronic kidney disease with heart failure and stage 1 through stage 4 chronic kidney disease, or unspecified chronic kidney disease; I42.9 Cardiomyopathy, unspecified; N18.4 Chronic kidney disease, stage 4 (severe); I50.22 Chronic systolic (congestive) heart failure; Z45.010 Encounter for checking and testing of cardiac pacemaker pulse generator [battery]; E11.22 Type 2 diabetes mellitus with diabetic chronic kidney disease; E11.51 Type 2 diabetes mellitus with diabetic peripheral angiopathy without gangrene; E78.5 Hyperlipidemia, unspecified; I48.91 Unspecified atrial fibrillation; J44.9 Chronic obstructive pulmonary disease, unspecified; Z85.3 Personal history of malignant neoplasm of breast; Z95.2 Presence of prosthetic heart valve; Z87.891 Personal history of nicotine dependence; D64.9 Anemia, unspecified

== ENCOUNTER 2018-09-10 16:06 | Observation (INO) | payer MEDICARE, MEDICAID ==
[2018-09-10 16:07] VITALS: BMI 29.9
--- NOTE | 2018-09-10 16:36 | C.PDOC ---
History Of Present Illness 73 year old female presents to the emergency department with complaints of worsening shortness of breath and dyspnea on exertion for the last month. Patient denies leg swelling, chest pain, fever, cough. Patient states that she is compliant with her medications. Patient has a history of congestive heart failure, TAVR, bioprothetic mitral valve,atrial fibrillation, CRI, hypertension, hyperlipidemia, peripheral vascular disease, history of breast cancer, status post a pacemaker, mitral, aortic valve replacement in 2011, status post a right radical lumpectomy, radiation treatment, carotid, femoral artery endarterectomy, stent placement. WORSENING SOB/CAMPBELL X 1 MO. NO LEG SWELL, CP. NO FEVER, COUGH. COMPLIANT W MEDS history of congestive heart failure, TAVR, bioprothetic mitral valve,atrial fibrillation, CRI, hypertension, hyperlipidemia, peripheral vascular disease, history of breast cancer, status post a pacemaker, mitral, aortic valve replacement in 2011, status post a right radical lumpectomy, radiation treatment , carotid, femoral artery endarterectomy, stent placement, EXAM MILD DIST NONTOXIC RALES B/L TO MID LUNGS SPEAKING FULL SENTENCES NO RETRACTION NO EDEMA Time Seen by Provider: 09/10/18 16:30 Chief Complaint (Nursing): Shortness Of Breath History Per: Patient History/Exam Limitations: no limitations Onset/Duration Of Symptoms: Other (1 month) Current Symptoms Are (Timing): Worse Quality: denies: "Pain" Associated Symptoms: Other (shortness of breath/CAMPBELL). denies: Fever, Chest Pain, Bloody Cough, Productive Cough, Ankle/Leg Swelling Past Medical History Reviewed: Historical Data, Nursing Documentation, Vital Signs Vital Signs: Last Vital Signs Temp 97.5 F L 09/10/18 16:13 Pulse 80 09/10/18 16:13 Resp 24 09/10/18 16:13 BP 145/84 09/10/18 16:13 Pulse Ox 100 09/10/18 16:13 - Medical History PMH: Anemia, Atrial Fibrillation, CHF, HTN, Hyperlipidemia Denies: Chronic Kidney Disease Comment Only: Mitral Valve Prolapse (Mitral Valve Disorder?) Surgical History: Endoscopy, Pacemaker (Left Upper Anterior Chest) - [facility] Procedures EXCISION OF TRANSVERSE COLON, ENDO, DIAGN (02/04/18) INSERT PACE. DUAL DENICE IN CHEST SUBCU/FASCIA, OPEN (06/01/18) INSERTION OF INFUSION DEV INTO SUP VENA CAVA, PERC APPROACH (02/04/18) INSPECTION OF UPPER INTESTINAL TRACT, ENDO (02/04/18) REMOVE CARD RHYTHM DEV FROM TRUNK SUBCU/FASCIA, OPEN (06/01/18) TRANSFUSE NONAUT RED BLOOD CELLS IN PERIPH VEIN, PERC (02/04/18) Family History: States: No Known Family Hx - Social History Hx Tobacco Use: Yes (former smoker) Hx Alcohol Use: No Hx Substance Use: No - Immunization History Hx Tetanus Toxoid Vaccination: No Hx Influenza Vaccination: No Hx Pneumococcal Vaccination: No Review Of Systems Except As Marked, All Systems Reviewed And Found Negative. Constitutional: Negative for: Fever, Chills Cardiovascular: Negative for: Chest Pain Respiratory: Positive for: Shortness of Breath, SOB with Excertion. Negative for: Cough Gastrointestinal: Negative for: Nausea, Vomiting, Abdominal Pain, Diarrhea Musculoskeletal: Negative for: Leg Pain (leg swelling) Physical Exam - Physical Exam Appears: Non-toxic, In Acute Distress (mild) Skin: Normal Color, Warm, Dry Head: Atraumatic, Normacephalic Eye(s): bilateral: Normal Inspection, PERRL, EOMI Nose: Normal Oral Mucosa: Moist Neck: Normal, Supple Chest: Symmetrical, No Tenderness Cardiovascular: Rhythm Regular, No Murmur Respiratory: Rales (bilateral to mid lungs), No Rhonchi, No Wheezing, Other (speaking full sentences, no retraction) Gastrointestinal/Abdominal: Soft, No Tenderness, No Guarding, No Rebound Extremity: Normal ROM, No Tenderness, No Pedal Edema, No Swelling Pulses: Left Dorsalis Pedis: Normal, Right Dorsalis Pedis: Normal Neurological/Psych: Oriented x3, Normal Speech, Normal Cognition ED Course And Treatment - Laboratory Results Result Diagrams: 09/10/18 17:02 09/10/18 17:02 ECG: Interpreted By Oh ECG Rhythm: V Paced ECG Interpretation: Normal, No Acute Changes Rate From EC O2 Sat by Pulse Oximetry: 100 (RA) Pulse Ox Interpretation: Normal - Radiology CXR: Interpreted by Me CXR Interpretation: Yes: Other (r effusion) Progress Note: Plan: EKG. Chemistry. CBC. CXR Progress - Re-Evaluation Re-evaluation Note: 09/10/18 17:44 D/W DR RUFFIN WILL ADMIT - Data Reviewed Data Reviewed: Lab, Diagnostic imaging, EKG, Old records Disposition Counseled Patient/Family Regarding: Studies Performed, Diagnosis - Disposition Disposition: HOSPITALIZED Disposition Time: 17:44 Condition: SERIOUS Forms: [facility] (Wallisian) - Clinical Impression Clinical Impression: Pleural effusion, CHF exacerbation - Scribe Statement The provider has reviewed the documentation as recorded by the Scribe (Brian Stokes) Provider Attestation: All medical record entries made by the Scribe were at my direction and per sonally dictated by me. I have reviewed the chart and agree that the record accurately reflects my personal performance of the history, physical exam, medical decision making, and the department course for this patient. I have also personally directed, reviewed, and agree with the discharge instructions and disposition.
[2018-09-10 17:05] LABS: BASO # 0.1 K/uL (0.0-0.2); BASO % 1.2 % (0.0-2.0); EOS # 0.2 K/uL (0.0-0.7); EOS % 4.6 % (0.0-4.0); LYMPH # 0.6 K/uL (1.0-4.3); LYMPH % 12.9 % (20.0-40.0); MEAN CORPUSCULAR HEMOGLOBIN 25.3 pg (27.0-31.0); MEAN CORPUSCULAR HGB CONC 32.4 g/dL (33.0-37.0); MEAN PLATELET VOLUME 9.1 fL (7.2-11.7); MONO # 0.4 K/uL (0.0-0.8); MONO % 9.5 % (0.0-10.0); NEUT # 3.3 K/uL (1.8-7.0); NEUT % 71.8 % (50.0-75.0); RBC 3.95 Mil/uL (3.80-5.20); RED CELL DISTRIBUTION WIDTH 19.7 % (11.5-14.5); WHITE BLOOD COUNT 4.6 K/uL (4.8-10.8)
[2018-09-10 17:16] LABS: ALB/GLOB RATIO 1.2 (1.0-2.1); ALBUMIN 4.2 g/dL (3.5-5.0); CALCIUM 9.7 mg/dl (8.6-10.4)
[2018-09-10 17:28] LABS: TROPONIN I 0.015 ng/mL (0.00-0.120)
[2018-09-10] MEDS: Pantoprazole 40 mg EC Tab PO SCH (18:43)
[2018-09-10 19:23] LABS: INR 1.5; PROTHROMBIN TIME 16.6 SECONDS (9.7-12.2)
[2018-09-10] MEDS ORDERED: Potassium Chloride 20 mEq/15 ml LIQ UD PO SCH (20:00)
--- NOTE | 2018-09-10 22:20 | CP.PCM.HP ---
History of Present Illness - History of Present Illness History of Present Illness: Chief complaint: Shortness of breath HPI: 73-year-old female with a history of congestive heart failure, 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 Patient was having increasing episodes of shortness of breath. She was not able to walk even a few steps. Associate with the chest tightness, minimal cough. 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 Patient was sent to the emergency room because of the worsening shortness of breath. Patient was not able to lie flat. She also had a history of anemia, history of blood transfusion in the past Past medical history: As noted above Surgical history: Mitral and aortic valve replacement. AICD placement. History of breast cancer, status post lumpectomy femoral endarterectomy, stent placement. Family history: Significant for hypertension diabetes history of kidney transplant and also history of hematological cancer. Social history: Non-smoker nonalcoholic. Patient quit smoking in 2006. Medications: Reviewed Review of system: Patient is currently having minimal headache. Complaining of heavy breathing complaining of shortness of breath. No chest pain. He denies any abdominal pain. Poor appetite noted. Leg swelling negative On examination: Vital signs otherwise stable. Neck venous distention noted Chest bilateral good air entry, but on the right lower lung there is a significant decrease in the air entry noted Heart sounds are regular Abdomen soft. Nontender, no pedal edema noted. 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 Labs reviewed, elevated proBNP level noted Chest x-ray showing evidence of right lower lung pleural effusion. Patient medications reviewed Assessment and recommendation: 73-year-old female with multiple medical history including valve replacement, atrial fibrillation, hyperlipidemia, hypertension, PVD, history of breast cancer, history of AICD, history of lumpectomy admitted now with pleural effusion, elevated proBNP level, likely decompensated systolic heart failure. Will arrange for possible thoracentesis. Currently on Coumadin, will hold off start Lovenox tomorrow. Lasix. Cardiology evaluation. Daily weight monitoring DVT and GI prophylaxis Present on Admission - Present on Admission Any Indicators Present on Admission: No History of DVT/PE: No History of Uncontrolled Diabetes: No Urinary Catheter: No Decubitus Ulcer Present: No Past Patient History - Past Medical History & Family History Past Medical History?: Yes - Past Social History Smoking Status: Former Smoker - CARDIAC Hx Atrial Fibrillation: Yes Hx Congestive Heart Failure: Yes Hx Hypertension: Yes Hx Mitral Valve Prolapse: (Mitral Valve Disorder?) Hx Pacemaker: Yes (Left Upper Anterior Chest) - PULMONARY Hx Respiratory Disorders: No - NEUROLOGICAL Hx Neurological Disorder: No - HEENT Hx HEENT Problems: No - RENAL Hx Chronic Kidney Disease: No - ENDOCRINE/METABOLIC Hx Endocrine Disorders: No - HEMATOLOGICAL/ONCOLOGICAL Hx Anemia: Yes - INTEGUMENTARY Hx Dermatological Problems: No - MUSCULOSKELETAL/RHEUMATOLOGICAL Hx Musculoskeletal Disorders: No Hx Falls: No Other/Comment: PVD - GASTROINTESTINAL Hx Gastrointestinal Disorders: No - GENITOURINARY/GYNECOLOGICAL Hx Genitourinary Disorders: No - PSYCHIATRIC Hx Substance Use: No - SURGICAL HISTORY Hx Surgeries: Yes Hx Mastectomy: Yes (right) Other/Comment: 2 valve replacement. HX: OMAIRA(12/21/16) - ANESTHESIA Hx Anesthesia: Yes Hx Anesthesia Reactions: No Hx Malignant Hyperthermia: No Meds Allergies/Adverse Reactions: Allergies Allergy/AdvReac Type Severity Reaction Status Date / Time blood plasma Allergy URTICARIA Uncoded 02/04/18 16:13 Results - Vital Signs Recent Vital Signs: Last Vital Signs Temp 97.8 F 09/10/18 18:38 Pulse 80 09/10/18 18:38 Resp 22 09/10/18 18:38 BP 160/80 H 09/10/18 18:43 Pulse Ox 99 09/10/18 18:38 - Labs Result Diagrams: 09/10/18 17:02 09/10/18 17:02 Labs: Laboratory Results - last 24 hr 09/10/18 09/10/18 09/10/18 17:02 17:02 18:37 WBC 4.6 L RBC 3.95 Hgb 10.0 L Hct 30.8 L MCV 78.0 L D MCH 25.3 L MCHC 32.4 L RDW 19.7 H Plt Count 131 MPV 9.1 Neut % (Auto) 71.8 Lymph % (Auto) 12.9 L [place] % (Auto) 9.5 Eos % (Auto) 4.6 H Baso % (Auto) 1.2 Neut # (Auto) 3.3 Lymph # (Auto) 0.6 L [place] # (Auto) 0.4 Eos # (Auto) 0.2 Baso # (Auto) 0.1 PT 16.6 H INR 1.5 APTT 36 H Sodium 141 Potassium 3.3 L Chloride 102 Carbon Dioxide 28 Anion Gap 14 BUN 46 H Creatinine 1.7 H Est GFR ( Amer) 36 Est GFR (Non-Af Amer) 30 Random Glucose 96 Calcium 9.7 Total Bilirubin 1.1 AST 22 ALT 10 Alkaline Phosphatase 141 H Troponin I 0.0150 NT-Pro-B Natriuret Pep 71829 H Total Protein 7.6 Albumin 4.2 Globulin 3.4 Albumin/Globulin Ratio 1.2
[2018-09-11] MEDS: Pantoprazole 40 mg EC Tab PO SCH ×2 (05:11→17:57)
[2018-09-11] MEDS: Potassium Chloride 20 mEq/15 ml LIQ UD PO SCH (09:47)
[2018-09-11] MEDS: Enoxaparin 60 mg Syringe SC SCH ×2 (09:49→21:56)
[2018-09-11] MEDS ORDERED: Lidocaine Hydrochloride 5 ML INJ ONE (10:01)
--- NOTE | 2018-09-11 10:14 | RAD ---
Date of service: 09/10/2018 PROCEDURE: CHEST RADIOGRAPH, 1 VIEW HISTORY: SOB COMPARISON: 06/01/2018. FINDINGS: LUNGS: There is compressive atelectasis of the right lung. The left lung is well inflated and clear. PLEURA: There is a moderate right pleural effusion. No left pleural effusion. No pneumothorax. CARDIOVASCULAR: The heart is normal in size. Status post CABG. There is stable position of left-sided permanent pacing device. A prosthetic valve remains in place. No aortic atherosclerotic calcifications present. OSSEOUS STRUCTURES: Within normal limits for the patient's age. VISUALIZED UPPER ABDOMEN: Normal. OTHER FINDINGS: There are multiple surgical clips in the right axilla.. IMPRESSION: Moderate right pleural effusion.
--- NOTE | 2018-09-11 10:26 | PCM.SURG1 ---
Surgeon's Initial Post Op Note - Surgeon's Notes Surgeon: Parrish Oseguera MD Thread Milling Machine Set Up Operator: NONE Type of Anesthesia: Local Pre-Operative Diagnosis: Right pleural effusion Operative Findings: US showed moderate right pleural effusion Post-Operative Diagnosis: Right pleural effusion Operation Performed: US guided right thoracentesis Specimen/Specimens Removed: 800 cc of straw colored fluid Estimated Blood Loss: EBL {In ML}: 0 Blood Products Given: N/A Drains Used: No Drains Post-Op Condition: Fair Date of Surgery/Procedure: 09/11/18 Time of Surgery/Procedure: 10:20
--- NOTE | 2018-09-11 12:11 | CP.PCM.PN ---
Subjective - Date & Time of Evaluation Date of Evaluation: 09/11/18 Time of Evaluation: 12:10 - Subjective Subjective: Patient today underwent a right-sided thoracentesis. 800 mL of fluid removed. Patient now complaining of some pain in the right side chest. Receiving morphine for pain. Some improvement in the pain noted. Still having some difficult time in taking deep breath. On examination: Vital signs are stable. Chest bilateral good air entry, on the right lung there is clear lung, and air entry is good. Regular [place] noted. Vital signs stable otherwise Will order a repeat chest x-ray. Assessment and recommendation: 73-year-old female with multiple medical history admitted with the possible decompensated systolic heart failure. Status post thoracentesis. We will resume the Coumadin today if patient is stable. On Lovenox at this time. Repeat chest x-ray to rule out pneumothorax and will follow the patient Objective - Vital Signs/Intake and Output Vital Signs (last 24 hours): Temp Pulse Resp BP Pulse Ox 98.2 F 80 20 156/90 H 97 09/11/18 08:30 09/11/18 08:30 09/11/18 08:30 09/11/18 08:30 09/11/18 08:30 - Medications Medications: Current Medications Acetaminophen (Tylenol 325mg Tab) 650 mg PO Q6 PRN PRN Reason: Pain, moderate (4-7) Enoxaparin Sodium (Lovenox) 50 mg SC Q12 [facility] Last Admin: 09/11/18 09:49 Dose: Not Given Montelukast Sodium (Singulair) 10 mg PO HS [facility] Last Admin: 09/10/18 22:32 Dose: 10 mg Pantoprazole Sodium (Protonix Ec Tab) 40 mg PO Q12H [facility] Last Admin: 09/11/18 05:11 Dose: 40 mg Potassium Chloride (Potassium Chloride Oral Soln) 20 meq PO DAILY [facility] Stop: 09/14/18 10:01 Last Admin: 09/11/18 09:47 Dose: 20 meq Rosuvastatin Calcium (Crestor) 10 mg PO [facility] Sennosides (Senokot Tab) 8.6 mg PO BID [facility] Last Admin: 09/11/18 09:47 Dose: 8.6 mg - Labs Labs: 09/10/18 17:02 09/10/18 17:02 PT 16.6 SECONDS (9.7-12.2) H 09/10/18 18:37 INR 1.5 09/10/18 18:37 APTT 36 SECONDS (21-34) H 09/10/18 18:37
--- NOTE | 2018-09-11 14:15 | RAD ---
Date of service: 09/11/2018 HISTORY: PTX COMPARISON: Comparison chest 09/10/2018 FINDINGS: LUNGS: Right lower lobe consolidation changes consistent with some combination of atelectasis/infiltrate and effusion. PLEURA: As above. No apparent pneumothorax CARDIOVASCULAR: No aortic atherosclerotic calcification present. Cardiomegaly. Sternotomy wires and valve replacement again noted.. No change bipolar pacemaker/no pulmonary vascular congestion. OSSEOUS STRUCTURES: No significant abnormalities. VISUALIZED UPPER ABDOMEN: Normal. OTHER FINDINGS: None. IMPRESSION: Right lower lobe consolidation changes consistent with some combination of atelectasis/infiltrate and effusion.
--- NOTE | 2018-09-11 14:19 | CARD ---
APPROVED REPORT Date of service: 09/10/2018 EKG Measurement Heart [id number] <Conclusion> Ventricular-paced rhythm Abnormal ECG
--- NOTE | 2018-09-12 05:35 | CP.PCM.CON ---
History of Present Illness - History of Present Illness History of Present Illness: 73 year old female presents to the emergency department with complaints of worsening shortness of breath and dyspnea on exertion for the last month. Patient denies leg swelling, chest pain, fever, cough. Patient states that she is compliant with her medications. Patient has a history of congestive heart failure, TAVR, bioprothetic mitral valve,atrial fibrillation, CRI, hypertension, hyperlipidemia, peripheral vascular disease, history of breast cancer, status post a pacemaker, mitral, aortic valve replacement in 2011, status post a right radical lumpectomy, radiation treatment, carotid, femoral artery endarterectomy, stent placement. WORSENING SOB/CAMPBELL X 1 MO. NO LEG SWELL, CP. NO FEVER, COUGH. COMPLIANT W MEDS history of congestive heart failure, TAVR, bioprothetic mitral valve,atrial fibrillation, CRI, hypertension, hyperlipidemia, peripheral vascular disease, history of breast cancer, status post a pacemaker, mitral, aortic valve replacement in 2011, status post a right radical lumpectomy, radiation treatment, carotid, femoral artery endarterectomy, stent placement, EXAM MILD DIST NONTOXIC RALES B/L TO MID LUNGS SPEAKING FULL SENTENCES NO RETRACTION NO EDEMA Chief Complaint (Nursing): Shortness Of Breath History Per: Patient History/Exam Limitations: no limitations Onset/Duration Of Symptoms: Other (1 month) Current Symptoms Are (Timing): Worse Quality: denies: "Pain" Associated Symptoms: Other (shortness of breath/CAMPBELL). denies: Fever, Chest Pain, Bloody Cough, Productive Cough, Ankle/Leg Swelling - Medical History PMH: Anemia, Atrial Fibrillation, CHF, HTN, Hyperlipidemia Denies: Chronic Kidney Disease Comment Only: Mitral Valve Prolapse (Mitral Valve Disorder?) Surgical History: Endoscopy, Pacemaker (Left Upper Anterior Chest) - [facility] Procedures EXCISION OF TRANSVERSE COLON, ENDO, DIAGN (02/04/18) INSERT PACE. DUAL DENICE IN CHEST SUBCU/FASCIA, OPEN (06/01/18) INSERTION OF INFUSION DEV INTO SUP VENA CAVA, PERC APPROACH (02/04/18) INSPECTION OF UPPER INTESTINAL TRACT, ENDO (02/04/18) REMOVE CARD RHYTHM DEV FROM TRUNK SUBCU/FASCIA, OPEN (06/01/18) TRANSFUSE NONAUT RED BLOOD CELLS IN PERIPH VEIN, PERC (02/04/18) Family History: States: No Known Family Hx - Social History Hx Tobacco Use: Yes (former smoker) Hx Alcohol Use: No Hx Substance Use: No - Immunization History Hx Tetanus Toxoid Vaccination: No Hx Influenza Vaccination: No Hx Pneumococcal Vaccination: No Review Of Systems Except As Marked, All Systems Reviewed And Found Negative. Constitutional: Negative for: Fever, Chills Cardiovascular: Negative for: Chest Pain Respiratory: Positive for: Shortness of Breath, SOB with Excertion. Negative for: Cough Gastrointestinal: Negative for: Nausea, Vomiting, Abdominal Pain, Diarrhea Musculoskeletal: Negative for: Leg Pain (leg swelling) Past Patient History - Past Medical History & Family History Past Medical History?: Yes - Past Social History Smoking Status: Former Smoker - CARDIAC Hx Hypercholesterolemia: Yes - PULMONARY Hx Respiratory Disorders: No - NEUROLOGICAL Hx Neurological Disorder: No - HEENT Hx HEENT Problems: No - RENAL Hx Chronic Kidney Disease: No - ENDOCRINE/METABOLIC Hx Endocrine Disorders: No - HEMATOLOGICAL/ONCOLOGICAL Hx Anemia: Yes - INTEGUMENTARY Hx Dermatological Problems: No - MUSCULOSKELETAL/RHEUMATOLOGICAL Hx Musculoskeletal Disorders: No Hx Falls: No Other/Comment: PVD - GASTROINTESTINAL Hx Gastrointestinal Disorders: No - GENITOURINARY/GYNECOLOGICAL Hx Genitourinary Disorders: No - PSYCHIATRIC Hx Substance Use: No - SURGICAL HISTORY Hx Surgeries: Yes Hx Mastectomy: Yes (right) Other/Comment: 2 valve replacement. HX: OMAIRA(12/21/16) - ANESTHESIA Hx Anesthesia: Yes Hx Anesthesia Reactions: No Hx Malignant Hyperthermia: No Meds Allergies/Adverse Reactions: Allergies Allergy/AdvReac Type Severity Reaction Status Date / Time blood plasma Allergy URTICARIA Uncoded 02/04/18 16:13 - Medications Medications: Current Medications Acetaminophen (Tylenol 325mg Tab) 650 mg PO Q6 PRN PRN Reason: Pain, moderate (4-7) Enoxaparin Sodium (Lovenox) 50 mg SC Q12 [facility] Last Admin: 09/11/18 21:56 Dose: 50 mg Montelukast Sodium (Singulair) 10 mg PO HS [facility]AD Last Admin: 09/11/18 22:03 Dose: 10 mg Pantoprazole Sodium (Protonix Ec Tab) 40 mg PO Q12H [facility] Last Admin: 09/11/18 17:57 Dose: 40 mg Potassium Chloride (Potassium Chloride Oral Soln) 20 meq PO DAILY FUAD Stop: 09/14/18 10:01 Last Admin: 09/11/18 09:47 Dose: 20 meq Rosuvastatin Calcium (Crestor) 10 mg PO HS [facility] Last Admin: 09/11/18 21:56 Dose: 10 mg Sennosides (Senokot Tab) 8.6 mg PO BID [facility] Last Admin: 09/11/18 17:57 Dose: 8.6 mg Results - Vital Signs Recent Vital Signs: Last Vital Signs Temp 97.7 F 09/12/18 00:10 Pulse 81 09/12/18 03:55 Resp 20 09/12/18 00:10 BP 124/72 09/12/18 00:10 Pulse Ox 97 09/12/18 00:10 - Labs Result Diagrams: 09/10/18 17:02 09/10/18 17:02 Assessment & Plan - Assessment and Plan (Free Text) Assessment: Assessment and recommendation: 73-year-old female with multiple medical history admitted with the possible decompensated systolic heart failure. Status post thoracentesis. We will resume the Coumadin today if patient is stable. On Lovenox at this time. Repeat chest x-ray to rule out pneumothorax and will follow the patient history of congestive heart failure, TAVR, bioprothetic mitral valve,atrial f ibrillation, CRI, hypertension, hyperlipidemia, peripheral vascular disease, history of breast cancer, status post a pacemaker, mitral, aortic valve replacement in 2011, status post a right radical lumpectomy, radiation treatment, carotid, femoral artery endarterectomy, stent placement,
[2018-09-12] MEDS: Pantoprazole 40 mg EC Tab PO SCH ×2 (05:45→17:37)
[2018-09-12 08:42] LABS: CALCIUM 9.4 mg/dl (8.6-10.4)
[2018-09-12] MEDS: Potassium Chloride 20 mEq/15 ml LIQ UD PO SCH (09:34)
[2018-09-12] MEDS: Enoxaparin 60 mg Syringe SC SCH ×2 (09:37→21:49)
--- NOTE | 2018-09-12 11:33 | US ---
PROCEDURE: Date of procedure: 09/11/2018 Procedure: 1. Ultrasound-guided Right thoracentesis, CPT 93895 Medications: 5cc 1% Lidocaine HISTORY: Right pleural effusion, shortness of breath TECHNIQUE: Following informed consent ,the Patients' right chest was marked. Procedure time-out was called, and the patient was placed in the sitting position and limited ultrasound showed a large right effusion. The patient's right back was prepped and draped in the usual sterile fashion. After the skin was anesthetized with lidocaine, a drainage catheter was advanced under ultrasound guidance into the pleural space. Ultrasound-guided thoracentesis was performed. A total of 800 cubic centimeters of straw-colored fluid removed without complication. A Xeroform dressing was applied. IMPRESSION: Ultrasound guided Right thoracentesis. There were no immediate complications.
[2018-09-13] MEDS: Pantoprazole 40 mg EC Tab PO SCH ×2 (06:07→18:15)
[2018-09-13 07:17] LABS: EOS # 0.1 K/uL (0.0-0.7); HEMOGLOBIN 9.8 g/dL (11.0-16.0); LYMPH # 0.9 K/uL (1.0-4.3); LYMPH % 16.6 % (20.0-40.0); MEAN CELL VOLUME 78.1 fL (81.0-99.0); MEAN CORPUSCULAR HEMOGLOBIN 26.3 pg (27.0-31.0); MEAN CORPUSCULAR HGB CONC 33.7 g/dL (33.0-37.0); MEAN PLATELET VOLUME 10.3 fL (7.2-11.7); MONO # 0.6 K/uL (0.0-0.8); MONO % 11.8 % (0.0-10.0); NEUT # 3.5 K/uL (1.8-7.0); NEUT % 68.6 % (50.0-75.0); NRBC % 0.1 % (0.0-2.0); RBC 3.71 Mil/uL (3.80-5.20); RED CELL DISTRIBUTION WIDTH 19.7 % (11.5-14.5); WHITE BLOOD COUNT 5.2 K/uL (4.8-10.8)
[2018-09-13 07:48] LABS: ALB/GLOB RATIO 1.1 (1.0-2.1); ALBUMIN 3.6 g/dL (3.5-5.0); CALCIUM 9.6 mg/dl (8.6-10.4)
[2018-09-13] MEDS: Potassium Chloride 20 mEq/15 ml LIQ UD PO SCH (09:05)
[2018-09-13] MEDS: Enoxaparin 60 mg Syringe SC SCH (09:06)
--- NOTE | 2018-09-13 22:33 | CP.PCM.PN ---
Subjective - Date & Time of Evaluation Date of Evaluation: 09/12/18 Time of Evaluation: 18:20 - Subjective Subjective: Patient seen and evaluated denies chest pain Dyspnea improving Review Of Systems Except As Marked, All Systems Reviewed And Found Negative. Constitutional: Negative for: Fever, Chills Cardiovascular: Negative for: Chest Pain Respiratory: Positive for: Shortness of Breath, SOB with Excertion. Negative for: Cough Gastrointestinal: Negative for: Nausea, Vomiting, Abdominal Pain, Diarrhea Musculoskeletal: Negative for: Leg Pain (leg swelling) Physical Exam - Physical Exam Appears: Non-toxic, In Acute Distress (mild) Skin: Normal Color, Warm, Dry Head: Atraumatic, Normacephalic Eye(s): bilateral: Normal Inspection, PERRL, EOMI Nose: Normal Oral Mucosa: Moist Neck: Normal, Supple Chest: Symmetrical, No Tenderness Cardiovascular: Rhythm Regular, No Murmur Respiratory: Rales (bilateral to mid lungs), No Rhonchi, No Wheezing, Other (speaking full sentences, no retraction) Gastrointestinal/Abdominal: Soft, No Tenderness, No Guarding, No Rebound Extremity: Normal ROM, No Tenderness, No Pedal Edema, No Swelling Pulses: Left Dorsalis Pedis: Normal, Right Dorsalis Pedis: Normal Neurological/Psych: Oriented x3, Normal Speech, Normal Cognition Assessment & Plan - Assessment and Plan (Free Text) Assessment: Assessment and recommendation: 73-year-old female with multiple medical history admitted with the possible decompensated systolic heart failure. Status post thoracentesis. We will resume the Coumadin today if patient is stable. On Lovenox at this time. Repeat chest x-ray to rule out pneumothorax and will follow the patient history of congestive heart failure, TAVR, bioprothetic mitral valve,atrial fibrillation, CRI, hypertension, hyperlipidemia, peripheral vascular disease, history of breast cancer, status post a pacemaker, mitral, aortic valve replacement in 2012, status post a right radical lumpectomy, radiation treatment, carotid, femoral artery endarterectomy, stent placement, Objective - Vital Signs/Intake and Output Vital Signs (last 24 hours): Temp Pulse Resp BP Pulse Ox 97.6 F 80 18 142/80 99 09/13/18 07:32 09/13/18 07:32 09/13/18 07:32 09/13/18 07:32 09/13/18 07:32 - Labs Labs: 09/13/18 07:03 09/13/18 07:03 PT 16.6 SECONDS (9.7-12.2) H 09/10/18 18:37 INR 1.5 09/10/18 18:37 APTT 36 SECONDS (21-34) H 09/10/18 18:37
[2018-09-14 02:04] VITALS: BP 147/88; PULSE 81; RESP 20; TEMP 97.7; O2SAT 97
--- NOTE | 2018-09-15 07:44 | CP.PCM.DIS ---
Provider - Provider Date of Admission: 09/10/18 17:45 Attending physician: Michelle Singh MD Consults: 09/10/18 17:46 Cardiology Consult Routine Comment: PMD Consulting Provider: Mohan Pennington Consulting Physician: Mohan Pennington Reason for Consult: CHF EXAC Time Spent in preparation of Discharge (in minutes): 454 Hospital Course - Lab Results Lab Results: Most Recent Lab Values WBC 5.2 K/uL (4.8-10.8) 09/13/18 07:03 RBC 3.71 Mil/uL (3.80-5.20) L 09/13/18 07:03 Hgb 9.8 g/dL (11.0-16.0) L 09/13/18 07:03 Hct 29.0 % (34.0-47.0) L 09/13/18 07:03 MCV 78.1 fL (81.0-99.0) L 09/13/18 07:03 MCH 26.3 pg (27.0-31.0) L 09/13/18 07:03 MCHC 33.7 g/dL (33.0-37.0) 09/13/18 07:03 RDW 19.7 % (11.5-14.5) H 09/13/18 07:03 Plt Count 133 K/uL (130-400) 09/13/18 07:03 MPV 10.3 fL (7.2-11.7) 09/13/18 07:03 Neut % (Auto) 68.6 % (50.0-75.0) 09/13/18 07:03 Lymph % (Auto) 16.6 % (20.0-40.0) L 09/13/18 07:03 [place] % (Auto) 11.8 % (0.0-10.0) H 09/13/18 07:03 Eos % (Auto) 2.0 % (0.0-4.0) 09/13/18 07:03 Baso % (Auto) 1.0 % (0.0-2.0) 09/13/18 07:03 Neut # (Auto) 3.5 K/uL (1.8-7.0) 09/13/18 07:03 Lymph # (Auto) 0.9 K/uL (1.0-4.3) L 09/13/18 07:03 [place] # (Auto) 0.6 K/uL (0.0-0.8) 09/13/18 07:03 Eos # (Auto) 0.1 K/uL (0.0-0.7) 09/13/18 07:03 Baso # (Auto) 0.0 K/uL (0.0-0.2) 09/13/18 07:03 PT 16.6 SECONDS (9.7-12.2) H 09/10/18 18:37 INR 1.5 09/10/18 18:37 APTT 36 SECONDS (21-34) H 09/10/18 18:37 Sodium 136 mmol/L (132-148) 09/13/18 07:03 Potassium 4.1 mmol/L (3.6-5.2) 09/13/18 07:03 Chloride 100 mmol/L (98-107) 09/13/18 07:03 Carbon Dioxide 27 mmol/L (22-30) 09/13/18 07:03 Anion Gap 13 (10-20) 09/13/18 07:03 BUN 42 mg/dL (7-17) H 09/13/18 07:03 Creatinine 1.8 mg/dL (0.7-1.2) H 09/13/18 07:03 Est GFR ( Amer) 34 09/13/18 07:03 Est GFR (Non-Af Amer) 28 09/13/18 07:03 Random Glucose 100 mg/dL (65-105) 09/13/18 07:03 Calcium 9.6 mg/dl (8.6-10.4) 09/13/18 07:03 Magnesium 1.6 mg/dL (1.6-2.3) 09/12/18 08:05 Total Bilirubin 1.5 mg/dL (0.2-1.3) H 09/13/18 07:03 AST 14 U/L (14-36) D 09/13/18 07:03 ALT 7 U/L (9-52) L D 09/13/18 07:03 Alkaline Phosphatase 120 U/L (38-126) 09/13/18 07:03 Troponin I 0.0150 ng/mL (0.00-0.120) 09/10/18 17:02 NT-Pro-B Natriuret Pep 39722 pg/mL (0-900) H 09/10/18 17:02 Total Protein 7.0 g/dL (6.3-8.3) 09/13/18 07:03 Albumin 3.6 g/dL (3.5-5.0) 09/13/18 07:03 Globulin 3.4 gm/dL (2.2-3.9) 09/13/18 07:03 Albumin/Globulin Ratio 1.1 (1.0-2.1) 09/13/18 07:03 - Hospital Course Hospital Course: Chief complaint: Shortness of breath HPI: 73-year-old female with a history of congestive heart failure, 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 Patient was having increasing episodes of shortness of breath. She was not able to walk even a few steps. Associate with the chest tightness, minimal cough. Patient went to see ict security specialist today, in the morning but vital signs otherwise stable. Patient was sent to the emergency room because of the worsening shortness of breath. Patient was not able to lie flat. She also had a history of anemia, history of blood transfusion in the past Past medical history: As noted above Surgical history: Mitral and aortic valve replacement. AICD placement. History of breast cancer, status post lumpectomy femoral endarterectomy, stent placement. Family history: Significant for hypertension diabetes history of kidney transplant and also history of hematological cancer. Social history: Non-smoker nonalcoholic. Patient quit smoking in 2006. Medications: Reviewed Review of system: Patient is currently having minimal headache. Complaining of heavy breathing complaining of shortness of breath. No chest pain. He denies any abdominal pain. Poor appetite noted. Leg swelling negative On examination: Vital signs otherwise stable. Neck venous distention noted Chest bilateral good air entry, but on the right lower lung there is a significant decrease in the air entry noted Heart sounds are regular Abdomen soft. Nontender, no pedal edema noted. [employer] SCI[employer]ES CHAIR alert awake oriented no functional neurological deficit. Labs reviewed, elevated proBNP level noted Chest x-ray showing evidence of right lower lung pleural effusion. Patient medications reviewed Assessment and recommendation: 73-year-old female with multiple medical history including valve replacement, atrial fibrillation, hyperlipidemia, hypertension, PVD, history of breast cancer, history of AICD, history of lumpectomy admitted now with pleural effusion, elevated proBNP level, likely decompensated systolic heart failure. Will arrange for possible thoracentesis. Currently on Coumadin, will hold off start Lovenox tomorrow. Lasix. Cardiology evaluation. Daily weight monitoring DVT and GI prophylaxis The hospital: Patient was admitted to the hospital with acute decompensated systolic heart failure. Patient placed on IV Lasix. X-ray of the lungs are showing evidence of right lung large pleural effusion. Patient underwent thoracentesis, 800 cc of kaylee colored fluid removed most likely secondary to pleural effusion. Heart failure likely cause. Repeat chest x-ray revealed no evidence of pneumothorax. Clinically patient is stable. She will be discharged home. She will follow-up as an outpatient in 1 week. Medications reviewed Reconciliation was done. Home PT and visiting nurse recommended. We will follow the patient Final diagnosis: Acute decompensated systolic heart failure Pleural effusion Renal insufficiency History of anemia Patient will continue Coumadin. We will follow-up the INR as an outpatient Discharge Plan - Follow Up Plan Condition: GOOD Disposition: HOME/ ROUTINE Instructions: Heart Failure (DC) Referrals: Michelle Singh MD [Staff Provider] -
--- NOTE | 2018-09-15 07:44 | CP.PCM.PN ---
Subjective - Date & Time of Evaluation Date of Evaluation: 09/12/18 Time of Evaluation: 07:44 - Subjective Subjective: Patient had a repeat chest x-ray showing no evidence of PTX. Patient is comfortable still feeling weak. No leg swelling. We will continue to monitor. The patient is stable tomorrow we will discharge her home Objective - Vital Signs/Intake and Output Vital Signs (last 24 hours): Temp Pulse Resp BP Pulse Ox 97.7 F 81 20 147/88 97 09/13/18 15:52 09/13/18 15:52 09/13/18 15:52 09/13/18 15:52 09/13/18 15:52 - Labs Labs: 09/13/18 07:03 09/13/18 07:03 PT 16.6 SECONDS (9.7-12.2) H 09/10/18 18:37 INR 1.5 09/10/18 18:37 APTT 36 SECONDS (21-34) H 09/10/18 18:37
== END 2018-09-13 18:30 | disposition home or self-care (01) ==
LOC: C.ER 16:06 → C.9E 17:45 → C.6T 18:14
PROVIDERS: ADMIT Internal Medicine; ATTEND Internal Medicine
DX: I50.23 Acute on chronic systolic (congestive) heart failure (principal); I13.0 Hypertensive heart and chronic kidney disease with heart failure and stage 1 through stage 4 chronic kidney disease, or unspecified chronic kidney disease; I48.91 Unspecified atrial fibrillation; N18.9 Chronic kidney disease, unspecified; E78.5 Hyperlipidemia, unspecified; E11.22 Type 2 diabetes mellitus with diabetic chronic kidney disease
CPT/HCPCS: 32555; 36415; 71045; 80048; 80053; 83735; 83880; 84484; 85025; 85610; 85730; 93005; 96374; 97116; 97162; 99285; G0378; G8978; G8979; J1650; J1940; J2270